=== PATIENT | female | born 1975 | race Caucasian/White ===

== ENCOUNTER 2018-12-05 21:36 | Emergency (ER) | payer SELFPAY ==
[2018-12-05] MEDS ORDERED: levETIRAcetam 500 MG/5 ML INJECTION VIAL IVPB ONE ×3 (21:53→23:57)
--- NOTE | 2018-12-05 21:55 | PDOC ---
Attending Attestation - Resident Resident Name: Abdiel Houston - ED Attending Attestation I have performed the following: I have examined & evaluated the patient, The case was reviewed & discussed with the resident, I agree w/resident's findings & plan - HPI HPI: 12/06/18 00:39 see resident hpi - Physicial Exam PE: 12/06/18 00:39 agree with resident exam additional Neuro: active seizure like activity, [place] with grunting moving all extremities, MS 5/5 12/06/18 00:40 - Critical Care Time Total Critical Care Time: 120 Critical Care Statement: The care of this patient involved high complexity decision making to prevent further life threatening deterioration of the patient 's condition and/or to evaluate & treat vital organ system(s) failure or risk of failure. - Medical Decision Making 12/06/18 00:41 43 yo female with multiple seizures CT brain c/w IPH with SAH, possible deep sinus venous thrombosis pt intubated due to multiple seizures and inability to protect airway using RSI IVF BP control with labetolol and nifedipine sedation with versed, propofol pt accepted by neurosurgery at [facility] after discussion with Dr Calvin who recommended transfer code red called,pt transported via ground
[2018-12-05 21:59] VITALS: BMI 23.0
[2018-12-05] MEDS ORDERED: MIDAZOLAM HCL 2 MG/2 ML SINGLE DOSE VIAL ONE ×4 (22:06→23:43)
[2018-12-05] MEDS ORDERED: RAPID SEQUENCE INTUBATION KIT NR ONE (22:07)
[2018-12-05] MEDS ORDERED: PROPOFOL 200 MG/20 ML VIAL IVPUSH ONE ×2 (22:30→23:19)
[2018-12-05] MEDS ORDERED: MIDAZOLAM 100 MG in SODIUM CHLORIDE 100 ML IVPB SCH ×2 (22:30→23:45)
[2018-12-05] MEDS ORDERED: MIDAZOLAM HCL 2 MG/2 ML SINGLE DOSE VIAL IVPUSH ONE ×4 (22:30→23:47)
[2018-12-05] MEDS ORDERED: ROCURONIUM BROMIDE 50 MG/5 ML VIAL IV ONE (22:30)
[2018-12-05 22:54] VITALS: TEMP 97.9
[2018-12-05] MEDS ORDERED: PROPOFOL 1,000,000 MCG/100 ML VIAL ONE (22:56)
[2018-12-05] MEDS ORDERED: PROPOFOL 1,000,000 MCG/100 ML VIAL IVPB SCH (23:00)
[2018-12-05] MEDS ORDERED: LABETALOL HCL 5 MG/1 ML (200MG/40ML VIAL) IVPB ONE (23:11)
[2018-12-05] MEDS ORDERED: NICARDIPINE 25 MG in DEXTROSE 5%-WATER - 240 ML IVPB SCH (23:15)
[2018-12-05] MEDS ORDERED: LABETALOL HCL 5 MG/1 ML (100MG/20 ML VIAL) IVPUSH ONE (23:17)
[2018-12-05 23:27] LABS: BASO % 0.4 % (0-2.0); HEMOGLOBIN 12.9 GM/dL (10.7-15.3); LYMPH % 10.3 % (8-40); MCH 26.2 pg (25.7-33.7); MCHC 30.7 g/dl (32.0-36.0); MEAN CELL VOLUME 85.4 fl (80-96); MEAN PLT VOLUME 8.7 fl (7.5-11.1); MONO % 5.9 % (3.8-10.2); NEUT % 83.4 % (42.8-82.8); PLATELET COUNT 331 K/MM3 (134-434); RBC 4.92 M/mm3 (3.60-5.2); RDW 19.2 % (11.6-15.6); WHITE BLOOD COUNT 20.4 K/mm3 (4.0-10.0)
[2018-12-05 23:47] LABS: INR 0.98 (0.83-1.09); PROTHROMBIN TIME (PATIENT) 11.6 SEC (9.7-13.0)
[2018-12-05 23:50] LABS: ACTIVATED PTT 21.3 SECONDS (25.2-36.5)
[2018-12-05 23:51] LABS: MAGNESIUM 2.6 mg/dL (1.8-2.4); PHOSPHOROUS 2.7 mg/dL (2.5-4.9)
--- NOTE | 2018-12-05 23:51 | PDOC ---
History of Present Illness <Gabriel Hernandez - Last Filed: 12/06/18 00:44> - General History Source: EMS Exam Limitations: No Limitations - History of Present Illness Initial Comments: 12/05/18 23:44 43F w/ pmh of HTN, alcohol abuse, seizure disorder BIBA after experiencing seizures x1 w/ urinary incontinence. Was found to be post-ictal by EMS. Formerly , sober but began drinking again. Unknown if taking seizure medications. Pt's boyfriend said that the patient was recently complaining of HORNER. In the J-ED, patient had myotonic seizures x2. Initial GCS ~7(E1, V2, M4) but improved to GCS ~9(E3, V2, M4). After the 2nd seizure, decision to intubate to protect the airway. <Abdiel Houston - Last Filed: 12/06/18 19:14> - General Chief Complaint: Seizure Stated Complaint: SEIZURE Time Seen by Provider: 12/05/18 21:54 Past History <Gabriel Hernandez - Last Filed: 12/06/18 00:44> - Travel Traveled outside of the country in the last 30 days: No Close contact w/someone who was outside of country & ill: No - Past Medical History Seizures: Yes - Suicide/Smoking/Psychosocial Hx Smoking History: Unknown if ever smoked Hx Alcohol Use: Yes <Abdiel Houston - Last Filed: 12/06/18 19:14> - Past Medical History Allergies/Adverse Reactions: Allergies Allergy/AdvReac Type Severity Reaction Status Date / Time No Known Allergies Allergy Verified 12/05/18 22:04 Review of Systems - Review of Systems Able to Perform ROS?: No (patient is post-ictal) <Abdiel Houston - Last Filed: 12/06/18 19:14> *Physical Exam - Vital Signs Last Vital Signs Temp Pulse Resp BP Pulse Ox 97.9 F 114 H 30 H 150/104 H 96 12/05/18 21:57 12/06/18 00:13 12/06/18 00:13 12/06/18 00:13 12/06/18 00:13 <Gabriel Hernandez - Last Filed: 12/06/18 00:44> - Vital Signs Last Vital Signs Temp Pulse Resp BP Pulse Ox 97.9 F 150 H 20 158/91 100 12/05/18 21:57 12/05/18 22:15 12/05/18 22:15 12/05/18 21:57 12/05/18 22:15 - Physical Exam HEENT: positive: COLE (pupils 4mm - 3mm), Other (NC, AT. Multiple tongue bites) . negative: Pale Conjunctivae, Scleral Icterus (R), Scleral Icterus (L) Neck: positive: Trachea midline. negative: Lymphadenopathy (R), Lymphadenopathy (L) Respiratory/Chest: negative: Chest Tender, Labored Respiration, Decreased Breath Sounds, Crackles, Stridor, Wheezing Cardiovascular: positive: S1, S2, Tachycardia Vascular Pulses: Carotid (R): 2+, Carotid (L): 2+, Dorsalis-Pedis (R): 2+, Doralis-Pedis (L): 2+ Comments:: 12/05/18 23:53 radials 2+ pulses Female Pelvic Exam: positive: normal external exam Gastrointestinal/Abdominal: positive: Soft, Distended, Guarding, Rebound, Tenderness Extremity: positive: Normal Inspection, Normal Range of Motion, Other (no abrasions to elbows, knees) Integumentary: positive: Dry, Warm Neurologic: positive: Respond to painful stimul, Other (max GCS ~9) <Abdiel Houston - Last Filed: 12/06/18 19:14> Procedures - Intubation Time of Intubation: 09:30 Intubation Method: orotracheal Blade used: Mac Tube Size (Fr): 7.0 Medications: Rocuronium, Versed Tube position @ lip (cm): 20 Tube position confirmed by: Direct visualization, CO2 detector, Chest x-ray, Breath sounds Breath Sounds after Intubation: equal Intubation Complications: no complications Post Intubation Xray: Yes <Gabriel Hernandez - Last Filed: 12/06/18 00:44> ED Treatment Course - LABORATORY CBC & Chemistry Diagram: 12/05/18 23:15 - ADDITIONAL ORDERS Additional order review: Laboratory Results 12/05/18 12/05/18 12/05/18 23:15 23:15 23:15 PT with INR 11.60 INR 0.98 PTT (Actin FS) 21.3 L POC Glucometer Phosphorus 2.7 Magnesium Cancelled 2.6 H Troponin I < 0.02 Alcohol, Quantitative < 3.0 12/05/18 22:49 PT with INR INR PTT (Actin FS) POC Glucometer 126 Phosphorus Magnesium Troponin I Alcohol, Quantitative 12/05/18 12/05/18 23:15 22:49 RBC 4.92 MCV 85.4 MCHC 30.7 L RDW 19.2 H MPV 8.7 Neutrophils % 83.4 H Lymphocytes % 10.3 Monocytes % 5.9 Eosinophils % 0.0 Basophils % 0.4 POC Glucometer 126 - Medications Given in the ED: ED Medications Discontinued Medications Generic Name Dose Route Start Last Admin Trade Name Mireille PRN Reason Stop Dose Admin Midazolam HCl 100 mg/ Sodium 100 mls @ 1 mls/hr 12/05/18 22:30 12/05/18 23:08 Chloride IVPB Not Given TITR WADE Protocol 1 MG/HR Labetalol HCl 20 mg 12/05/18 23:17 12/05/18 23:30 Normodyne Injection - IVPUSH 12/05/18 23:18 20 mg ONCE ONE Administration Levetiracetam 1,000 mg 12/05/18 21:56 12/05/18 22:04 Keppra Injection - IVPB 12/05/18 21:57 1,000 mg ONCE ONE Administration Midazolam HCl 4 mg 12/05/18 22:30 12/05/18 22:55 Versed - IVPUSH 12/05/18 22:31 4 mg ONCE ONE Administration Midazolam HCl 4 mg 12/05/18 22:31 12/05/18 22:55 Versed - IVPUSH 12/05/18 22:32 4 mg ONCE ONE Administration Midazolam HCl 4 mg 12/05/18 23:47 12/05/18 23:49 Versed - IVPUSH 12/05/18 23:48 4 mg ONCE ONE Administration Propofol 40,000 mcg 12/05/18 22:30 12/05/18 22:54 Diprivan - IVPUSH 12/05/18 22:31 40,000 mcg ONCE ONE Administration Propofol 40,000 mcg 12/05/18 23:19 12/05/18 23:30 Diprivan - IVPUSH 12/05/18 23:20 40,000 mcg ONCE ONE Administration Rocuronium [place] 60 mg 12/05/18 22:30 12/05/18 22:55 Zemuron - IV 12/05/18 22:31 60 mg ONCE ONE Administration Gabriel Rodriguez - Last Filed: 12/06/18 00:44> - LABORATORY CBC & Chemistry Diagram: 12/05/18 23:15 - ADDITIONAL ORDERS Additional order review: Laboratory Results 12/05/18 12/05/18 23:15 22:49 POC Glucometer 126 Magnesium Cancelled 12/05/18 12/05/18 23:15 22:49 RBC 4.92 MCV 85.4 MCHC 30.7 L RDW 19.2 H MPV 8.7 Neutrophils % 83.4 H Lymphocytes % 10.3 Monocytes % 5.9 Eosinophils % 0.0 Basophils % 0.4 POC Glucometer 126 - Medications Given in the ED: ED Medications Discontinued Medications Generic Name Dose Route Start Last Admin Trade Name Freq PRN Reason Stop Dose Admin Midazolam HCl 100 mg/ Sodium 100 mls @ 1 mls/hr 12/05/18 22:30 12/05/18 23:08 Chloride IVPB Not Given TITR WADE Protocol 1 MG/HR Labetalol HCl 20 mg 12/05/18 23:17 12/05/18 23:30 Normodyne Injection - IVPUSH 12/05/18 23:18 20 mg ONCE ONE Administration Levetiracetam 1,000 mg 12/05/18 21:56 12/05/18 22:04 Keppra Injection - IVPB 12/05/18 21:57 1,000 mg ONCE ONE Administration Midazolam HCl 4 mg 12/05/18 22:30 12/05/18 22:55 Versed - IVPUSH 12/05/18 22:31 4 mg ONCE ONE Administration Midazolam HCl 4 mg 12/05/18 22:31 12/05/18 22:55 Versed - IVPUSH 12/05/18 22:32 4 mg ONCE ONE Administration Propofol 40,000 mcg 12/05/18 22:30 12/05/18 22:54 Diprivan - IVPUSH 12/05/18 22:31 40,000 mcg ONCE ONE Administration Propofol 40,000 mcg 12/05/18 23:19 12/05/18 23:30 Diprivan - IVPUSH 12/05/18 23:20 40,000 mcg ONCE ONE Administration Rocuronium [place] 60 mg 12/05/18 22:30 12/05/18 22:55 Zemuron - IV 12/05/18 22:31 60 mg ONCE ONE Administration <Abdiel Houston - Last Filed: 12/06/18 19:14> Medical Decision Making - Medical Decision Making 12/05/18 23:54 - initial vitals HR 89, BP 158/91, RR 23 - patient became tachycardic to 120-150s, hypertensive to SBP >200s after second seizures - intubation w/ 7Fr ET, 20cm at lips - sedation w/ propofol and precedex - keprra 1g - CT head showing intracranial bleed(left posterior) - On-call Nsx(Dr Calvin) consulted and recommended transfer to [facility] - decision to transfer to [facility](Dr Powers accepted) with recommendation of SBP 120-140s, elevate HOB, another keppra 1g - Patient's brother Steve Esparza([phone]) was contacted and made aware of the ED course and decision to transfer <Abdiel Houston - Last Filed: 12/06/18 19:14> *DC/Admit/Observation/Transfer <Gabriel Hernandez - Last Filed: 12/06/18 00:44> - Discharge Dispostion Decision to Admit order: No - Transfer to Acute Care Facility Receiving Facility: [facility]. <Abdiel Houston - Last Filed: 12/06/18 19:14> Diagnosis at time of Disposition: Seizure - Discharge Dispostion Disposition: TRANSFER ACUTE CARE/OTHER HOSP Condition at time of disposition: Stable
[2018-12-06] MEDS ORDERED: levETIRAcetam 500 MG/5 ML INJECTION VIAL IVPB ONE (00:26)
[2018-12-06] MEDS ORDERED: RAPID SEQUENCE INTUBATION KIT NR ONE (00:27)
[2018-12-06] MEDS ORDERED: ROCURONIUM BROMIDE 50 MG/5 ML VIAL IV ONE (00:27)
[2018-12-06] MEDS ORDERED: PROPOFOL 1,000,000 MCG/100 ML VIAL ONE (00:34)
[2018-12-06 00:47] LABS: ANISOCYTOSIS 1+; MACROCYTOSIS 0; OVALOCYTE 1+; PLATELET ESTIMATE NORMAL
[2018-12-06] MEDS ORDERED: PROPOFOL 200 MG/20 ML VIAL IVPUSH ONE (00:53)
[2018-12-06 02:34] VITALS: BP 158/91
[2018-12-06 02:48] VITALS: PULSE 101
== END 2018-12-06 00:45 | disposition short-term general hospital (02) ==
LOC: JER 21:36
PROC: 0BH17EZ Insertion of Endotracheal Airway into Trachea, Via Natural or Artificial Opening (ICD-10-PCS; principal; 2018-12-05)
PROC: 3E033GC Introduction of Other Therapeutic Substance into Peripheral Vein, Percutaneous Approach (ICD-10-PCS; 2018-12-05)
DX: G40.89 Other seizures (principal); I10 Essential (primary) hypertension; F10.10 Alcohol abuse, uncomplicated; R00.0 Tachycardia, unspecified; I61.8 Other nontraumatic intracerebral hemorrhage
CPT/HCPCS: 36415; 70450-TC; 71045-TC-FY; 72125-TC; 80177; 80307; 82962; 83605; 83735; 84100; 84484; 85025; 85610; 85730; 87086; 99285-25

== ENCOUNTER 2019-02-07 14:20 | Emergency (ER) | payer OTHER ==
--- NOTE | 2019-02-07 14:27 | PDOC ---
Rapid Medical Evaluation Chief Complaint: Lightheaded Time Seen by Provider: 02/07/19 14:24 Medical Evaluation: Allergies Allergy/AdvReac Type Severity Reaction Status Date / Time No Known Allergies Allergy Verified 02/07/19 14:25 02/07/19 14:25 CC: CP, SOB dizziness PE: lateral nystagmus present Orders: cardiac w/u Patient will proceed to ED for further evaluation. Discharge Disposition - Diagnosis Chest pain - Referrals - Patient Instructions - Post Discharge Activity
[2019-02-07 14:29] VITALS: BMI 21.2
[2019-02-07 15:02] LABS: URINE APPEARANCE CLEAR; URINE BILIRUBIN NEGATIVE (NEGATIVE); URINE COLOR YELLOW; URINE GLUCOSE (UA) NEGATIVE (NEGATIVE); URINE KETONE NEGATIVE (NEGATIVE); URINE LEUK ESTERASE NEGATIVE (NEGATIVE); URINE NITRITE NEGATIVE (NEGATIVE); URINE PROTEIN NEGATIVE (NEGATIVE); URINE UROBILINOGEN 0.2 mg/dL (0.2-1.0)
[2019-02-07 15:05] LABS: BASO % 0.8 % (0-2.0); EOS % 12.9 % (0-4.5); HEMATOCRIT 36.4 % (32.4-45.2); HEMOGLOBIN 11.5 GM/dL (10.7-15.3); LYMPH % 36.1 % (8-40); MCH 24.8 pg (25.7-33.7); MCHC 31.5 g/dl (32.0-36.0); MEAN CELL VOLUME 78.8 fl (80-96); MEAN PLT VOLUME 8.5 fl (7.5-11.1); MONO % 7.7 % (3.8-10.2); NEUT % 42.5 % (42.8-82.8); PLATELET COUNT 303 K/MM3 (134-434); RBC 4.62 M/mm3 (3.60-5.2); RDW 18.1 % (11.6-15.6); WHITE BLOOD COUNT 6.8 K/mm3 (4.0-10.0)
[2019-02-07 15:21] LABS: INR 2.8 (0.83-1.09); PROTHROMBIN TIME (PATIENT) 33.4 SEC (9.7-13.0)
[2019-02-07 15:36] LABS: ALBUMIN 3.8 g/dl (3.4-5.0); ALK PHOS 98 U/L (45-117); ANION GAP 6 MMOL/L (8-16); BILIRUBIN,TOTAL 0.2 mg/dL (0.2-1); CALCIUM 9.1 mg/dL (8.5-10.1); CHLORIDE 108 mmol/L (98-107); CO2 26 mmol/L (21-32); CREATININE 0.7 mg/dL (0.55-1.3); GLUCOSE,RANDOM 108 mg/dL (74-106); POTASSIUM 3.9 mmol/L (3.5-5.1); SGOT/AST 25 U/L (15-37); SGPT/ALT 14 U/L (13-61); SODIUM 140 mmol/L (136-145); TOT PROT 7.8 g/dl (6.4-8.2)
--- NOTE | 2019-02-07 15:54 | PDOC ---
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 She also admits to have not taken any of her medication this morning. Also admits to have drunk one beer this morning. Never head neurology follow up as her insurance didn't cover the neurologist given to her at discharge. Past History - Past Medical History Allergies/Adverse Reactions: Allergies Allergy/AdvReac Type Severity Reaction Status Date / Time No Known Allergies Allergy Verified 02/07/19 14:25 Home Medications: Ambulatory Orders Aspirin [ASA -] 325 mg PO DAILY 02/07/19 Atorvastatin Ca [Lipitor] 40 mg PO HS 02/07/19 Metoprolol Succinate 25 mg PO DAILY 02/07/19 COPD: No HTN: Yes Seizures: Yes - Immunization History Immunization Up to Date: Yes - Psycho Social/Smoking Cessation Hx Smoking History: Never smoked Hx Alcohol Use: No Drug/Substance Use Hx: No Review of Systems - Review of Systems Able to Perform ROS?: Yes Is the patient limited Wolof proficient: No Constitutional: No: Symptoms Reported HEENTM: No: Symptoms Reported Respiratory: No: Symptoms reported Cardiac (ROS): Yes: See HPI ABD/GI: No: Symptoms Reported : No: Symptoms Reported Musculoskeletal: No: Symptoms Reported Integumentary: No: Symptoms Reported Neurological: Yes: See HPI All Other Systems: Reviewed and Negative *Physical Exam - Vital Signs Last Vital Signs Temp Pulse Resp BP Pulse Ox 98.2 F 85 17 176/101 H 100 02/07/19 14:26 02/07/19 14:26 02/07/19 14:26 02/07/19 14:26 02/07/19 14:26 - Physical Exam General Appearance: Yes: Nourished, Appropriately Dressed. No: Apparent Distress HEENT: positive: EOMI, COLE, Normal ENT Inspection Respiratory/Chest: positive: Lungs Clear, Normal Breath Sounds. negative: Chest Tender, Respiratory Distress Cardiovascular: positive: Regular Rhythm, Regular Rate, S1, S2 Gastrointestinal/Abdominal: positive: Normal Bowel Sounds, Flat, Soft. negative : Tender Musculoskeletal: positive: Normal Inspection. negative: CVA Tenderness Extremity: positive: Normal Capillary Refill, Normal Inspection, Normal Range of Motion Integumentary: positive: Normal Color, Dry, Warm Neurologic: positive: Fully Oriented, Alert, Normal Mood/Affect, Normal Response ED Treatment Course - LABORATORY CBC & Chemistry Diagram: 02/07/19 14:44 02/07/19 14:44 - ADDITIONAL ORDERS Additional order review: Laboratory Results 02/07/19 02/07/19 02/07/19 14:44 14:44 14:44 PT with INR 33.40 H INR 2.80 H Sodium Potassium Chloride Carbon Dioxide Anion Gap BUN Creatinine Est GFR (CKD-EPI)AfAm Est GFR (CKD-EPI)NonAf Random Glucose Calcium Total Bilirubin AST ALT Alkaline Phosphatase Creatine Kinase Troponin I Total Protein Albumin Urine Color Yellow Urine Appearance Clear Urine pH 7.0 Ur Specific [place] 1.003 L Urine Protein Negative Urine Glucose (UA) Negative Urine Ketones Negative Urine Blood Negative Urine Nitrite Negative Urine Bilirubin Negative Urine Urobilinogen 0.2 Ur Leukocyte Esterase Negative Urine HCG, Qual Negative 02/07/19 02/07/19 14:44 14:44 PT with INR INR Sodium 140 Potassium 3.9 Chloride 108 H Carbon Dioxide 26 Anion Gap 6 L BUN 5.0 L Creatinine 0.7 Est GFR (CKD-EPI)AfAm 123.86 Est GFR (CKD-EPI)NonAf 106.87 Random Glucose 108 H Calcium 9.1 Total Bilirubin 0.2 AST 25 ALT 14 Alkaline Phosphatase 98 Creatine Kinase 52 Cancelled Troponin I < 0.02 Cancelled Total Protein 7.8 Albumin 3.8 Urine Color Urine Appearance Urine pH Ur Specific [place] Urine Protein Urine Glucose (UA) Urine Ketones Urine Blood Urine Nitrite Urine Bilirubin Urine Urobilinogen Ur Leukocyte Esterase Urine HCG, Qual 02/07/19 14:44 RBC 4.62 MCV 78.8 L MCHC 31.5 L RDW 18.1 H MPV 8.5 Neutrophils % 42.5 L D Lymphocytes % 36.1 D Monocytes % 7.7 Eosinophils % 12.9 H D Basophils % 0.8 - RADIOLOGY Radiology Studies Ordered: Category Date Time Status HEAD CT WITHOUT CONTRAST [CT] Stat CT Scan 02/07/19 15:43 Ordered Medical Decision Making - Medical Decision Making 02/07/19 16:28 44F w/ pmh of HTN, alcohol abuse, seizure disorder 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 Will check ct head to make sure shes not bleeding again as the ource of her headache. Will check troponins as we has a known clotting disorder. CT head: There is no evidence of acute intracranial hemorrhage, mass lesions or infarctions. There is an area of hypodensity within the left posterior temporal lobe consistent with an old hemorrhagic infarct. The visualized paranasal sinuses and mastoid air cells are clear. 02/07/19 17:59 Patient feels much better after administration of saline, tylenol and reglan. Ok to dc with neurological follow up. Discharge - Discharge Information Problems reviewed: Yes Clinical Impression/Diagnosis: Dizziness, Headache Condition: Improved Disposition: HOME - Admission No - Follow up/Referral Referrals: ON STAFF,NOT [Primary Care Provider] - Ashu Motley MD [Staff Physician] - Pavel Betts MD [Staff Physician] - Claus Bradshaw MD [Staff Physician] - Perry Rubio MD [Staff Physician] - Yung Echevarria MD [Staff Physician] - Camille Munroe MD [Staff Physician] - - Patient Discharge Instructions Patient Printed Discharge Instructions: DI for Migraine Additional Instructions: Follow up with any of the neurologists provided here. Come back to the emergency department immediately for any new, worsening or concerning symptoms. - Post Discharge Activity
[2019-02-07] MEDS ORDERED: ACETAMINOPHEN 1000 MG/100 ML VIAL (NON FORMULARY) IVPB ONE (15:56)
[2019-02-07] MEDS ORDERED: SODIUM CHLORIDE 1,000 ML IV STA (15:57)
[2019-02-07] MEDS ORDERED: METOCLOPRAMIDE HCL INJECTION 10 MG/2 ML VIAL IVPUSH ONE (15:57)
--- NOTE | 2019-02-07 16:00 | PDOC ---
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 dizziness started last night. she admits to drinking 1 bottle of beer last night. she also did not sleep last night, has been "running around all day" going to see her mother. compliant with her medications: metoprolol, atorvastatin, ASA and warfarin. no fevers, no seizure, confusion/AMS, no cough or congestion, weakness, paresthesias, n/v, urinary sx. no difficulty walking. no meds taken for headache. - Physicial Exam PE: 02/07/19 16:00 Agree with the resident's HPI and PE as documented in the electronic medical record. NAD, well appearing, EOMI, PERRL, nl conjunctiva, anicteric; neck supple. lungs clear, RRR, abdomen soft nontender. no rebound, guarding. Back nontender. HUA x4, no focal neuro deficits. No peripheral edema. normal color for ethnicity , WWP. Alert, oriented to person time and place. CN II-XII grossly intact. Strength prox and distally 5/5 throughout. Sensation grossly intact to light touch. HUA x4. No cerebellar signs, no dysmetria, bilateral finger to nose and heel to cisneros equal and symmetric. Speech clear. 02/07/19 16:00 - Medical Decision Making 02/07/19 16:00 Vital Signs Temp Pulse Resp BP Pulse Ox 98.2 F 85 17 176/101 H 100 02/07/19 14:26 02/07/19 14:26 02/07/19 14:26 02/07/19 14:26 02/07/19 14:26 Laboratory results are normal, INR is therapeutic 2.8, electrolytes normal troponin is negative, UA is also unremarkable. neg preg test. CT head with left posterior old hemorrhagic infarct, no new bleed or mass interventions: IVF reglan and tylenol, reassess neuro intact. repeat BP improved feels much better after regimen on reeval, down to 09/24 neuro referrals given avoid triggers for headache, enough sleep, avoid alcohol and precipitants. Pt to be discharged in stable condition. Patient and family made aware of clinical impression, treatment recommendations and disposition plan, return precautions discussed (including but not limited to new or persistent/worsening symptoms, pain, fevers, or signs of infection, chest pain, respiratory distress , inability to tolerate oral intake, dehydration, syncope, or neurologic changes ). Follow up with PMD and/or neuro specialists as recommended, follow up information provided, take medications as instructed for duration of time. continue with supportive care, avoid triggers and precipitants. All questions answered to patient's satisfaction and expressed understanding and comfort with this. At the time of discharge, the patient is alert, clinically improved, tolerating po and verbalizes understanding of instructions, satisfied with the care received and felt comfortable with the plan. Patient does not suffer from an acute life-threatening medical condition at this time and is safe for outpatient follow-up. 02/07/19 17:09 02/07/19 17:10 02/07/19 18:01 Heart Score/ECG Review #1 ECG reviewed & interpreted by me at: 14:20 General ECG Interpretation: Sinus Rhythm, Normal Rate, Normal Intervals Compared to previous ECG there are: Previous ECG unavail 02/07/19 16:27 rate 66 bpm, nonspecific T wave abnormalities AVL only
[2019-02-07] MEDS ORDERED: ACETAMINOPHEN INJECTION 100 ML IVPB ONE (16:28)
[2019-02-07] MEDS ORDERED: METOCLOPRAMIDE HCL INJECTION 10 MG/2 ML VIAL ONE (16:28)
[2019-02-07 18:18] VITALS: BP 130/78; PULSE 88; TEMP 97.9
--- NOTE | 2019-02-08 13:34 | EKG ---
Test Reason : Blood Pressure : / mmHG Vent. Rate : 066 BPM Atrial Rate : 066 BPM P-R Int : 136 ms QRS Dur : 070 ms QT Int : 388 ms P-R-T Axes : 058 050 068 degrees QTc Int : 406 ms NORMAL SINUS RHYTHM POSSIBLE LEFT ATRIAL ENLARGEMENT SEPTAL INFARCT , AGE UNDETERMINED ABNORMAL ECG NO PREVIOUS ECGS AVAILABLE Confirmed by EMILEE WHITE MD ([id number]) on 02/08/2019 1:33:54 PM Referred By: Confirmed By:EMILEE WHITE MD
== END 2019-02-07 18:18 | disposition home or self-care (01) ==
LOC: JER 14:20
DX: R42 Dizziness and giddiness (principal); R51 Headache; I10 Essential (primary) hypertension; G40.909 Epilepsy, unspecified, not intractable, without status epilepticus; F10.10 Alcohol abuse, uncomplicated; Z86.73 Personal history of transient ischemic attack (TIA), and cerebral infarction without residual deficits
CPT/HCPCS: 36415; 70450-TC; 71046-TC-FY; 80053; 80307; 81003; 82550; 84484; 84703; 85025; 85610; 86850; 86900; 86901; 93005; 93010; 99284-25; J0131; J7030

== ENCOUNTER 2019-02-24 15:18 | Inpatient (IN) | payer OTHER ==
[2019-02-24] MEDS ORDERED: PROPOFOL 0 ML ONE (15:22)
[2019-02-24] MEDS ORDERED: PROPOFOL 2,000,000 MCG/200 ML VIAL ONE (15:22)
[2019-02-24] MEDS ORDERED: PROPOFOL 20 ML ONE (15:43)
[2019-02-24] MEDS ORDERED: fentaNYL CITRATE 250 MCG/5 ML VIAL ONE (16:08)
[2019-02-24] MEDS ORDERED: levETIRAcetam 500 MG/5 ML INJECTION VIAL IVPB ONE (16:09)
[2019-02-24] MEDS ORDERED: ETOMIDATE 40 MG/20 ML VIAL IVPUSH ONE (16:10)
[2019-02-24] MEDS ORDERED: SUCCINYLCHOLINE CHLORIDE 200 MG/10 ML VIAL IVPUSH ONE (16:11)
--- NOTE | 2019-02-24 16:21 | PDOC ---
Documentation entered by Ivet Britt SCRIBE, acting as scribe for Kanwal Ramírez MD. Kanwal Ramírez MD: This documentation has been prepared by the Lorenza lloyd Nirvannie, SCRIBE, under my direction and personally reviewed by me in its entirety. I confirm that the documentation accurately reflects all work, treatment, procedures, and medical decision making performed by me. Attending Attestation - Resident Resident Name: HallSkylar aguilar - HPI HPI: 02/24/19 16:11 Pt presents to the ED after brought in by her for rigid posturing and altered mental status. Patient apparently complained of severe headache and then was found by her awake but unable to speak with a rigid R arm and awake but unable to speak. Extremely hypertensive on arrival to the ED. On arrival to the ED, found to have tonic clonic movements, hypoxic, with clenched jaw and bleeding from the mouth. Patient continued to seize despite keppra 1 g and ativan 4 mg IV. Intubated for status epilepticus. - Physicial Exam PE: 02/24/19 16:15 Agree with resident exam. Gen: + tonic clonic movements on arrival to the ED, clenched jaw, and hypoxia. HEENT: normocephalic, atraumatic. CV: rrr no m/r/g Pulm: + rhonchi b/l. Abdomen: soft, non tender, non distended. Ext: atraumatic , no edema. - Critical Care Time Total Critical Care Time: 45 Critical Care Statement: The care of this patient involved high complexity decision making to prevent further life threatening deterioration of the patient 's condition and/or to evaluate & treat vital organ system(s) failure or risk of failure. - Medical Decision Making 02/24/19 16:18 Pt presents to the ED in status epilepticus. No response to keppra and ativan. Intubated in the ED. Case discussed with Dr. Munroe who recommends that the paitent remain intubated in the ICU. Dr. Munroe asks to be called for recurrent seizures. Will continue sedation with propofol and fentanyl and admit to ICU.
[2019-02-24] MEDS ORDERED: MIDAZOLAM IN 0.9 % SOD.CHLORID 1 MG/1 ML PLAST..BAG ONE (16:23)
[2019-02-24 16:34] LABS: BASO % 0.9 % (0-2.0); EOS % 11.3 % (0-4.5); HEMATOCRIT 36.6 % (32.4-45.2); HEMOGLOBIN 11.2 GM/dL (10.7-15.3); LYMPH % 25.2 % (8-40); MCH 24.4 pg (25.7-33.7); MCHC 30.7 g/dl (32.0-36.0); MEAN CELL VOLUME 79.4 fl (80-96); MEAN PLT VOLUME 8.5 fl (7.5-11.1); MONO % 6.1 % (3.8-10.2); NEUT % 56.5 % (42.8-82.8); PLATELET COUNT 273 K/MM3 (134-434); RBC 4.61 M/mm3 (3.60-5.2); RDW 17.6 % (11.6-15.6); WHITE BLOOD COUNT 10.4 K/mm3 (4.0-10.0)
[2019-02-24 16:38] LABS: EPI CELLS 1.4 /HPF (0-5/HPF); HYALINE CASTS 4 /lpf (0-8); PH,URINE 5.5 (5.0-8.0); URINE APPEARANCE CLEAR; URINE BACTERIA 15.8 /hpf (NEGATIVE); URINE BILIRUBIN NEGATIVE (NEGATIVE); URINE COLOR YELLOW; URINE GLUCOSE (UA) NEGATIVE (NEGATIVE); URINE KETONE NEGATIVE (NEGATIVE); URINE LEUK ESTERASE NEGATIVE (NEGATIVE); URINE NITRITE NEGATIVE (NEGATIVE); URINE PROTEIN 2+ (NEGATIVE); URINE RBC 8 /hpf (0-4); URINE UROBILINOGEN 0.2 mg/dL (0.2-1.0); URINE WBC 1 /hpf (0-5)
[2019-02-24 16:47] LABS: INR 3.33 (0.83-1.09); PROTHROMBIN TIME (PATIENT) 39.8 SEC (9.7-13.0)
[2019-02-24 16:49] LABS: ACTIVATED PTT 40.8 SECONDS (25.2-36.5)
--- NOTE | 2019-02-24 16:53 | PDOC ---
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 reports that patient had been complaining of headaches for the past day which had been worsening, they had just agreed to come into the ER. The patient reportedly confirmed that she wanted an ambulance called, then became unresponsive and began having seizure like activity. Patient BIBEMS into ER and shortly thereafter begins having generalized tonic clonic seizures. Unable to gather any history from patient. reports that patient has beers hidden through the house and does not know how much she drinks or when she last drank. Past History - Past Medical History Allergies/Adverse Reactions: Allergies Allergy/AdvReac Type Severity Reaction Status Date / Time No Known Allergies Allergy Verified 02/07/19 14:25 Home Medications: Ambulatory Orders Aspirin [ASA -] 325 mg PO DAILY 02/07/19 Atorvastatin Ca [Lipitor] 40 mg PO HS 02/07/19 Metoprolol Succinate 25 mg PO DAILY 02/07/19 Coumadin 3 mg PO DAILY 02/26/19 CVA: Yes (CVA) COPD: No HTN: Yes Seizures: Yes - Immunization History Immunization Up to Date: Yes - Psycho Social/Smoking Cessation Hx Smoking History: Unknown if ever smoked Have you smoked in the past 12 months: No Information on smoking cessation initiated: No Hx Alcohol Use: No Drug/Substance Use Hx: No Review of Systems - Review of Systems Able to Perform ROS?: No (clinical condition) *Physical Exam - Vital Signs Last Vital Signs Temp Pulse Resp BP Pulse Ox 98.2 F 121 H 12 220/112 H 100 02/24/19 15:18 02/24/19 15:18 02/24/19 15:20 02/24/19 15:18 02/24/19 16:18 - Physical Exam Comments: 02/24/19 19:08 Gen: patient unresponsive, not alert Neuro: unable to assess cranial nerves, patient unresponsive to orientation questions, patient moving limbs spontaneously, pupils about 1mm and minimally reactive to light without skew HEENT: atraumatic, normocephalic, dry mucous membranes Neck: trachea midline, supple CV: tachycardic, regular rhythm, no murmurs, rubs, or gallops Pulm: CTA b/l, no wheezing Abd: soft, non-distended, non-tender MSK: rigid extremities, intact pulses Extr: no edema, no deformities Skin: warm, dry ED Treatment Course - LABORATORY CBC & Chemistry Diagram: 02/28/19 06:40 02/28/19 06:40 - ADDITIONAL ORDERS Additional order review: Laboratory Results 02/24/19 02/24/19 16:00 16:00 PT with INR 39.80 H INR 3.33 H PTT (Actin FS) 40.8 H Urine Color Yellow Urine Appearance Clear Urine pH 5.5 D Ur Specific [place] 1.014 Urine Protein 2+ H Urine Glucose (UA) Negative Urine Ketones Negative Urine Blood 1+ H Urine Nitrite Negative Urine Bilirubin Negative Urine Urobilinogen 0.2 Ur Leukocyte Esterase Negative Urine WBC (Auto) 1 Urine RBC (Auto) 8 Urine Casts (Auto) 4 U Epithel Cells (Auto) 1.4 Urine Bacteria (Auto) 15.8 02/24/19 16:00 RBC 4.61 MCV 79.4 L MCHC 30.7 L RDW 17.6 H MPV 8.5 Neutrophils % 56.5 D Lymphocytes % 25.2 D Monocytes % 6.1 Eosinophils % 11.3 H Basophils % 0.9 - Medications Given in the ED: ED Medications Discontinued Medications Generic Name Dose Route Start Last Admin Trade Name Freq PRN Reason Stop Dose Admin Etomidate 20 mg 02/24/19 16:10 02/24/19 16:17 Amidate - IVPUSH 02/24/19 16:11 20 mg NOW ONE Administration Levetiracetam 1,000 mg 02/24/19 16:09 02/24/19 16:17 Keppra Injection - IVPB 02/24/19 16:10 1,000 mg ONCE ONE Administration Lorazepam 4 mg 02/24/19 16:09 02/24/19 16:17 Ativan Injection - IVPUSH 02/24/19 16:10 4 mg ONCE ONE Administration Succinylcholine Chloride 200 mg 02/24/19 16:11 02/24/19 16:17 Quelicin - IVPUSH 02/24/19 16:12 200 mg ONCE ONE Administration Medical Decision Making - Critical Care Time Total Critical Care Time (minutes): 120 Critical Care Statement: The care of this patient involved high complexity decision making to prevent further life threatening deterioration of the patient 's condition and/or to evaluate & treat vital organ system(s) failure or risk of failure. - Medical Decision Making 02/24/19 18:30 Patient with history of seizure 2/2 stroke, hypercoagulable on coumadin. - CT head without acute bleed or mass - INR 3.33 - CBC, CMP - Lactate 9.3. - UTox positive for cocaine. 02/24/19 18:45 Course: Patient frankly seizing upon arrival to the ED. Did not respond to 4mg of Ativan and 1000mg of Keppra. Patient intubated using 20 of etomidate and 100mg X2 of succinylcholine, tube 22 at the lip. Patient with vomitus, suspicious for possible aspiration. Started propofol drip at 5, started on ventilator, then transported to CT head. While on table, patient with more seizure like activity and propofol drip increased to 10. Patient back into ER bed 10, begin fentanyl in addition to propofol. Patient then became hypotensive, all drips stopped and fluids started. Patient began to wake up and pulled out her NG tube, pressures holding, so she was started back on midazolam. ICU was consulted and patient was admitted to ICU. Discharge - Discharge Information Problems reviewed: Yes Clinical Impression/Diagnosis: Seizure - Follow up/Referral - Patient Discharge Instructions - Post Discharge Activity
[2019-02-24 17:01] LABS: ALBUMIN 3.6 g/dl (3.4-5.0); BILIRUBIN,TOTAL 0.2 mg/dL (0.2-1); BLOOD UREA NITROGEN 13.2 mg/dL (7-18); CALCIUM 8.6 mg/dL (8.5-10.1); CREATININE 1.3 mg/dL (0.55-1.3); MAGNESIUM 2.5 mg/dL (1.8-2.4); POTASSIUM 4.4 mmol/L (3.5-5.1); TOT PROT 7.6 g/dl (6.4-8.2)
[2019-02-24 17:13] LABS: ARTERIAL BLD GAS O2 SATURATION 99.7 % (95-98); ARTERIAL BLOOD GAS BASE EXCESS -2.8 meq/l (-2-2); ARTERIAL BLOOD GAS PCO2 48.5 mmHg (35-45); ARTERIAL BLOOD GAS PO2 325 mmHg (80-100); CARBOXYHEMOGLOBIN 0.5 % (0-2)
[2019-02-24 17:15] LABS: ALLENS TEST POSITIVE
[2019-02-24] MEDS ORDERED: MIDAZOLAM HCL 2 MG/2 ML SINGLE DOSE VIAL ONE ×3 (17:15→18:32)
[2019-02-24 17:16] LABS: METHADONE, UR NEGATIVE ng/ml (CUTOFF=300); OPIATES, URI NEGATIVE ng/ml (CUTOFF=300); PHENCYCLIDINE,URINE NEGATIVE ng/ml (CUTOFF=25); URINE AMPHETAMINES NEGATIVE ng/ml (CUTOFF=500); URINE BARBITURATES NEGATIVE ng/ml (CUTOFF=200); URINE BENZODIAZEPINES NEGATIVE ng/ml (CUTOFF=200)
[2019-02-24 17:18] LABS: COCAINE, UR POSITIVE ng/ml (CUTOFF=300)
--- NOTE | 2019-02-24 17:22 | CONSULT ---
Consultation: REQUESTING PROVIDER: CONSULT REQUEST: ICU HISTORY OF PRESENT ILLNESS: Ashley Sanchez is a 44yF w PMHx HTN, alcohol abuse, hypercoagulable, recent dural venous sinus thrombosis, hemorrhagic stroke 3mo ago, seizure, presenting with seizure. Pt was sedated on examination and unable to provide hx. Per boyfriend, pt complained of severe headache, found by boyfriend unable to speak or move R arm. On arrival at ED, pt was hypertensive, had tonic clonic mvmnt, hypoxic, clenched jaw, bleeding from mouth. Continued to seize after keppra, etomidate, and ativan, subsequently sedated w propofol, intubated for status epilepticus. Also given versed and fentanyl after intubation. Utox positive for cocaine. Was transferred from [facility] to [facility] on 12/26/18 for GTC seizure. CTH showed L sided ICH/SAH, CT venogram showed L transverse and sigmoid sinus dural venous sinus thrombosis extending into L IJV, workup showed hypercoagulable state + for beta-2 glycoprotein. D/c on coumadin for AC, metoprolol and prinivil for HTN, albuterol for SOB. REVIEW OF SYSTEMS: Pt sedated, unable to obtain PHYSICAL EXAMINATION Vital Signs - 24 hr 02/24/19 02/24/19 02/24/19 15:18 15:20 15:30 Temperature 98.2 F 36.8 F L Pulse Rate 121 H Pulse Rate [ 89 Left Radial] Respiratory 16 12 20 Rate Blood Pressure 220/112 H Blood Pressure 154/123 H [Left Arm] O2 Sat by Pulse 98 100 Oximetry (%) 02/24/19 02/24/19 02/24/19 16:00 16:15 16:18 Temperature 36.8 F L 36.8 F L Pulse Rate Pulse Rate [ 88 89 Left Radial] Respiratory 20 20 Rate Blood Pressure Blood Pressure 117/81 126/100 [Left Arm] O2 Sat by Pulse 100 100 100 Oximetry (%) 02/24/19 02/24/19 02/24/19 16:35 16:52 16:57 Temperature 36.8 F L 36.8 F L 36.8 F L Pulse Rate Pulse Rate [ 82 71 72 Left Radial] Respiratory 20 20 20 Rate Blood Pressure Blood Pressure 60/45 L 87/53 L 96/63 [Left Arm] O2 Sat by Pulse 100 100 100 Oximetry (%) 02/24/19 17:06 Temperature 36.8 F L Pulse Rate Pulse Rate [ 73 Left Radial] Respiratory 20 Rate Blood Pressure Blood Pressure 101/71 [Left Arm] O2 Sat by Pulse 100 Oximetry (%) GENERAL: Sedated, in no acute distress. HEAD: Normal with no signs of trauma. EYES: Pupils equal, pinpoint, conjunctiva clear. LUNGS: Coarse breath sounds kulwinder. No wheezes, and no crackles. No accessory muscle use HEART: Regular rate and rhythm, normal S1 and S2 without murmur, rub or gallop. ABDOMEN: Soft, nontender, not distended, normoactive bowel sounds, no guarding, no rebound, no masses. No hepatomegaly or splenomegaly. EXTREMITIES: warm, well-perfused. No cyanosis. Cap refill <2 seconds. No peripheral edema. NEUROLOGICAL: Sedated. Laboratory Results - last 24 hr 02/24/19 02/24/19 02/24/19 16:00 16:00 16:00 WBC 10.4 H RBC 4.61 Hgb 11.2 Hct 36.6 MCV 79.4 L MCH 24.4 L MCHC 30.7 L RDW 17.6 H Plt Count 273 MPV 8.5 Absolute Neuts (auto) 5.9 Neutrophils % 56.5 D Lymphocytes % 25.2 D Monocytes % 6.1 Eosinophils % 11.3 H Basophils % 0.9 Nucleated RBC % 0 PT with INR 39.80 H INR 3.33 H PTT (Actin FS) 40.8 H Anticoagulation Therapy O2 Delivery Device Oxygen Flow Rate Vent Mode Vent Rate Mechanical Rate Pressure Support Vent Sodium Potassium Chloride Carbon Dioxide Anion Gap BUN Creatinine Est GFR (CKD-EPI)AfAm Est GFR (CKD-EPI)NonAf Random Glucose Calcium Magnesium Total Bilirubin AST ALT Alkaline Phosphatase Total Protein Albumin Serum , Qual Urine Color Urine Appearance Urine pH Ur Specific [place] Urine Protein Urine Glucose (UA) Urine Ketones Urine Blood Urine Nitrite Urine Bilirubin Urine Urobilinogen Ur Leukocyte Esterase Urine WBC (Auto) Urine RBC (Auto) Urine Casts (Auto) U Epithel Cells (Auto) Urine Bacteria (Auto) Urine HCG, Qual Alcohol, Quantitative < 3.0 02/24/19 02/24/19 02/24/19 16:00 16:00 16:00 WBC RBC Hgb Hct MCV MCH MCHC RDW Plt Count MPV Absolute Neuts (auto) Neutrophils % Lymphocytes % Monocytes % Eosinophils % Basophils % Nucleated RBC % PT with INR INR PTT (Actin FS) Anticoagulation Therapy O2 Delivery Device Oxygen Flow Rate Vent Mode Vent Rate Mechanical Rate Pressure Support Vent Sodium 138 Potassium 4.4 Chloride 106 Carbon Dioxide 19 L Anion Gap 12 BUN 13.2 Creatinine 1.3 Est GFR (CKD-EPI)AfAm 58.60 Est GFR (CKD-EPI)NonAf 50.56 Random Glucose 120 H Calcium 8.6 Magnesium 2.5 H Total Bilirubin 0.2 AST 30 ALT 24 Alkaline Phosphatase 123 H Total Protein 7.6 Albumin 3.6 Serum , Qual Negative Urine Color Yellow Urine Appearance Clear Urine pH 5.5 D Ur Specific [place] 1.014 Urine Protein 2+ H Urine Glucose (UA) Negative Urine Ketones Negative Urine Blood 1+ H Urine Nitrite Negative Urine Bilirubin Negative Urine Urobilinogen 0.2 Ur Leukocyte Esterase Negative Urine WBC (Auto) 1 Urine RBC (Auto) 8 Urine Casts (Auto) 4 U Epithel Cells (Auto) 1.4 Urine Bacteria (Auto) 15.8 Urine HCG, Qual Alcohol, Quantitative 02/24/19 02/24/19 16:29 16:54 WBC RBC Hgb Hct MCV MCH MCHC RDW Plt Count MPV Absolute Neuts (auto) Neutrophils % Lymphocytes % Monocytes % Eosinophils % Basophils % Nucleated RBC % PT with INR INR PTT (Actin FS) Anticoagulation Therapy No Result Required. O2 Delivery Device No Result Required. Oxygen Flow Rate No Result Required. Vent Mode No Result Required. Vent Rate No Result Required. Mechanical Rate No Result Required. Pressure Support Vent No Result Required. Sodium Potassium Chloride Carbon Dioxide Anion Gap BUN Creatinine Est GFR (CKD-EPI)AfAm Est GFR (CKD-EPI)NonAf Random Glucose Calcium Magnesium Total Bilirubin AST ALT Alkaline Phosphatase Total Protein Albumin Serum , Qual Urine Color Urine Appearance Urine pH Ur Specific [place] Urine Protein Urine Glucose (UA) Urine Ketones Urine Blood Urine Nitrite Urine Bilirubin Urine Urobilinogen Ur Leukocyte Esterase Urine WBC (Auto) Urine RBC (Auto) Urine Casts (Auto) U Epithel Cells (Auto) Urine Bacteria (Auto) Urine HCG, Qual Negative Alcohol, Quantitative ASSESSMENT/PLAN: Ashley Sanchez is a 44yF w PMHx HTN, alcohol abuse, hypercoagulable state, dural venous sinus thrombosis, hemorrhagic stroke 3mo ago, seizure, presenting with seizure likely 2/2 alcohol/cocaine vs medication noncompliance. Neuro - status epilepticus 2/2 alcohol/cocaine vs med non-compliance - UTox showed +cocaine - sedated w propofol, versed, fentanyl - loaded w keppra, continue 500 keppra BID - CTH 02/24 showed no acute bleed/infarct/mass/fx - neuro checks q1h, seizure precautions - MRV of the head to r/o sinus thrombosis when extubated - appreciate neuro consults Cards - hx HTN, currently hypotensive - elevated lactate 9.3 likely d/t demand, trend - holding metoprolol 2/2 hypotension - maintain MAP >65, responded to 1L NS - DVT ppx Pulm - intubated - CXR 02/24 showed cardiomegaly, clear lung corea - serial ABGs GI - elevated ALP 123 - NPO - IV fluids - I/O Heme - hx hypercoagulable state + for beta-2 glycoprotein - holding coumadin/heparin drip until tmrw 2/2 supratherapeutic INR 3.33 - serial CBC Endo - no active issues ID - leukocytosis WBC 10.4 likely reactive to seizure, trend - no evidence of UTI - pending blood/urine cx PPX - SCDs - no GI ppx FEN - NS @100mL/hr - hyperMg - NPO Dispo: ICU Visit type - Emergency Visit Emergency Visit: Yes ED Registration Date: 02/24/19 Care time: The patient presented to the Emergency Department on the above date and was hospitalized for further evaluation of their emergent condition. - New Patient This patient is new to me today: Yes Date on this admission: 02/24/19 - Critical Care Critical Care patient: Yes Total Critical Care Time (in minutes): 37 Critical Care Statement: The care of this patient involved high complexity decision making to prevent further life threatening deterioration of the patient 's condition and/or to evaluate & treat vital organ system(s) failure or risk of failure. ATTENDING PHYSICIAN STATEMENT I saw and evaluated the patient. I reviewed the resident's note and discussed the case with the resident. I agree with the resident's findings and plan as documented. SUBJECTIVE: OBJECTIVE: ASSESSMENT AND PLAN:
[2019-02-24] MEDS ORDERED: SODIUM CHLORIDE 1,000 ML IV SCH (18:00)
--- NOTE | 2019-02-24 18:24 | HP ---
CHIEF COMPLAINT: Seizures PCP: HISTORY OF PRESENT ILLNESS: 44 y/o F, pmh of HTN, alcohol abuse, hx of dural venous thrombosis, and hemorrhagic stroke 3 months ago requiring hospitalization at [facility] ([facility] placed pt on coumadin?), presents today s/p seizures. Pt was brought in by EMS for uncontrollable seizures that was not responsive to ativan and keppra. Pt's boyfriend reports that she was admitted at [facility] for an hemorrhagic stroke 3 months ago that required intervention and intermediate therapy on coumadin. However , boyfriend is unable to verify pt's medical hx and was on his way to obtain medical records from [facility]. In the ED, pt's seizures were unresponsive to medical therapy, so she was intubated and given propofol and fentanyl. Pt was taken to CAT scan for imaging, where she seized again and was given an increased dose of propofol. Then she returned to the ED and became hypotensive, during which they had to stop propofol and start pt on Versed. Dr. Munroe was consulted and he advised to admit pt on ICU and monitor. ER course was notable for: (1) Keppra 1 g and Ativan 4mg (2) Pt intubated (3) Urine tox- Positive for cocaine Recent Travel: Unable to obtain PAST MEDICAL HISTORY: HTN, alcohol abuse, hx of DVT, and hemorrhagic stroke 3 months ago requiring hospitalization at [facility] PAST SURGICAL HISTORY: Unable to obtain Social History: Smoking: Unable to obtain Alcohol: hx of alcohol abuse Drugs: Utox positive for Cocaine Allergies No Known Allergies Allergy (Verified 02/07/19 14:25) REVIEW OF SYSTEMS Unable to obtain PHYSICAL EXAMINATION Vital Signs - 24 hr Last Vital Signs Temp Pulse Resp BP Pulse Ox 36.8 F L 93 H 17 102/68 99 02/24/19 17:36 02/24/19 18:03 02/24/19 17:48 02/24/19 18:03 02/24/19 17:48 GENERAL: minimally responsive, responds to pain stimuli. Intubated. EYES: Pupils reactive but mildly constricted LUNGS: PT intubated- difficult to check breath sounds. However, pts breath sounds were appreciated HEART: Regular rate, normal S1 and S2 without murmur, rub or gallop. ABDOMEN: Soft, nontender, not distended, normoactive bowel sounds, no guarding, no rebound, no masses. UPPER EXTREMITIES: 2+ pulses, warm, no edema LOWER EXTREMITIES: 2+ pulses, warm, no edema SKIN: Warm, dry Laboratory Results - last 24 hr WBC 10.4 K/mm3 (4.0-10.0) H 02/24/19 16:00 RBC 4.61 M/mm3 (3.60-5.2) 02/24/19 16:00 Hgb 11.2 GM/dL (10.7-15.3) 02/24/19 16:00 Hct 36.6 % (32.4-45.2) 02/24/19 16:00 MCV 79.4 fl (80-96) L 02/24/19 16:00 MCH 24.4 pg (25.7-33.7) L 02/24/19 16:00 MCHC 30.7 g/dl (32.0-36.0) L 02/24/19 16:00 RDW 17.6 % (11.6-15.6) H 02/24/19 16:00 Plt Count 273 K/MM3 (134-434) 02/24/19 16:00 MPV 8.5 fl (7.5-11.1) 02/24/19 16:00 Absolute Neuts (auto) 5.9 K/mm3 (1.5-8.0) 02/24/19 16:00 Neutrophils % 56.5 % (42.8-82.8) D 02/24/19 16:00 Lymphocytes % 25.2 % (8-40) D 02/24/19 16:00 Monocytes % 6.1 % (3.8-10.2) 02/24/19 16:00 Eosinophils % 11.3 % (0-4.5) H 02/24/19 16:00 Basophils % 0.9 % (0-2.0) 02/24/19 16:00 Nucleated RBC % 0 % (0-0) 02/24/19 16:00 Sodium 138 mmol/L (136-145) 02/24/19 16:00 Potassium 4.4 mmol/L (3.5-5.1) 02/24/19 16:00 Chloride 106 mmol/L (98-107) 02/24/19 16:00 Carbon Dioxide 19 mmol/L (21-32) L 02/24/19 16:00 Anion Gap 12 MMOL/L (8-16) 02/24/19 16:00 BUN 13.2 mg/dL (7-18) 02/24/19 16:00 Creatinine 1.3 mg/dL (0.55-1.3) 02/24/19 16:00 Est GFR (CKD-EPI)AfAm 58.60 02/24/19 16:00 Est GFR (CKD-EPI)NonAf 50.56 02/24/19 16:00 Random Glucose 120 mg/dL (74-106) H 02/24/19 16:00 Lactic Acid 9.3 mmol/L (0.4-2.0) H* 02/24/19 16:22 Calcium 8.6 mg/dL (8.5-10.1) 02/24/19 16:00 Magnesium 2.5 mg/dL (1.8-2.4) H 02/24/19 16:00 Total Bilirubin 0.2 mg/dL (0.2-1) 02/24/19 16:00 AST 30 U/L (15-37) 02/24/19 16:00 ALT 24 U/L (13-61) 02/24/19 16:00 Alkaline Phosphatase 123 U/L (45-117) H 02/24/19 16:00 Total Protein 7.6 g/dl (6.4-8.2) 02/24/19 16:00 Albumin 3.6 g/dl (3.4-5.0) 02/24/19 16:00 Serum , Qual Negative 02/24/19 16:00 Current Medications Chlorhexidine Gluconate (Hibiclens For Decolonization -) 1 applic TP HS WADE Sodium Chloride (Normal Saline -) 1,000 mls @ 75 mls/hr IV ASDIR WADE Levetiracetam (Keppra Injection -) 500 mg IVPB BID WADE Mupirocin (Bactroban Ointment (For Decolonization) -) 1 applic NS BID WADE Stop: 03/01/19 21:59 Home Medications Medication Instructions Recorded Aspirin [ASA -] 325 mg PO DAILY 02/07/19 Atorvastatin Ca [Lipitor] 40 mg PO HS 02/07/19 Metoprolol Succinate 25 mg PO DAILY 02/07/19 ASSESSMENT/PLAN: 44 y/o F, pmh of HTN, alcohol abuse, hx of dural venous thrombosis, and hemorrhagic stroke 3 months ago requiring hospitalization at [facility] ([facility] placed pt on coumadin?), presents today s/p seizures likely 2/2 to seizure medication noncompliance vs withdrawal vs overdose #S/p Seizures Status epilepticus likely 2/2 to seizure medication noncompliance vs withdrawal vs overdose Seizures under control for now Cont Keppra 500 BID r/p Lactic acid at 7 30 pm today- f/u Pt intubated- consider weaning off vent tomorrow Pulmonary consulted- f/u in the am Pt transferred to ICU Hold coumadin for now Obtain Pt medical records from [facility]- f/u with family/boyfriend Consider heme/ consult in the am #Hx of hemorrhagic stroke CT head negative BP well controlled #Hx of Dural venous thrombosis Hold Coumadin- till medical records can be verified Due to increased risk of bleed INR 3.33- elevated, will monitor off coumadin #Hypotension BP 103/67 now Hold home BP meds- metoprolol, lisinopril #Alcohol abuse monitor for withdrawals verify medical records Pt is on Versed (Midazolam) #Substance abuse Cocaine Positive on UTox Will monitor for now F: NS at 100 E: monitor lytes N: NPO for now Dispo: monitor in ICU, hold coumadin, f/u on PT/INR, f/u mag and phos, f/u neuro , consider heme/onc consult Visit type - Emergency Visit Emergency Visit: Yes ED Registration Date: 02/24/19 Care time: The patient presented to the Emergency Department on the above date and was hospitalized for further evaluation of their emergent condition. - New Patient This patient is new to me today: Yes Date on this admission: 02/24/19 - Critical Care Critical Care patient: No ATTENDING PHYSICIAN STATEMENT I saw and evaluated the patient. I reviewed the resident's note and discussed the case with the resident. I agree with the resident's findings and plan as documented. SUBJECTIVE: OBJECTIVE: ASSESSMENT AND PLAN:
[2019-02-24] MEDS ORDERED: MIDAZOLAM HCL 5 MG/1 ML Single Dose Vial IVPUSH ONE (18:32)
--- NOTE | 2019-02-24 18:34 | PN ---
Teaching Attending Note Name of Resident: Allan Velazquez ATTENDING PHYSICIAN STATEMENT I saw and evaluated the patient. I reviewed the resident's note and discussed the case with the resident. I agree with the resident's findings and plan as documented. SUBJECTIVE: This is a 44 year old woman with a history of HTN, seizure disorder , alcohol abuse, hemorrhagic CVA, dural venous sinus thrombosis who was brought in to the ED because she was complaining of severe headache with difficulty speaking and moving her right arm. On arrival to ED, she was noted to be having tonic-clonic activity and was treated with Keppra and Ativan with no improvement. She was then given Propofol and Fentanyl and intubated. OBJECTIVE: Vital Signs Period Temp Pulse Resp BP Sys/Ruano Pulse Ox Last 24 Hr 36.8 F-98.2 F 71-121 12-20 60-220/45-123 98-100 GENERAL: Sedated, intubated HEART: S1S2, RRR LUNGS: Ventilated BS ABDOMEN: Soft, non-distended, normal BS EXTREMITIES: No edema NEUROLOGICAL: Unable to assess Laboratory Tests 02/24/19 02/24/19 02/24/19 16:00 16:00 16:00 WBC RBC Hgb Hct MCV MCH MCHC RDW Plt Count MPV Absolute Neuts (auto) Neutrophils % Lymphocytes % Monocytes % Eosinophils % Basophils % Nucleated RBC % PT with INR 39.80 H INR 3.33 H PTT (Actin FS) 40.8 H Anticoagulation Therapy Puncture Site ABG pH ABG pCO2 at Pt Temp ABG pO2 at Pt Temp ABG HCO3 ABG O2 Sat (Measured) ABG O2 Content ABG Base Excess Radu Test Carboxyhemoglobin Methemoglobin O2 Delivery Device Oxygen Flow Rate Vent Mode Vent Rate Mechanical Rate PEEP Pressure Support Vent Sodium Potassium Chloride Carbon Dioxide Anion Gap BUN Creatinine Est GFR (CKD-EPI)AfAm Est GFR (CKD-EPI)NonAf Random Glucose Lactic Acid Calcium Magnesium Total Bilirubin AST ALT Alkaline Phosphatase Total Protein Albumin Serum , Qual Urine Color Urine Appearance Urine pH Ur Specific Robeline Urine Protein Urine Glucose (UA) Urine Ketones Urine Blood Urine Nitrite Urine Bilirubin Urine Urobilinogen Ur Leukocyte Esterase Urine WBC (Auto) Urine RBC (Auto) Urine Casts (Auto) U Epithel Cells (Auto) Urine Bacteria (Auto) Urine HCG, Qual Opiates Screen Methadone Screen Acetaminophen --noresult-- Barbiturate Screen Phencyclidine Screen Ur Amphetamines Screen MDMA (Ecstasy) Screen Benzodiazepines Screen Cocaine Screen U Marijuana (THC) Screen Alcohol, Quantitative < 3.0 02/24/19 02/24/19 02/24/19 16:00 16:00 16:00 WBC 10.4 H RBC 4.61 Hgb 11.2 Hct 36.6 MCV 79.4 L MCH 24.4 L MCHC 30.7 L RDW 17.6 H Plt Count 273 MPV 8.5 Absolute Neuts (auto) 5.9 Neutrophils % 56.5 D Lymphocytes % 25.2 D Monocytes % 6.1 Eosinophils % 11.3 H Basophils % 0.9 Nucleated RBC % 0 PT with INR INR PTT (Actin FS) Anticoagulation Therapy Puncture Site ABG pH ABG pCO2 at Pt Temp ABG pO2 at Pt Temp ABG HCO3 ABG O2 Sat (Measured) ABG O2 Content ABG Base Excess Radu Test Carboxyhemoglobin Methemoglobin O2 Delivery Device Oxygen Flow Rate Vent Mode Vent Rate Mechanical Rate PEEP Pressure Support Vent Sodium 138 Potassium 4.4 Chloride 106 Carbon Dioxide 19 L Anion Gap 12 BUN 13.2 Creatinine 1.3 Est GFR (CKD-EPI)AfAm 58.60 Est GFR (CKD-EPI)NonAf 50.56 Random Glucose 120 H Lactic Acid Calcium 8.6 Magnesium 2.5 H Total Bilirubin 0.2 AST 30 ALT 24 Alkaline Phosphatase 123 H Total Protein 7.6 Albumin 3.6 Serum , Qual Negative Urine Color Urine Appearance Urine pH Ur Specific [place] Urine Protein Urine Glucose (UA) Urine Ketones Urine Blood Urine Nitrite Urine Bilirubin Urine Urobilinogen Ur Leukocyte Esterase Urine WBC (Auto) Urine RBC (Auto) Urine Casts (Auto) U Epithel Cells (Auto) Urine Bacteria (Auto) Urine HCG, Qual Opiates Screen Methadone Screen Acetaminophen Barbiturate Screen Phencyclidine Screen Ur Amphetamines Screen MDMA (Ecstasy) Screen Benzodiazepines Screen Cocaine Screen U Marijuana (THC) Screen Alcohol, Quantitative 02/24/19 02/24/19 02/24/19 16:00 16:22 16:29 WBC RBC Hgb Hct MCV MCH MCHC RDW Plt Count MPV Absolute Neuts (auto) Neutrophils % Lymphocytes % Monocytes % Eosinophils % Basophils % Nucleated RBC % PT with INR INR PTT (Actin FS) Anticoagulation Therapy Puncture Site ABG pH ABG pCO2 at Pt Temp ABG pO2 at Pt Temp ABG HCO3 ABG O2 Sat (Measured) ABG O2 Content ABG Base Excess Radu Test Carboxyhemoglobin Methemoglobin O2 Delivery Device Oxygen Flow Rate Vent Mode Vent Rate Mechanical Rate PEEP Pressure Support Vent Sodium Potassium Chloride Carbon Dioxide Anion Gap BUN Creatinine Est GFR (CKD-EPI)AfAm Est GFR (CKD-EPI)NonAf Random Glucose Lactic Acid 9.3 H* Calcium Magnesium Total Bilirubin AST ALT Alkaline Phosphatase Total Protein Albumin Serum , Qual Urine Color Yellow Urine Appearance Clear Urine pH 5.5 D Ur Specific Robeline 1.014 Urine Protein 2+ H Urine Glucose (UA) Negative Urine Ketones Negative Urine Blood 1+ H Urine Nitrite Negative Urine Bilirubin Negative Urine Urobilinogen 0.2 Ur Leukocyte Esterase Negative Urine WBC (Auto) 1 Urine RBC (Auto) 8 Urine Casts (Auto) 4 U Epithel Cells (Auto) 1.4 Urine Bacteria (Auto) 15.8 Urine HCG, Qual Negative Opiates Screen Methadone Screen Acetaminophen Barbiturate Screen Phencyclidine Screen Ur Amphetamines Screen MDMA (Ecstasy) Screen Benzodiazepines Screen Cocaine Screen U Marijuana (THC) Screen Alcohol, Quantitative 02/24/19 02/24/19 16:29 16:54 WBC RBC Hgb Hct MCV MCH MCHC RDW Plt Count MPV Absolute Neuts (auto) Neutrophils % Lymphocytes % Monocytes % Eosinophils % Basophils % Nucleated RBC % PT with INR INR PTT (Actin FS) Anticoagulation Therapy No Result Required. Puncture Site Right radial ABG pH 7.30 L ABG pCO2 at Pt Temp 48.5 H ABG pO2 at Pt Temp 325 H ABG HCO3 23.0 ABG O2 Sat (Measured) 99.7 H ABG O2 Content 13.1 ABG Base Excess -2.8 L Radu Test Positive Carboxyhemoglobin 0.5 Methemoglobin < 1.0 O2 Delivery Device No Result Required. Oxygen Flow Rate Yes Vent Mode No Result Required. Vent Rate 12 Mechanical Rate No Result Required. PEEP 5.0 Pressure Support Vent No Result Required. Sodium Potassium Chloride Carbon Dioxide Anion Gap BUN Creatinine Est GFR (CKD-EPI)AfAm Est GFR (CKD-EPI)NonAf Random Glucose Lactic Acid Calcium Magnesium Total Bilirubin AST ALT Alkaline Phosphatase Total Protein Albumin Serum , Qual Urine Color Urine Appearance Urine pH Ur Specific Robeline Urine Protein Urine Glucose (UA) Urine Ketones Urine Blood Urine Nitrite Urine Bilirubin Urine Urobilinogen Ur Leukocyte Esterase Urine WBC (Auto) Urine RBC (Auto) Urine Casts (Auto) U Epithel Cells (Auto) Urine Bacteria (Auto) Urine HCG, Qual Opiates Screen Negative Methadone Screen Negative Acetaminophen Barbiturate Screen Negative Phencyclidine Screen Negative Ur Amphetamines Screen Negative MDMA (Ecstasy) Screen Negative Benzodiazepines Screen Negative Cocaine Screen Positive A* U Marijuana (THC) Screen Negative Alcohol, Quantitative Home Medications Medication Instructions Recorded Aspirin [ASA -] 325 mg PO DAILY 02/07/19 Atorvastatin Ca [Lipitor] 40 mg PO HS 02/07/19 Metoprolol Succinate 25 mg PO DAILY 02/07/19 ASSESSMENT AND PLAN: This is a 44 year old woman with a history of HTN, seizure disorder, alcohol abuse, hemorrhagic CVA, dural venous sinus thrombosis who presented to the ED with tonic-clonic seizure activity after complaining of a severe headache. 1. Status epilepticus - Possibly secondary to non-compliance with seizure meds, alcohol induced, cocaine induced - Intubated in ED - Admit to ICU - Maintain vent - Keppra 1000 mg IV given in ED - Continue Keppra IV - Critical care, neurology consults 2. Lactic acidosis - Likely secondary to seizure 3. Leukocytosis - Likely secondary to seizure 4. HTN - Hold metoprolol secondary to low BP 5. Alcohol abuse 6. History of hemorrhagic CVA secondary to dural venous sinus thrombosis - Will obtain records from [facility] to confirm diagnosis - Hold Coumadin secondary to supratherapeutic INR
[2019-02-24] MEDS: SODIUM CHLORIDE 1,000 ML IV SCH (18:48)
[2019-02-24] MEDS: PROPOFOL 1,000,000 MCG/100 ML VIAL IVPB SCH (19:20)
--- NOTE | 2019-02-24 20:16 | CON.NEURO ---
Consult Consult Specialty:: Ludwig Referred by:: ER Reason for Consultation:: Sz - History of Present Illness History of Present Illness: 44 year sold woman with PMH ETOH abuse Illicit drug usage Venous thrombosis On AC Migraine headache Came in with seizure in [facility] ER GTC had 4m Ativan Intubated and on Propafol Seen in MICU with boyfriend He claims not aware of cocaine usage No history was obtained from [facility] patient Patient was admitted with Sz in 12/2018 was found with Venous thrombosis and was started on Ac Patient is also on ASA In [facility] ICU no clinical seizure - History Source History Provided By: Significant Other, Medical Record Limitations to Obtaining History: Clinical Condition - Alcohol/Substance Use Hx Alcohol Use: No - Smoking History Smoking history: Unknown if ever smoked Have you smoked in the past 12 months: No Home Medications - Allergies Allergies/Adverse Reactions: Allergies Allergy/AdvReac Type Severity Reaction Status Date / Time No Known Allergies Allergy Verified 02/07/19 14:25 - Home Medications Home Medications: Ambulatory Orders Aspirin [ASA -] 325 mg PO DAILY 02/07/19 Atorvastatin Ca [Lipitor] 40 mg PO HS 02/07/19 Metoprolol Succinate 25 mg PO DAILY 02/07/19 Family Medical History Family History: Unable to Obtain Review of Systems Unable to obtain ROS, reason: ? Physical Exam-Neuro Vital Signs: Vital Signs Temperature 36.8 F L 02/24/19 17:36 Pulse Rate 89 02/24/19 18:18 Respiratory Rate 21 H 02/24/19 18:50 Blood Pressure 114/76 02/24/19 18:18 O2 Sat by Pulse Oximetry (%) 100 02/24/19 18:18 Constitutional: Yes: Well Nourished Neck: Yes: WNL Cardiovascular: Yes: WNL Labs: CBC, BMP 02/24/19 16:00 02/24/19 16:00 INR, PTT INR 3.33 (0.83-1.09) H 02/24/19 16:00 - Neuro Exam Level Of Consciousness: Yes: Comatose Eyes: Yes: PERRLA Speech: Other Dominant Hand: Right Gag: Present DTR's: 1+ Left Bicep, 1+ Right Bicep, 1+ Left Brachioradialis, 1+ Right Brachioradialis Motor Strength: 0/5: Right Leg (does not pull to pain down planters ) Imaging - Results Cat Scan: Image Reviewed Assessment/Plan History of Venous Thrombosis Seziure Cocaine Usage 1. Neuro check every 1 hours 2. Sz precautions 3. Ativan prn seizure 4. Keppra 500 mg IV q12 5. EEG portable 6. IV heparin no bolus 7. MRV of neto head to rule out sinus th when extubated 8. Hypercoag disorder Thank you Camille Munroe I spent 55 on this critical case with clinical and radiology assessment and spoke to family
[2019-02-24] MEDS ORDERED: NALOXONE HCL 0.4 MG/ML VIAL IVPUSH ONE (20:18)
[2019-02-24] MEDS ORDERED: HEPARIN NA (PORCINE) 5,000 UNITS/ML 1ML VIAL IVPUSH PRN ×2 (20:18)
[2019-02-24] MEDS ORDERED: FLU VACCINE QUAD 60 MCG/0.5 ML (MDV 19-20) IM ONE (20:22)
[2019-02-24] MEDS ORDERED: PNEUMOC 13-VAL CONJ-DIP CRM/PF 0.5 ML DISP.SYRIN IM ONE (20:27)
[2019-02-24] MEDS ORDERED: HEPARIN SOD,PORK IN 0.45% NACL 25,000 UNIT/500 ML INFUS.BAG IVPB SCH (20:30)
[2019-02-24] MEDS: levETIRAcetam 500 MG/5 ML INJECTION VIAL IVPB SCH (21:30)
[2019-02-24] MEDS: CHLORHEXIDINE GLUCONATE 4% CLEANSER FOR DECOLONIZATION TP SCH (21:33)
[2019-02-24 21:54] LABS: ARTERIAL BLD GAS O2 SATURATION 99.6 % (95-98); ARTERIAL BLOOD GAS BASE EXCESS -2.9 meq/l (-2-2); ARTERIAL BLOOD GAS PCO2 41.6 mmHg (35-45); ARTERIAL BLOOD GAS pH 7.34 (7.35-7.45)
[2019-02-24 21:55] LABS: ARTERIAL BLOOD GAS PO2 396 mmHg (80-100)
[2019-02-24 21:57] LABS: ALLENS TEST POSITIVE
[2019-02-24] MEDS ORDERED: PNEUMOCOCCAL 23 VACCINE 0.5 ML VIAL IM ONE (22:45)
[2019-02-25] MEDS: MUPIROCIN 2% TOPICAL OINTMENT FOR DECOLONIZATION NS SCH ×3 (02:37→21:36)
[2019-02-25] MEDS ORDERED: fentaNYL CITRATE 250 MCG/5 ML VIAL ONE (02:40)
[2019-02-25] MEDS ORDERED: MIDAZOLAM IN 0.9 % SOD.CHLORID 1 MG/1 ML PLAST..BAG ONE ×2 (03:45→19:22)
[2019-02-25 06:58] LABS: ARTERIAL BLD GAS O2 SATURATION 93.7 % (95-98); ARTERIAL BLOOD GAS BASE EXCESS -4.1 meq/l (-2-2); ARTERIAL BLOOD GAS PCO2 39.6 mmHg (35-45); ARTERIAL BLOOD GAS PO2 70.1 mmHg (80-100); ARTERIAL BLOOD GAS pH 7.34 (7.35-7.45)
[2019-02-25] MEDS: ACETAMINOPHEN 1000 MG/100 ML VIAL (NON FORMULARY) IVPB PRN (06:59)
[2019-02-25] MEDS: FENTANYL INJECTION 500 MCG in DEXTROSE 5%-WATER - 90 ML IVPB SCH (06:59)
[2019-02-25] MEDS: MIDAZOLAM 100 MG in SODIUM CHLORIDE 100 ML IVPB SCH ×2 (07:00→20:00)
[2019-02-25 07:14] LABS: ALLENS TEST POSITIVE
[2019-02-25 08:03] LABS: ALBUMIN 2.7 g/dl (3.4-5.0); BILIRUBIN,TOTAL 0.3 mg/dL (0.2-1); BLOOD UREA NITROGEN 7.4 mg/dL (7-18); CALCIUM 7.2 mg/dL (8.5-10.1); CREATININE 0.9 mg/dL (0.55-1.3); PHOSPHOROUS 2.5 mg/dL (2.5-4.9); POTASSIUM 4.3 mmol/L (3.5-5.1); TOT PROT 5.8 g/dl (6.4-8.2)
--- NOTE | 2019-02-25 08:15 | PN ---
Teaching Attending Note Name of Resident: Allan Velazquez ATTENDING PHYSICIAN STATEMENT I saw and evaluated the patient. I reviewed the resident's note and discussed the case with the resident. I agree with the resident's findings and plan as documented. SUBJECTIVE: Patient in ICU , still intubated. fever of 102.3 overnight. Vital Signs Temperature 102.3 F H 02/25/19 06:00 Pulse Rate 100 H 02/25/19 08:00 Respiratory Rate 18 02/25/19 08:00 Blood Pressure 89/46 L 02/25/19 08:00 O2 Sat by Pulse Oximetry (%) 96 02/25/19 08:00 GENERAL: The patient is intubated ,sedated . HEAD: Normal with no signs of trauma. EYES: PERRL, sclera anicteric, conjunctiva clear. ENT: Ears normal, positive fot Etube, NECK: Trachea midline, LUNGS: intubated, sedated , GAE Bl, HEART: Regular rate and rhythm, S1, S2 without murmur, rub or gallop. ABDOMEN: Soft, nontender, nondistended, normoactive bowel sounds, no guarding, no rebound, no hepatosplenomegaly, no masses. EXTREMITIES: 2+ pulses, warm, well-perfused, no edema. NEUROLOGICAL: Cranial nerves grossly intact. intubated SKIN: Warm, dry, normal turgor, no rashes or lesions noted CBCD WBC 10.4 K/mm3 (4.0-10.0) H 02/24/19 16:00 RBC 4.61 M/mm3 (3.60-5.2) 02/24/19 16:00 Hgb 11.2 GM/dL (10.7-15.3) 02/24/19 16:00 Hct 36.6 % (32.4-45.2) 02/24/19 16:00 MCV 79.4 fl (80-96) L 02/24/19 16:00 MCHC 30.7 g/dl (32.0-36.0) L 02/24/19 16:00 RDW 17.6 % (11.6-15.6) H 02/24/19 16:00 Plt Count 273 K/MM3 (134-434) 02/24/19 16:00 MPV 8.5 fl (7.5-11.1) 02/24/19 16:00 CMP Sodium 143 mmol/L (136-145) 02/25/19 06:30 Potassium 4.3 mmol/L (3.5-5.1) 02/25/19 06:30 Chloride 114 mmol/L (98-107) H 02/25/19 06:30 Carbon Dioxide 21 mmol/L (21-32) 02/25/19 06:30 Anion Gap 7 MMOL/L (8-16) L 02/25/19 06:30 BUN 7.4 mg/dL (7-18) 02/25/19 06:30 Creatinine 0.9 mg/dL (0.55-1.3) 02/25/19 06:30 Random Glucose 60 mg/dL (74-106) L 02/25/19 06:30 Calcium 7.2 mg/dL (8.5-10.1) L 02/25/19 06:30 Total Bilirubin 0.3 mg/dL (0.2-1) 02/25/19 06:30 AST 25 U/L (15-37) 02/25/19 06:30 ALT 18 U/L (13-61) 02/25/19 06:30 Alkaline Phosphatase 94 U/L (45-117) 02/25/19 06:30 Total Protein 5.8 g/dl (6.4-8.2) L 02/25/19 06:30 Albumin 2.7 g/dl (3.4-5.0) L 02/25/19 06:30 Current Medications Generic Name Dose Route Start Last Admin Trade Name Freq PRN Reason Stop Dose Admin Acetaminophen 1,000 mg 02/25/19 06:45 02/25/19 06:59 Ofirmev Injection - IVPB 1,000 mg Q6H PRN Administration FEVER Chlorhexidine Gluconate 1 applic 02/24/19 22:00 02/24/19 21:33 Hibiclens For Decolonization - TP 1 applic HS WADE Administration Sodium Chloride 1,000 mls @ 100 mls/hr 02/24/19 18:35 02/24/19 18:48 Normal Saline - IV 100 mls/hr ASDIR WADE Administration Propofol 1,000,000 mcg in 100 mls @ 1.755 mls/hr 02/24/19 19:15 02/25/19 07: 02 Diprivan - IVPB 50 mcg/kg/min TITR WADE 17.554 mls/hr Titration Protocol 5 MCG/KG/MIN Midazolam HCl 100 mg/ Sodium 100 mls @ 1 mls/hr 02/25/19 06:30 02/25/19 08:00 Chloride IVPB 5 mg/hr TITR WADE 5 mls/hr Titration Protocol 1 MG/HR Fentanyl 500 mcg/ Dextrose 100 mls @ 10 mls/hr 02/25/19 06:45 02/25/19 06:59 IVPB 50 mcg/hr TITR WADE 10 mls/hr Administration Protocol 50 MCG/HR Levetiracetam 500 mg 02/24/19 22:00 02/24/19 21:30 Keppra Injection - IVPB 500 mg BID WADE Administration Mupirocin 1 applic 02/24/19 22:00 02/25/19 02:37 Bactroban Ointment (For Decolonization) - NS 03/01/19 21:59 1 applic BID WADE Administration Home Medications Medication Instructions Recorded Aspirin [ASA -] 325 mg PO DAILY 02/07/19 Atorvastatin Ca [Lipitor] 40 mg PO HS 02/07/19 Metoprolol Succinate 25 mg PO DAILY 02/07/19 Laboratory Tests 02/24/19 16:29 Cocaine Screen Positive A* Head CT: no acute pathology Assessment and plan: This is a 44 year old woman with a history of HTN, seizure disorder, alcohol abuse, hemorrhagic CVA, dural venous sinus thrombosis who presented to the ED with tonic-clonic seizure activity after complaining of having a severe headache. # Acute respiratory failure s/p intubation to protect the airway # Status epilepticus on Keppra Iv Bid , neuro consulted # Lactic acidosis/leukocytosis Likely due to seizure will monitor and cannot r/ o sepsis on VAnco as per ID # HTN: Hold metoprolol secondary to low BP and rebound HTN, is cocaine positive # Alcohol abuse and cocaine on IV lorazepam # History of hemorrhagic CVA secondary to dural venous sinus thrombosis - Will obtain records from [facility] to confirm diagnosis - Hold Coumadin secondary to supratherapeutic INR DVT Px: Supratherapeutic INR due to coumadin
[2019-02-25 09:17] LABS: BASO % 0.4 % (0-2.0); HEMATOCRIT 27.4 % (32.4-45.2); HEMOGLOBIN 8.7 GM/dL (10.7-15.3); LYMPH % 14.7 % (8-40); MCH 24.7 pg (25.7-33.7); MCHC 31.6 g/dl (32.0-36.0); MEAN CELL VOLUME 78.3 fl (80-96); MEAN PLT VOLUME 8.7 fl (7.5-11.1); MONO % 5.4 % (3.8-10.2); NEUT % 74.5 % (42.8-82.8); PLATELET COUNT 192 K/MM3 (134-434); RDW 17.2 % (11.6-15.6)
--- NOTE | 2019-02-25 09:28 | PN ---
Progress Note, Physician History of Present Illness: events noted chart reviewed Still very critical No family at the bedside continues movement seizure-like activity overnight Still on propofol EEG pending - Current Medication List Current Medications: Active Medications Acetaminophen (Ofirmev Injection -) 1,000 mg IVPB Q6H PRN PRN Reason: FEVER Last Admin: 02/25/19 06:59 Dose: 1,000 mg Chlorhexidine Gluconate (Hibiclens For Decolonization -) 1 applic TP HS WADE Last Admin: 02/24/19 21:33 Dose: 1 applic Chlorhexidine Gluconate (Peridex -) 15 ml MM BID WADE Sodium Chloride (Normal Saline -) 1,000 mls @ 100 mls/hr IV ASDIR WADE Last Admin: 02/24/19 18:48 Dose: 100 mls/hr Propofol (Diprivan -) 1,000,000 mcg in 100 mls @ 1.755 mls/hr IVPB TITR WADE; Protocol Last Titration: 02/25/19 09:22 Dose: 40 mcg/kg/min, 14.043 mls/hr Midazolam HCl 100 mg/ Sodium (Chloride) 100 mls @ 1 mls/hr IVPB TITR WADE; Protocol Last Titration: 02/25/19 09:22 Dose: 2 mg/hr, 2 mls/hr Fentanyl 500 mcg/ Dextrose 100 mls @ 10 mls/hr IVPB TITR WADE; Protocol Last Admin: 02/25/19 06:59 Dose: 50 mcg/hr, 10 mls/hr Levetiracetam (Keppra Injection -) 500 mg IVPB BID WADE Last Admin: 02/24/19 21:30 Dose: 500 mg Mupirocin (Bactroban Ointment (For Decolonization) -) 1 applic NS BID WADE Stop: 03/01/19 21:59 Last Admin: 02/25/19 02:37 Dose: 1 applic - Objective Vital Signs: Vital Signs Temperature 102.1 F H 02/25/19 08:25 Pulse Rate 89 02/25/19 09:23 Respiratory Rate 17 02/25/19 09:23 Blood Pressure 84/56 L 02/25/19 09:23 O2 Sat by Pulse Oximetry (%) 96 02/25/19 08:00 Constitutional: Yes: Well Nourished Eyes: Yes: WNL Neurological: Yes: Other (intubated no spontaneous movement doesn't follow command his response spontaneous movement or noxious stimuli no gaze deviation. Pupils sluggishly reactive to light no corneal reflexes no gag reflex decreased tone all over) Labs: CBC, BMP 02/25/19 06:30 INR, PTT INR 3.33 (0.83-1.09) H 02/24/19 16:00 Problem List - Problems (1) Seizure Assessment/Plan: questionable degree anoxic brain damage difficult to assess on the propafol seizure precautions EEG portable Repeat CAT scan of the head with no contrast Continue Keppra Another dose of Narcan Code(s): R56.9 - UNSPECIFIED CONVULSIONS
[2019-02-25] MEDS ORDERED: PT OWN MED DRAWER 7, Y5N ONE ×2 (09:39→15:41)
[2019-02-25] MEDS: CHLORHEXIDINE GLUCONATE 0.12% 15ML CUP MM SCH ×2 (09:43→21:38)
[2019-02-25] MEDS: levETIRAcetam 500 MG/5 ML INJECTION VIAL IVPB SCH ×2 (09:43→21:38)
--- NOTE | 2019-02-25 10:06 | EKG ---
Test Reason : Blood Pressure : / mmHG Vent. Rate : 116 BPM Atrial Rate : 116 BPM P-R Int : 128 ms QRS Dur : 072 ms QT Int : 324 ms P-R-T Axes : 051 046 060 degrees QTc Int : 450 ms SINUS TACHYCARDIA OTHERWISE NORMAL ECG WHEN COMPARED WITH ECG OF 07-FEB-2019 14:21, VENT. RATE HAS INCREASED BY 50 BPM Confirmed by ASUNCION BEAN MD ([id number]) on 02/25/2019 10:06:28 AM Referred By: Confirmed By:ASUNCION BEAN MD
[2019-02-25 10:07] LABS: INR 3.69 (0.83-1.09); PROTHROMBIN TIME (PATIENT) 44.1 SEC (9.7-13.0)
--- NOTE | 2019-02-25 11:05 | PN ---
Teaching Attending Note Name of Resident: Eddie Roth ATTENDING PHYSICIAN STATEMENT I saw and evaluated the patient. I reviewed the resident's note and discussed the case with the resident. I agree with the resident's findings and plan as documented. SUBJECTIVE: Pt seen and examined in the ICU. Intubated, sedated. No further seizure activity noted. Vented on volume assist control with 40% FiO2. Febrile overnight. CXR this AM with new left sided infiltrate. OBJECTIVE: Vital Signs Period Temp Pulse Resp BP Sys/Ruano Pulse Ox Last 24 Hr 36.8 F-102.3 F 65-121 12-21 60-220/45-123 95-100 Intake & Output 02/22/19 02/23/19 02/24/19 02/25/19 23:59 23:59 23:59 23:59 Intake Total 1000 4300 Output Total 2000 Balance 1000 2300 Weight 58.5 kg Gen: intubated, sedated Heart: RRR Lung: decreased breath sounds at the bases Abd: soft, nontender Ext: no edema CBC, BMP 02/25/19 09:00 02/25/19 06:30 Active Medications Acetaminophen (Ofirmev Injection -) 1,000 mg IVPB Q6H PRN PRN Reason: FEVER Last Admin: 02/25/19 06:59 Dose: 1,000 mg Chlorhexidine Gluconate (Hibiclens For Decolonization -) 1 applic TP HS WADE Last Admin: 02/24/19 21:33 Dose: 1 applic Chlorhexidine Gluconate (Peridex -) 15 ml MM BID WADE Last Admin: 02/25/19 09:43 Dose: 15 ml Sodium Chloride (Normal Saline -) 1,000 mls @ 100 mls/hr IV ASDIR WADE Last Admin: 02/24/19 18:48 Dose: 100 mls/hr Propofol (Diprivan -) 1,000,000 mcg in 100 mls @ 1.755 mls/hr IVPB TITR WADE; Protocol Last Titration: 02/25/19 09:52 Dose: 0 mcg/kg/min, 0 mls/hr Midazolam HCl 100 mg/ Sodium (Chloride) 100 mls @ 1 mls/hr IVPB TITR WADE; Protocol Last Titration: 02/25/19 09:52 Dose: 0 mg/hr, 0 mls/hr Fentanyl 500 mcg/ Dextrose 100 mls @ 10 mls/hr IVPB TITR WADE; Protocol Last Titration: 02/25/19 09:53 Dose: 0 mcg/hr, 0 mls/hr Levetiracetam (Keppra Injection -) 500 mg IVPB BID WADE Last Admin: 02/25/19 09:43 Dose: 500 mg Mupirocin (Bactroban Ointment (For Decolonization) -) 1 applic NS BID WADE Stop: 03/01/19 21:59 Last Admin: 02/25/19 09:43 Dose: 1 applic ASSESSMENT AND PLAN: Status Epilepticus Acute Respiratory Failure Pneumonia likely Aspiration Sepsis Lactic Acidosis Alcohol Abuse Cocaine Use h/o Dural [place] Sinus Thrombosis HTN Anemia - continue antiepileptics - EEG - hold sedation to assess mental status - spontaneous breathing trials as tolerated when mental status improved - start antibiotics - f/u cultures, send sputum - IVF boluses - monitor urine output, creatinine - continue anticoagulation - continue ICU monitoring critical care time spent in reviewing chart, evaluating patient and formulating plan 35 min
[2019-02-25] MEDS ORDERED: SODIUM CHLORIDE 0.9% 1000 ML INFUS.BAG IV ONE (11:13)
[2019-02-25] MEDS ORDERED: PIPERACILLIN/TAZOB 4.5 GM 4.5 GM in DEXTROSE 5%-WATER 100 ML IVPB SCH ×2 (11:15→11:30)
[2019-02-25] MEDS ORDERED: DEXTROSE 5%-WATER 100 ML IVPB ONE (11:30)
[2019-02-25] MEDS ORDERED: PIPERACILLIN/TAZOBACTAM 4.5 GM VIAL IVPB ONE (11:30)
[2019-02-25 11:51] LABS: ANISOCYTOSIS 1+; OVALOCYTE 1+; PLATELET ESTIMATE NORMAL
[2019-02-25] MEDS ORDERED: CALCIUM GLUCONATE 10% - 1,000 MG/10 ML VIAL IVPUSH ONE (12:00)
--- NOTE | 2019-02-25 12:18 | CONSULT ---
Consultation: REQUESTING PROVIDER: Heme/Onc Service CONSULT REQUEST: We have been asked to medically evaluate this patient for anemia. HISTORY OF PRESENT ILLNESS: 44 y/o F, pmh of HTN, alcohol abuse, hx of dural venous thrombosis, and hemorrhagic stroke 3 months ago requiring hospitalization at [facility] ([facility] placed pt on coumadin?), presents today s/p seizures. Pt intubated and sedated. History from records ([facility] records pending). REVIEW OF SYSTEMS: Unable to obtaine PHYSICAL EXAMINATION Vital Signs - 24 hr 02/24/19 02/24/19 02/24/19 15:18 15:20 15:30 Temperature 98.2 F 36.8 F L Pulse Rate 121 H Pulse Rate [ 89 Left Radial] Respiratory 16 12 20 Rate Blood Pressure 220/112 H Blood Pressure 154/123 H [Left Arm] O2 Sat by Pulse 98 100 Oximetry (%) 02/24/19 02/24/19 02/24/19 16:00 16:15 16:18 Temperature 36.8 F L 36.8 F L Pulse Rate Pulse Rate [ 88 89 Left Radial] Respiratory 20 20 Rate Blood Pressure Blood Pressure 117/81 126/100 [Left Arm] O2 Sat by Pulse 100 100 100 Oximetry (%) 02/24/19 02/24/19 02/24/19 16:35 16:52 16:57 Temperature 36.8 F L 36.8 F L 36.8 F L Pulse Rate Pulse Rate [ 82 71 72 Left Radial] Respiratory 20 20 20 Rate Blood Pressure Blood Pressure 60/45 L 87/53 L 96/63 [Left Arm] O2 Sat by Pulse 100 100 100 Oximetry (%) 02/24/19 02/24/19 02/24/19 17:06 17:21 17:35 Temperature 36.8 F L 36.8 F L 36.8 F L Pulse Rate Pulse Rate [ 73 80 95 H Left Radial] Respiratory 20 20 20 Rate Blood Pressure Blood Pressure 101/71 103/67 114/97 [Left Arm] O2 Sat by Pulse 100 100 100 Oximetry (%) 02/24/19 02/24/19 02/24/19 17:36 17:48 17:55 Temperature 36.8 F L Pulse Rate Pulse Rate [ 94 H 89 87 Left Radial] Respiratory 20 17 Rate Blood Pressure Blood Pressure 103/69 101/71 105/75 [Left Arm] O2 Sat by Pulse 100 99 Oximetry (%) 02/24/19 02/24/19 02/24/19 18:03 18:11 18:18 Temperature Pulse Rate Pulse Rate [ 93 H 90 89 Left Radial] Respiratory Rate Blood Pressure Blood Pressure 102/68 108/74 114/76 [Left Arm] O2 Sat by Pulse 100 100 Oximetry (%) 02/24/19 02/24/19 02/24/19 18:50 19:45 20:00 Temperature 98.6 F Pulse Rate 74 65 Pulse Rate [ Left Radial] Respiratory 21 H 15 12 Rate Blood Pressure 129/88 85/56 L Blood Pressure [Left Arm] O2 Sat by Pulse 100 Oximetry (%) 02/24/19 02/24/19 02/24/19 20:52 21:16 22:00 Temperature Pulse Rate 69 Pulse Rate [ Left Radial] Respiratory 16 15 Rate Blood Pressure 90/61 Blood Pressure [Left Arm] O2 Sat by Pulse 100 Oximetry (%) 02/25/19 02/25/19 02/25/19 00:00 01:14 02:00 Temperature 98.9 F Pulse Rate 66 65 Pulse Rate [ Left Radial] Respiratory 12 12 12 Rate Blood Pressure 87/56 L 85/56 L Blood Pressure [Left Arm] O2 Sat by Pulse Oximetry (%) 02/25/19 02/25/19 02/25/19 04:00 05:00 06:00 Temperature 102.3 F H Pulse Rate 76 107 H Pulse Rate [ Left Radial] Respiratory 12 20 20 Rate Blood Pressure 90/56 L 105/60 Blood Pressure [Left Arm] O2 Sat by Pulse Oximetry (%) 02/25/19 02/25/19 02/25/19 07:00 08:00 08:24 Temperature Pulse Rate 106 H 100 H Pulse Rate [ Left Radial] Respiratory 18 18 19 Rate Blood Pressure 90/60 89/46 L Blood Pressure [Left Arm] O2 Sat by Pulse 96 Oximetry (%) 02/25/19 02/25/19 02/25/19 08:25 08:30 09:23 Temperature 102.1 F H Pulse Rate 92 H 89 Pulse Rate [ Left Radial] Respiratory 19 17 Rate Blood Pressure 83/53 L 84/56 L Blood Pressure [Left Arm] O2 Sat by Pulse Oximetry (%) 02/25/19 02/25/19 02/25/19 09:45 10:05 10:06 Temperature 101.7 F H Pulse Rate 91 H 98 H Pulse Rate [ Left Radial] Respiratory 17 16 18 Rate Blood Pressure 83/58 L 102/73 Blood Pressure [Left Arm] O2 Sat by Pulse 95 Oximetry (%) 02/25/19 11:00 Temperature 102.9 F H Pulse Rate 110 H Pulse Rate [ Left Radial] Respiratory 22 H Rate Blood Pressure 99/66 Blood Pressure [Left Arm] O2 Sat by Pulse Oximetry (%) Limited exam Gen: Intubated, sedated, unresponsive HEENT: NCAT, moist membranes Cardio: rrr, normal s1s2, no mrg noted. Loud Vent sounds present Pulm: ? R rales. ventilated Abd: +ve BS, soft, nontender, nondistended, no organomegally noted on exam Laboratory Results - last 24 hr 02/24/19 02/24/19 02/24/19 16:00 16:00 16:00 WBC RBC Hgb Hct MCV MCH MCHC RDW Plt Count MPV Absolute Neuts (auto) Neutrophils % Lymphocytes % Monocytes % Eosinophils % Basophils % Nucleated RBC % ESR PT with INR 39.80 H INR 3.33 H PTT (Actin FS) 40.8 H Anticoagulation Therapy Puncture Site ABG pH ABG pCO2 at Pt Temp ABG pO2 at Pt Temp ABG HCO3 ABG O2 Sat (Measured) ABG O2 Content ABG Base Excess Radu Test Carboxyhemoglobin Methemoglobin O2 Delivery Device Oxygen Flow Rate Vent Mode Vent Rate Mechanical Rate PEEP Pressure Support Vent Sodium Potassium Chloride Carbon Dioxide Anion Gap BUN Creatinine Est GFR (CKD-EPI)AfAm Est GFR (CKD-EPI)NonAf Random Glucose Lactic Acid Calcium Phosphorus Magnesium Total Bilirubin AST ALT Alkaline Phosphatase C-Reactive Protein Total Protein Albumin Serum , Qual Urine Color Urine Appearance Urine pH Ur Specific [place] Urine Protein Urine Glucose (UA) Urine Ketones Urine Blood Urine Nitrite Urine Bilirubin Urine Urobilinogen Ur Leukocyte Esterase Urine WBC (Auto) Urine RBC (Auto) Urine Casts (Auto) U Epithel Cells (Auto) Urine Bacteria (Auto) Urine HCG, Qual Salicylates Opiates Screen Methadone Screen Acetaminophen --noresult-- Barbiturate Screen Phencyclidine Screen Ur Amphetamines Screen MDMA (Ecstasy) Screen Benzodiazepines Screen Cocaine Screen U Marijuana (THC) Screen Alcohol, Quantitative < 3.0 Blood Type Antibody Screen 02/24/19 02/24/19 02/24/19 16:00 16:00 16:00 WBC 10.4 H RBC 4.61 Hgb 11.2 Hct 36.6 MCV 79.4 L MCH 24.4 L MCHC 30.7 L RDW 17.6 H Plt Count 273 MPV 8.5 Absolute Neuts (auto) 5.9 Neutrophils % 56.5 D Lymphocytes % 25.2 D Monocytes % 6.1 Eosinophils % 11.3 H Basophils % 0.9 Nucleated RBC % 0 ESR PT with INR INR PTT (Actin FS) Anticoagulation Therapy Puncture Site ABG pH ABG pCO2 at Pt Temp ABG pO2 at Pt Temp ABG HCO3 ABG O2 Sat (Measured) ABG O2 Content ABG Base Excess Radu Test Carboxyhemoglobin Methemoglobin O2 Delivery Device Oxygen Flow Rate Vent Mode Vent Rate Mechanical Rate PEEP Pressure Support Vent Sodium 138 Potassium 4.4 Chloride 106 Carbon Dioxide 19 L Anion Gap 12 BUN 13.2 Creatinine 1.3 Est GFR (CKD-EPI)AfAm 58.60 Est GFR (CKD-EPI)NonAf 50.56 Random Glucose 120 H Lactic Acid Calcium 8.6 Phosphorus Magnesium 2.5 H Total Bilirubin 0.2 AST 30 ALT 24 Alkaline Phosphatase 123 H C-Reactive Protein Total Protein 7.6 Albumin 3.6 Serum , Qual Negative Urine Color Urine Appearance Urine pH Ur Specific [place] Urine Protein Urine Glucose (UA) Urine Ketones Urine Blood Urine Nitrite Urine Bilirubin Urine Urobilinogen Ur Leukocyte Esterase Urine WBC (Auto) Urine RBC (Auto) Urine Casts (Auto) U Epithel Cells (Auto) Urine Bacteria (Auto) Urine HCG, Qual Salicylates Opiates Screen Methadone Screen Acetaminophen Barbiturate Screen Phencyclidine Screen Ur Amphetamines Screen MDMA (Ecstasy) Screen Benzodiazepines Screen Cocaine Screen U Marijuana (THC) Screen Alcohol, Quantitative Blood Type Antibody Screen 02/24/19 02/24/19 02/24/19 16:00 16:00 16:22 WBC RBC Hgb Hct MCV MCH MCHC RDW Plt Count MPV Absolute Neuts (auto) Neutrophils % Lymphocytes % Monocytes % Eosinophils % Basophils % Nucleated RBC % ESR PT with INR INR PTT (Actin FS) Anticoagulation Therapy Puncture Site ABG pH ABG pCO2 at Pt Temp ABG pO2 at Pt Temp ABG HCO3 ABG O2 Sat (Measured) ABG O2 Content ABG Base Excess Radu Test Carboxyhemoglobin Methemoglobin O2 Delivery Device Oxygen Flow Rate Vent Mode Vent Rate Mechanical Rate PEEP Pressure Support Vent Sodium Potassium Chloride Carbon Dioxide Anion Gap BUN Creatinine Est GFR (CKD-EPI)AfAm Est GFR (CKD-EPI)NonAf Random Glucose Lactic Acid 9.3 H* Calcium Phosphorus Magnesium Total Bilirubin AST ALT Alkaline Phosphatase C-Reactive Protein Total Protein Albumin Serum , Qual Urine Color Yellow Urine Appearance Clear Urine pH 5.5 D Ur Specific [place] 1.014 Urine Protein 2+ H Urine Glucose (UA) Negative Urine Ketones Negative Urine Blood 1+ H Urine Nitrite Negative Urine Bilirubin Negative Urine Urobilinogen 0.2 Ur Leukocyte Esterase Negative Urine WBC (Auto) 1 Urine RBC (Auto) 8 Urine Casts (Auto) 4 U Epithel Cells (Auto) 1.4 Urine Bacteria (Auto) 15.8 Urine HCG, Qual Salicylates Opiates Screen Methadone Screen Acetaminophen Barbiturate Screen Phencyclidine Screen Ur Amphetamines Screen MDMA (Ecstasy) Screen Benzodiazepines Screen Cocaine Screen U Marijuana (THC) Screen Alcohol, Quantitative Blood Type O POSITIVE Antibody Screen Positive 02/24/19 02/24/19 02/24/19 16:29 16:29 16:54 WBC RBC Hgb Hct MCV MCH MCHC RDW Plt Count MPV Absolute Neuts (auto) Neutrophils % Lymphocytes % Monocytes % Eosinophils % Basophils % Nucleated RBC % ESR PT with INR INR PTT (Actin FS) Anticoagulation Therapy No Result Required. Puncture Site Right radial ABG pH 7.30 L ABG pCO2 at Pt Temp 48.5 H ABG pO2 at Pt Temp 325 H ABG HCO3 23.0 ABG O2 Sat (Measured) 99.7 H ABG O2 Content 13.1 ABG Base Excess -2.8 L Radu Test Positive Carboxyhemoglobin 0.5 Methemoglobin < 1.0 O2 Delivery Device No Result Required. Oxygen Flow Rate Yes Vent Mode No Result Required. Vent Rate 12 Mechanical Rate No Result Required. PEEP 5.0 Pressure Support Vent No Result Required. Sodium Potassium Chloride Carbon Dioxide Anion Gap BUN Creatinine Est GFR (CKD-EPI)AfAm Est GFR (CKD-EPI)NonAf Random Glucose Lactic Acid Calcium Phosphorus Magnesium Total Bilirubin AST ALT Alkaline Phosphatase C-Reactive Protein Total Protein Albumin Serum , Qual Urine Color Urine Appearance Urine pH Ur Specific [place] Urine Protein Urine Glucose (UA) Urine Ketones Urine Blood Urine Nitrite Urine Bilirubin Urine Urobilinogen Ur Leukocyte Esterase Urine WBC (Auto) Urine RBC (Auto) Urine Casts (Auto) U Epithel Cells (Auto) Urine Bacteria (Auto) Urine HCG, Qual Negative Salicylates Opiates Screen Negative Methadone Screen Negative Acetaminophen Barbiturate Screen Negative Phencyclidine Screen Negative Ur Amphetamines Screen Negative MDMA (Ecstasy) Screen Negative Benzodiazepines Screen Negative Cocaine Screen Positive A* U Marijuana (THC) Screen Negative Alcohol, Quantitative Blood Type Antibody Screen 02/24/19 02/24/19 02/24/19 19:16 19:16 20:44 WBC RBC Hgb Hct MCV MCH MCHC RDW Plt Count MPV Absolute Neuts (auto) Neutrophils % Lymphocytes % Monocytes % Eosinophils % Basophils % Nucleated RBC % ESR PT with INR INR PTT (Actin FS) Anticoagulation Therapy Puncture Site ABG pH ABG pCO2 at Pt Temp ABG pO2 at Pt Temp ABG HCO3 ABG O2 Sat (Measured) ABG O2 Content ABG Base Excess Radu Test Carboxyhemoglobin Methemoglobin O2 Delivery Device Oxygen Flow Rate Vent Mode Vent Rate Mechanical Rate PEEP Pressure Support Vent Sodium Potassium Chloride Carbon Dioxide Anion Gap BUN Creatinine Est GFR (CKD-EPI)AfAm Est GFR (CKD-EPI)NonAf Random Glucose Lactic Acid 2.7 H* Calcium Phosphorus Magnesium Total Bilirubin AST ALT Alkaline Phosphatase C-Reactive Protein < 0.3 Total Protein Albumin Serum , Qual Urine Color Urine Appearance Urine pH Ur Specific [place] Urine Protein Urine Glucose (UA) Urine Ketones Urine Blood Urine Nitrite Urine Bilirubin Urine Urobilinogen Ur Leukocyte Esterase Urine WBC (Auto) Urine RBC (Auto) Urine Casts (Auto) U Epithel Cells (Auto) Urine Bacteria (Auto) Urine HCG, Qual Salicylates < 1.7 L Opiates Screen Methadone Screen Acetaminophen Barbiturate Screen Phencyclidine Screen Ur Amphetamines Screen MDMA (Ecstasy) Screen Benzodiazepines Screen Cocaine Screen U Marijuana (THC) Screen Alcohol, Quantitative Blood Type Antibody Screen 02/24/19 02/25/19 02/25/19 21:40 06:30 06:30 WBC RBC Hgb Hct MCV MCH MCHC RDW Plt Count MPV Absolute Neuts (auto) Neutrophils % Lymphocytes % Monocytes % Eosinophils % Basophils % Nucleated RBC % ESR PT with INR 44.10 H INR 3.69 H PTT (Actin FS) Anticoagulation Therapy No Result Required. Puncture Site Right radial ABG pH 7.34 L ABG pCO2 at Pt Temp 41.6 ABG pO2 at Pt Temp 396 H ABG HCO3 22.0 ABG O2 Sat (Measured) 99.6 H ABG O2 Content No Result Required. ABG Base Excess -2.9 L Radu Test Positive Carboxyhemoglobin Methemoglobin O2 Delivery Device Vent Oxygen Flow Rate 100% Vent Mode No Result Required. Vent Rate 12 Mechanical Rate No Result Required. PEEP 5.0 Pressure Support Vent 400 Sodium 143 Potassium 4.3 Chloride 114 H Carbon Dioxide 21 Anion Gap 7 L BUN 7.4 Creatinine 0.9 Est GFR (CKD-EPI)AfAm 91.40 Est GFR (CKD-EPI)NonAf 78.86 Random Glucose 60 L Lactic Acid Calcium 7.2 L Phosphorus 2.5 Magnesium 2.0 Total Bilirubin 0.3 AST 25 ALT 18 Alkaline Phosphatase 94 C-Reactive Protein Total Protein 5.8 L Albumin 2.7 L Serum , Qual Urine Color Urine Appearance Urine pH Ur Specific [place] Urine Protein Urine Glucose (UA) Urine Ketones Urine Blood Urine Nitrite Urine Bilirubin Urine Urobilinogen Ur Leukocyte Esterase Urine WBC (Auto) Urine RBC (Auto) Urine Casts (Auto) U Epithel Cells (Auto) Urine Bacteria (Auto) Urine HCG, Qual Salicylates Opiates Screen Methadone Screen Acetaminophen Barbiturate Screen Phencyclidine Screen Ur Amphetamines Screen MDMA (Ecstasy) Screen Benzodiazepines Screen Cocaine Screen U Marijuana (THC) Screen Alcohol, Quantitative Blood Type Antibody Screen 02/25/19 02/25/19 02/25/19 06:30 09:00 09:00 WBC 8.0 RBC 3.50 L Hgb 8.7 L Hct 27.4 L D MCV 78.3 L MCH 24.7 L MCHC 31.6 L RDW 17.2 H Plt Count 192 D MPV 8.7 Absolute Neuts (auto) 6.0 Neutrophils % 74.5 D Lymphocytes % 14.7 D Monocytes % 5.4 Eosinophils % 5.0 H Basophils % 0.4 Nucleated RBC % 0 ESR 8 PT with INR INR PTT (Actin FS) Anticoagulation Therapy No Result Required. Puncture Site Left radial ABG pH 7.34 L ABG pCO2 at Pt Temp 39.6 ABG pO2 at Pt Temp 70.1 L ABG HCO3 20.7 L ABG O2 Sat (Measured) 93.7 L ABG O2 Content 12.7 ABG Base Excess -4.1 L Radu Test Positive Carboxyhemoglobin Methemoglobin O2 Delivery Device Vent Oxygen Flow Rate Yes Vent Mode A/c Vent Rate 12 Mechanical Rate No Result Required. PEEP 5.0 Pressure Support Vent 400 Sodium Potassium Chloride Carbon Dioxide Anion Gap BUN Creatinine Est GFR (CKD-EPI)AfAm Est GFR (CKD-EPI)NonAf Random Glucose Lactic Acid Calcium Phosphorus Magnesium Total Bilirubin AST ALT Alkaline Phosphatase C-Reactive Protein Total Protein Albumin Serum , Qual Urine Color Urine Appearance Urine pH Ur Specific [place] Urine Protein Urine Glucose (UA) Urine Ketones Urine Blood Urine Nitrite Urine Bilirubin Urine Urobilinogen Ur Leukocyte Esterase Urine WBC (Auto) Urine RBC (Auto) Urine Casts (Auto) U Epithel Cells (Auto) Urine Bacteria (Auto) Urine HCG, Qual Salicylates Opiates Screen Methadone Screen Acetaminophen Barbiturate Screen Phencyclidine Screen Ur Amphetamines Screen MDMA (Ecstasy) Screen Benzodiazepines Screen Cocaine Screen U Marijuana (THC) Screen Alcohol, Quantitative Blood Type Antibody Screen 02/25/19 09:00 WBC RBC Hgb Hct MCV MCH MCHC RDW Plt Count MPV Absolute Neuts (auto) Neutrophils % Lymphocytes % Monocytes % Eosinophils % Basophils % Nucleated RBC % ESR PT with INR INR PTT (Actin FS) Anticoagulation Therapy Puncture Site ABG pH ABG pCO2 at Pt Temp ABG pO2 at Pt Temp ABG HCO3 ABG O2 Sat (Measured) ABG O2 Content ABG Base Excess Radu Test Carboxyhemoglobin Methemoglobin O2 Delivery Device Oxygen Flow Rate Vent Mode Vent Rate Mechanical Rate PEEP Pressure Support Vent Sodium Potassium Chloride Carbon Dioxide Anion Gap BUN Creatinine Est GFR (CKD-EPI)AfAm Est GFR (CKD-EPI)NonAf Random Glucose Lactic Acid 1.8 Calcium Phosphorus Magnesium Total Bilirubin AST ALT Alkaline Phosphatase C-Reactive Protein Total Protein Albumin Serum , Qual Urine Color Urine Appearance Urine pH Ur Specific [place] Urine Protein Urine Glucose (UA) Urine Ketones Urine Blood Urine Nitrite Urine Bilirubin Urine Urobilinogen Ur Leukocyte Esterase Urine WBC (Auto) Urine RBC (Auto) Urine Casts (Auto) U Epithel Cells (Auto) Urine Bacteria (Auto) Urine HCG, Qual Salicylates Opiates Screen Methadone Screen Acetaminophen Barbiturate Screen Phencyclidine Screen Ur Amphetamines Screen MDMA (Ecstasy) Screen Benzodiazepines Screen Cocaine Screen U Marijuana (THC) Screen Alcohol, Quantitative Blood Type Antibody Screen Active Medications Generic Name Dose Route Start Last Admin Trade Name Freq PRN Reason Stop Dose Admin Acetaminophen 1,000 mg 02/25/19 06:45 02/25/19 06:59 Ofirmev Injection - IVPB 1,000 mg Q6H PRN Administration FEVER Calcium Gluconate 1,000 mg 02/25/19 12:00 Calcium Gluconate 10% - IVPUSH 02/25/19 12:01 ONCE ONE Chlorhexidine Gluconate 1 applic 02/24/19 22:00 02/24/19 21:33 Hibiclens For Decolonization - TP 1 applic HS WADE Administration Chlorhexidine Gluconate 15 ml 02/25/19 10:00 02/25/19 09:43 Peridex - MM 15 ml BID WADE Administration Sodium Chloride 1,000 mls @ 100 mls/hr 02/24/19 18:35 02/24/19 18:48 Normal Saline - IV 100 mls/hr ASDIR WADE Administration Propofol 1,000,000 mcg in 100 mls @ 1.755 mls/hr 02/24/19 19:15 02/25/19 09: 52 Diprivan - IVPB 0 mcg/kg/min TITR WADE 0 mls/hr Titration Protocol 5 MCG/KG/MIN Midazolam HCl 100 mg/ Sodium 100 mls @ 1 mls/hr 02/25/19 06:30 02/25/19 09:52 Chloride IVPB 0 mg/hr TITR WADE 0 mls/hr Titration Protocol 1 MG/HR Fentanyl 500 mcg/ Dextrose 100 mls @ 10 mls/hr 02/25/19 06:45 02/25/19 09:53 IVPB 0 mcg/hr TITR WADE 0 mls/hr Titration Protocol 50 MCG/HR Piperacillin Sod/Tazobactam 100 mls @ 200 mls/hr 02/25/19 11:15 Sod 4.5 gm/ Dextrose IVPB Q8H WADE Protocol Piperacillin Sod/Tazobactam 100 mls @ 200 mls/hr 02/25/19 11:30 02/25/19 11: 31 Sod 4.5 gm/ Dextrose IVPB 02/26/19 11:29 200 mls/hr Q8H WADE Administration Protocol Levetiracetam 500 mg 02/24/19 22:00 02/25/19 09:43 Keppra Injection - IVPB 500 mg BID WADE Administration Mupirocin 1 applic 02/24/19 22:00 02/25/19 09:43 Bactroban Ointment (For Decolonization) - NS 03/01/19 21:59 1 applic BID WADE Administration ASSESSMENT/PLAN: 44 y/o F, pmh of HTN, alcohol abuse, hx of dural venous thrombosis, and hemorrhagic stroke 3 months ago requiring hospitalization at [facility] ([facility] placed pt on coumadin?), presents today s/p seizures. Microcytic Hypochromic Anemia -unclear if there is a history of bleeding -pt was possibly recently started on AC -Fe studies, TSH, folate, b12 -note that INR worsened today despite pt being on heparin drip not Coumadin. ? liver function though no transaminitis h/o Dural [place] Sinus Thrombosis -unclear why pt had thrombosis -will start hypercoag workup here -Prot C,S, AT3, F5L, prothrombin, APLA Status Epilepticus -intubated, sedated -not currently seizing -on AEDs Sepsis 2/2 likely aspiration pneumonia -Lactic Acidosis resolved -on Abx, fluids Alcohol Abuse -intubated sedated -monitor for withdrawal if extubated soon HTN -Bp controlled Dispo: We will continue to follow the patient. Thank you for this consultative opportunity. Visit type - Emergency Visit Emergency Visit: No - New Patient This patient is new to me today: Yes Date on this admission: 02/25/19 - Critical Care Critical Care patient: No ATTENDING PHYSICIAN STATEMENT I saw and evaluated the patient. I reviewed the resident's note and discussed the case with the resident. I agree with the resident's findings and plan as documented. SUBJECTIVE: OBJECTIVE: ASSESSMENT AND PLAN:
--- NOTE | 2019-02-25 13:18 | CON.ID ---
Consult Consult Specialty:: infectious diseases Referred by:: Reason for Consultation:: sepsis,drug abuse - History of Present Illness Chief Complaint: seizures History of Present Illness: patient intubated,in the icu history obtained from the charts and the nursing staff [id number] w PMHx HTN, alcohol abuse, hypercoagulable, recent dural venous sinus thrombosis, hemorrhagic stroke 3mo ago, seizure, presented with seizure. according to the boyfreind pt complained of severe headache, found by boyfriend unable to speak or move R arm. On arrival at ED, pt was hypertensive, had tonic clonic mvmnt, hypoxic, clenched jaw, bleeding from mouth. Continued to seize after keppra, etomidate, and ativan, subsequently sedated w propofol, intubated for status epilepticus. Also given versed and fentanyl after intubation. Utox positive for cocaine. Was transferred from [facility] to [facility] on 12/26/18 for GTC seizure. CTH showed L sided ICH/SAH, CT venogram showed L transverse and sigmoid sinus dural venous sinus thrombosis extending into L IJV, workup showed hypercoagulable state + for beta-2 glycoprotein. D/c on coumadin for AC, metoprolol and prinivil for HTN, albuterol for SOB. now intubated - History Source History Provided By: Family Member Limitations to Obtaining History: Clinical Condition - Alcohol/Substance Use Hx Alcohol Use: No - Smoking History Smoking history: Unknown if ever smoked Have you smoked in the past 12 months: No Home Medications - Allergies Allergies/Adverse Reactions: Allergies Allergy/AdvReac Type Severity Reaction Status Date / Time No Known Allergies Allergy Verified 02/07/19 14:25 - Home Medications Home Medications: Ambulatory Orders Aspirin [ASA -] 325 mg PO DAILY 02/07/19 Atorvastatin Ca [Lipitor] 40 mg PO HS 02/07/19 RX: Metoprolol Succinate 25 mg PO DAILY 02/07/19 Coumadin 3 mg PO DAILY 02/26/19 Review of Systems Unable to obtain ROS, reason: unable to obtain Physical Exam Vital Signs: Vital Signs Temperature 100.7 F H 02/25/19 13:00 Pulse Rate 94 H 02/25/19 13:00 Respiratory Rate 22 H 02/25/19 13:00 Blood Pressure 89/57 L 02/25/19 13:00 O2 Sat by Pulse Oximetry (%) 95 11/11/19 10:05 Constitutional: Yes: No Distress Cardiovascular: Yes: Tachycardia Respiratory: Yes: Intubated, Mechanically Ventilated Gastrointestinal: Yes: Soft, Hypoactive Bowel Sounds Musculoskeletal: Yes: WNL Extremities: Yes: WNL Neurological: Yes: Other Labs: CBC, BMP 02/25/19 09:00 02/25/19 06:30 Imaging - Results Chest X-ray: Report Reviewed, Image Reviewed Cat Scan: Report Reviewed, Image Reviewed Assessment/Plan Status Epilepticus Acute Respiratory Failure Pneumonia likely Aspiration Sepsis Lactic Acidosis Alcohol Abuse Cocaine Use h/o Dural [place] Sinus Thrombosis HTN Anemia plan will start patient on abx asp precautions resp support monitor for seizures await for all cx results rest as per icu cc 45 min
[2019-02-25] MEDS ORDERED: PIPERACILLIN/TAZOB 3.375 GM 3.375 GM in DEXTROSE 5%-WATER - 50 ML IVPB SCH (13:30)
--- NOTE | 2019-02-25 13:40 | PN ---
Physical Exam: SUBJECTIVE: Patient seen and examined by the bedside. She is sedated and intubated. OBJECTIVE: Vital Signs Period Temp Pulse Resp BP Sys/Ruano Pulse Ox Last 24 Hr 36.8 F-102.9 F 65-121 12-25 60-220/45-123 95-100 GENERAL: Sedated and intubated, unresponsive HEAD: Normal with no signs of trauma. EYES: Pupils equal, pinpoint, conjunctiva clear. LUNGS: Transmitted breath sounds B/L No wheezes, and no crackles. No accessory muscle use HEART: RRR, no murmurs, rub or gallop. ABDOMEN: Soft, nontender, not distended, normoactive bowel sounds, no guarding, no rebound, no masses. No hepatomegaly or splenomegaly. EXTREMITIES: warm, well-perfused. No cyanosis. Cap refill <2 seconds. No peripheral edema. NEUROLOGICAL: Sedated. Laboratory Results - last 24 hr 02/24/19 02/24/19 02/24/19 16:00 16:00 16:00 WBC RBC Hgb Hct MCV MCH MCHC RDW Plt Count MPV Absolute Neuts (auto) Neutrophils % Neutrophils % (Manual) Band Neutrophils % Lymphocytes % Lymphocytes % (Manual) Monocytes % Monocytes % (Manual) Eosinophils % Eosinophils % (Manual) Basophils % Basophils % (Manual) Myelocytes % (Man) Promyelocytes % (Man) Blast Cells % (Manual) Nucleated RBC % Metamyelocytes Hypochromia Platelet Estimate Polychromasia Poikilocytosis Anisocytosis Microcytosis Ovalocytes Schistocytes ESR PT with INR 39.80 H INR 3.33 H PTT (Actin FS) 40.8 H Anticoagulation Therapy Puncture Site ABG pH ABG pCO2 at Pt Temp ABG pO2 at Pt Temp ABG HCO3 ABG O2 Sat (Measured) ABG O2 Content ABG Base Excess Radu Test Carboxyhemoglobin Methemoglobin O2 Delivery Device Oxygen Flow Rate Vent Mode Vent Rate Mechanical Rate PEEP Pressure Support Vent Sodium Potassium Chloride Carbon Dioxide Anion Gap BUN Creatinine Est GFR (CKD-EPI)AfAm Est GFR (CKD-EPI)NonAf Random Glucose Lactic Acid Calcium Phosphorus Magnesium Total Bilirubin AST ALT Alkaline Phosphatase C-Reactive Protein Total Protein Albumin Serum , Qual Urine Color Urine Appearance Urine pH Ur Specific [place] Urine Protein Urine Glucose (UA) Urine Ketones Urine Blood Urine Nitrite Urine Bilirubin Urine Urobilinogen Ur Leukocyte Esterase Urine WBC (Auto) Urine RBC (Auto) Urine Casts (Auto) U Epithel Cells (Auto) Urine Bacteria (Auto) Urine HCG, Qual Salicylates Opiates Screen Methadone Screen Acetaminophen --noresult-- Barbiturate Screen Phencyclidine Screen Ur Amphetamines Screen MDMA (Ecstasy) Screen Benzodiazepines Screen Cocaine Screen U Marijuana (THC) Screen Alcohol, Quantitative < 3.0 Blood Type Antibody Screen 02/24/19 02/24/19 02/24/19 16:00 16:00 16:00 WBC 10.4 H RBC 4.61 Hgb 11.2 Hct 36.6 MCV 79.4 L MCH 24.4 L MCHC 30.7 L RDW 17.6 H Plt Count 273 MPV 8.5 Absolute Neuts (auto) 5.9 Neutrophils % 56.5 D Neutrophils % (Manual) Band Neutrophils % Lymphocytes % 25.2 D Lymphocytes % (Manual) Monocytes % 6.1 Monocytes % (Manual) Eosinophils % 11.3 H Eosinophils % (Manual) Basophils % 0.9 Basophils % (Manual) Myelocytes % (Man) Promyelocytes % (Man) Blast Cells % (Manual) Nucleated RBC % 0 Metamyelocytes Hypochromia Platelet Estimate Polychromasia Poikilocytosis Anisocytosis Microcytosis Ovalocytes Schistocytes ESR PT with INR INR PTT (Actin FS) Anticoagulation Therapy Puncture Site ABG pH ABG pCO2 at Pt Temp ABG pO2 at Pt Temp ABG HCO3 ABG O2 Sat (Measured) ABG O2 Content ABG Base Excess Radu Test Carboxyhemoglobin Methemoglobin O2 Delivery Device Oxygen Flow Rate Vent Mode Vent Rate Mechanical Rate PEEP Pressure Support Vent Sodium 138 Potassium 4.4 Chloride 106 Carbon Dioxide 19 L Anion Gap 12 BUN 13.2 Creatinine 1.3 Est GFR (CKD-EPI)AfAm 58.60 Est GFR (CKD-EPI)NonAf 50.56 Random Glucose 120 H Lactic Acid Calcium 8.6 Phosphorus Magnesium 2.5 H Total Bilirubin 0.2 AST 30 ALT 24 Alkaline Phosphatase 123 H C-Reactive Protein Total Protein 7.6 Albumin 3.6 Serum , Qual Negative Urine Color Urine Appearance Urine pH Ur Specific [place] Urine Protein Urine Glucose (UA) Urine Ketones Urine Blood Urine Nitrite Urine Bilirubin Urine Urobilinogen Ur Leukocyte Esterase Urine WBC (Auto) Urine RBC (Auto) Urine Casts (Auto) U Epithel Cells (Auto) Urine Bacteria (Auto) Urine HCG, Qual Salicylates Opiates Screen Methadone Screen Acetaminophen Barbiturate Screen Phencyclidine Screen Ur Amphetamines Screen MDMA (Ecstasy) Screen Benzodiazepines Screen Cocaine Screen U Marijuana (THC) Screen Alcohol, Quantitative Blood Type Antibody Screen 02/24/19 02/24/19 02/24/19 16:00 16:00 16:22 WBC RBC Hgb Hct MCV MCH MCHC RDW Plt Count MPV Absolute Neuts (auto) Neutrophils % Neutrophils % (Manual) Band Neutrophils % Lymphocytes % Lymphocytes % (Manual) Monocytes % Monocytes % (Manual) Eosinophils % Eosinophils % (Manual) Basophils % Basophils % (Manual) Myelocytes % (Man) Promyelocytes % (Man) Blast Cells % (Manual) Nucleated RBC % Metamyelocytes Hypochromia Platelet Estimate Polychromasia Poikilocytosis Anisocytosis Microcytosis Ovalocytes Schistocytes ESR PT with INR INR PTT (Actin FS) Anticoagulation Therapy Puncture Site ABG pH ABG pCO2 at Pt Temp ABG pO2 at Pt Temp ABG HCO3 ABG O2 Sat (Measured) ABG O2 Content ABG Base Excess Radu Test Carboxyhemoglobin Methemoglobin O2 Delivery Device Oxygen Flow Rate Vent Mode Vent Rate Mechanical Rate PEEP Pressure Support Vent Sodium Potassium Chloride Carbon Dioxide Anion Gap BUN Creatinine Est GFR (CKD-EPI)AfAm Est GFR (CKD-EPI)NonAf Random Glucose Lactic Acid 9.3 H* Calcium Phosphorus Magnesium Total Bilirubin AST ALT Alkaline Phosphatase C-Reactive Protein Total Protein Albumin Serum , Qual Urine Color Yellow Urine Appearance Clear Urine pH 5.5 D Ur Specific [place] 1.014 Urine Protein 2+ H Urine Glucose (UA) Negative Urine Ketones Negative Urine Blood 1+ H Urine Nitrite Negative Urine Bilirubin Negative Urine Urobilinogen 0.2 Ur Leukocyte Esterase Negative Urine WBC (Auto) 1 Urine RBC (Auto) 8 Urine Casts (Auto) 4 U Epithel Cells (Auto) 1.4 Urine Bacteria (Auto) 15.8 Urine HCG, Qual Salicylates Opiates Screen Methadone Screen Acetaminophen Barbiturate Screen Phencyclidine Screen Ur Amphetamines Screen MDMA (Ecstasy) Screen Benzodiazepines Screen Cocaine Screen U Marijuana (THC) Screen Alcohol, Quantitative Blood Type O POSITIVE Antibody Screen Positive 02/24/19 02/24/19 02/24/19 16:29 16:29 16:54 WBC RBC Hgb Hct MCV MCH MCHC RDW Plt Count MPV Absolute Neuts (auto) Neutrophils % Neutrophils % (Manual) Band Neutrophils % Lymphocytes % Lymphocytes % (Manual) Monocytes % Monocytes % (Manual) Eosinophils % Eosinophils % (Manual) Basophils % Basophils % (Manual) Myelocytes % (Man) Promyelocytes % (Man) Blast Cells % (Manual) Nucleated RBC % Metamyelocytes Hypochromia Platelet Estimate Polychromasia Poikilocytosis Anisocytosis Microcytosis Ovalocytes Schistocytes ESR PT with INR INR PTT (Actin FS) Anticoagulation Therapy No Result Required. Puncture Site Right radial ABG pH 7.30 L ABG pCO2 at Pt Temp 48.5 H ABG pO2 at Pt Temp 325 H ABG HCO3 23.0 ABG O2 Sat (Measured) 99.7 H ABG O2 Content 13.1 ABG Base Excess -2.8 L Radu Test Positive Carboxyhemoglobin 0.5 Methemoglobin < 1.0 O2 Delivery Device No Result Required. Oxygen Flow Rate Yes Vent Mode No Result Required. Vent Rate 12 Mechanical Rate No Result Required. PEEP 5.0 Pressure Support Vent No Result Required. Sodium Potassium Chloride Carbon Dioxide Anion Gap BUN Creatinine Est GFR (CKD-EPI)AfAm Est GFR (CKD-EPI)NonAf Random Glucose Lactic Acid Calcium Phosphorus Magnesium Total Bilirubin AST ALT Alkaline Phosphatase C-Reactive Protein Total Protein Albumin Serum , Qual Urine Color Urine Appearance Urine pH Ur Specific [place] Urine Protein Urine Glucose (UA) Urine Ketones Urine Blood Urine Nitrite Urine Bilirubin Urine Urobilinogen Ur Leukocyte Esterase Urine WBC (Auto) Urine RBC (Auto) Urine Casts (Auto) U Epithel Cells (Auto) Urine Bacteria (Auto) Urine HCG, Qual Negative Salicylates Opiates Screen Negative Methadone Screen Negative Acetaminophen Barbiturate Screen Negative Phencyclidine Screen Negative Ur Amphetamines Screen Negative MDMA (Ecstasy) Screen Negative Benzodiazepines Screen Negative Cocaine Screen Positive A* U Marijuana (THC) Screen Negative Alcohol, Quantitative Blood Type Antibody Screen 02/24/19 02/24/19 02/24/19 19:16 19:16 20:44 WBC RBC Hgb Hct MCV MCH MCHC RDW Plt Count MPV Absolute Neuts (auto) Neutrophils % Neutrophils % (Manual) Band Neutrophils % Lymphocytes % Lymphocytes % (Manual) Monocytes % Monocytes % (Manual) Eosinophils % Eosinophils % (Manual) Basophils % Basophils % (Manual) Myelocytes % (Man) Promyelocytes % (Man) Blast Cells % (Manual) Nucleated RBC % Metamyelocytes Hypochromia Platelet Estimate Polychromasia Poikilocytosis Anisocytosis Microcytosis Ovalocytes Schistocytes ESR PT with INR INR PTT (Actin FS) Anticoagulation Therapy Puncture Site ABG pH ABG pCO2 at Pt Temp ABG pO2 at Pt Temp ABG HCO3 ABG O2 Sat (Measured) ABG O2 Content ABG Base Excess Radu Test Carboxyhemoglobin Methemoglobin O2 Delivery Device Oxygen Flow Rate Vent Mode Vent Rate Mechanical Rate PEEP Pressure Support Vent Sodium Potassium Chloride Carbon Dioxide Anion Gap BUN Creatinine Est GFR (CKD-EPI)AfAm Est GFR (CKD-EPI)NonAf Random Glucose Lactic Acid 2.7 H* Calcium Phosphorus Magnesium Total Bilirubin AST ALT Alkaline Phosphatase C-Reactive Protein < 0.3 Total Protein Albumin Serum , Qual Urine Color Urine Appearance Urine pH Ur Specific [place] Urine Protein Urine Glucose (UA) Urine Ketones Urine Blood Urine Nitrite Urine Bilirubin Urine Urobilinogen Ur Leukocyte Esterase Urine WBC (Auto) Urine RBC (Auto) Urine Casts (Auto) U Epithel Cells (Auto) Urine Bacteria (Auto) Urine HCG, Qual Salicylates < 1.7 L Opiates Screen Methadone Screen Acetaminophen Barbiturate Screen Phencyclidine Screen Ur Amphetamines Screen MDMA (Ecstasy) Screen Benzodiazepines Screen Cocaine Screen U Marijuana (THC) Screen Alcohol, Quantitative Blood Type Antibody Screen 02/24/19 02/25/19 02/25/19 21:40 06:30 06:30 WBC RBC Hgb Hct MCV MCH MCHC RDW Plt Count MPV Absolute Neuts (auto) Neutrophils % Neutrophils % (Manual) Band Neutrophils % Lymphocytes % Lymphocytes % (Manual) Monocytes % Monocytes % (Manual) Eosinophils % Eosinophils % (Manual) Basophils % Basophils % (Manual) Myelocytes % (Man) Promyelocytes % (Man) Blast Cells % (Manual) Nucleated RBC % Metamyelocytes Hypochromia Platelet Estimate Polychromasia Poikilocytosis Anisocytosis Microcytosis Ovalocytes Schistocytes ESR PT with INR 44.10 H INR 3.69 H PTT (Actin FS) Anticoagulation Therapy No Result Required. Puncture Site Right radial ABG pH 7.34 L ABG pCO2 at Pt Temp 41.6 ABG pO2 at Pt Temp 396 H ABG HCO3 22.0 ABG O2 Sat (Measured) 99.6 H ABG O2 Content No Result Required. ABG Base Excess -2.9 L Radu Test Positive Carboxyhemoglobin Methemoglobin O2 Delivery Device Vent Oxygen Flow Rate 100% Vent Mode No Result Required. Vent Rate 12 Mechanical Rate No Result Required. PEEP 5.0 Pressure Support Vent 400 Sodium 143 Potassium 4.3 Chloride 114 H Carbon Dioxide 21 Anion Gap 7 L BUN 7.4 Creatinine 0.9 Est GFR (CKD-EPI)AfAm 91.40 Est GFR (CKD-EPI)NonAf 78.86 Random Glucose 60 L Lactic Acid Calcium 7.2 L Phosphorus 2.5 Magnesium 2.0 Total Bilirubin 0.3 AST 25 ALT 18 Alkaline Phosphatase 94 C-Reactive Protein Total Protein 5.8 L Albumin 2.7 L Serum , Qual Urine Color Urine Appearance Urine pH Ur Specific [place] Urine Protein Urine Glucose (UA) Urine Ketones Urine Blood Urine Nitrite Urine Bilirubin Urine Urobilinogen Ur Leukocyte Esterase Urine WBC (Auto) Urine RBC (Auto) Urine Casts (Auto) U Epithel Cells (Auto) Urine Bacteria (Auto) Urine HCG, Qual Salicylates Opiates Screen Methadone Screen Acetaminophen Barbiturate Screen Phencyclidine Screen Ur Amphetamines Screen MDMA (Ecstasy) Screen Benzodiazepines Screen Cocaine Screen U Marijuana (THC) Screen Alcohol, Quantitative Blood Type Antibody Screen 02/25/19 02/25/19 02/25/19 06:30 09:00 09:00 WBC 8.0 RBC 3.50 L Hgb 8.7 L Hct 27.4 L D MCV 78.3 L MCH 24.7 L MCHC 31.6 L RDW 17.2 H Plt Count 192 D MPV 8.7 Absolute Neuts (auto) 6.0 Neutrophils % 74.5 D Neutrophils % (Manual) 55.7 Band Neutrophils % 20.6 Lymphocytes % 14.7 D Lymphocytes % (Manual) 14.4 D Monocytes % 5.4 Monocytes % (Manual) 2 L Eosinophils % 5.0 H Eosinophils % (Manual) 6.2 H D Basophils % 0.4 Basophils % (Manual) 1.0 D Myelocytes % (Man) 0 Promyelocytes % (Man) 0 Blast Cells % (Manual) 0 Nucleated RBC % 0 Metamyelocytes 0 D Hypochromia 1+ Platelet Estimate Normal Polychromasia 0 Poikilocytosis 1+ Anisocytosis 1+ Microcytosis 1+ Ovalocytes 1+ Schistocytes 1+ ESR 8 PT with INR INR PTT (Actin FS) Anticoagulation Therapy No Result Required. Puncture Site Left radial ABG pH 7.34 L ABG pCO2 at Pt Temp 39.6 ABG pO2 at Pt Temp 70.1 L ABG HCO3 20.7 L ABG O2 Sat (Measured) 93.7 L ABG O2 Content 12.7 ABG Base Excess -4.1 L Radu Test Positive Carboxyhemoglobin Methemoglobin O2 Delivery Device Vent Oxygen Flow Rate Yes Vent Mode A/c Vent Rate 12 Mechanical Rate No Result Required. PEEP 5.0 Pressure Support Vent 400 Sodium Potassium Chloride Carbon Dioxide Anion Gap BUN Creatinine Est GFR (CKD-EPI)AfAm Est GFR (CKD-EPI)NonAf Random Glucose Lactic Acid Calcium Phosphorus Magnesium Total Bilirubin AST ALT Alkaline Phosphatase C-Reactive Protein Total Protein Albumin Serum , Qual Urine Color Urine Appearance Urine pH Ur Specific [place] Urine Protein Urine Glucose (UA) Urine Ketones Urine Blood Urine Nitrite Urine Bilirubin Urine Urobilinogen Ur Leukocyte Esterase Urine WBC (Auto) Urine RBC (Auto) Urine Casts (Auto) U Epithel Cells (Auto) Urine Bacteria (Auto) Urine HCG, Qual Salicylates Opiates Screen Methadone Screen Acetaminophen Barbiturate Screen Phencyclidine Screen Ur Amphetamines Screen MDMA (Ecstasy) Screen Benzodiazepines Screen Cocaine Screen U Marijuana (THC) Screen Alcohol, Quantitative Blood Type Antibody Screen 02/25/19 09:00 WBC RBC Hgb Hct MCV MCH MCHC RDW Plt Count MPV Absolute Neuts (auto) Neutrophils % Neutrophils % (Manual) Band Neutrophils % Lymphocytes % Lymphocytes % (Manual) Monocytes % Monocytes % (Manual) Eosinophils % Eosinophils % (Manual) Basophils % Basophils % (Manual) Myelocytes % (Man) Promyelocytes % (Man) Blast Cells % (Manual) Nucleated RBC % Metamyelocytes Hypochromia Platelet Estimate Polychromasia Poikilocytosis Anisocytosis Microcytosis Ovalocytes Schistocytes ESR PT with INR INR PTT (Actin FS) Anticoagulation Therapy Puncture Site ABG pH ABG pCO2 at Pt Temp ABG pO2 at Pt Temp ABG HCO3 ABG O2 Sat (Measured) ABG O2 Content ABG Base Excess Radu Test Carboxyhemoglobin Methemoglobin O2 Delivery Device Oxygen Flow Rate Vent Mode Vent Rate Mechanical Rate PEEP Pressure Support Vent Sodium Potassium Chloride Carbon Dioxide Anion Gap BUN Creatinine Est GFR (CKD-EPI)AfAm Est GFR (CKD-EPI)NonAf Random Glucose Lactic Acid 1.8 Calcium Phosphorus Magnesium Total Bilirubin AST ALT Alkaline Phosphatase C-Reactive Protein Total Protein Albumin Serum , Qual Urine Color Urine Appearance Urine pH Ur Specific [place] Urine Protein Urine Glucose (UA) Urine Ketones Urine Blood Urine Nitrite Urine Bilirubin Urine Urobilinogen Ur Leukocyte Esterase Urine WBC (Auto) Urine RBC (Auto) Urine Casts (Auto) U Epithel Cells (Auto) Urine Bacteria (Auto) Urine HCG, Qual Salicylates Opiates Screen Methadone Screen Acetaminophen Barbiturate Screen Phencyclidine Screen Ur Amphetamines Screen MDMA (Ecstasy) Screen Benzodiazepines Screen Cocaine Screen U Marijuana (THC) Screen Alcohol, Quantitative Blood Type Antibody Screen Active Medications Generic Name Dose Route Start Last Admin Trade Name Freq PRN Reason Stop Dose Admin Acetaminophen 1,000 mg 02/25/19 06:45 02/25/19 06:59 Ofirmev Injection - IVPB 1,000 mg Q6H PRN Administration FEVER Chlorhexidine Gluconate 1 applic 02/24/19 22:00 02/24/19 21:33 Hibiclens For Decolonization - TP 1 applic HS WADE Administration Chlorhexidine Gluconate 15 ml 02/25/19 10:00 02/25/19 09:43 Peridex - MM 15 ml BID AWDE Administration Sodium Chloride 1,000 mls @ 100 mls/hr 02/24/19 18:35 02/24/19 18:48 Normal Saline - IV 100 mls/hr ASDIR WADE Administration Propofol 1,000,000 mcg in 100 mls @ 1.755 mls/hr 02/24/19 19:15 02/25/19 09: 52 Diprivan - IVPB 0 mcg/kg/min TITR WADE 0 mls/hr Titration Protocol 5 MCG/KG/MIN Midazolam HCl 100 mg/ Sodium 100 mls @ 1 mls/hr 02/25/19 06:30 02/25/19 09:52 Chloride IVPB 0 mg/hr TITR WADE 0 mls/hr Titration Protocol 1 MG/HR Fentanyl 500 mcg/ Dextrose 100 mls @ 10 mls/hr 02/25/19 06:45 02/25/19 09:53 IVPB 0 mcg/hr TITR WADE 0 mls/hr Titration Protocol 50 MCG/HR Vancomycin HCl 1,250 mg/ 250 mls @ 250 mls/2 hr 02/25/19 13:30 Dextrose IVPB Q24H WADE Protocol Piperacillin Sod/Tazobactam 50 mls @ 100 mls/hr 02/25/19 18:00 Sod 3.375 gm/ Dextrose IVPB Q8H-IV WADE Protocol Levetiracetam 500 mg 02/24/19 22:00 02/25/19 09:43 Keppra Injection - IVPB 500 mg BID WADE Administration Mupirocin 1 applic 02/24/19 22:00 02/25/19 09:43 Bactroban Ointment (For Decolonization) - NS 03/01/19 21:59 1 applic BID WADE Administration ASSESSMENT/PLAN: 44 YO F with PMH of HTN, alcohol abuse, hypercoagulable state, dural venous sinus thrombosis, Hemorrhagic CVA (3m ago), and seizures. She presented to the ER with seizures likely 2/2 alcohol/cocaine vs medication noncompliance. # Neuro - Status epilepticus (DD:alcohol/cocaine vs med non-compliance) - Intubated and sedated with Propofol, versed, fentanyl - On Keppra 500mg BID - UTox + for cocaine, - CT Head wo contrast (02/24): No acute bleed/infarct/mass/fx - Dr. Victor: EEG, MRV of the head to r/o sinus thrombosis when extubated - Neuro checks q1h, seizure precautions # CVS - Hx of HTN, currently hypotensive, holding home meds metoprolol 25mg PO OD due to hypotension - Lactic Acid 2.7 -> 1.8 - Given N/S bolus due to hypotension, maintain MAP > 65 # Pulm - CXR 02/24 showed cardiomegaly, clear lung corea - serial ABGs # Heme - Hx hypercoagulable state + for beta-2 glycoprotein - INR 3.33 -> 3.69 - Hold Coumadin - Heme/Onc consult: Spoke to Dr. Hilario, ordered anticardiolipin AB, Anti B2 glycoprotein I, Lupus anticoagulant AB # ID - Leukocytosis WBC 10.4 likely reactive to seizure, trend - Bcx, Ucx, Sputum cx pending # DVT PE - SCDs # FEN - N/S @100 - hyperMg - NPO # Dispo - ICU, wean off sedation and extubate Visit type - Emergency Visit Emergency Visit: Yes ED Registration Date: 02/24/19 Care time: The patient presented to the Emergency Department on the above date and was hospitalized for further evaluation of their emergent condition. - New Patient This patient is new to me today: Yes Date on this admission: 02/26/19 - Critical Care Critical Care patient: Yes Total Critical Care Time (in minutes): 37 Critical Care Statement: The care of this patient involved high complexity decision making to prevent further life threatening deterioration of the patient 's condition and/or to evaluate & treat vital organ system(s) failure or risk of failure. ATTENDING PHYSICIAN STATEMENT I saw and evaluated the patient. I reviewed the resident's note and discussed the case with the resident. I agree with the resident's findings and plan as documented. SUBJECTIVE: OBJECTIVE: ASSESSMENT AND PLAN:
--- NOTE | 2019-02-25 14:13 | PN ---
Physical Exam: SUBJECTIVE: Patient seen and examined 44 y/o F, pmh of HTN, alcohol abuse, hx of dural venous thrombosis, and hemorrhagic stroke 3 months ago requiring hospitalization at [facility] ([facility] placed pt on coumadin?), presents today s/p seizures. Pt remains intubated and sedated. Pt is febrile today with a 102.3F. Pt is also mildy hypotension. Denies f/c/n/v/ d/sob/chest pain. OBJECTIVE: Vital Signs Last Vital Signs Temp Pulse Resp BP Pulse Ox 100.7 F H 89 21 H 98/61 95 02/25/19 13:00 02/25/19 14:00 02/25/19 14:00 02/25/19 14:00 02/25/19 14:05 GENERAL: minimally responsive, responds to pain stimuli. Intubated. EYES: Pupils reactive but mildly constricted LUNGS: PT intubated- difficult to check breath sounds. However, pts breath sounds were appreciated HEART: Regular rate, normal S1 and S2 without murmur, rub or gallop. ABDOMEN: Soft, nontender, not distended, normoactive bowel sounds, no guarding, no rebound, no masses. UPPER EXTREMITIES: 2+ pulses, warm, no edema LOWER EXTREMITIES: 2+ pulses, warm, no edema SKIN: Warm, dry Laboratory Results - last 24 hr CBC,CMP WBC 8.0 K/mm3 (4.0-10.0) 02/25/19 09:00 RBC 3.50 M/mm3 (3.60-5.2) L 02/25/19 09:00 Hgb 8.7 GM/dL (10.7-15.3) L 02/25/19 09:00 Hct 27.4 % (32.4-45.2) L D 02/25/19 09:00 MCV 78.3 fl (80-96) L 02/25/19 09:00 MCH 24.7 pg (25.7-33.7) L 02/25/19 09:00 MCHC 31.6 g/dl (32.0-36.0) L 02/25/19 09:00 RDW 17.2 % (11.6-15.6) H 02/25/19 09:00 Plt Count 192 K/MM3 (134-434) D 02/25/19 09:00 MPV 8.7 fl (7.5-11.1) 02/25/19 09:00 Absolute Neuts (auto) 6.0 K/mm3 (1.5-8.0) 02/25/19 09:00 Neutrophils % 74.5 % (42.8-82.8) D 02/25/19 09:00 Neutrophils % (Manual) 55.7 % (42.8-82.8) 02/25/19 09:00 Band Neutrophils % 20.6 % 02/25/19 09:00 Lymphocytes % 14.7 % (8-40) D 02/25/19 09:00 Lymphocytes % (Manual) 14.4 % (8-40) D 02/25/19 09:00 Monocytes % 5.4 % (3.8-10.2) 02/25/19 09:00 Monocytes % (Manual) 2 % (3.8-10.2) L 02/25/19 09:00 Eosinophils % 5.0 % (0-4.5) H 02/25/19 09:00 Eosinophils % (Manual) 6.2 % (0-4.5) H D 02/25/19 09:00 Basophils % 0.4 % (0-2.0) 02/25/19 09:00 Basophils % (Manual) 1.0 % (0-2.0) D 02/25/19 09:00 Myelocytes % (Man) 0 % (0-2) 02/25/19 09:00 Promyelocytes % (Man) 0 % (0-2) 02/25/19 09:00 Blast Cells % (Manual) 0 % (0-0) 02/25/19 09:00 Nucleated RBC % 0 % (0-0) 02/25/19 09:00 Metamyelocytes 0 % (0-2) D 02/25/19 09:00 Hypochromia 1+ 02/25/19 09:00 Platelet Estimate Normal 02/25/19 09:00 Polychromasia 0 02/25/19 09:00 Poikilocytosis 1+ 02/25/19 09:00 Anisocytosis 1+ 02/25/19 09:00 Microcytosis 1+ 02/25/19 09:00 Ovalocytes 1+ 02/25/19 09:00 Schistocytes 1+ 02/25/19 09:00 ESR 8 mm/hr (0-20) 02/25/19 09:00 Sodium 143 mmol/L (136-145) 02/25/19 06:30 Potassium 4.3 mmol/L (3.5-5.1) 02/25/19 06:30 Chloride 114 mmol/L (98-107) H 02/25/19 06:30 Carbon Dioxide 21 mmol/L (21-32) 02/25/19 06:30 Anion Gap 7 MMOL/L (8-16) L 02/25/19 06:30 BUN 7.4 mg/dL (7-18) 02/25/19 06:30 Creatinine 0.9 mg/dL (0.55-1.3) 02/25/19 06:30 Est GFR (CKD-EPI)AfAm 91.40 02/25/19 06:30 Est GFR (CKD-EPI)NonAf 78.86 02/25/19 06:30 Random Glucose 60 mg/dL (74-106) L 02/25/19 06:30 Lactic Acid 1.8 mmol/L (0.4-2.0) 02/25/19 09:00 Calcium 7.2 mg/dL (8.5-10.1) L 02/25/19 06:30 Phosphorus 2.5 mg/dL (2.5-4.9) 02/25/19 06:30 Magnesium 2.0 mg/dL (1.8-2.4) 02/25/19 06:30 Total Bilirubin 0.3 mg/dL (0.2-1) 02/25/19 06:30 AST 25 U/L (15-37) 02/25/19 06:30 ALT 18 U/L (13-61) 02/25/19 06:30 Alkaline Phosphatase 94 U/L (45-117) 02/25/19 06:30 C-Reactive Protein < 0.3 MG/DL (0.00-0.3) 02/24/19 20:44 Total Protein 5.8 g/dl (6.4-8.2) L 02/25/19 06:30 Albumin 2.7 g/dl (3.4-5.0) L 02/25/19 06:30 Serum , Qual Negative 02/24/19 16:00 Active Medications Current Medications Acetaminophen (Ofirmev Injection -) 1,000 mg IVPB Q6H PRN PRN Reason: FEVER Last Admin: 02/25/19 06:59 Dose: 1,000 mg Chlorhexidine Gluconate (Hibiclens For Decolonization -) 1 applic TP HS [facility] Last Admin: 02/24/19 21:33 Dose: 1 applic Chlorhexidine Gluconate (Peridex -) 15 ml MM BID WADE Last Admin: 02/25/19 09:43 Dose: 15 ml Sodium Chloride (Normal Saline -) 1,000 mls @ 100 mls/hr IV ASDIR WADE Last Admin: 02/24/19 18:48 Dose: 100 mls/hr Propofol (Diprivan -) 1,000,000 mcg in 100 mls @ 1.755 mls/hr IVPB TITR WADE; Protocol Last Titration: 02/25/19 09:52 Dose: 0 mcg/kg/min, 0 mls/hr Midazolam HCl 100 mg/ Sodium (Chloride) 100 mls @ 1 mls/hr IVPB TITR WADE; Protocol Last Titration: 02/25/19 09:52 Dose: 0 mg/hr, 0 mls/hr Fentanyl 500 mcg/ Dextrose 100 mls @ 10 mls/hr IVPB TITR WADE; Protocol Last Titration: 02/25/19 09:53 Dose: 0 mcg/hr, 0 mls/hr Vancomycin HCl 1,250 mg/ (Dextrose) 250 mls @ 250 mls/2 hr IVPB Q24H WADE; Protocol Piperacillin Sod/Tazobactam (Sod 3.375 gm/ Dextrose) 50 mls @ 100 mls/hr IVPB Q8H-IV WADE; Protocol Levetiracetam (Keppra Injection -) 500 mg IVPB BID WADE Last Admin: 02/25/19 09:43 Dose: 500 mg Mupirocin (Bactroban Ointment (For Decolonization) -) 1 applic NS BID WADE Stop: 03/01/19 21:59 Last Admin: 02/25/19 09:43 Dose: 1 applic Home Medications Medication Instructions Recorded Aspirin [ASA -] 325 mg PO DAILY 02/07/19 Atorvastatin Ca [Lipitor] 40 mg PO HS 02/07/19 Metoprolol Succinate 25 mg PO DAILY 02/07/19 ASSESSMENT/PLAN: 44 y/o F, pmh of HTN, alcohol abuse, hx of dural venous thrombosis, and hemorrhagic stroke 3 months ago requiring hospitalization at [facility] ([facility] placed pt on coumadin?), presents today s/p seizures likely 2/2 to seizure medication noncompliance vs withdrawal vs overdose #S/p Seizures Status epilepticus likely 2/2 to seizure medication noncompliance vs withdrawal vs overdose Seizures under control for now Cont Keppra 500 BID Lactic acid today is 1.8 Pt intubated- consider weaning off vent tomorrow As per Pulmon: continue antiepileptics EEG hold sedation to assess mental status spontaneous breathing trials as tolerated when mental status improved start antibiotics- Zosyn- tx likely aspiration pneumonitis/pneumonia f/u cultures, send sputum IVF boluses monitor urine output, creatinine continue anticoagulation continue ICU monitoring As per neuro: questionable degree anoxic brain damage difficult to assess on the propafol Repeat CAT scan of the head with no contrast As per Heme/Onc Iron studies-f/u INR worsened today (INR 3.69) despite pt being on heparin drip not Coumadin. F/u INR in the am Coag studies- Prot C,S, AT3, F5L, prothrombin, APLA Hold coumadin for now Obtain Pt medical records from [facility]- f/u with family/boyfriend Consider heme/ consult in the am CXR- left pleural changes, ET tube above kathy but needs to be slightly retracted ECHO ordered- f/u #Hx of hemorrhagic stroke CT head negative BP well controlled #Hx of Dural venous thrombosis Hold Coumadin- till medical records can be verified Due to increased risk of bleed INR 3.33 yesterday, today 3.69- elevated, will monitor off coumadin #Hypotension BP 89/57 now Hold home BP meds- metoprolol, lisinopril #Alcohol abuse monitor for withdrawals verify medical records Pt is on Versed (Midazolam) #Substance abuse Cocaine Positive on UTox Will monitor for now F: NS at 100 E: monitor lytes N: NPO for now Dispo: monitor in ICU, hold coumadin, f/u ECHO, EEG, f/u INR, consider Extubation in the am Visit type - Emergency Visit Emergency Visit: Yes ED Registration Date: 02/24/19 Care time: The patient presented to the Emergency Department on the above date and was hospitalized for further evaluation of their emergent condition. - New Patient This patient is new to me today: Yes Date on this admission: 02/28/19 - Critical Care Critical Care patient: No - Discharge Referral Referred to [facility] No ATTENDING PHYSICIAN STATEMENT I saw and evaluated the patient. I reviewed the resident's note and discussed the case with the resident. I agree with the resident's findings and plan as documented. SUBJECTIVE: OBJECTIVE: ASSESSMENT AND PLAN:
--- NOTE | 2019-02-25 15:35 | ECHO ---
Name: ENRIQUE BRONSON Exam:Adult Echocardiogram Study Date: 02/25/2019 03:00 PM Age: 44 yrs Reason For Study: lv fn hx cerebral venous Height: 64 in Weight: 128 lb BSA: 1.6 m2 MMode/2D Measurements & Calculations IVSd: 0.85 cm Ao root diam: 2.8 cm LVIDd: 4.1 cm LA dimension: 2.4 cm LVIDs: 2.4 cm ACS: 1.8 cm LVPWd: 0.97 cm IVSs: 1.0 cm LVPWs: 1.1 cm EDV(Teich): 73.0 ml ESV(Teich): 19.9 ml Doppler Measurements & Calculations MV E max gutierrez: 87.1 cm/sec Ao V2 max: 156.9 cm/sec MV A max gutierrez: 61.0 cm/sec Ao max P.9 mmHg MV E/A: 1.4 Ao V2 mean: 119.1 cm/sec Ao mean P.4 mmHg Ao V2 VTI: 27.9 cm TR max gutierrez: 227.0 cm/sec Med Peak E' Gutierrez: 10.3 cm/sec TR max P.7 mmHg Med E/e': 8.5 Lat Peak E' Gutierrez: 9.4 cm/sec Lat E/e': 9.2 Procedure A complete two-dimensional transthoracic echocardiogram was performed (2D, M-mode, Doppler and color flow Doppler). Left Ventricle The left ventricle is normal in size. Left ventricular systolic function is normal. Ejection Fraction = 65- 70%. No regional wall motion abnormalities noted. Right Ventricle The right ventricle is normal size. The right ventricular systolic function is normal. Atria The left atrial size is normal. Right atrial size is normal. Mitral Valve The mitral valve is normal in structure and function. There is no mitral regurgitation noted. Tricuspid Valve The tricuspid valve is normal in structure and function. There is moderate tricuspid regurgitation. P ulmonary artery systolic pressure is at least 26 mmHg if RA pressure is assumed 3 mmHg. Aortic Valve The aortic valve is normal in structure and function. No aortic regurgitation is present. Pulmonic Valve The pulmonic valve is not well visualized. Trace to mild pulmonic valvular regurgitation. Great Vessels The aortic root is normal size. Pericardium/Pleura There is no pericardial effusion. Interpretation Summary The left ventricle is normal in size. Left ventricular systolic function is normal. No regional wall motion abnormalities noted. Ejection Fraction = 65-70%. The right ventricular systolic function is normal. The left atrial size is normal. Right atrial size is normal. There is moderate tricuspid regurgitation. Pulmonary artery systolic pressure is at least 26 mmHg if RA pressure is assumed 3 mmHg Trace to mild pulmonic valvular regurgitation. There is no pericardial effusion. Previous study is not available for comparison Jabari Holland MD 02/25/2019 03:35 PM
[2019-02-25] MEDS: VANCOMYCIN HCL 1,250 MG in DEXTROSE 5%-WATER - 250 ML IVPB SCH (15:46)
[2019-02-25] MEDS ORDERED: PIPERACILLIN/TAZOBACTAM 3.375 GM VIAL IVPB ONE (17:21)
[2019-02-25] MEDS ORDERED: DEXTROSE 5%-WATER - 50 ML IVPB ONE (17:22)
[2019-02-25] MEDS: PIPERACILLIN/TAZOB 3.375 GM 3.375 GM in DEXTROSE 5%-WATER - 50 ML IVPB SCH (17:33)
[2019-02-25] MEDS: PROPOFOL 1,000,000 MCG/100 ML VIAL IVPB SCH (18:59)
[2019-02-25] MEDS: SODIUM CHLORIDE 1,000 ML IV SCH (19:06)
[2019-02-25] MEDS: CHLORHEXIDINE GLUCONATE 4% CLEANSER FOR DECOLONIZATION TP SCH (21:37)
[2019-02-26] MEDS: PIPERACILLIN/TAZOB 3.375 GM 3.375 GM in DEXTROSE 5%-WATER - 50 ML IVPB SCH ×3 (02:00→17:48)
[2019-02-26] MEDS ORDERED: PIPERACILLIN/TAZOBACTAM 3.375 GM VIAL IVPB ONE ×3 (04:36→17:46)
[2019-02-26] MEDS ORDERED: DEXTROSE 5%-WATER - 50 ML IVPB ONE ×3 (04:36→17:47)
[2019-02-26] MEDS: FENTANYL INJECTION 500 MCG in DEXTROSE 5%-WATER - 90 ML IVPB SCH (06:46)
[2019-02-26] MEDS: MIDAZOLAM 100 MG in SODIUM CHLORIDE 100 ML IVPB SCH (06:48)
[2019-02-26] MEDS: SODIUM CHLORIDE 1,000 ML IV SCH ×2 (06:49→17:45)
--- NOTE | 2019-02-26 08:33 | PN ---
Progress Note (short form) - Note Progress Note: PAtient seen and examined with resident Mingo Spence Please refer to his notes for details My assessment and plan-- 44 y/o F, pmh of HTN, alcohol abuse, hx of dural venous thrombosis, and hemorrhagic stroke 3 months ago requiring hospitalization at [facility] ([facility] placed pt on coumadin?), presents today s/p seizures. INR in the 3s today h/o dural venous sinus thrombosis -- head CT noncontrast is negative Will need MRV ?On coumadin with INR >3 will need neurology input on dural sinus thrombosis and anticoagulation will check antiphospholipid panel IcU team is planning on extubation later today Discussed with ICU team
[2019-02-26 08:56] LABS: BASO % 0.4 % (0-2.0); EOS % 4.7 % (0-4.5); HEMATOCRIT 24.1 % (32.4-45.2); HEMOGLOBIN 7.5 GM/dL (10.7-15.3); LYMPH % 12.3 % (8-40); MCH 24.2 pg (25.7-33.7); MCHC 31.2 g/dl (32.0-36.0); MEAN CELL VOLUME 77.8 fl (80-96); MEAN PLT VOLUME 8.9 fl (7.5-11.1); MONO % 5.8 % (3.8-10.2); NEUT % 76.8 % (42.8-82.8); PLATELET COUNT 197 K/MM3 (134-434); RDW 17.5 % (11.6-15.6); RETICULOCYTES 1.13 % (0.5-1.5); WHITE BLOOD COUNT 13.8 K/mm3 (4.0-10.0)
[2019-02-26 09:08] LABS: INR 3.83 (0.83-1.09); PROTHROMBIN TIME (PATIENT) 45.8 SEC (9.7-13.0)
[2019-02-26 09:11] LABS: ACTIVATED PTT 46.7 SECONDS (25.2-36.5)
[2019-02-26] MEDS: levETIRAcetam 500 MG/5 ML INJECTION VIAL IVPB SCH ×2 (09:18→21:02)
[2019-02-26] MEDS: CHLORHEXIDINE GLUCONATE 0.12% 15ML CUP MM SCH ×2 (09:18→21:04)
[2019-02-26] MEDS: MUPIROCIN 2% TOPICAL OINTMENT FOR DECOLONIZATION NS SCH ×2 (09:19→21:02)
[2019-02-26 09:52] LABS: ALBUMIN 2.1 g/dl (3.4-5.0); BILIRUBIN,TOTAL 0.5 mg/dL (0.2-1); CALCIUM 7.6 mg/dL (8.5-10.1); CREATININE 0.9 mg/dL (0.55-1.3); TOT PROT 5.1 g/dl (6.4-8.2)
--- NOTE | 2019-02-26 11:33 | PN ---
Teaching Attending Note Name of Resident: Ethan Stanton ATTENDING PHYSICIAN STATEMENT I saw and evaluated the patient. I reviewed the resident's note and discussed the case with the resident. I agree with the resident's findings and plan as documented. SUBJECTIVE: Pt seen and examined in the ICU. Remains intubated, required sedation overnight for agitation. Tolerating CPAP/PS. Febrile and hypotensive overnight, responded to IVF. OBJECTIVE: Vital Signs Period Temp Pulse Resp BP Sys/Ruano Pulse Ox Last 24 Hr 97.7 F-102.4 F 67-107 12 85-133/54-89 95-100 Intake & Output 02/23/19 02/24/19 02/25/19 02/26/19 23:59 23:59 23:59 23:59 Intake Total 1000 6583 1470 Output Total 3200 1000 Balance 1000 3383 470 Weight 58.5 kg 57.209 kg Gen: intubated, sedated Heart: RRR Lung: decreased breath sounds at the bases Abd: soft, nontender Ext: no edema CBC, BMP 02/26/19 08:25 02/26/19 08:25 Active Medications Acetaminophen (Ofirmev Injection -) 1,000 mg IVPB Q6H PRN PRN Reason: FEVER Last Admin: 02/25/19 06:59 Dose: 1,000 mg Chlorhexidine Gluconate (Hibiclens For Decolonization -) 1 applic TP HS [facility]ADE Last Admin: 02/25/19 21:37 Dose: 1 applic Chlorhexidine Gluconate (Peridex -) 15 ml MM BID WADE Last Admin: 02/26/19 09:18 Dose: 15 ml Sodium Chloride (Normal Saline -) 1,000 mls @ 100 mls/hr IV ASDIR WADE Last Admin: 02/26/19 06:49 Dose: 100 mls/hr Propofol (Diprivan -) 1,000,000 mcg in 100 mls @ 1.755 mls/hr IVPB TITR WADE; Protocol Last Titration: 02/26/19 08:30 Dose: 0 mcg/kg/min, 0 mls/hr Midazolam HCl 100 mg/ Sodium (Chloride) 100 mls @ 1 mls/hr IVPB TITR WADE; Protocol Last Titration: 02/26/19 08:30 Dose: 0 mg/hr, 0 mls/hr Fentanyl 500 mcg/ Dextrose 100 mls @ 10 mls/hr IVPB TITR WADE; Protocol Last Admin: 02/26/19 06:46 Dose: Not Given Vancomycin HCl 1,250 mg/ (Dextrose) 250 mls @ 250 mls/2 hr IVPB Q24H WADE; Protocol Last Admin: 02/25/19 15:46 Dose: 250 mls/2 hr Piperacillin Sod/Tazobactam (Sod 3.375 gm/ Dextrose) 50 mls @ 100 mls/hr IVPB Q8H-IV WADE; Protocol Last Admin: 02/26/19 09:18 Dose: 100 mls/hr Levetiracetam (Keppra Injection -) 500 mg IVPB BID WADE Last Admin: 02/26/19 09:18 Dose: 500 mg Mupirocin (Bactroban Ointment (For Decolonization) -) 1 applic NS BID WADE Stop: 03/01/19 21:59 Last Admin: 02/26/19 09:19 Dose: 1 applic Pantoprazole Sodium (Protonix Iv) 40 mg IVPUSH DAILY [facility] ASSESSMENT AND PLAN: Status Epilepticus Acute Respiratory Failure Pneumonia likely Aspiration Sepsis Lactic Acidosis Alcohol Abuse Cocaine Use h/o Dural [place] Sinus Thrombosis HTN Anemia - continue antiepileptics - f/u EEG - hold sedation to assess mental status - spontaneous breathing trials as tolerated when mental status improved - continue antibiotics - f/u cultures - IVF boluses as needed - monitor urine output, creatinine - continue anticoagulation to target INR 2-3 - enteral feeds if unable to extubate - DVT/GI prophylaxis - continue ICU monitoring critical care time spent in reviewing chart, evaluating patient and formulating plan 35 min
[2019-02-26] MEDS: PANTOPRAZOLE SODIUM 40 MG VIAL IVPUSH SCH (11:50)
--- NOTE | 2019-02-26 12:00 | PN ---
Physical Exam: SUBJECTIVE: Patient seen and examined. Mild fevers to 100.9 yesterday from 17: 00 to 20:00. Pt still sedated. No seizures noted. OBJECTIVE: Vital Signs Period Temp Pulse Resp BP Sys/Ruano Pulse Ox Last 24 Hr 97.7 F-101.2 F 67-103 12-25 85-133/54-89 95-100 GENERAL: The patient is sedated, in no acute distress. LUNGS: Coarse breath sounds kulwinder, no wheezes, no crackles, no accessory muscle use. HEART: Regular rate and rhythm, S1, S2 without murmur, rub or gallop. ABDOMEN: Soft, nontender, nondistended, normoactive bowel sounds, no guarding, no rebound, no hepatosplenomegaly, no masses. EXTREMITIES: warm, no edema. NEUROLOGICAL: Sedated. Laboratory Results - last 24 hr 02/24/19 02/25/19 02/25/19 16:00 09:00 22:45 WBC RBC Hgb Hct MCV MCH MCHC RDW Plt Count MPV Absolute Neuts (auto) Neutrophils % Neutrophils % (Manual) 55.7 Band Neutrophils % 20.6 Lymphocytes % Lymphocytes % (Manual) 14.4 D Monocytes % Monocytes % (Manual) 2 L Eosinophils % Eosinophils % (Manual) 6.2 H D Basophils % Basophils % (Manual) 1.0 D Myelocytes % (Man) 0 Promyelocytes % (Man) 0 Blast Cells % (Manual) 0 Nucleated RBC % Metamyelocytes 0 D Hypochromia 1+ Platelet Estimate Normal Polychromasia 0 Poikilocytosis 1+ Anisocytosis 1+ Microcytosis 1+ Ovalocytes 1+ Schistocytes 1+ Retic Count PT with INR INR PTT (Actin FS) Fibrinogen 340.0 Sodium Potassium Chloride Carbon Dioxide Anion Gap BUN Creatinine Est GFR (CKD-EPI)AfAm Est GFR (CKD-EPI)NonAf Random Glucose Calcium Iron TIBC Iron Saturation Unsaturated IBC Ferritin Total Bilirubin AST ALT Alkaline Phosphatase Total Protein Albumin Vitamin B12 Serum Folate TSH Antibody Identification P1 Antigen Identification No Result Required. 02/26/19 02/26/19 02/26/19 08:25 08:25 08:25 WBC 13.8 H RBC 3.10 L Hgb 7.5 L Hct 24.1 L MCV 77.8 L MCH 24.2 L MCHC 31.2 L RDW 17.5 H Plt Count 197 MPV 8.9 Absolute Neuts (auto) 10.6 H Neutrophils % 76.8 Neutrophils % (Manual) Band Neutrophils % Lymphocytes % 12.3 Lymphocytes % (Manual) Monocytes % 5.8 Monocytes % (Manual) Eosinophils % 4.7 H Eosinophils % (Manual) Basophils % 0.4 Basophils % (Manual) Myelocytes % (Man) Promyelocytes % (Man) Blast Cells % (Manual) Nucleated RBC % 0 Metamyelocytes Hypochromia Platelet Estimate Polychromasia Poikilocytosis Anisocytosis Microcytosis Ovalocytes Schistocytes Retic Count 1.13 PT with INR 45.80 H INR 3.83 H PTT (Actin FS) 46.7 H Fibrinogen Sodium 140 Potassium 4.0 Chloride 113 H Carbon Dioxide 21 Anion Gap 5 L BUN 8.0 Creatinine 0.9 Est GFR (CKD-EPI)AfAm 91.40 Est GFR (CKD-EPI)NonAf 78.86 Random Glucose 80 Calcium 7.6 L Iron 8 L TIBC 250 Iron Saturation 3 L Unsaturated IBC 242 Ferritin 44.3 Total Bilirubin 0.5 AST 29 ALT 15 Alkaline Phosphatase 73 Total Protein 5.1 L Albumin 2.1 L Vitamin B12 297 Serum Folate 6 TSH 0.97 Antibody Identification Antigen Identification 02/26/19 08:25 WBC RBC Hgb Hct MCV MCH MCHC RDW Plt Count MPV Absolute Neuts (auto) Neutrophils % Neutrophils % (Manual) Band Neutrophils % Lymphocytes % Lymphocytes % (Manual) Monocytes % Monocytes % (Manual) Eosinophils % Eosinophils % (Manual) Basophils % Basophils % (Manual) Myelocytes % (Man) Promyelocytes % (Man) Blast Cells % (Manual) Nucleated RBC % Metamyelocytes Hypochromia Platelet Estimate Polychromasia Poikilocytosis Anisocytosis Microcytosis Ovalocytes Schistocytes Retic Count PT with INR INR PTT (Actin FS) Fibrinogen 397.0 Sodium Potassium Chloride Carbon Dioxide Anion Gap BUN Creatinine Est GFR (CKD-EPI)AfAm Est GFR (CKD-EPI)NonAf Random Glucose Calcium Iron TIBC Iron Saturation Unsaturated IBC Ferritin Total Bilirubin AST ALT Alkaline Phosphatase Total Protein Albumin Vitamin B12 Serum Folate TSH Antibody Identification Antigen Identification Active Medications Generic Name Dose Route Start Last Admin Trade Name Freq PRN Reason Stop Dose Admin Acetaminophen 1,000 mg 02/25/19 06:45 02/25/19 06:59 Ofirmev Injection - IVPB 1,000 mg Q6H PRN Administration FEVER Chlorhexidine Gluconate 1 applic 02/24/19 22:00 02/25/19 21:37 Hibiclens For Decolonization - TP 1 applic HS WADE Administration Chlorhexidine Gluconate 15 ml 02/25/19 10:00 02/26/19 09:18 Peridex - MM 15 ml BID WADE Administration Sodium Chloride 1,000 mls @ 100 mls/hr 02/24/19 18:35 02/26/19 06:49 Normal Saline - IV 100 mls/hr ASDIR WADE Administration Propofol 1,000,000 mcg in 100 mls @ 1.755 mls/hr 02/24/19 19:15 02/26/19 08: 30 Diprivan - IVPB 0 mcg/kg/min TITR WADE 0 mls/hr Titration Protocol 5 MCG/KG/MIN Midazolam HCl 100 mg/ Sodium 100 mls @ 1 mls/hr 02/25/19 06:30 02/26/19 08:30 Chloride IVPB 0 mg/hr TITR WADE 0 mls/hr Titration Protocol 1 MG/HR Fentanyl 500 mcg/ Dextrose 100 mls @ 10 mls/hr 02/25/19 06:45 02/26/19 06:46 IVPB Not Given TITR WADE Protocol 50 MCG/HR Vancomycin HCl 1,250 mg/ 250 mls @ 250 mls/2 hr 02/25/19 13:30 02/25/19 15:46 Dextrose IVPB 250 mls/2 hr Q24H WADE Administration Protocol Piperacillin Sod/Tazobactam 50 mls @ 100 mls/hr 02/25/19 18:00 02/26/19 09:18 Sod 3.375 gm/ Dextrose IVPB 100 mls/hr Q8H-IV WADE Administration Protocol Levetiracetam 500 mg 02/24/19 22:00 02/26/19 09:18 Keppra Injection - IVPB 500 mg BID WADE Administration Mupirocin 1 applic 02/24/19 22:00 02/26/19 09:19 Bactroban Ointment (For Decolonization) - NS 03/01/19 21:59 1 applic BID WADE Administration Pantoprazole Sodium 40 mg 02/26/19 11:30 02/26/19 11:50 Protonix Iv IVPUSH 40 mg DAILY WADE Administration ASSESSMENT/PLAN: Ashley Sanchez is a 44yF with PMHx of HTN, alcohol abuse, hypercoagulable state, dural venous sinus thrombosis, Hemorrhagic CVA (12/2018), and seizures. She presented to the ER with seizures likely 2/2 alcohol/cocaine vs medication noncompliance. # Neuro - Status epilepticus (DD:alcohol/cocaine vs med non-compliance) - weaned off sedation (Propofol, versed, fentanyl) for extubation - continue Keppra 500mg BID - UTox + for cocaine - CT Head (02/24): No acute bleed/infarct/mass/fx - pending CTH - Dr. Victor: EEG, MRV of the head to r/o sinus thrombosis when extubated - Neuro checks q1h, seizure precautions - appreciate neuro recs # CVS - Hx of HTN - currently hypotensive, holding home metoprolol d/t hypotension - maintain MAP > 65 with NS boluses - echo 02/25 showed normal EF 65-70%, elevated pulmonary arterial systolic pressure >26 - DVT ppx # Pulm - currently intubated, plan to extubate after CPAP trial - CXR 02/26 showed reduced L lung diffuse infiltrates - serial ABGs # Heme - hx hypercoagulable state + for beta-2 glycoprotein - Hgb 8.7 to 7.5 likely dilutional, repeat H&H 1600 - give 1 FFP for elevated INR 3.36 to 3.8 - pending coagulation studies - Holding Coumadin d/t supertherapeutic INR - appreciate Heme/Onc (Dr Hilario) recs #GI - NPO - start NG feeds if not extubated today - GI ppx # - stewart in place - IV fluids - d/c if extubated and eating - I/O # ID - Leukocytosis WBC 8 to 13.8 likely reactive to seizure, trend - continue vancomycin, zosyn for aspiration PNA concern - Bcx, Ucx, Sputum cx pending - appreciate ID recs # PPX - SCDs - protonix # FEN - N/S @100mL/hr - hyperCl - NPO # Dispo - ICU Visit type - Emergency Visit Emergency Visit: Yes ED Registration Date: 02/24/19 Care time: The patient presented to the Emergency Department on the above date and was hospitalized for further evaluation of their emergent condition. - New Patient This patient is new to me today: No - Critical Care Critical Care patient: Yes Total Critical Care Time (in minutes): 38 Critical Care Statement: The care of this patient involved high complexity decision making to prevent further life threatening deterioration of the patient 's condition and/or to evaluate & treat vital organ system(s) failure or risk of failure. ATTENDING PHYSICIAN STATEMENT I saw and evaluated the patient. I reviewed the resident's note and discussed the case with the resident. I agree with the resident's findings and plan as documented. SUBJECTIVE: OBJECTIVE: ASSESSMENT AND PLAN:
[2019-02-26] MEDS: ACETAMINOPHEN 1000 MG/100 ML VIAL (NON FORMULARY) IVPB PRN (12:12)
[2019-02-26 13:13] LABS: BASO % 0.4 % (0-2.0); EOS % 3.3 % (0-4.5); HEMATOCRIT 24.7 % (32.4-45.2); HEMOGLOBIN 7.9 GM/dL (10.7-15.3); LYMPH % 11.5 % (8-40); MCH 24.6 pg (25.7-33.7); MCHC 31.8 g/dl (32.0-36.0); MEAN CELL VOLUME 77.4 fl (80-96); MEAN PLT VOLUME 8.7 fl (7.5-11.1); MONO % 5.7 % (3.8-10.2); NEUT % 79.1 % (42.8-82.8); PLATELET COUNT 199 K/MM3 (134-434); RBC 3.19 M/mm3 (3.60-5.2); RDW 17.5 % (11.6-15.6); WHITE BLOOD COUNT 15.4 K/mm3 (4.0-10.0)
--- NOTE | 2019-02-26 13:14 | PN ---
Progress Note, Physician History of Present Illness: continues to be intubated bleeding from sites being transfused ffp fevers - Current Medication List Current Medications: Active Medications Acetaminophen (Ofirmev Injection -) 1,000 mg IVPB Q6H PRN PRN Reason: FEVER Last Admin: 02/26/19 12:12 Dose: 1,000 mg Chlorhexidine Gluconate (Hibiclens For Decolonization -) 1 applic TP HS WADE Last Admin: 02/25/19 21:37 Dose: 1 applic Chlorhexidine Gluconate (Peridex -) 15 ml MM BID WADE Last Admin: 02/26/19 09:18 Dose: 15 ml Sodium Chloride (Normal Saline -) 1,000 mls @ 100 mls/hr IV ASDIR WADE Last Admin: 02/26/19 06:49 Dose: 100 mls/hr Propofol (Diprivan -) 1,000,000 mcg in 100 mls @ 1.755 mls/hr IVPB TITR WADE; Protocol Last Titration: 02/26/19 08:30 Dose: 0 mcg/kg/min, 0 mls/hr Midazolam HCl 100 mg/ Sodium (Chloride) 100 mls @ 1 mls/hr IVPB TITR WADE; Protocol Last Titration: 02/26/19 08:30 Dose: 0 mg/hr, 0 mls/hr Fentanyl 500 mcg/ Dextrose 100 mls @ 10 mls/hr IVPB TITR WADE; Protocol Last Admin: 02/26/19 06:46 Dose: Not Given Vancomycin HCl 1,250 mg/ (Dextrose) 250 mls @ 250 mls/2 hr IVPB Q24H WADE; Protocol Last Admin: 02/25/19 15:46 Dose: 250 mls/2 hr Piperacillin Sod/Tazobactam (Sod 3.375 gm/ Dextrose) 50 mls @ 100 mls/hr IVPB Q8H-IV WADE; Protocol Last Admin: 02/26/19 09:18 Dose: 100 mls/hr Levetiracetam (Keppra Injection -) 500 mg IVPB BID WADE Last Admin: 02/26/19 09:18 Dose: 500 mg Mupirocin (Bactroban Ointment (For Decolonization) -) 1 applic NS BID WADE Stop: 03/01/19 21:59 Last Admin: 02/26/19 09:19 Dose: 1 applic Pantoprazole Sodium (Protonix Iv) 40 mg IVPUSH DAILY [facility] Last Admin: 02/26/19 11:50 Dose: 40 mg - Objective Vital Signs: Vital Signs Temperature 102 F H 02/26/19 12:51 Pulse Rate 96 H 02/26/19 12:17 Respiratory Rate 24 H 02/26/19 12:17 Blood Pressure 126/83 02/26/19 12:17 O2 Sat by Pulse Oximetry (%) 100 02/26/19 09:00 Constitutional: Yes: No Distress Cardiovascular: Yes: Regular Rate and Rhythm, Tachycardia Respiratory: Yes: Intubated, Mechanically Ventilated Gastrointestinal: Yes: Normal Bowel Sounds, Soft Musculoskeletal: Yes: WNL Extremities: Yes: WNL Neurological: Yes: Other Labs: CBC, BMP 02/26/19 08:25 INR, PTT INR 3.83 (0.83-1.09) H 02/26/19 08:25 Fibrinogen 397.0 mg/dL (238-498) 02/26/19 08:25 Assessment/Plan Status Epilepticus Acute Respiratory Failure Pneumonia likely Aspiration Sepsis Lactic Acidosis Alcohol Abuse Cocaine Use h/o Dural Celeste Sinus Thrombosis HTN Anemia plan continue abx antiepileptics ffp monitor for bleeding resp support rest as per icu eeg report cc 40 min echo result noted follow vanco levels await for sensitivities once we have that will decide on final abx
[2019-02-26] MEDS ORDERED: DEXMEDETOMIDINE HCL 200 MCG in SODIUM CHLORIDE 48 ML IVPB SCH (13:30)
[2019-02-26] MEDS ORDERED: PT OWN MED DRAWER 7, Y5N ONE ×3 (13:37→15:15)
[2019-02-26] MEDS: VANCOMYCIN HCL 1,250 MG in DEXTROSE 5%-WATER - 250 ML IVPB SCH (13:44)
[2019-02-26] MEDS ORDERED: MIDAZOLAM HCL 2 MG/2 ML SINGLE DOSE VIAL IVPUSH PRN (14:00)
--- NOTE | 2019-02-26 14:48 | PN ---
Physical Exam: SUBJECTIVE: Patient seen and examined 44 y/o F, pmh of HTN, alcohol abuse, hx of dural venous thrombosis, and hemorrhagic stroke 3 months ago requiring hospitalization at [facility] ([facility] placed pt on coumadin?), presents today s/p seizures. Pt remains intubated and sedated. Pt is febrile 100.8 today. As per nursing, no v/sob, or other symptoms. OBJECTIVE: Vital Signs Last Vital Signs Temp Pulse Resp BP Pulse Ox 100.8 F H 92 H 22 H 127/82 100 02/26/19 14:00 02/26/19 14:00 02/26/19 14:00 02/26/19 14:00 02/26/19 09:00 GENERAL: minimally responsive, responds to pain stimuli. Intubated. EYES: Pupils reactive but mildly constricted LUNGS: PT intubated- difficult to check breath sounds. However, pts breath sounds were appreciated HEART: Regular rate, normal S1 and S2 without murmur, rub or gallop. ABDOMEN: Soft, nontender, not distended, normoactive bowel sounds, no guarding, no rebound, no masses. UPPER EXTREMITIES: 2+ pulses, warm, no edema LOWER EXTREMITIES: 2+ pulses, warm, no edema SKIN: Warm, dry Laboratory Results - last 24 hr WBC 15.4 K/mm3 (4.0-10.0) H 02/26/19 13:08 RBC 3.19 M/mm3 (3.60-5.2) L 02/26/19 13:08 Hgb 7.9 GM/dL (10.7-15.3) L 02/26/19 13:08 Hct 24.7 % (32.4-45.2) L 02/26/19 13:08 MCV 77.4 fl (80-96) L 02/26/19 13:08 MCH 24.6 pg (25.7-33.7) L 02/26/19 13:08 MCHC 31.8 g/dl (32.0-36.0) L 02/26/19 13:08 RDW 17.5 % (11.6-15.6) H 02/26/19 13:08 Plt Count 199 K/MM3 (134-434) 02/26/19 13:08 MPV 8.7 fl (7.5-11.1) 02/26/19 13:08 Absolute Neuts (auto) 12.2 K/mm3 (1.5-8.0) H 02/26/19 13:08 Neutrophils % 79.1 % (42.8-82.8) 02/26/19 13:08 Neutrophils % (Manual) 55.7 % (42.8-82.8) 02/25/19 09:00 Band Neutrophils % 20.6 % 02/25/19 09:00 Lymphocytes % 11.5 % (8-40) 02/26/19 13:08 Lymphocytes % (Manual) 14.4 % (8-40) D 02/25/19 09:00 Monocytes % 5.7 % (3.8-10.2) 02/26/19 13:08 Monocytes % (Manual) 2 % (3.8-10.2) L 02/25/19 09:00 Eosinophils % 3.3 % (0-4.5) 02/26/19 13:08 Eosinophils % (Manual) 6.2 % (0-4.5) H D 02/25/19 09:00 Basophils % 0.4 % (0-2.0) 02/26/19 13:08 Basophils % (Manual) 1.0 % (0-2.0) D 02/25/19 09:00 Myelocytes % (Man) 0 % (0-2) 02/25/19 09:00 Promyelocytes % (Man) 0 % (0-2) 02/25/19 09:00 Blast Cells % (Manual) 0 % (0-0) 02/25/19 09:00 Nucleated RBC % 0 % (0-0) 02/26/19 13:08 Metamyelocytes 0 % (0-2) D 02/25/19 09:00 Hypochromia 1+ 02/25/19 09:00 Platelet Estimate Normal 02/25/19 09:00 Polychromasia 0 02/25/19 09:00 Poikilocytosis 1+ 02/25/19 09:00 Anisocytosis 1+ 02/25/19 09:00 Microcytosis 1+ 02/25/19 09:00 Ovalocytes 1+ 02/25/19 09:00 Schistocytes 1+ 02/25/19 09:00 ESR 8 mm/hr (0-20) 02/25/19 09:00 Retic Count 1.13 % (0.5-1.5) 02/26/19 08:25 Sodium 140 mmol/L (136-145) 02/26/19 08:25 Potassium 4.0 mmol/L (3.5-5.1) 02/26/19 08:25 Chloride 113 mmol/L (98-107) H 02/26/19 08:25 Carbon Dioxide 21 mmol/L (21-32) 02/26/19 08:25 Anion Gap 5 MMOL/L (8-16) L 02/26/19 08:25 BUN 8.0 mg/dL (7-18) 02/26/19 08:25 Creatinine 0.9 mg/dL (0.55-1.3) 02/26/19 08:25 Est GFR (CKD-EPI)AfAm 91.40 02/26/19 08:25 Est GFR (CKD-EPI)NonAf 78.86 02/26/19 08:25 Random Glucose 80 mg/dL (74-106) 02/26/19 08:25 Lactic Acid 1.8 mmol/L (0.4-2.0) 02/25/19 09:00 Calcium 7.6 mg/dL (8.5-10.1) L 02/26/19 08:25 Phosphorus 2.5 mg/dL (2.5-4.9) 02/25/19 06:30 Magnesium 2.0 mg/dL (1.8-2.4) 02/25/19 06:30 Iron 8 ug/dL (50-175) L 02/26/19 08:25 TIBC 250 ug/dL (250-450) 02/26/19 08:25 Iron Saturation 3 % (17.5-39) L 02/26/19 08:25 Unsaturated IBC 242 ug/dL (200-275) 02/26/19 08:25 Ferritin 44.3 ng/ml (8-388) 02/26/19 08:25 Total Bilirubin 0.5 mg/dL (0.2-1) 02/26/19 08:25 AST 29 U/L (15-37) 02/26/19 08:25 ALT 15 U/L (13-61) 02/26/19 08:25 Alkaline Phosphatase 73 U/L (45-117) 02/26/19 08:25 C-Reactive Protein < 0.3 MG/DL (0.00-0.3) 02/24/19 20:44 Total Protein 5.1 g/dl (6.4-8.2) L 02/26/19 08:25 Albumin 2.1 g/dl (3.4-5.0) L 02/26/19 08:25 Vitamin B12 297 pg/ml (193-986) 02/26/19 08:25 Serum Folate 6 ng/mL (3.1-17.5) 02/26/19 08:25 TSH 0.97 uIU/ml (0.358-3.74) 02/26/19 08:25 Serum , Qual Negative 02/24/19 16:00 Active Medications Current Medications Acetaminophen (Ofirmev Injection -) 1,000 mg IVPB Q6H PRN PRN Reason: FEVER Last Admin: 02/26/19 12:12 Dose: 1,000 mg Chlorhexidine Gluconate (Hibiclens For Decolonization -) 1 applic TP HS WADE Last Admin: 02/25/19 21:37 Dose: 1 applic Chlorhexidine Gluconate (Peridex -) 15 ml MM BID WADE Last Admin: 02/26/19 09:18 Dose: 15 ml Sodium Chloride (Normal Saline -) 1,000 mls @ 100 mls/hr IV ASDIR WADE Last Admin: 02/26/19 06:49 Dose: 100 mls/hr Vancomycin HCl 1,250 mg/ (Dextrose) 250 mls @ 250 mls/2 hr IVPB Q24H WADE; Protocol Last Admin: 02/26/19 13:44 Dose: 250 mls/2 hr Piperacillin Sod/Tazobactam (Sod 3.375 gm/ Dextrose) 50 mls @ 100 mls/hr IVPB Q8H-IV WADE; Protocol Last Admin: 02/26/19 09:18 Dose: 100 mls/hr Dexmedetomidine HCl 200 mcg/ (Sodium Chloride) 50 mls @ 2.85 mls/hr IVPB TITR WADE Levetiracetam (Keppra Injection -) 500 mg IVPB BID WADE Last Admin: 02/26/19 09:18 Dose: 500 mg Midazolam HCl (Versed -) 2 mg IVPUSH ONCE PRN PRN Reason: AGITIATION Stop: 02/27/19 13:59 Last Admin: 02/26/19 13:51 Dose: 2 mg Mupirocin (Bactroban Ointment (For Decolonization) -) 1 applic NS BID [facility] Stop: 03/01/19 21:59 Last Admin: 02/26/19 09:19 Dose: 1 applic Pantoprazole Sodium (Protonix Iv) 40 mg IVPUSH DAILY [facility] Last Admin: 02/26/19 11:50 Dose: 40 mg Home Medications Medication Instructions Recorded Aspirin [ASA -] 325 mg PO DAILY 02/07/19 Atorvastatin Ca [Lipitor] 40 mg PO HS 02/07/19 Metoprolol Succinate 25 mg PO DAILY 02/07/19 Coumadin 02/26/19 Microbiology 02/25/19 11:00 Sputum - Endotrachea Suction/Ventilator Gram Stain - Final 02/25/19 11:00 Sputum - Endotrachea Suction/Ventilator Sputum Culture - Preliminary Presumptive Mssa (Pbp2a Neg) 02/24/19 16:00 Urine - Urine Perales Urine Culture - Final NO GROWTH OBTAINED 02/24/19 19:00 Blood - Peripheral Venous Blood Culture - Preliminary NO GROWTH OBTAINED AFTER 24 HOURS, INCUBATION TO CONTINUE FOR 4 DAYS. 02/24/19 19:00 Blood - Peripheral Venous Blood Culture - Preliminary NO GROWTH OBTAINED AFTER 24 HOURS, INCUBATION TO CONTINUE FOR 4 DAYS. ASSESSMENT/PLAN: 44 y/o F, pmh of HTN, alcohol abuse, hx of dural venous thrombosis, and hemorrhagic stroke 3 months ago requiring hospitalization at [facility] ([facility] placed pt on coumadin?), presents today s/p seizures likely 2/2 to seizure medication noncompliance vs withdrawal vs overdose #S/p Seizures Status epilepticus likely 2/2 to seizure medication noncompliance vs withdrawal vs overdose Cont Keppra 500 BID Lactic acid normal Pt intubated- Pt is being weaned off vent today (Propofol, versed, fentanyl) for extubation As per Pulmon: spontaneous breathing trials as tolerated when mental status improved cont antibiotics- Vanc and Zosyn- tx likely aspiration pneumonitis/pneumonia Sputum Cx- MSSA IVF boluses monitor urine output, creatinine continue anticoagulation spontaneous breathing trials as tolerated when mental status improved enteral feeds if unable to extubate As per neuro: questionable degree anoxic brain damage difficult to assess on the propafol Repeat CAT scan of the head with no contrast- f/u EEG hold sedation to assess mental status continue antiepileptics MRV needed As per Heme/Onc Iron studies-f/u INR worsened today (INR 3.83) despite pt being on heparin drip not Coumadin. F/u INR in the am Coag studies- Fibrinogen 397, rest pending Antiphospholipid panel pending- f/u Hold coumadin for now Obtain Pt medical records from [facility]- f/u with family/boyfriend CXR- left pleural changes, ET tube above kathy but needs to be slightly retracted ECHO ordered- EF 65%, Moderate TR, mild RI #Febrile today Temp 100.8 BCx and UCx #Hx of hemorrhagic stroke CT head negative BP well controlled #Hx of Dural venous thrombosis Hold Coumadin- till medical records can be verified Due to increased risk of bleed #Hypotension BP 127/82 now Hold home BP meds- metoprolol, lisinopril #Alcohol abuse monitor for withdrawals verify medical records Pt is on Versed (Midazolam) #Substance abuse Cocaine Positive on UTox Will monitor for now F: NS at 125 E: monitor lytes N: NPO-intubated Dispo: monitor in ICU, hold coumadin, EEG, f/u INR in am, Extubation today Visit type - Emergency Visit Emergency Visit: Yes ED Registration Date: 02/24/19 Care time: The patient presented to the Emergency Department on the above date and was hospitalized for further evaluation of their emergent condition. - New Patient This patient is new to me today: Yes Date on this admission: 02/28/19 - Critical Care Critical Care patient: No - Discharge Referral Referred to [facility] Med P.C.: No ATTENDING PHYSICIAN STATEMENT I saw and evaluated the patient. I reviewed the resident's note and discussed the case with the resident. I agree with the resident's findings and plan as documented. SUBJECTIVE: OBJECTIVE: ASSESSMENT AND PLAN:
[2019-02-26] MEDS: DEXMEDETOMIDINE HCL 200 MCG in SODIUM CHLORIDE 48 ML IVPB SCH ×2 (15:39→21:01)
--- NOTE | 2019-02-26 16:58 | PN ---
Teaching Attending Note Name of Resident: Allan Velazquez ATTENDING PHYSICIAN STATEMENT I saw and evaluated the patient. I reviewed the resident's note and discussed the case with the resident. I agree with the resident's findings and plan as documented. SUBJECTIVE: Patient in ICU, weaning trila, off sedation now. Vital Signs Temperature 100.8 F H 02/26/19 14:00 Pulse Rate 65 02/26/19 16:00 Respiratory Rate 17 02/26/19 16:08 Blood Pressure 117/85 02/26/19 16:00 O2 Sat by Pulse Oximetry (%) 97 02/26/19 12:15 GENERAL: The patient is intubated ,sedated . HEAD: Normal with no signs of trauma. EYES: PERRL, sclera anicteric, conjunctiva clear. ENT: Ears normal, positive fot Etube, NECK: Trachea midline, LUNGS: intubated, sedated , GAE Bl, HEART: Regular rate and rhythm, S1, S2 without murmur, rub or gallop. ABDOMEN: Soft, nontender, nondistended, normoactive bowel sounds, no guarding, no rebound, no hepatosplenomegaly, no masses. EXTREMITIES: 2+ pulses, warm, well-perfused, no edema. NEUROLOGICAL: Cranial nerves grossly intact. intubated SKIN: Warm, dry, normal turgor, no rashes or lesions noted CBCD WBC 15.4 K/mm3 (4.0-10.0) H 02/26/19 13:08 RBC 3.19 M/mm3 (3.60-5.2) L 02/26/19 13:08 Hgb 7.9 GM/dL (10.7-15.3) L 02/26/19 13:08 Hct 24.7 % (32.4-45.2) L 02/26/19 13:08 MCV 77.4 fl (80-96) L 02/26/19 13:08 MCHC 31.8 g/dl (32.0-36.0) L 02/26/19 13:08 RDW 17.5 % (11.6-15.6) H 02/26/19 13:08 Plt Count 199 K/MM3 (134-434) 02/26/19 13:08 MPV 8.7 fl (7.5-11.1) 02/26/19 13:08 CMP Sodium 140 mmol/L (136-145) 02/26/19 08:25 Potassium 4.0 mmol/L (3.5-5.1) 02/26/19 08:25 Chloride 113 mmol/L (98-107) H 02/26/19 08:25 Carbon Dioxide 21 mmol/L (21-32) 02/26/19 08:25 Anion Gap 5 MMOL/L (8-16) L 02/26/19 08:25 BUN 8.0 mg/dL (7-18) 02/26/19 08:25 Creatinine 0.9 mg/dL (0.55-1.3) 02/26/19 08:25 Random Glucose 80 mg/dL (74-106) 02/26/19 08:25 Calcium 7.6 mg/dL (8.5-10.1) L 02/26/19 08:25 Total Bilirubin 0.5 mg/dL (0.2-1) 02/26/19 08:25 AST 29 U/L (15-37) 02/26/19 08:25 ALT 15 U/L (13-61) 02/26/19 08:25 Alkaline Phosphatase 73 U/L (45-117) 02/26/19 08:25 Total Protein 5.1 g/dl (6.4-8.2) L 02/26/19 08:25 Albumin 2.1 g/dl (3.4-5.0) L 02/26/19 08:25 Current Medications Generic Name Dose Route Start Last Admin Trade Name Freq PRN Reason Stop Dose Admin Acetaminophen 1,000 mg 02/25/19 06:45 02/26/19 12:12 Ofirmev Injection - IVPB 1,000 mg Q6H PRN Administration FEVER Chlorhexidine Gluconate 1 applic 02/24/19 22:00 02/25/19 21:37 Hibiclens For Decolonization - TP 1 applic HS WADE Administration Chlorhexidine Gluconate 15 ml 02/25/19 10:00 02/26/19 09:18 Peridex - MM 15 ml BID WADE Administration Sodium Chloride 1,000 mls @ 100 mls/hr 02/24/19 18:35 02/26/19 06:49 Normal Saline - IV 100 mls/hr ASDIR WADE Administration Vancomycin HCl 1,250 mg/ 250 mls @ 250 mls/2 hr 02/25/19 13:30 02/26/19 13:44 Dextrose IVPB 250 mls/2 hr Q24H WADE Administration Protocol Piperacillin Sod/Tazobactam 50 mls @ 100 mls/hr 02/25/19 18:00 02/26/19 09:18 Sod 3.375 gm/ Dextrose IVPB 100 mls/hr Q8H-IV WADE Administration Protocol Dexmedetomidine HCl 200 mcg/ 50 mls @ 2.85 mls/hr 02/26/19 15:36 02/26/19 15: 40 Sodium Chloride IVPB 0.3 mcg/kg/hr TITR WADE 4.28 mls/hr Titration Protocol 0.2 MCG/KG/HR Levetiracetam 500 mg 02/24/19 22:00 02/26/19 09:18 Keppra Injection - IVPB 500 mg BID WADE Administration Midazolam HCl 2 mg 02/26/19 14:00 02/26/19 13:51 Versed - IVPUSH 02/27/19 13:59 2 mg ONCE PRN Administration AGITIATION Mupirocin 1 applic 02/24/19 22:00 02/26/19 09:19 Bactroban Ointment (For Decolonization) - NS 03/01/19 21:59 1 applic BID WADE Administration Pantoprazole Sodium 40 mg 02/26/19 11:30 02/26/19 11:50 Protonix Iv IVPUSH 40 mg DAILY WADE Administration Home Medications Medication Instructions Recorded Aspirin [ASA -] 325 mg PO DAILY 02/07/19 Atorvastatin Ca [Lipitor] 40 mg PO HS 02/07/19 Metoprolol Succinate 25 mg PO DAILY 02/07/19 Laboratory Tests 02/24/19 16:29 Cocaine Screen Positive A* Head CT: no acute pathology Microbiology 02/25/19 11:00 Sputum - Endotrachea Suction/Ventilator Gram Stain - Final 02/25/19 11:00 Sputum - Endotrachea Suction/Ventilator Sputum Culture - Preliminary Presumptive Mssa (Pbp2a Neg) 02/24/19 16:00 Urine - Urine Perales Urine Culture - Final NO GROWTH OBTAINED 02/24/19 19:00 Blood - Peripheral Venous Blood Culture - Preliminary NO GROWTH OBTAINED AFTER 24 HOURS, INCUBATION TO CONTINUE FOR 4 DAYS. 02/24/19 19:00 Blood - Peripheral Venous Blood Culture - Preliminary NO GROWTH OBTAINED AFTER 24 HOURS, INCUBATION TO CONTINUE FOR 4 DAYS. Assessment and plan: This is a 44 year old woman with a history of HTN, seizure disorder, alcohol abuse, hemorrhagic CVA, dural venous sinus thrombosis who presented to the ED with tonic-clonic seizure activity after complaining of a severe headache. # Acute respiratory failure s/p intubation to protect the airway, weaning trial as per ICU # Status epilepticus on Keppra Iv Bid , neuro on the case # Lactic acidosis/leukocytosis r/o sepsis ID on the case niesha peterson/ricardo # HTN: Hold metoprolol secondary to low BP and rebound HTN, is cocaine positive # Alcohol abuse and cocaine on IV lorazepam # History of hemorrhagic CVA secondary to dural venous sinus thrombosis - Will obtain records from [facility] to confirm diagnosis - Hold Coumadin secondary to supratherapeutic INR DVT Px: hold coumadin for now, since supra INR
[2019-02-26] MEDS ORDERED: MIDAZOLAM HCL 2 MG/2 ML SINGLE DOSE VIAL IVPUSH ONE (18:14)
[2019-02-26 19:42] LABS: INR 2.43 (0.83-1.09); PROTHROMBIN TIME (PATIENT) 28.9 SEC (9.7-13.0)
--- NOTE | 2019-02-26 20:45 | PN ---
Physical Exam: HEME/ONC Service SUBJECTIVE: Patient seen and examined at bedside. Intubated, sedated, unresponsive OBJECTIVE: Vital Signs Period Temp Pulse Resp BP Sys/Ruano Pulse Ox Last 24 Hr 97.7 F-102 F 60-103 12-24 85-133/54-85 97-100 Limited exam Gen: Intubated, sedated, unresponsive HEENT: NCAT, moist membranes, PERRL, neg doll's eye Cardio: rrr, normal s1s2, no mrg noted. Loud Vent sounds present Pulm: ? R rales. ventilated Abd: +ve BS, soft, nontender, nondistended, no organomegally noted on exam Laboratory Results - last 24 hr 02/25/19 02/26/19 02/26/19 22:45 08:25 08:25 WBC RBC Hgb Hct MCV MCH MCHC RDW Plt Count MPV Absolute Neuts (auto) Neutrophils % Lymphocytes % Monocytes % Eosinophils % Basophils % Nucleated RBC % Retic Count PT with INR 45.80 H INR 3.83 H PTT (Actin FS) 46.7 H Fibrinogen 340.0 Sodium 140 Potassium 4.0 Chloride 113 H Carbon Dioxide 21 Anion Gap 5 L BUN 8.0 Creatinine 0.9 Est GFR (CKD-EPI)AfAm 91.40 Est GFR (CKD-EPI)NonAf 78.86 Random Glucose 80 Calcium 7.6 L Iron 8 L TIBC 250 Iron Saturation 3 L Unsaturated IBC 242 Ferritin 44.3 Total Bilirubin 0.5 AST 29 ALT 15 Alkaline Phosphatase 73 Total Protein 5.1 L Albumin 2.1 L Vitamin B12 297 Serum Folate 6 TSH 0.97 02/26/19 02/26/19 02/26/19 08:25 08:25 13:08 WBC 13.8 H 15.4 H RBC 3.10 L 3.19 L Hgb 7.5 L 7.9 L Hct 24.1 L 24.7 L MCV 77.8 L 77.4 L MCH 24.2 L 24.6 L MCHC 31.2 L 31.8 L RDW 17.5 H 17.5 H Plt Count 197 199 MPV 8.9 8.7 Absolute Neuts (auto) 10.6 H 12.2 H Neutrophils % 76.8 79.1 Lymphocytes % 12.3 11.5 Monocytes % 5.8 5.7 Eosinophils % 4.7 H 3.3 Basophils % 0.4 0.4 Nucleated RBC % 0 0 Retic Count 1.13 PT with INR INR PTT (Actin FS) Fibrinogen 397.0 Sodium Potassium Chloride Carbon Dioxide Anion Gap BUN Creatinine Est GFR (CKD-EPI)AfAm Est GFR (CKD-EPI)NonAf Random Glucose Calcium Iron TIBC Iron Saturation Unsaturated IBC Ferritin Total Bilirubin AST ALT Alkaline Phosphatase Total Protein Albumin Vitamin B12 Serum Folate TSH 02/26/19 19:10 WBC RBC Hgb Hct MCV MCH MCHC RDW Plt Count MPV Absolute Neuts (auto) Neutrophils % Lymphocytes % Monocytes % Eosinophils % Basophils % Nucleated RBC % Retic Count PT with INR 28.90 H INR 2.43 H PTT (Actin FS) Fibrinogen Sodium Potassium Chloride Carbon Dioxide Anion Gap BUN Creatinine Est GFR (CKD-EPI)AfAm Est GFR (CKD-EPI)NonAf Random Glucose Calcium Iron TIBC Iron Saturation Unsaturated IBC Ferritin Total Bilirubin AST ALT Alkaline Phosphatase Total Protein Albumin Vitamin B12 Serum Folate TSH Active Medications Generic Name Dose Route Start Last Admin Trade Name Freq PRN Reason Stop Dose Admin Acetaminophen 1,000 mg 02/25/19 06:45 02/26/19 12:12 Ofirmev Injection - IVPB 1,000 mg Q6H PRN Administration FEVER Chlorhexidine Gluconate 1 applic 02/24/19 22:00 02/25/19 21:37 Hibiclens For Decolonization - TP 1 applic HS WADE Administration Chlorhexidine Gluconate 15 ml 02/25/19 10:00 02/26/19 09:18 Peridex - MM 15 ml BID WADE Administration Sodium Chloride 1,000 mls @ 100 mls/hr 02/24/19 18:35 02/26/19 17:45 Normal Saline - IV 100 mls/hr ASDIR WADE Administration Vancomycin HCl 1,250 mg/ 250 mls @ 250 mls/2 hr 02/25/19 13:30 02/26/19 13:44 Dextrose IVPB 250 mls/2 hr Q24H WADE Administration Protocol Piperacillin Sod/Tazobactam 50 mls @ 100 mls/hr 02/25/19 18:00 02/26/19 17:48 Sod 3.375 gm/ Dextrose IVPB 100 mls/hr Q8H-IV WADE Administration Protocol Dexmedetomidine HCl 200 mcg/ 50 mls @ 2.85 mls/hr 02/26/19 15:36 02/26/19 18: 11 Sodium Chloride IVPB 0.4 mcg/kg/hr TITR WADE 5.71 mls/hr Titration Protocol 0.2 MCG/KG/HR Levetiracetam 500 mg 02/24/19 22:00 02/26/19 09:18 Keppra Injection - IVPB 500 mg BID WADE Administration Midazolam HCl 2 mg 02/26/19 14:00 02/26/19 13:51 Versed - IVPUSH 02/27/19 13:59 2 mg ONCE PRN Administration AGITIATION Mupirocin 1 applic 02/24/19 22:00 02/26/19 09:19 Bactroban Ointment (For Decolonization) - NS 03/01/19 21:59 1 applic BID WADE Administration Pantoprazole Sodium 40 mg 02/26/19 11:30 02/26/19 11:50 Protonix Iv IVPUSH 40 mg DAILY WADE Administration ASSESSMENT/PLAN: 44 y/o F, pmh of HTN, alcohol abuse, hx of dural venous thrombosis, and hemorrhagic stroke 3 months ago requiring hospitalization at [facility] ([facility] placed pt on coumadin?), presents today s/p seizures. Microcytic Hypochromic Anemia -unclear if there is a history of bleeding -pt was possibly recently started on AC -Fe deficiency -Recommend Fe repletion Bleeding -note that INR worsened despite pt being on heparin drip not Coumadin. ? liver function though no transaminitis -Pt had bleeding from ET tube today. Given FFP. Hb stable -Would seek neuro input on pro/con of AC given dural venous sinus thrombus h/o Dural [place] Sinus Thrombosis -unclear why pt had thrombosis -will start hypercoag workup here -Prot C,S, AT3, F5L, prothrombin, APLA -May benefit from MRV Status Epilepticus -intubated, sedated -on AEDs Sepsis 2/2 likely aspiration pneumonia -Lactic Acidosis resolved -on Abx, fluids Alcohol Abuse -intubated sedated -monitor for withdrawal once extubated HTN -Bp controlled Visit type - Emergency Visit Emergency Visit: No - New Patient This patient is new to me today: No - Critical Care Critical Care patient: No ATTENDING PHYSICIAN STATEMENT I saw and evaluated the patient. I reviewed the resident's note and discussed the case with the resident. I agree with the resident's findings and plan as documented. SUBJECTIVE: OBJECTIVE: ASSESSMENT AND PLAN:
[2019-02-26] MEDS: CHLORHEXIDINE GLUCONATE 4% CLEANSER FOR DECOLONIZATION TP SCH (21:03)
[2019-02-27] MEDS: ACETAMINOPHEN 1000 MG/100 ML VIAL (NON FORMULARY) IVPB PRN ×3 (00:44→20:38)
[2019-02-27] MEDS ORDERED: DEXTROSE 5%-WATER - 50 ML IVPB ONE ×2 (01:25→09:06)
[2019-02-27] MEDS ORDERED: PIPERACILLIN/TAZOBACTAM 3.375 GM VIAL IVPB ONE ×2 (01:25→09:05)
[2019-02-27] MEDS: PIPERACILLIN/TAZOB 3.375 GM 3.375 GM in DEXTROSE 5%-WATER - 50 ML IVPB SCH ×2 (01:34→09:18)
[2019-02-27] MEDS: SODIUM CHLORIDE 1,000 ML IV SCH (01:34)
[2019-02-27] MEDS ORDERED: METOPROLOL TARTRATE 5 MG/5 ML VIAL IVPUSH ONE ×3 (02:16→08:22)
[2019-02-27] MEDS ORDERED: METOPROLOL TARTRATE 5 MG/5 ML VIAL ONE (02:25)
[2019-02-27] MEDS ORDERED: dilTIAZem HCL 50 MG/10 ML - 10 ML VIAL IVPUSH ONE (05:19)
[2019-02-27] MEDS ORDERED: amLODIPine BESYLATE 5 MG TABLET (FP) PO ONE ×2 (05:42→09:03)
--- NOTE | 2019-02-27 07:19 | PN ---
Physical Exam: SUBJECTIVE: Patient seen and examined by the bedside, intubated and unresponsive OBJECTIVE: Vital Signs Period Temp Pulse Resp BP Sys/Ruano Pulse Ox Last 24 Hr 98.4 F-102 F 59-103 13-24 94-167/59-95 97-100 GENERAL: Sedated and intubated, unresponsive HEAD: Normal with no signs of trauma. EYES: TEMI LUNGS: Clear breath sounds B/L no wheezes, and no crackles. No accessory muscle use HEART: RRR, no murmurs, rub or gallop. ABDOMEN: Soft, nontender, not distended, normoactive bowel sounds, no guarding, no rebound, no masses. No hepatomegaly or splenomegaly. EXTREMITIES: warm, well-perfused. No cyanosis. Cap refill <2 seconds. No peripheral edema. NEUROLOGICAL: Sedated. Laboratory Results - last 24 hr 02/26/19 02/26/19 02/26/19 08:25 08:25 08:25 WBC RBC Hgb Hct MCV MCH MCHC RDW Plt Count MPV Absolute Neuts (auto) Neutrophils % Lymphocytes % Monocytes % Eosinophils % Basophils % Nucleated RBC % Retic Count PT with INR 45.80 H INR 3.83 H PTT (Actin FS) 46.7 H Fibrinogen Sodium 140 Potassium 4.0 Chloride 113 H Carbon Dioxide 21 Anion Gap 5 L BUN 8.0 Creatinine 0.9 Est GFR (CKD-EPI)AfAm 91.40 Est GFR (CKD-EPI)NonAf 78.86 Random Glucose 80 Calcium 7.6 L Iron 8 L TIBC 250 Iron Saturation 3 L Unsaturated IBC 242 Transferrin 195 L Ferritin 44.3 Total Bilirubin 0.5 AST 29 ALT 15 Alkaline Phosphatase 73 Total Protein 5.1 L Albumin 2.1 L Vitamin B12 297 Serum Folate 6 TSH 0.97 Rheumatoid Arth Biomark 02/26/19 02/26/19 02/26/19 08:25 08:25 08:25 WBC 13.8 H RBC 3.10 L Hgb 7.5 L Hct 24.1 L MCV 77.8 L MCH 24.2 L MCHC 31.2 L RDW 17.5 H Plt Count 197 MPV 8.9 Absolute Neuts (auto) 10.6 H Neutrophils % 76.8 Lymphocytes % 12.3 Monocytes % 5.8 Eosinophils % 4.7 H Basophils % 0.4 Nucleated RBC % 0 Retic Count 1.13 PT with INR INR PTT (Actin FS) Fibrinogen 397.0 Sodium Potassium Chloride Carbon Dioxide Anion Gap BUN Creatinine Est GFR (CKD-EPI)AfAm Est GFR (CKD-EPI)NonAf Random Glucose Calcium Iron TIBC Iron Saturation Unsaturated IBC Transferrin Ferritin Total Bilirubin AST ALT Alkaline Phosphatase Total Protein Albumin Vitamin B12 Serum Folate TSH Rheumatoid Arth Biomark 17.8 H 02/26/19 02/26/19 13:08 19:10 WBC 15.4 H RBC 3.19 L Hgb 7.9 L Hct 24.7 L MCV 77.4 L MCH 24.6 L MCHC 31.8 L RDW 17.5 H Plt Count 199 MPV 8.7 Absolute Neuts (auto) 12.2 H Neutrophils % 79.1 Lymphocytes % 11.5 Monocytes % 5.7 Eosinophils % 3.3 Basophils % 0.4 Nucleated RBC % 0 Retic Count PT with INR 28.90 H INR 2.43 H PTT (Actin FS) Fibrinogen Sodium Potassium Chloride Carbon Dioxide Anion Gap BUN Creatinine Est GFR (CKD-EPI)AfAm Est GFR (CKD-EPI)NonAf Random Glucose Calcium Iron TIBC Iron Saturation Unsaturated IBC Transferrin Ferritin Total Bilirubin AST ALT Alkaline Phosphatase Total Protein Albumin Vitamin B12 Serum Folate TSH Rheumatoid Arth Biomark Active Medications Generic Name Dose Route Start Last Admin Trade Name Freq PRN Reason Stop Dose Admin Acetaminophen 1,000 mg 02/25/19 06:45 02/27/19 00:44 Ofirmev Injection - IVPB 1,000 mg Q6H PRN Administration FEVER Chlorhexidine Gluconate 1 applic 02/24/19 22:00 02/26/19 21:03 Hibiclens For Decolonization - TP 1 applic HS WADE Administration Chlorhexidine Gluconate 15 ml 02/25/19 10:00 02/26/19 21:04 Peridex - MM 15 ml BID WADE Administration Vancomycin HCl 1,250 mg/ 250 mls @ 250 mls/2 hr 02/25/19 13:30 02/26/19 13:44 Dextrose IVPB 250 mls/2 hr Q24H WADE Administration Protocol Piperacillin Sod/Tazobactam 50 mls @ 100 mls/hr 02/25/19 18:00 02/27/19 01:34 Sod 3.375 gm/ Dextrose IVPB 100 mls/hr Q8H-IV WADE Administration Protocol Dexmedetomidine HCl 200 mcg/ 50 mls @ 2.85 mls/hr 02/26/19 15:36 02/26/19 21: 01 Sodium Chloride IVPB 0.4 mcg/kg/hr TITR WADE 5.71 mls/hr Administration Protocol 0.2 MCG/KG/HR Sodium Chloride 1,000 mls @ 42 mls/hr 02/27/19 00:13 02/27/19 01:34 Normal Saline - IV 42 mls/hr ASDIR WADE Administration Levetiracetam 500 mg 02/24/19 22:00 02/26/19 21:02 Keppra Injection - IVPB 500 mg BID WADE Administration Mupirocin 1 applic 02/24/19 22:00 02/26/19 21:02 Bactroban Ointment (For Decolonization) - NS 03/01/19 21:59 1 applic BID WADE Administration Pantoprazole Sodium 40 mg 02/26/19 11:30 02/26/19 11:50 Protonix Iv IVPUSH 40 mg DAILY WADE Administration ASSESSMENT/PLAN: 44 YO F with PMH of HTN, alcohol abuse, hypercoagulable state, dural venous sinus thrombosis, Hemorrhagic CVA (3m ago), and seizures. She presented to the ER with seizures likely 2/2 alcohol/cocaine vs medication noncompliance. # Neuro - Status epilepticus (DD:alcohol/cocaine vs med non-compliance) - Dexmetedomidine D/C, will exubate today - Continue Keppra 500mg BID - UTox + for cocaine - CT Head ordered, previous (02/24): No acute bleed/infarct/mass/fx - Dr. Victor: EEG, MRV of the head to r/o sinus thrombosis when extubated - Neuro checks q1h, seizure precautions # CVS - Hx of HTN, currently hypotensive, holding home meds metoprolol 25mg PO OD due to hypotension - Echo (02/25): showed normal EF 65-70%, elevated pulmonary arterial systolic pressure >26 # Pulm - CXR (02/26): Dense left base compatible with a diffuse infiltrate/fluid, no significant changes since prior exam # Heme - Hx hypercoagulable state + for beta-2 glycoprotein - INR 2.43 -> 2.23, will resume coumadin pending GI recommendation, anemia is concerning - H&H: 7.8/24.7 -> 7.5/22.6 - Heme/Onc consult: Spoke to Dr. Hilario, ordered anticardiolipin AB, Anti B2 glycoprotein I, Lupus anticoagulant AB #Renal - Perales in place # ID - WBC 15.4 -> 10.6 - Sputum cx: Staph Aureus, switch to Naficillin as per ID - Nafcillin 2g Q6H, D/Kp Zosyn 3.377mg, Vanco 1.25mg after 3 days - Bcx, Ucx, pending # DVT PE - SCDs # FEN - N/S @ 42 - Tube feed # Dispo - ICU, wean off sedation and extubate Visit type - Emergency Visit Emergency Visit: Yes ED Registration Date: 02/24/19 Care time: The patient presented to the Emergency Department on the above date and was hospitalized for further evaluation of their emergent condition. - New Patient This patient is new to me today: No - Critical Care Critical Care patient: Yes Total Critical Care Time (in minutes): 38 Critical Care Statement: The care of this patient involved high complexity decision making to prevent further life threatening deterioration of the patient 's condition and/or to evaluate & treat vital organ system(s) failure or risk of failure. ATTENDING PHYSICIAN STATEMENT I saw and evaluated the patient. I reviewed the resident's note and discussed the case with the resident. I agree with the resident's findings and plan as documented. SUBJECTIVE: OBJECTIVE: ASSESSMENT AND PLAN:
[2019-02-27 07:52] LABS: BASO % 0.4 % (0-2.0); EOS % 5.8 % (0-4.5); HEMATOCRIT 22.6 % (32.4-45.2); HEMOGLOBIN 7.5 GM/dL (10.7-15.3); LYMPH % 16.6 % (8-40); MCH 25.2 pg (25.7-33.7); MCHC 33.2 g/dl (32.0-36.0); MEAN CELL VOLUME 75.8 fl (80-96); MEAN PLT VOLUME 8.9 fl (7.5-11.1); MONO % 7.1 % (3.8-10.2); NEUT % 70.1 % (42.8-82.8); PLATELET COUNT 163 K/MM3 (134-434); RBC 2.99 M/mm3 (3.60-5.2); RDW 17.6 % (11.6-15.6); WHITE BLOOD COUNT 10.6 K/mm3 (4.0-10.0)
[2019-02-27 08:16] LABS: ALBUMIN 2.1 g/dl (3.4-5.0); BLOOD UREA NITROGEN 6.4 mg/dL (7-18); CREATININE 0.7 mg/dL (0.55-1.3); MAGNESIUM 1.7 mg/dL (1.8-2.4); PHOSPHOROUS 2.3 mg/dL (2.5-4.9); POTASSIUM 3.7 mmol/L (3.5-5.1); TOT PROT 5.4 g/dl (6.4-8.2)
[2019-02-27 08:33] LABS: INR 2.23 (0.83-1.09); PROTHROMBIN TIME (PATIENT) 26.5 SEC (9.7-13.0)
[2019-02-27] MEDS ORDERED: POTASSIUM PHOSPHATE 15 MM in SODIUM CHLORIDE 250 ML IVPB ONE (08:53)
[2019-02-27] MEDS ORDERED: MAGNESIUM SULF 50% (8.12 MEQ/2 ML-1 GM VIAL) IVPB ONE (08:57)
[2019-02-27] MEDS: CHLORHEXIDINE GLUCONATE 0.12% 15ML CUP MM SCH ×2 (09:18→20:59)
[2019-02-27] MEDS: levETIRAcetam 500 MG/5 ML INJECTION VIAL IVPB SCH ×2 (09:18→22:31)
[2019-02-27] MEDS: PANTOPRAZOLE SODIUM 40 MG VIAL IVPUSH SCH (09:18)
[2019-02-27] MEDS: MUPIROCIN 2% TOPICAL OINTMENT FOR DECOLONIZATION NS SCH ×2 (10:00→20:59)
--- NOTE | 2019-02-27 11:54 | PN ---
Teaching Attending Note Name of Resident: Eddie Roth ATTENDING PHYSICIAN STATEMENT I saw and evaluated the patient. I reviewed the resident's note and discussed the case with the resident. I agree with the resident's findings and plan as documented. SUBJECTIVE: Pt seen and examined in the ICU. Remains intubated, opens eyes to commands, moves extremities but weakly. OBJECTIVE: Vital Signs Period Temp Pulse Resp BP Sys/Ruano Pulse Ox Last 24 Hr 98.7 F-102 F 59-96 13-24 94-169/59-98 97 Intake & Output 02/24/19 02/25/19 02/26/19 02/27/19 23:59 23:59 23:59 23:59 Intake Total 1000 6583 1486.2 964.8 Output Total 3200 2750 750 Balance 1000 3383 -1263.8 214.8 Weight 58.5 kg 57.153 kg 56.926 kg Gen: intubated, poorly responsive Heart: RRR Lung: scattered rhonchi Abd: soft, nontender Ext: no edema CBC, BMP 02/27/19 06:55 02/27/19 06:55 Active Medications Acetaminophen (Ofirmev Injection -) 1,000 mg IVPB Q6H PRN PRN Reason: FEVER Last Admin: 02/27/19 00:44 Dose: 1,000 mg Chlorhexidine Gluconate (Hibiclens For Decolonization -) 1 applic TP HS WADE Last Admin: 02/26/19 21:03 Dose: 1 applic Chlorhexidine Gluconate (Peridex -) 15 ml MM BID WADE Last Admin: 02/27/19 09:18 Dose: 15 ml Vancomycin HCl 1,250 mg/ (Dextrose) 250 mls @ 250 mls/2 hr IVPB Q24H WADE; Protocol Last Admin: 02/26/19 13:44 Dose: 250 mls/2 hr Piperacillin Sod/Tazobactam (Sod 3.375 gm/ Dextrose) 50 mls @ 100 mls/hr IVPB Q8H-IV WADE; Protocol Last Admin: 02/27/19 09:18 Dose: 100 mls/hr Dexmedetomidine HCl 200 mcg/ (Sodium Chloride) 50 mls @ 2.85 mls/hr IVPB TITR WADE; Protocol Last Admin: 02/26/19 21:01 Dose: 0.4 mcg/kg/hr, 5.71 mls/hr Sodium Chloride (Normal Saline -) 1,000 mls @ 42 mls/hr IV ASDIR [facility] Last Admin: 02/27/19 01:34 Dose: 42 mls/hr Potassium Phosphate 15 mm/ (Sodium Chloride) 255 mls @ 62.5 mls/hr IVPB ONCE ONE Stop: 02/27/19 12:57 Last Admin: 02/27/19 10:31 Dose: 62.5 mls/hr Levetiracetam (Keppra Injection -) 500 mg IVPB BID [facility] Last Admin: 02/27/19 09:18 Dose: 500 mg Mupirocin (Bactroban Ointment (For Decolonization) -) 1 applic NS BID [facility] Stop: 03/01/19 21:59 Last Admin: 02/26/19 21:02 Dose: 1 applic Pantoprazole Sodium (Protonix Iv) 40 mg IVPUSH DAILY [facility] Last Admin: 02/27/19 09:18 Dose: 40 mg ASSESSMENT AND PLAN: Status Epilepticus Acute Respiratory Failure Pneumonia likely Aspiration Sepsis Lactic Acidosis Alcohol Abuse Cocaine Use h/o Dural [place] Sinus Thrombosis HTN Anemia - continue antiepileptics - hold sedation to assess mental status - extubate when mental status improved - continue antibiotics - IVF boluses as needed - monitor urine output, creatinine - continue anticoagulation to target INR 2-3 - enteral feeds if unable to extubate - DVT/GI prophylaxis - continue ICU monitoring critical care time spent in reviewing chart, evaluating patient and formulating plan 35 min
--- NOTE | 2019-02-27 12:29 | PN ---
Progress Note, Physician History of Present Illness: continues to be intubated h and h low - Current Medication List Current Medications: Active Medications Acetaminophen (Ofirmev Injection -) 1,000 mg IVPB Q6H PRN PRN Reason: FEVER Last Admin: 02/27/19 00:44 Dose: 1,000 mg Chlorhexidine Gluconate (Hibiclens For Decolonization -) 1 applic TP HS WADE Last Admin: 02/26/19 21:03 Dose: 1 applic Chlorhexidine Gluconate (Peridex -) 15 ml MM BID WADE Last Admin: 02/27/19 09:18 Dose: 15 ml Vancomycin HCl 1,250 mg/ (Dextrose) 250 mls @ 250 mls/2 hr IVPB Q24H WADE; Protocol Last Admin: 02/26/19 13:44 Dose: 250 mls/2 hr Piperacillin Sod/Tazobactam (Sod 3.375 gm/ Dextrose) 50 mls @ 100 mls/hr IVPB Q8H-IV WADE; Protocol Last Admin: 02/27/19 09:18 Dose: 100 mls/hr Dexmedetomidine HCl 200 mcg/ (Sodium Chloride) 50 mls @ 2.85 mls/hr IVPB TITR WADE; Protocol Last Admin: 02/26/19 21:01 Dose: 0.4 mcg/kg/hr, 5.71 mls/hr Sodium Chloride (Normal Saline -) 1,000 mls @ 42 mls/hr IV ASDIR WADE Last Admin: 02/27/19 01:34 Dose: 42 mls/hr Potassium Phosphate 15 mm/ (Sodium Chloride) 255 mls @ 62.5 mls/hr IVPB ONCE ONE Stop: 02/27/19 12:57 Last Admin: 02/27/19 10:31 Dose: 62.5 mls/hr Levetiracetam (Keppra Injection -) 500 mg IVPB BID WADE Last Admin: 02/27/19 09:18 Dose: 500 mg Mupirocin (Bactroban Ointment (For Decolonization) -) 1 applic NS BID [facility] Stop: 03/01/19 21:59 Last Admin: 02/26/19 21:02 Dose: 1 applic Pantoprazole Sodium (Protonix Iv) 40 mg IVPUSH DAILY [facility] Last Admin: 02/27/19 09:18 Dose: 40 mg - Objective Vital Signs: Vital Signs Temperature 99.8 F H 02/27/19 10:00 Pulse Rate 64 02/27/19 10:00 Respiratory Rate 32 H 02/27/19 11:10 Blood Pressure 167/94 02/27/19 10:00 O2 Sat by Pulse Oximetry (%) 97 02/26/19 12:15 Constitutional: Yes: No Distress Cardiovascular: Yes: S1, S2 Respiratory: Yes: Intubated, Mechanically Ventilated Gastrointestinal: Yes: Normal Bowel Sounds, Soft, Other (ng) Musculoskeletal: Yes: WNL Extremities: Yes: Other Neurological: Yes: Other Psychiatric: Yes: Other Labs: CBC, BMP 02/27/19 06:55 02/27/19 06:55 INR, PTT INR 2.23 (0.83-1.09) H 02/27/19 06:55 Fibrinogen 397.0 mg/dL (238-498) 02/26/19 08:25 Assessment/Plan Status Epilepticus Acute Respiratory Failure Pneumonia likely Aspiration Sepsis Lactic Acidosis Alcohol Abuse Cocaine Use h/o Dural [place] Sinus Thrombosis HTN Anemia plan continue abx will change to nafclillin transfusions antiepileptics ffp monitor for bleeding resp support rest as per icu eeg report cc 40 min
[2019-02-27] MEDS ORDERED: NAFCILLIN - 2 GM in DEXTROSE 5%-WATER - 100 ML IVPB SCH (15:00)
[2019-02-27] MEDS: DEXMEDETOMIDINE HCL 200 MCG in SODIUM CHLORIDE 48 ML IVPB SCH ×2 (15:40→19:35)
[2019-02-27] MEDS: NAFCILLIN - 2 GM in DEXTROSE 5%-WATER - 100 ML IVPB SCH ×2 (16:00→20:59)
[2019-02-27] MEDS ORDERED: MAGNESIUM SULF 50% (8.12 MEQ/2 ML-1 GM VIAL) ONE (16:12)
--- NOTE | 2019-02-27 17:25 | PN ---
Teaching Attending Note Name of Resident: Maritza Mcmanus ATTENDING PHYSICIAN STATEMENT I saw and evaluated the patient. I reviewed the resident's note and discussed the case with the resident. I agree with the resident's findings and plan as documented. SUBJECTIVE: seen at 9:30 am unable to obtain hx as intubated and sedated OBJECTIVE: NAD, sedated , intubatred , round equal pupils, reactive to light. no facial droop. CV: RRR Lungs: ACTB anteriorly Abd: no BS, soft. Ext: trace edema on LE b/l Rectal by resident, with no masses, and Neg OB ASSESSMENT AND PLAN: 44 y/o lady with h/o HTN, dural vein thrombosis , and hemorrhagic stroke, a previous seizure, and ETOH abuse who presented with seizures.She was intubated and admitted to ICU 1- Acute hypoxic resp failure . -cont vent management . weaning trial today. - treat PNA 2- Seizures /status epilepticus : due to ? ETOH withdrawal VS brain injury from previous hemorrhagic stroke, VS response to infection . Do not suspect meningitis or MANAGER [employer] infection as a cause of the seizure as fever started after intubation in hospital . - EEG pending . r/o non convulsive status if unable to extubate - cont Keppra BID - will get brain MRI after extubation 3- Sepsis, likely due to PNA: - sputum cx with MSSA. - cont naficillin - follow blood cx 4- Microcytic anemia : has h/o alcohol abuse, and still uses per . Hb dropped since admission likely due to dilution . doubt active acute bleed. iron studies noted. can't rule out iron def from GI bleed completely especially with her alcohol hx - OB neg on rectal exam. - send OB when she stools - cont PPI - GI eval - B12 on lower side , will replete when extubated with po b12 5- HTN urgency: received iv lopressor. - will resume her metoprolol through NGT in am 6- H/o dural vein thrombosis: - coumadin on hold pending GI eval - anticardiolipin, Lupus Anticoagulants and anti B2 glycoprotein Abs pending - Records were requested from [facility] 7- hypomagnesemia DVT PX: INR is therapeutic now SCds
--- NOTE | 2019-02-27 17:33 | CON.GI ---
Consult Consult Specialty:: Gastroenterology Referred by:: Dr. Caruso Reason for Consultation:: Anemia - History of Present Illness History of Present Illness: 44yo female h/o HTN, ETOH/cocaine use, dural venous thrombosis, hemorrhagic stroke, seizure disorder presenting with headaches and seizures requiring intubation asked to evaluate for anemia. Pt intubated and unresponsive, unable to obtain history, chart reviewed. Pt noted to have acute drop in Hb, previously Hb 11-12, now 7-8 with evidence of iron deficiency. No overt bleeding reported. Greenish secretions noted via NG tube. No melena or hematochezia. No bms yet today per nursing staff. Unclear if pt has had prior endoscopy. - History Source History Provided By: Medical Record Limitations to Obtaining History: Intubated - Alcohol/Substance Use Hx Alcohol Use: No - Smoking History Smoking history: Unknown if ever smoked Have you smoked in the past 12 months: No Home Medications - Allergies Allergies/Adverse Reactions: Allergies Allergy/AdvReac Type Severity Reaction Status Date / Time No Known Allergies Allergy Verified 02/07/19 14:25 - Home Medications Home Medications: Ambulatory Orders Aspirin [ASA -] 325 mg PO DAILY 02/07/19 Atorvastatin Ca [Lipitor] 40 mg PO HS 02/07/19 Metoprolol Succinate 25 mg PO DAILY 02/07/19 Coumadin 3 mg PO DAILY 02/26/19 Review of Systems Unable to obtain ROS, reason: Pt intubated Physical Exam-GI Vital Signs: Vital Signs Temperature 99.8 F H 02/27/19 14:00 Pulse Rate 70 02/27/19 16:00 Respiratory Rate 26 H 02/27/19 16:00 Blood Pressure 106/73 02/27/19 16:00 O2 Sat by Pulse Oximetry (%) 100 02/27/19 10:00 Constitutional: Yes: Calm, Other (intubated, unresponsive) Cardiovascular: Yes: WNL, Regular Rate and Rhythm Respiratory: Yes: WNL, Regular, CTA Bilaterally ...Palpate: Yes: Other (Abd soft, no tenderness elicited, nondistended Rectal exam: scant light brown stool) Labs: CBC, BMP 02/27/19 06:55 02/27/19 06:55 INR, PTT INR 2.23 (0.83-1.09) H 02/27/19 06:55 Fibrinogen 397.0 mg/dL (238-498) 02/26/19 08:25 Problem List - Problems (1) Microcytic anemia Assessment/Plan: 44yo female h/o HTN, ETOH/cocaine use, dural venous thrombosis on coumadin, hemorrhagic stroke, seizure disorder presenting with headaches and seizures requiring intubation asked to evaluate for anemia with evidence of iron deficiency in setting of elevated INR. Fobt positive, no overt bleeding. While anemia may be multifactorial cannot exclude underlying GI source including erosions, ulcer, AVMs, less likely malignancy. -No urgency for endoscopy in absence of overt bleeding and risks/benefits need to be carefully weighed considering pts underlying neurological co-morbidities. -Monitor Hb and for evidence of bleeding -PPI daily -Pending clinical course and once further optimized would consider endoscopic evaluation at that time. Would request neurology input regarding safety of holding a/c if endoscopy is pursued. -If overt bleeding with drop in Hb or hemodynamic instability please notify GI for possible more urgent intervention -Further recommendations per hematology Discussed with MICU team Code(s): D50.9 - IRON DEFICIENCY ANEMIA, UNSPECIFIED
--- NOTE | 2019-02-27 17:43 | PN ---
Teaching Attending Note Name of Resident: Mingo Spence ATTENDING PHYSICIAN STATEMENT I saw and evaluated the patient. I reviewed the resident's note and discussed the case with the resident. I agree with the resident's findings and plan as documented. SUBJECTIVE: Patient sen and examined Intubated Non responsive Last Vital Signs Temp Pulse Resp BP Pulse Ox 99.8 F H 70 26 H 106/73 100 02/27/19 14:00 02/27/19 16:00 02/27/19 16:00 02/27/19 16:00 02/27/19 10:00 HEENT: TEMI, EOM Intact Cor: RSR, No murmurs, No gallops Lungs: Clear to P&A Abd: Soft, Normal bowel sounds, No organomegaly Ext:No significant edema Skin: No rashes, Integument intact CBC, BMP 02/27/19 06:55 02/27/19 06:55 Current Medications Generic Name Dose Route Start Last Admin Trade Name Freq PRN Reason Stop Dose Admin Acetaminophen 1,000 mg 02/27/19 14:56 Ofirmev Injection - IVPB Q6H PRN FEVER Chlorhexidine Gluconate 1 applic 02/24/19 22:00 02/26/19 21:03 Hibiclens For Decolonization - TP 1 applic HS WADE Administration Chlorhexidine Gluconate 15 ml 02/25/19 10:00 02/27/19 09:18 Peridex - MM 15 ml BID WADE Administration Dexmedetomidine HCl 200 mcg/ 50 mls @ 2.85 mls/hr 02/26/19 15:36 02/27/19 15: 40 Sodium Chloride IVPB Not Given TITR WADE Protocol 0.2 MCG/KG/HR Sodium Chloride 1,000 mls @ 42 mls/hr 02/27/19 00:13 02/27/19 01:34 Normal Saline - IV 42 mls/hr ASDIR WADE Administration Nafcillin Sodium 2 gm/ 100 mls @ 100 mls/hr 02/27/19 15:00 02/27/19 16:00 Dextrose IVPB 100 mls/hr Q6H-IV WADE Administration Protocol Levetiracetam 500 mg 02/24/19 22:00 02/27/19 09:18 Keppra Injection - IVPB 500 mg BID WADE Administration Mupirocin 1 applic 02/24/19 22:00 02/27/19 10:00 Bactroban Ointment (For Decolonization) - NS 03/01/19 21:59 1 applic BID WADE Administration Pantoprazole Sodium 40 mg 02/26/19 11:30 02/27/19 09:18 Protonix Iv IVPUSH 40 mg DAILY WADE Administration Impression: s/p epilepticus Acute hypoxic respiratory failure Pneumonia Fe++ deficiency Dural sinus thrombosis Hematest positive stool Low normal B-12 Suggest ATIII, Protein S levels will be falsely lowered on a/c Can add FVLeyden and Prothrombin [id number] to antiphospholipid work up If indeed beta-2 glycoprotein I has been previously elevated, repeat at 4 months needs to be positive to demonstrate reproducibility Fe++ deficient - can give IV venofer Can give B-12 = check antiparietal and anti-intrinsic factor antibodies.. Maintain therapeutic INR OBJECTIVE: ASSESSMENT AND PLAN:
--- NOTE | 2019-02-27 18:50 | PN ---
Physical Exam: SUBJECTIVE: Patient seen and examined 44 y/o F, pmh of HTN, alcohol abuse, hx of dural venous thrombosis, and hemorrhagic stroke 3 months ago requiring hospitalization at [facility] ([facility] placed pt on coumadin?), presents today s/p seizures. Pt remains intubated and sedated. Pt is afebrile. As per nursing, no v/sob, or other symptoms. OBJECTIVE: Vital Signs Period Temp Pulse Resp BP Sys/Ruano Pulse Ox Last 24 Hr 98.9 F-100.4 F 59-84 13-32 104-171/68-104 100-100 GENERAL: minimally responsive, responds to pain stimuli. Intubated. EYES: Pupils reactive to light Mouth- gag reflexes intact- suctioned blood tinged fluid. LUNGS: Pt intubated- difficult to check breath sounds. However, pts breath sounds were appreciated HEART: Regular rate, normal S1 and S2 without murmur, rub or gallop. ABDOMEN: Soft, nontender, not distended, normoactive bowel sounds, no guarding, no rebound, no masses. UPPER EXTREMITIES: 2+ pulses, warm, no edema LOWER EXTREMITIES: 2+ pulses, warm, no edema SKIN: Warm, dry Laboratory Results - last 24 hr CBC,CMP WBC 10.6 K/mm3 (4.0-10.0) H 02/27/19 06:55 RBC 2.99 M/mm3 (3.60-5.2) L 02/27/19 06:55 Hgb 7.5 GM/dL (10.7-15.3) L 02/27/19 06:55 Hct 22.6 % (32.4-45.2) L 02/27/19 06:55 MCV 75.8 fl (80-96) L 02/27/19 06:55 MCH 25.2 pg (25.7-33.7) L 02/27/19 06:55 MCHC 33.2 g/dl (32.0-36.0) 02/27/19 06:55 RDW 17.6 % (11.6-15.6) H 02/27/19 06:55 Plt Count 163 K/MM3 (134-434) 02/27/19 06:55 MPV 8.9 fl (7.5-11.1) 02/27/19 06:55 Absolute Neuts (auto) 7.4 K/mm3 (1.5-8.0) 02/27/19 06:55 Neutrophils % 70.1 % (42.8-82.8) 02/27/19 06:55 Neutrophils % (Manual) 55.7 % (42.8-82.8) 02/25/19 09:00 Band Neutrophils % 20.6 % 02/25/19 09:00 Lymphocytes % 16.6 % (8-40) D 02/27/19 06:55 Lymphocytes % (Manual) 14.4 % (8-40) D 02/25/19 09:00 Monocytes % 7.1 % (3.8-10.2) 02/27/19 06:55 Monocytes % (Manual) 2 % (3.8-10.2) L 02/25/19 09:00 Eosinophils % 5.8 % (0-4.5) H 02/27/19 06:55 Eosinophils % (Manual) 6.2 % (0-4.5) H D 02/25/19 09:00 Basophils % 0.4 % (0-2.0) 02/27/19 06:55 Basophils % (Manual) 1.0 % (0-2.0) D 02/25/19 09:00 Myelocytes % (Man) 0 % (0-2) 02/25/19 09:00 Promyelocytes % (Man) 0 % (0-2) 02/25/19 09:00 Blast Cells % (Manual) 0 % (0-0) 02/25/19 09:00 Nucleated RBC % 0 % (0-0) 02/27/19 06:55 Metamyelocytes 0 % (0-2) D 02/25/19 09:00 Hypochromia 1+ 02/25/19 09:00 Platelet Estimate Normal 02/25/19 09:00 Polychromasia 0 02/25/19 09:00 Poikilocytosis 1+ 02/25/19 09:00 Anisocytosis 1+ 02/25/19 09:00 Microcytosis 1+ 02/25/19 09:00 Ovalocytes 1+ 02/25/19 09:00 Schistocytes 1+ 02/25/19 09:00 ESR 8 mm/hr (0-20) 02/25/19 09:00 Retic Count 1.13 % (0.5-1.5) 02/26/19 08:25 Sodium 141 mmol/L (136-145) 02/27/19 06:55 Potassium 3.7 mmol/L (3.5-5.1) 02/27/19 06:55 Chloride 114 mmol/L (98-107) H 02/27/19 06:55 Carbon Dioxide 22 mmol/L (21-32) 02/27/19 06:55 Anion Gap 5 MMOL/L (8-16) L 02/27/19 06:55 BUN 6.4 mg/dL (7-18) L 02/27/19 06:55 Creatinine 0.7 mg/dL (0.55-1.3) 02/27/19 06:55 Est GFR (CKD-EPI)AfAm 123.86 02/27/19 06:55 Est GFR (CKD-EPI)NonAf 106.87 02/27/19 06:55 Random Glucose 88 mg/dL (74-106) 02/27/19 06:55 Lactic Acid 1.8 mmol/L (0.4-2.0) 02/25/19 09:00 Calcium 8.0 mg/dL (8.5-10.1) L 02/27/19 06:55 Phosphorus 2.3 mg/dL (2.5-4.9) L 02/27/19 06:55 Magnesium 1.7 mg/dL (1.8-2.4) L 02/27/19 06:55 Iron 8 ug/dL (50-175) L 02/26/19 08:25 TIBC 250 ug/dL (250-450) 02/26/19 08:25 Iron Saturation 3 % (17.5-39) L 02/26/19 08:25 Unsaturated IBC 242 ug/dL (200-275) 02/26/19 08:25 Transferrin 195 mg/dL (200-370) L 02/26/19 08:25 Ferritin 44.3 ng/ml (8-388) 02/26/19 08:25 Total Bilirubin 1.0 mg/dL (0.2-1) 02/27/19 06:55 AST 23 U/L (15-37) 02/27/19 06:55 ALT 16 U/L (13-61) 02/27/19 06:55 Alkaline Phosphatase 86 U/L (45-117) 02/27/19 06:55 C-Reactive Protein < 0.3 MG/DL (0.00-0.3) 02/24/19 20:44 Total Protein 5.4 g/dl (6.4-8.2) L 02/27/19 06:55 Albumin 2.1 g/dl (3.4-5.0) L 02/27/19 06:55 Vitamin B12 297 pg/ml (193-986) 02/26/19 08:25 Serum Folate 6 ng/mL (3.1-17.5) 02/26/19 08:25 TSH 0.97 uIU/ml (0.358-3.74) 02/26/19 08:25 Serum , Qual Negative 02/24/19 16:00 Active Medications Current Medications Acetaminophen (Ofirmev Injection -) 1,000 mg IVPB Q6H PRN PRN Reason: FEVER Chlorhexidine Gluconate (Hibiclens For Decolonization -) 1 applic TP HS WADE Last Admin: 02/26/19 21:03 Dose: 1 applic Chlorhexidine Gluconate (Peridex -) 15 ml MM BID WADE Last Admin: 02/27/19 09:18 Dose: 15 ml Dexmedetomidine HCl 200 mcg/ (Sodium Chloride) 50 mls @ 2.85 mls/hr IVPB TITR WADE; Protocol Last Admin: 02/27/19 15:40 Dose: Not Given Sodium Chloride (Normal Saline -) 1,000 mls @ 42 mls/hr IV ASDIR WADE Last Admin: 02/27/19 01:34 Dose: 42 mls/hr Nafcillin Sodium 2 gm/ (Dextrose) 100 mls @ 100 mls/hr IVPB Q6H-IV WADE; Protocol Last Admin: 02/27/19 16:00 Dose: 100 mls/hr Levetiracetam (Keppra Injection -) 500 mg IVPB BID WADE Last Admin: 02/27/19 09:18 Dose: 500 mg Metoprolol Succinate (Toprol Xl -) 25 mg PO DAILY WADE Mupirocin (Bactroban Ointment (For Decolonization) -) 1 applic NS BID WADE Stop: 03/01/19 21:59 Last Admin: 02/27/19 10:00 Dose: 1 applic Pantoprazole Sodium (Protonix Iv) 40 mg IVPUSH DAILY WADE Last Admin: 02/27/19 09:18 Dose: 40 mg Home Medications Medication Instructions Recorded Aspirin [ASA -] 325 mg PO DAILY 02/07/19 Atorvastatin Ca [Lipitor] 40 mg PO HS 02/07/19 Metoprolol Succinate 25 mg PO DAILY 02/07/19 Coumadin 3 mg PO DAILY 02/26/19 Microbiology 02/26/19 16:30 Blood - Arterial Blood Culture - Preliminary NO GROWTH OBTAINED AFTER 24 HOURS, INCUBATION TO CONTINUE FOR 4 DAYS. 02/26/19 16:30 Blood - Arterial Blood Culture - Preliminary NO GROWTH OBTAINED AFTER 24 HOURS, INCUBATION TO CONTINUE FOR 4 DAYS. 02/25/19 11:00 Sputum - Endotrachea Suction/Ventilator Gram Stain - Final 02/25/19 11:00 Sputum - Endotrachea Suction/Ventilator Sputum Culture - Final Staphylococcus Aureus 02/24/19 19:00 Blood - Peripheral Venous Blood Culture - Preliminary NO GROWTH OBTAINED AFTER 48 HOURS, INCUBATION TO CONTINUE FOR 3 DAYS. 02/24/19 19:00 Blood - Peripheral Venous Blood Culture - Preliminary NO GROWTH OBTAINED AFTER 48 HOURS, INCUBATION TO CONTINUE FOR 3 DAYS. 02/24/19 16:00 Urine - Urine Perales Urine Culture - Final NO GROWTH OBTAINED ASSESSMENT/PLAN: 44 y/o F, pmh of HTN, alcohol abuse, hx of dural venous thrombosis, and hemorrhagic stroke 3 months ago requiring hospitalization at [facility] ([facility] placed pt on coumadin?), presents today s/p seizures likely 2/2 to seizure medication noncompliance vs withdrawal vs overdose #S/p Seizures Status epilepticus likely 2/2 to seizure medication noncompliance vs withdrawal vs overdose Cont Keppra 500 BID Pt intubated- Pt is being weaned off vent today (Propofol, versed, fentanyl) for extubation As per Pulmon: spontaneous breathing trials as tolerated when mental status improved As per ID- Naficillin started Sputum Cx- MSSA- resistant to clinda and erythro As per neuro: questionable degree anoxic brain damage difficult to assess on the propafol Repeat CAT scan of the head with no contrast- no acute changes EEG-f/u hold sedation to assess mental status continue antiepileptics MRV needed As per Heme/Onc ATIII, Protein S levels will be falsely lowered on a/c Can add FVLeyden and Prothrombin [id number] to antiphospholipid work up If beta-2 glycoprotein I elevated, repeat at 4 months needs to be positive to demonstrate reproducibility Iron deficient - can give IV venofer Can give Vit B12- check antiparietal and anti-intrinsic factor antibodies. #Anemia Likely 2/2 to GI bleed As per GI No urgency for endoscopy Monitor Hb and for evidence of bleeding PPI daily Pending clinical course and once further optimized would consider endoscopic evaluation at that time. Would request neurology input regarding safety of holding a/c if endoscopy is pursued. If overt bleeding with drop in Hb or hemodynamic instability please notify GI for possible more urgent intervention #Hx of hemorrhagic stroke CT head negative BP well controlled #Hx of Dural venous thrombosis Hold Coumadin- till medical records can be verified #Hypotension Hold home BP meds- metoprolol, lisinopril #Alcohol abuse monitor for withdrawals verify medical records Pt is on Versed (Midazolam) F: NS at 44 E: monitor lytes N: NPO-intubated Dispo: monitor in ICU, hold coumadin, EEG, f/u INR in am, Extubation tomorrow Visit type - Emergency Visit Emergency Visit: Yes ED Registration Date: 02/24/19 Care time: The patient presented to the Emergency Department on the above date and was hospitalized for further evaluation of their emergent condition. - New Patient This patient is new to me today: Yes Date on this admission: 02/28/19 - Critical Care Critical Care patient: No - Discharge Referral Referred to [facility] Med P.C.: No ATTENDING PHYSICIAN STATEMENT I saw and evaluated the patient. I reviewed the resident's note and discussed the case with the resident. I agree with the resident's findings and plan as documented. SUBJECTIVE: OBJECTIVE: ASSESSMENT AND PLAN:
[2019-02-27] MEDS ORDERED: PT OWN MED DRAWER 7, Y5N ONE (20:57)
[2019-02-27] MEDS: CHLORHEXIDINE GLUCONATE 4% CLEANSER FOR DECOLONIZATION TP SCH (20:59)
[2019-02-28] MEDS: NAFCILLIN - 2 GM in DEXTROSE 5%-WATER - 100 ML IVPB SCH ×4 (03:20→23:09)
[2019-02-28] MEDS: SODIUM CHLORIDE 1,000 ML IV SCH (03:23)
[2019-02-28 06:53] LABS: ARTERIAL BLD GAS O2 SATURATION 95.3 % (95-98); ARTERIAL BLOOD GAS BASE EXCESS -1.5 meq/l (-2-2); ARTERIAL BLOOD GAS PCO2 40.7 mmHg (35-45); ARTERIAL BLOOD GAS PO2 83.4 mmHg (80-100); ARTERIAL BLOOD GAS pH 7.37 (7.35-7.45)
[2019-02-28 06:57] LABS: ALLENS TEST POSITIVE
[2019-02-28 07:21] LABS: HEMATOCRIT 28.1 % (32.4-45.2); MCH 24.6 pg (25.7-33.7); MCHC 31.9 g/dl (32.0-36.0); MEAN PLT VOLUME 9.1 fl (7.5-11.1); PLATELET COUNT 219 K/MM3 (134-434); RBC 3.65 M/mm3 (3.60-5.2); RDW 17.3 % (11.6-15.6); WHITE BLOOD COUNT 10.1 K/mm3 (4.0-10.0)
[2019-02-28 07:26] LABS: INR 2.75 (0.83-1.09); PROTHROMBIN TIME (PATIENT) 32.8 SEC (9.7-13.0)
[2019-02-28 07:28] LABS: ACTIVATED PTT 44.1 SECONDS (25.2-36.5)
[2019-02-28 07:41] LABS: ALBUMIN 2.4 g/dl (3.4-5.0); BILIRUBIN,TOTAL 0.8 mg/dL (0.2-1); CALCIUM 8.3 mg/dL (8.5-10.1); CREATININE 0.7 mg/dL (0.55-1.3); MAGNESIUM 2.3 mg/dL (1.8-2.4); PHOSPHOROUS 2.7 mg/dL (2.5-4.9); POTASSIUM 3.7 mmol/L (3.5-5.1); TOT PROT 6.1 g/dl (6.4-8.2)
--- NOTE | 2019-02-28 07:57 | PN ---
Physical Exam: SUBJECTIVE: Patient seen and examined by the bedside. She is intubated and responsive, follows commands. OBJECTIVE: Vital Signs Period Temp Pulse Resp BP Sys/Ruano Pulse Ox Last 24 Hr 98.4 F-101.4 F 59-121 17-33 99-171/68-104 100-100 GENERAL: Sedated and intubated, responsive and follows commands HEAD: Normal with no signs of trauma. EYES: TEMI, EOMI LUNGS: Clear breath sounds B/L no wheezes, and no crackles. No accessory muscle use HEART: RRR, no murmurs, rub or gallop. ABDOMEN: Soft, nontender, not distended, normoactive bowel sounds, no guarding, no rebound, no masses. No hepatomegaly or splenomegaly. EXTREMITIES: warm, well-perfused. No cyanosis. Cap refill <2 seconds. No peripheral edema. NEUROLOGICAL: Sedated. Laboratory Results - last 24 hr 02/24/19 02/26/19 02/26/19 20:44 08:25 08:25 WBC RBC Hgb Hct MCV MCH MCHC RDW Plt Count MPV Absolute Neuts (auto) Neutrophils % Lymphocytes % Monocytes % Eosinophils % Basophils % Nucleated RBC % PT with INR INR PTT (Actin FS) Func Antithrombin III 86 Anticoagulation Therapy Puncture Site ABG pH ABG pCO2 at Pt Temp ABG pO2 at Pt Temp ABG HCO3 ABG O2 Sat (Measured) ABG O2 Content ABG Base Excess Radu Test O2 Delivery Device Oxygen Flow Rate Vent Mode Vent Rate Mechanical Rate PEEP Pressure Support Vent Sodium Potassium Chloride Carbon Dioxide Anion Gap BUN Creatinine Est GFR (CKD-EPI)AfAm Est GFR (CKD-EPI)NonAf Random Glucose Calcium Phosphorus Magnesium Total Bilirubin AST ALT Alkaline Phosphatase Total Protein Albumin Stool Occult Blood MYNOR Screen Negative Anti-Cardiolipin IgG Ab <9 Anti-Cardiolipin IgA Ab <9 Anti-Cardiolipin IgM Ab <9 02/26/19 02/27/19 02/27/19 19:10 06:55 06:55 WBC 10.6 H RBC 2.99 L Hgb 7.5 L Hct 22.6 L MCV 75.8 L MCH 25.2 L MCHC 33.2 RDW 17.6 H Plt Count 163 MPV 8.9 Absolute Neuts (auto) 7.4 Neutrophils % 70.1 Lymphocytes % 16.6 D Monocytes % 7.1 Eosinophils % 5.8 H Basophils % 0.4 Nucleated RBC % 0 PT with INR 28.90 H 26.50 H INR 2.43 H 2.23 H PTT (Actin FS) Cancelled Func Antithrombin III Anticoagulation Therapy Puncture Site ABG pH ABG pCO2 at Pt Temp ABG pO2 at Pt Temp ABG HCO3 ABG O2 Sat (Measured) ABG O2 Content ABG Base Excess Radu Test O2 Delivery Device Oxygen Flow Rate Vent Mode Vent Rate Mechanical Rate PEEP Pressure Support Vent Sodium Potassium Chloride Carbon Dioxide Anion Gap BUN Creatinine Est GFR (CKD-EPI)AfAm Est GFR (CKD-EPI)NonAf Random Glucose Calcium Phosphorus Magnesium Total Bilirubin AST ALT Alkaline Phosphatase Total Protein Albumin Stool Occult Blood MYNOR Screen Anti-Cardiolipin IgG Ab Anti-Cardiolipin IgA Ab Anti-Cardiolipin IgM Ab 02/27/19 02/27/19 02/28/19 06:55 15:55 06:30 WBC RBC Hgb Hct MCV MCH MCHC RDW Plt Count MPV Absolute Neuts (auto) Neutrophils % Lymphocytes % Monocytes % Eosinophils % Basophils % Nucleated RBC % PT with INR INR PTT (Actin FS) Func Antithrombin III Anticoagulation Therapy No Result Required. Puncture Site Right radial ABG pH 7.37 ABG pCO2 at Pt Temp 40.7 ABG pO2 at Pt Temp 83.4 ABG HCO3 23.1 ABG O2 Sat (Measured) 95.3 ABG O2 Content 11.5 ABG Base Excess -1.5 Radu Test Positive O2 Delivery Device Vent Oxygen Flow Rate 40% Vent Mode Cpap Vent Rate No Result Required. Mechanical Rate No Result Required. PEEP 5.0 Pressure Support Vent No Result Required. Sodium 141 Potassium 3.7 Chloride 114 H Carbon Dioxide 22 Anion Gap 5 L BUN 6.4 L Creatinine 0.7 Est GFR (CKD-EPI)AfAm 123.86 Est GFR (CKD-EPI)NonAf 106.87 Random Glucose 88 Calcium 8.0 L Phosphorus 2.3 L Magnesium 1.7 L Total Bilirubin 1.0 AST 23 ALT 16 Alkaline Phosphatase 86 Total Protein 5.4 L Albumin 2.1 L Stool Occult Blood Positive MYNOR Screen Anti-Cardiolipin IgG Ab Anti-Cardiolipin IgA Ab Anti-Cardiolipin IgM Ab 02/28/19 02/28/19 06:40 06:40 WBC 10.1 H RBC 3.65 Hgb 9.0 L Hct 28.1 L D MCV 77.0 L MCH 24.6 L MCHC 31.9 L RDW 17.3 H Plt Count 219 D MPV 9.1 Absolute Neuts (auto) Neutrophils % Lymphocytes % Monocytes % Eosinophils % Basophils % Nucleated RBC % PT with INR 32.80 H INR 2.75 H PTT (Actin FS) 44.1 H Func Antithrombin III Anticoagulation Therapy Puncture Site ABG pH ABG pCO2 at Pt Temp ABG pO2 at Pt Temp ABG HCO3 ABG O2 Sat (Measured) ABG O2 Content ABG Base Excess Radu Test O2 Delivery Device Oxygen Flow Rate Vent Mode Vent Rate Mechanical Rate PEEP Pressure Support Vent Sodium Potassium Chloride Carbon Dioxide Anion Gap BUN Creatinine Est GFR (CKD-EPI)AfAm Est GFR (CKD-EPI)NonAf Random Glucose Calcium Phosphorus Magnesium Total Bilirubin AST ALT Alkaline Phosphatase Total Protein Albumin Stool Occult Blood MYNOR Screen Anti-Cardiolipin IgG Ab Anti-Cardiolipin IgA Ab Anti-Cardiolipin IgM Ab Active Medications Generic Name Dose Route Start Last Admin Trade Name Freq PRN Reason Stop Dose Admin Acetaminophen 1,000 mg 02/27/19 14:56 02/27/19 20:38 Ofirmev Injection - IVPB 1,000 mg Q6H PRN Administration FEVER Chlorhexidine Gluconate 1 applic 02/24/19 22:00 02/27/19 20:59 Hibiclens For Decolonization - TP 1 applic HS WADE Administration Chlorhexidine Gluconate 15 ml 02/25/19 10:00 02/27/19 20:59 Peridex - MM 15 ml BID WADE Administration Dexmedetomidine HCl 200 mcg/ 50 mls @ 2.85 mls/hr 02/26/19 15:36 02/28/19 05: 05 Sodium Chloride IVPB 0 mcg/kg/hr TITR WADE 0 mls/hr Titration Protocol 0.2 MCG/KG/HR Sodium Chloride 1,000 mls @ 42 mls/hr 02/27/19 00:13 02/28/19 03:23 Normal Saline - IV 42 mls/hr ASDIR WADE Administration Nafcillin Sodium 2 gm/ 100 mls @ 100 mls/hr 02/27/19 15:00 02/28/19 03:20 Dextrose IVPB 100 mls/hr Q6H-IV WADE Administration Protocol Levetiracetam 500 mg 02/24/19 22:00 02/27/19 22:31 Keppra Injection - IVPB 500 mg BID WADE Administration Metoprolol Succinate 25 mg 02/28/19 10:00 Toprol Xl - PO DAILY WADE Mupirocin 1 applic 02/24/19 22:00 02/27/19 20:59 Bactroban Ointment (For Decolonization) - NS 03/01/19 21:59 1 applic BID WADE Administration Pantoprazole Sodium 40 mg 02/26/19 11:30 02/27/19 09:18 Protonix Iv IVPUSH 40 mg DAILY WADE Administration ASSESSMENT/PLAN: 44 YO F with PMH of HTN, alcohol abuse, hypercoagulable state, dural venous sinus thrombosis, Hemorrhagic CVA (3m ago), and seizures. She presented to the ER with seizures likely 2/2 alcohol/cocaine vs medication noncompliance. # Neuro - Status epilepticus (DD:alcohol/cocaine vs med non-compliance) - Extubated this AM - Continue Keppra 500mg BID - UTox + for cocaine - Dr. Victor: EEG, MRV of the head to r/o sinus thrombosis when extubated - Neuro checks q1h, seizure precautions #GI - FOBT + - GI Recs: Endoscopy once stable # CVS - Hx of HTN, continue home meds metoprolol 25mg PO - Echo (02/25): showed normal EF 65-70%, elevated pulmonary arterial systolic pressure >26 # Pulm - CXR (02/28): Rt lung clear, dense left base compatible with a diffuse infiltrate/fluid, no significant changes since 02/26 # Heme - Hx hypercoagulable state + for beta-2 glycoprotein, will attempt to confirm from [facility] records - INR 2.43 -> 2.23 -> 2.75, PT 26.5 -> 32.8, INR - H&H: 7.5/22.6 -> 9.0/28.1 - Heme/Onc consult: RA biomarker 17.8 (normal 0-13.9), MYNOR neg, Anti Cardiolipin neg, B2 Glycoprotein Ab, B2 GPI IgM Ab pending #Renal - Perales in place, will monitor urine output # ID - Temp 100-102 today, WBC 10.6 -> 10.1 - Sputum cx: Staph Aureus, switched to Nafcillin 2g Q6H as per ID, D/Kp Zosyn/ Vanco after 3 days - Bcx, Ucx, pending # DVT PE - SCDs # FEN - N/S @ 42 - Tube feed # Dispo - 2 attempts made to procure records from [facility] today, medical records department at [facility] was not satisfied with [place]'s Release of Information Request Forms, will attempt to obtain different forms. - Extubated, will monitor, possibly transfer tomorrow Visit type - Emergency Visit Emergency Visit: Yes ED Registration Date: 02/24/19 Care time: The patient presented to the Emergency Department on the above date and was hospitalized for further evaluation of their emergent condition. - New Patient This patient is new to me today: No - Critical Care Critical Care patient: Yes Total Critical Care Time (in minutes): 37 Critical Care Statement: The care of this patient involved high complexity decision making to prevent further life threatening deterioration of the patient 's condition and/or to evaluate & treat vital organ system(s) failure or risk of failure. ATTENDING PHYSICIAN STATEMENT I saw and evaluated the patient. I reviewed the resident's note and discussed the case with the resident. I agree with the resident's findings and plan as documented. SUBJECTIVE: OBJECTIVE: ASSESSMENT AND PLAN:
[2019-02-28] MEDS ORDERED: PT OWN MED DRAWER 7, Y5N ONE ×3 (09:30→21:42)
[2019-02-28] MEDS: levETIRAcetam 500 MG/5 ML INJECTION VIAL IVPB SCH ×2 (09:45→22:54)
[2019-02-28] MEDS: CHLORHEXIDINE GLUCONATE 0.12% 15ML CUP MM SCH ×2 (09:46→23:09)
[2019-02-28] MEDS: metoPROLOL SUCCINATE 25 MG TAB.SR.24H (FP) PO SCH (09:47)
[2019-02-28] MEDS: PANTOPRAZOLE SODIUM 40 MG VIAL IVPUSH SCH (09:47)
--- NOTE | 2019-02-28 11:38 | PN ---
Teaching Attending Note Name of Resident: Eddie Roth ATTENDING PHYSICIAN STATEMENT I saw and evaluated the patient. I reviewed the resident's note and discussed the case with the resident. I agree with the resident's findings and plan as documented. SUBJECTIVE: Pt seen and examined in the ICU. Intubated, more awake this AM. Tolerated CPAP/ PS trials and subsequently extubated during rounds. OBJECTIVE: Vital Signs Period Temp Pulse Resp BP Sys/Ruano Pulse Ox Last 24 Hr 98.4 F-101.4 F 59-121 17-33 99-171/68-104 100-100 Intake & Output 02/25/19 02/26/19 02/27/19 02/28/19 23:59 23:59 23:59 23:59 Intake Total 6583 1486.2 2319.3 679 Output Total 3200 2750 4450 450 Balance 3383 -1263.8 -2130.7 229 Weight 57.153 kg 56.926 kg 54.613 kg Gen: extubated Heart: RRR Lung: decreased breath sounds at the bases Abd: soft, nontender Ext: no edema CBC, BMP 02/28/19 06:40 02/28/19 06:40 Active Medications Acetaminophen (Ofirmev Injection -) 1,000 mg IVPB Q6H PRN PRN Reason: FEVER Last Admin: 02/27/19 20:38 Dose: 1,000 mg Chlorhexidine Gluconate (Hibiclens For Decolonization -) 1 applic TP HS WADE Last Admin: 02/27/19 20:59 Dose: 1 applic Chlorhexidine Gluconate (Peridex -) 15 ml MM BID WADE Last Admin: 02/28/19 09:46 Dose: 15 ml Dexmedetomidine HCl 200 mcg/ (Sodium Chloride) 50 mls @ 2.85 mls/hr IVPB TITR WADE; Protocol Last Titration: 02/28/19 05:05 Dose: 0 mcg/kg/hr, 0 mls/hr Sodium Chloride (Normal Saline -) 1,000 mls @ 42 mls/hr IV ASDIR WADE Last Admin: 02/28/19 03:23 Dose: 42 mls/hr Nafcillin Sodium 2 gm/ (Dextrose) 100 mls @ 100 mls/hr IVPB Q6H-IV WADE; Protocol Last Admin: 02/28/19 09:45 Dose: 100 mls/hr Levetiracetam (Keppra Injection -) 500 mg IVPB BID [facility] Last Admin: 02/28/19 09:45 Dose: 500 mg Metoprolol Succinate (Toprol Xl -) 25 mg PO DAILY [facility] Last Admin: 02/28/19 09:47 Dose: 25 mg Mupirocin (Bactroban Ointment (For Decolonization) -) 1 applic NS BID [facility] Stop: 03/01/19 21:59 Last Admin: 02/27/19 20:59 Dose: 1 applic Pantoprazole Sodium (Protonix Iv) 40 mg IVPUSH DAILY [facility] Last Admin: 02/28/19 09:47 Dose: 40 mg ASSESSMENT AND PLAN: s/p Status Epilepticus s/p Acute Respiratory Failure Pneumonia likely Aspiration Sepsis Lactic Acidosis Alcohol Abuse Cocaine Use h/o Dural Normal Sinus Thrombosis HTN Anemia - pt extubated - continue antiepileptics - continue antibiotics - IVF boluses as needed - monitor urine output, creatinine - continue anticoagulation to target INR 2-3 - PO as tolerated - aspiration precautions - DVT/GI prophylaxis - continue ICU monitoring critical care time spent in reviewing chart, evaluating patient and formulating plan 35 min
--- NOTE | 2019-02-28 12:08 | PN ---
Progress Note, Physician History of Present Illness: extubated still with fevers - Current Medication List Current Medications: Active Medications Acetaminophen (Ofirmev Injection -) 1,000 mg IVPB Q6H PRN PRN Reason: FEVER Last Admin: 02/27/19 20:38 Dose: 1,000 mg Chlorhexidine Gluconate (Hibiclens For Decolonization -) 1 applic TP HS WADE Last Admin: 02/27/19 20:59 Dose: 1 applic Chlorhexidine Gluconate (Peridex -) 15 ml MM BID WADE Last Admin: 02/28/19 09:46 Dose: 15 ml Dexmedetomidine HCl 200 mcg/ (Sodium Chloride) 50 mls @ 2.85 mls/hr IVPB TITR WADE; Protocol Last Titration: 02/28/19 05:05 Dose: 0 mcg/kg/hr, 0 mls/hr Sodium Chloride (Normal Saline -) 1,000 mls @ 42 mls/hr IV ASDIR WADE Last Admin: 02/28/19 03:23 Dose: 42 mls/hr Nafcillin Sodium 2 gm/ (Dextrose) 100 mls @ 100 mls/hr IVPB Q6H-IV WADE; Protocol Last Admin: 02/28/19 09:45 Dose: 100 mls/hr Levetiracetam (Keppra Injection -) 500 mg IVPB BID [facility] Last Admin: 02/28/19 09:45 Dose: 500 mg Metoprolol Succinate (Toprol Xl -) 25 mg PO DAILY [facility] Last Admin: 02/28/19 09:47 Dose: 25 mg Midazolam HCl (Versed -) 2 mg IVPUSH ONCE ONE Stop: 02/28/19 12:16 Mupirocin (Bactroban Ointment (For Decolonization) -) 1 applic NS BID [facility] Stop: 03/01/19 21:59 Last Admin: 02/27/19 20:59 Dose: 1 applic Pantoprazole Sodium (Protonix Iv) 40 mg IVPUSH DAILY [facility] Last Admin: 02/28/19 09:47 Dose: 40 mg - Objective Vital Signs: Vital Signs Temperature 101 F H 02/28/19 10:00 Pulse Rate 106 H 02/28/19 10:00 Respiratory Rate 22 H 02/28/19 10:00 Blood Pressure 129/81 02/28/19 10:00 O2 Sat by Pulse Oximetry (%) 100 02/28/19 08:00 Constitutional: Yes: No Distress, Calm Cardiovascular: Yes: S1, S2 Respiratory: Yes: Poor Air Entry, Other (on face mask) Gastrointestinal: Yes: Normal Bowel Sounds, Soft Musculoskeletal: Yes: WNL Extremities: Yes: WNL Neurological: Yes: Alert, Other Psychiatric: Yes: Other Labs: CBC, BMP 02/28/19 06:40 02/28/19 06:40 INR, PTT INR 2.75 (0.83-1.09) H 02/28/19 06:40 Fibrinogen 397.0 mg/dL (238-498) 02/26/19 08:25 Assessment/Plan Status Epilepticus Acute Respiratory Failure Pneumonia likely Aspiration Sepsis Lactic Acidosis Alcohol Abuse Cocaine Use h/o Dural [place] Sinus Thrombosis HTN Anemia plan continue abx will change to nafclillin transfusions antiepileptics ffp monitor for bleeding resp support rest as per icu eeg report cc 40 min
[2019-02-28] MEDS ORDERED: MIDAZOLAM HCL 2 MG/2 ML SINGLE DOSE VIAL IVPUSH ONE (12:15)
--- NOTE | 2019-02-28 13:04 | PN ---
Teaching Attending Note Name of Resident: Allan Velazquez ATTENDING PHYSICIAN STATEMENT I saw and evaluated the patient. I reviewed the resident's note and discussed the case with the resident. I agree with the resident's findings and plan as documented. SUBJECTIVE:seen at 9 am no events over night. awake now, off sedation ,shakes head 'no " for pain. nods for discomfort with ET tube OBJECTIVE: NAD, awake, intubated , round equal pupils, reactive to light. no facial droop. CV: RRR Lungs: ACTB anteriorly Abd: no BS, soft.NT. ND Ext: trace edema on LE b/l Neuro: limited. EOMI, round equal pupils, reactive to light, strength in Lower extremities 5/5/ in hip felxion, knee felxion and extension,ankle dorsiflexion and extension. slightly week hand admissions evaluator b/l . restrained at level of the wrist A/P : 44 y/o lady with h/o HTN, dural vein thrombosis , and hemorrhagic stroke, a previous seizure, and ETOH abuse who presented with seizures.She was intubated and admitted to ICU 1- Acute hypoxic resp failure . -extubation today 2- Seizures /status epilepticus : resolved. no recurrence . due to ? ETOH withdrawal VS brain injury from previous hemorrhagic stroke, VS response to infection - EEG pending . - cont Keppra BID - will get brain MRI and MRV after extubation 3- Sepsis, likely due to PNA: - d/w ID . cont Naficillin - follow blood cx ( neg to date ) 4- Iron def anemia: need to r/o chronic GI bleed especially she is on AC - OB + - cont PPI - GI note noted. will discuss timing of EGD as she is extubated. cont to hold coumadin - start b12 supp. check intrinsic factor abx. antiparietal Abs, need auth 5- HTN cont her BB 6- H/o dural vein thrombosis: - coumadin on hold pending timing of EGD. - will probably start heparin gtt when INR < 2, before EGD can happen - anticardiolipin, Lupus Anticoagulants and anti B2 glycoprotein Abs pending - Records were requested from [facility] .request was faxed again DVT PX: INR is therapeutic now SCds
[2019-02-28] MEDS: ACETAMINOPHEN 1000 MG/100 ML VIAL (NON FORMULARY) IVPB PRN (13:52)
[2019-02-28] MEDS: MUPIROCIN 2% TOPICAL OINTMENT FOR DECOLONIZATION NS SCH ×2 (13:59→22:53)
[2019-02-28] MEDS ORDERED: IRON SUCROSE INJECTION 200 MG in SODIUM CHLORIDE 90 ML IVPB ONE (15:30)
--- NOTE | 2019-02-28 18:11 | PN.GI ---
GI Progress Note Subjective: Extubated today Denies abdominal pain Fevers per nurse - Objective Vital Signs: Vital Signs Temperature 102.9 F H 02/28/19 14:00 Pulse Rate 121 H 02/28/19 14:00 Respiratory Rate 19 02/28/19 14:00 Blood Pressure 147/87 02/28/19 14:00 O2 Sat by Pulse Oximetry (%) 100 02/28/19 10:15 Constitutional: Calm Eyes: No: Sclera Icterus Cardiovascular: Yes: Tachycardia Respiratory: Yes: Diminished (at bases bilaterally) Gastrointestinal Inspection: No: Distention ...Auscultate: Yes: Normoactive Bowel Sounds ...Palpate: No: Tenderness ...Percussion: No: Tympanitic Edema: No (No LE edema) Neurological: Yes: Alert Labs: CBC, BMP 02/28/19 06:40 02/28/19 06:40 INR, PTT INR 2.75 (0.83-1.09) H 02/28/19 06:40 Fibrinogen 397.0 mg/dL (238-498) 02/26/19 08:25 Problem List - Problems (1) Anemia Assessment/Plan: No overt bleeding. GI evaluation when clinical picture permits. Currently patient experiencing fever of unclear etiology and needs further optimization per critical care / primary team On PPI daily Monitor for overt bleeding Code(s): D64.9 - ANEMIA, UNSPECIFIED
--- NOTE | 2019-02-28 19:52 | PN ---
Physical Exam: SUBJECTIVE: Patient seen and examined 44 y/o F, pmh of HTN, alcohol abuse, hx of dural venous thrombosis, and hemorrhagic stroke 3 months ago requiring hospitalization at [facility] ([facility] placed pt on coumadin?), presents today s/p seizures. Pt is extubated and doing much better. Pt reports improvement and no c/o. Pt is febrile and sweating profusely. Denies c/n/v/d/sob/chest pain. OBJECTIVE: Vital Signs Period Temp Pulse Resp BP Sys/Ruano Pulse Ox Last 24 Hr 98.4 F-102.9 F 59-121 18-33 99-154/65-98 100-100 GENERAL: Awake, Alert, oriented, Extubated. Neuro: CN2-12 intact, senstation 5/5, strenght 5/5 EYES: Pupils reactive to light . LUNGS: CTAB HEART: Regular rate, normal S1 and S2 without murmur, rub or gallop. ABDOMEN: Soft, nontender, not distended, normoactive bowel sounds, no guarding, no rebound, no masses. UPPER EXTREMITIES: 2+ pulses, warm, no edema LOWER EXTREMITIES: 2+ pulses, warm, no edema SKIN: Warm, dry Laboratory Results - last 24 hr CBC,CMP WBC 10.1 K/mm3 (4.0-10.0) H 02/28/19 06:40 RBC 3.65 M/mm3 (3.60-5.2) 02/28/19 06:40 Hgb 9.0 GM/dL (10.7-15.3) L 02/28/19 06:40 Hct 28.1 % (32.4-45.2) L D 02/28/19 06:40 MCV 77.0 fl (80-96) L 02/28/19 06:40 MCH 24.6 pg (25.7-33.7) L 02/28/19 06:40 MCHC 31.9 g/dl (32.0-36.0) L 02/28/19 06:40 RDW 17.3 % (11.6-15.6) H 02/28/19 06:40 Plt Count 219 K/MM3 (134-434) D 02/28/19 06:40 MPV 9.1 fl (7.5-11.1) 02/28/19 06:40 Absolute Neuts (auto) 7.4 K/mm3 (1.5-8.0) 02/27/19 06:55 Neutrophils % 70.1 % (42.8-82.8) 02/27/19 06:55 Neutrophils % (Manual) 55.7 % (42.8-82.8) 02/25/19 09:00 Band Neutrophils % 20.6 % 02/25/19 09:00 Lymphocytes % 16.6 % (8-40) D 02/27/19 06:55 Lymphocytes % (Manual) 14.4 % (8-40) D 02/25/19 09:00 Monocytes % 7.1 % (3.8-10.2) 02/27/19 06:55 Monocytes % (Manual) 2 % (3.8-10.2) L 02/25/19 09:00 Eosinophils % 5.8 % (0-4.5) H 02/27/19 06:55 Eosinophils % (Manual) 6.2 % (0-4.5) H D 02/25/19 09:00 Basophils % 0.4 % (0-2.0) 02/27/19 06:55 Basophils % (Manual) 1.0 % (0-2.0) D 02/25/19 09:00 Myelocytes % (Man) 0 % (0-2) 02/25/19 09:00 Promyelocytes % (Man) 0 % (0-2) 02/25/19 09:00 Blast Cells % (Manual) 0 % (0-0) 02/25/19 09:00 Nucleated RBC % 0 % (0-0) 02/27/19 06:55 Metamyelocytes 0 % (0-2) D 02/25/19 09:00 Hypochromia 1+ 02/25/19 09:00 Platelet Estimate Normal 02/25/19 09:00 Polychromasia 0 02/25/19 09:00 Poikilocytosis 1+ 02/25/19 09:00 Anisocytosis 1+ 02/25/19 09:00 Microcytosis 1+ 02/25/19 09:00 Ovalocytes 1+ 02/25/19 09:00 Schistocytes 1+ 02/25/19 09:00 ESR 8 mm/hr (0-20) 02/25/19 09:00 Retic Count 1.13 % (0.5-1.5) 02/26/19 08:25 Sodium 138 mmol/L (136-145) 02/28/19 06:40 Potassium 3.7 mmol/L (3.5-5.1) 02/28/19 06:40 Chloride 108 mmol/L (98-107) H 02/28/19 06:40 Carbon Dioxide 25 mmol/L (21-32) 02/28/19 06:40 Anion Gap 6 MMOL/L (8-16) L 02/28/19 06:40 BUN 8.0 mg/dL (7-18) 02/28/19 06:40 Creatinine 0.7 mg/dL (0.55-1.3) 02/28/19 06:40 Est GFR (CKD-EPI)AfAm 123.86 02/28/19 06:40 Est GFR (CKD-EPI)NonAf 106.87 02/28/19 06:40 Random Glucose 94 mg/dL (74-106) 02/28/19 06:40 Lactic Acid 1.8 mmol/L (0.4-2.0) 02/25/19 09:00 Calcium 8.3 mg/dL (8.5-10.1) L 02/28/19 06:40 Phosphorus 2.7 mg/dL (2.5-4.9) 02/28/19 06:40 Magnesium 2.3 mg/dL (1.8-2.4) 02/28/19 06:40 Iron 8 ug/dL (50-175) L 02/26/19 08:25 TIBC 250 ug/dL (250-450) 02/26/19 08:25 Iron Saturation 3 % (17.5-39) L 02/26/19 08:25 Unsaturated IBC 242 ug/dL (200-275) 02/26/19 08:25 Transferrin 195 mg/dL (200-370) L 02/26/19 08:25 Ferritin 44.3 ng/ml (8-388) 02/26/19 08:25 Total Bilirubin 0.8 mg/dL (0.2-1) 02/28/19 06:40 AST 20 U/L (15-37) 02/28/19 06:40 ALT 14 U/L (13-61) 02/28/19 06:40 Alkaline Phosphatase 101 U/L (45-117) 02/28/19 06:40 C-Reactive Protein < 0.3 MG/DL (0.00-0.3) 02/24/19 20:44 Total Protein 6.1 g/dl (6.4-8.2) L 02/28/19 06:40 Albumin 2.4 g/dl (3.4-5.0) L 02/28/19 06:40 Cmfr-4-Euipxrpkwasb 17 (0-20) 02/26/19 08:25 Vitamin B12 297 pg/ml (193-986) 02/26/19 08:25 Serum Folate 6 ng/mL (3.1-17.5) 02/26/19 08:25 TSH 0.97 uIU/ml (0.358-3.74) 02/26/19 08:25 Serum , Qual Negative 02/24/19 16:00 Active Medications Current Medications Acetaminophen (Ofirmev Injection -) 1,000 mg IVPB Q6H PRN PRN Reason: FEVER Last Admin: 02/28/19 13:52 Dose: 1,000 mg Chlorhexidine Gluconate (Hibiclens For Decolonization -) 1 applic TP HS WADE Last Admin: 02/27/19 20:59 Dose: 1 applic Chlorhexidine Gluconate (Peridex -) 15 ml MM BID WADE Last Admin: 02/28/19 09:46 Dose: 15 ml Cyanocobalamin (Vitamin B12 -) 1,000 mcg PO DAILY WADE Sodium Chloride (Normal Saline -) 1,000 mls @ 42 mls/hr IV ASDIR WADE Last Admin: 02/28/19 03:23 Dose: 42 mls/hr Nafcillin Sodium 2 gm/ (Dextrose) 100 mls @ 100 mls/hr IVPB Q6H-IV WADE; Protocol Last Admin: 02/28/19 14:00 Dose: 100 mls/hr Levetiracetam (Keppra Injection -) 500 mg IVPB BID WADE Last Admin: 02/28/19 09:45 Dose: 500 mg Metoprolol Succinate (Toprol Xl -) 25 mg PO DAILY WADE Last Admin: 02/28/19 09:47 Dose: 25 mg Mupirocin (Bactroban Ointment (For Decolonization) -) 1 applic NS BID WADE Stop: 03/01/19 21:59 Last Admin: 02/28/19 13:59 Dose: 1 applic Pantoprazole Sodium (Protonix Iv) 40 mg IVPUSH DAILY [facility] Last Admin: 02/28/19 09:47 Dose: 40 mg Home Medications Medication Instructions Recorded Aspirin [ASA -] 325 mg PO DAILY 02/07/19 Atorvastatin Ca [Lipitor] 40 mg PO HS 02/07/19 Metoprolol Succinate 25 mg PO DAILY 02/07/19 Coumadin 3 mg PO DAILY 02/26/19 Microbiology 02/26/19 16:30 Blood - Arterial Blood Culture - Preliminary NO GROWTH OBTAINED AFTER 48 HOURS, INCUBATION TO CONTINUE FOR 3 DAYS. 02/26/19 16:30 Blood - Arterial Blood Culture - Preliminary NO GROWTH OBTAINED AFTER 48 HOURS, INCUBATION TO CONTINUE FOR 3 DAYS. 02/26/19 17:00 Urine - Urine Perales Urine Culture - Final NO GROWTH OBTAINED 02/24/19 19:00 Blood - Peripheral Venous Blood Culture - Preliminary NO GROWTH OBTAINED AFTER 72 HOURS, INCUBATION TO CONTINUE FOR 2 DAYS. 02/24/19 19:00 Blood - Peripheral Venous Blood Culture - Preliminary NO GROWTH OBTAINED AFTER 72 HOURS, INCUBATION TO CONTINUE FOR 2 DAYS. 02/25/19 11:00 Sputum - Endotrachea Suction/Ventilator Gram Stain - Final 02/25/19 11:00 Sputum - Endotrachea Suction/Ventilator Sputum Culture - Final Staphylococcus Aureus 02/24/19 16:00 Urine - Urine Perales Urine Culture - Final NO GROWTH OBTAINED ASSESSMENT/PLAN: 44 y/o F, pmh of HTN, alcohol abuse, hx of dural venous thrombosis, and hemorrhagic stroke 3 months ago requiring hospitalization at [facility] ([facility] placed pt on coumadin?), presents today s/p seizures likely 2/2 to seizure medication noncompliance vs withdrawal vs overdose #S/p Seizures Status epilepticus likely 2/2 to seizure medication noncompliance vs withdrawal vs neural injury s/ p hemorrhagic stroke Cont Keppra 500 BID EEG-we will f/u Brain MRI- pending results Brain MRV- pending results #Fever likely 2/2 to pneumonia Naficillin started Sputum Cx- MSSA #Anemia Likely 2/2 to GI bleed GI recommended EGD re-evaluation after pt is stabilized medically Will f/u with GI Vit B12 1000mg daily PO #Hx of Dural venous thrombosis Hold Coumadin- till medical records can be verified #HTN Hold home BP meds- (metoprolol, lisinopril) for now- BP controlled F: NS at 44 E: monitor lytes N: Dispo: monitor in ICU, hold coumadin, EEG-f/u, f/u INR in am Visit type - Emergency Visit Emergency Visit: Yes ED Registration Date: 02/24/19 Care time: The patient presented to the Emergency Department on the above date and was hospitalized for further evaluation of their emergent condition. - New Patient This patient is new to me today: Yes Date on this admission: 02/28/19 - Critical Care Critical Care patient: No - Discharge Referral Referred to [facility] Med P.C.: No ATTENDING PHYSICIAN STATEMENT I saw and evaluated the patient. I reviewed the resident's note and discussed the case with the resident. I agree with the resident's findings and plan as documented. SUBJECTIVE: OBJECTIVE: ASSESSMENT AND PLAN:
[2019-02-28] MEDS: CHLORHEXIDINE GLUCONATE 4% CLEANSER FOR DECOLONIZATION TP SCH (23:09)
[2019-03-01] MEDS ORDERED: PT OWN MED DRAWER 7, Y5N ONE ×5 (01:47→20:10)
[2019-03-01] MEDS: SODIUM CHLORIDE 1,000 ML IV SCH ×2 (01:58→17:51)
[2019-03-01] MEDS: NAFCILLIN - 2 GM in DEXTROSE 5%-WATER - 100 ML IVPB SCH ×4 (02:00→21:45)
[2019-03-01 06:32] LABS: BASO % 0.4 % (0-2.0); EOS % 0.4 % (0-4.5); HEMATOCRIT 26.6 % (32.4-45.2); HEMOGLOBIN 8.6 GM/dL (10.7-15.3); LYMPH % 21.9 % (8-40); MCH 24.5 pg (25.7-33.7); MCHC 32.4 g/dl (32.0-36.0); MEAN CELL VOLUME 75.5 fl (80-96); MEAN PLT VOLUME 8.2 fl (7.5-11.1); MONO % 14.2 % (3.8-10.2); NEUT % 63.1 % (42.8-82.8); PLATELET COUNT 236 K/MM3 (134-434); RBC 3.52 M/mm3 (3.60-5.2); RDW 17.2 % (11.6-15.6); WHITE BLOOD COUNT 8.7 K/mm3 (4.0-10.0)
[2019-03-01 06:50] LABS: ALBUMIN 2.4 g/dl (3.4-5.0); BILIRUBIN,TOTAL 1.1 mg/dL (0.2-1); BLOOD UREA NITROGEN 7.7 mg/dL (7-18); CALCIUM 7.8 mg/dL (8.5-10.1); CREATININE 0.7 mg/dL (0.55-1.3); POTASSIUM 3.3 mmol/L (3.5-5.1); TOT PROT 6.1 g/dl (6.4-8.2)
[2019-03-01 06:52] LABS: INR 3.32 (0.83-1.09); PROTHROMBIN TIME (PATIENT) 39.6 SEC (9.7-13.0)
[2019-03-01 06:55] LABS: ACTIVATED PTT 49.4 SECONDS (25.2-36.5)
[2019-03-01] MEDS ORDERED: POTASSIUM CHLORIDE ORAL LIQUID 20 MEQ/15 ML PO ONE (07:23)
[2019-03-01] MEDS: ACETAMINOPHEN 1000 MG/100 ML VIAL (NON FORMULARY) IVPB PRN ×2 (08:56→15:21)
[2019-03-01] MEDS: MUPIROCIN 2% TOPICAL OINTMENT FOR DECOLONIZATION NS SCH (09:38)
[2019-03-01] MEDS: CHLORHEXIDINE GLUCONATE 0.12% 15ML CUP MM SCH (09:38)
[2019-03-01] MEDS: levETIRAcetam 500 MG/5 ML INJECTION VIAL IVPB SCH ×2 (09:38→21:06)
[2019-03-01] MEDS: PANTOPRAZOLE SODIUM 40 MG VIAL IVPUSH SCH (09:38)
[2019-03-01] MEDS: metoPROLOL SUCCINATE 25 MG TAB.SR.24H (FP) PO SCH (09:39)
[2019-03-01] MEDS ORDERED: CYANOCOBALAMIN 1,000 MCG TABLET (FP) PO SCH (10:00)
[2019-03-01 10:06] LABS: DRVVT - 50.8 sec (0.0-47.0); HEXAGONAL PHASE PHOSPHOLIPID 4 sec (0-11); dRVVT MIX 41.3 sec (0.0-47.0)
--- NOTE | 2019-03-01 10:45 | PN ---
Teaching Attending Note Name of Resident: Ethan Stanton ATTENDING PHYSICIAN STATEMENT I saw and evaluated the patient. I reviewed the resident's note and discussed the case with the resident. I agree with the resident's findings and plan as documented. SUBJECTIVE: Patient seen and examined in the ICU. Extubated. Reports cough and RUQ discomfort. No CP. No seizure activity. Intake & Output 02/26/19 02/27/19 02/28/19 03/01/19 23:59 23:59 23:59 23:59 Intake Total 1486.2 2319.3 1579 737 Output Total 2750 4450 1350 1200 Balance -1263.8 -2130.7 229 -463 Weight 126 lb 125 lb 8 oz 120 lb 6.4 oz 110 lb 14.28 oz Last Vital Signs Temp Pulse Resp BP Pulse Ox 101.2 F H 93 H 24 H 116/95 100 03/01/19 08:30 03/01/19 10:00 03/01/19 10:00 03/01/19 10:00 02/28/19 20:48 Active Medications Acetaminophen (Ofirmev Injection -) 1,000 mg IVPB Q6H PRN PRN Reason: FEVER Last Admin: 03/01/19 08:56 Dose: 1,000 mg Chlorhexidine Gluconate (Hibiclens For Decolonization -) 1 applic TP HS WADE Last Admin: 02/28/19 23:09 Dose: 1 applic Chlorhexidine Gluconate (Peridex -) 15 ml MM BID WADE Last Admin: 03/01/19 09:38 Dose: Not Given Cyanocobalamin (Vitamin B12 -) 1,000 mcg PO DAILY WADE Last Admin: 03/01/19 09:39 Dose: 1,000 mcg Sodium Chloride (Normal Saline -) 1,000 mls @ 42 mls/hr IV ASDIR WADE Last Admin: 03/01/19 01:58 Dose: 42 mls/hr Nafcillin Sodium 2 gm/ (Dextrose) 100 mls @ 100 mls/hr IVPB Q6H-IV WADE; Protocol Last Admin: 03/01/19 09:00 Dose: 100 mls/hr Levetiracetam (Keppra Injection -) 500 mg IVPB BID WADE Last Admin: 03/01/19 09:38 Dose: 500 mg Metoprolol Succinate (Toprol Xl -) 25 mg PO DAILY WADE Last Admin: 03/01/19 09:39 Dose: 25 mg Mupirocin (Bactroban Ointment (For Decolonization) -) 1 applic NS BID [facility] Stop: 03/01/19 21:59 Last Admin: 03/01/19 09:38 Dose: 1 applic Pantoprazole Sodium (Protonix Iv) 40 mg IVPUSH DAILY [facility] Last Admin: 03/01/19 09:38 Dose: 40 mg Gen: extubated, awake and alert Heart: RRR Lung: (+) crackles at the left base Abd: soft, nontender Ext: no edema Laboratory Results - last 24 hr 02/24/19 02/25/19 02/26/19 20:44 09:00 08:25 WBC RBC Hgb Hct MCV MCH MCHC RDW Plt Count MPV Absolute Neuts (auto) Neutrophils % Lymphocytes % Monocytes % Eosinophils % Basophils % Nucleated RBC % PT with INR INR PTT (Actin FS) Lupus Anticoag PTT Mix 67.6 H LA PTT Baseline 96.4 H dRVVT Confirm Interp 50.8 H dRVVT Mixing Study 41.3 Hexagonal Phospholipid 4 Lupus Anticoag Comment Comment: Protein S Activity < 8 L Functional Protein S <8 L Sodium Potassium Chloride Carbon Dioxide Anion Gap BUN Creatinine Est GFR (CKD-EPI)AfAm Est GFR (CKD-EPI)NonAf Random Glucose Calcium Total Bilirubin AST ALT Alkaline Phosphatase Total Protein Albumin Msvm-5-Bmduyqepfnmy 17 Hlfq-1-Riomjoeoeeoj Ab <9 Beta-2-GPI IgM Ab <9 03/01/19 03/01/19 03/01/19 06:00 06:00 06:00 WBC 8.7 RBC 3.52 L Hgb 8.6 L Hct 26.6 L MCV 75.5 L MCH 24.5 L MCHC 32.4 RDW 17.2 H Plt Count 236 MPV 8.2 Absolute Neuts (auto) 5.5 Neutrophils % 63.1 Lymphocytes % 21.9 D Monocytes % 14.2 H D Eosinophils % 0.4 D Basophils % 0.4 Nucleated RBC % 0 PT with INR 39.60 H INR 3.32 H PTT (Actin FS) 49.4 H Lupus Anticoag PTT Mix LA PTT Baseline dRVVT Confirm Interp dRVVT Mixing Study Hexagonal Phospholipid Lupus Anticoag Comment Protein S Activity Functional Protein S Sodium 140 Potassium 3.3 L Chloride 108 H Carbon Dioxide 25 Anion Gap 7 L BUN 7.7 Creatinine 0.7 Est GFR (CKD-EPI)AfAm 123.86 Est GFR (CKD-EPI)NonAf 106.87 Random Glucose 117 H Calcium 7.8 L Total Bilirubin 1.1 H AST 21 ALT 12 L Alkaline Phosphatase 88 Total Protein 6.1 L Albumin 2.4 L Izch-0-Rvzfpplfhisd Eqkx-7-Mavfuabpbgcp Ab Beta-2-GPI IgM Ab ASSESSMENT AND PLAN: Probable LLL PNA R/O GB pathology s/p Status Epilepticus s/p Acute Respiratory Failure Pneumonia likely Aspiration Sepsis Lactic Acidosis Alcohol Abuse Cocaine Use h/o Dural [place] Sinus Thrombosis HTN Anemia - To discuss with ID broaden ABX coverage to cover LLL PNA - Ab US - continue antiepileptics - IVF - continue anticoagulation to target INR 2-3 - PO as tolerated - aspiration precautions - DVT/GI prophylaxis - Floor Dr Hicks
--- NOTE | 2019-03-01 11:47 | PN ---
Physical Exam: SUBJECTIVE: Patient seen and examined at bedside. No acute events. Recently extubated. Feels generally well. R abdominal discomfort. OBJECTIVE: Vital Signs Period Temp Pulse Resp BP Sys/Ruano Pulse Ox Last 24 Hr 99.1 F-102.9 F 91-135 12-33 103-147/19-95 100 Gen: AAOx3, NAD HEENT: EOMI, PERRL Neck: no jvd, supple Cardio: rrr, normal s1s2, no mrg Pulm: L basilar rales Abd: soft, nondistended, RUQ, RLQ tenderness to palpation Ext: no edema, 2 + pulses Laboratory Results - last 24 hr 02/24/19 02/25/19 02/26/19 20:44 09:00 08:25 WBC RBC Hgb Hct MCV MCH MCHC RDW Plt Count MPV Absolute Neuts (auto) Neutrophils % Lymphocytes % Monocytes % Eosinophils % Basophils % Nucleated RBC % PT with INR INR PTT (Actin FS) Lupus Anticoag PTT Mix 67.6 H LA PTT Baseline 96.4 H dRVVT Confirm Interp 50.8 H dRVVT Mixing Study 41.3 Hexagonal Phospholipid 4 Lupus Anticoag Comment Comment: Protein S Activity < 8 L Functional Protein S <8 L Sodium Potassium Chloride Carbon Dioxide Anion Gap BUN Creatinine Est GFR (CKD-EPI)AfAm Est GFR (CKD-EPI)NonAf Random Glucose Calcium Total Bilirubin AST ALT Alkaline Phosphatase Total Protein Albumin Xrbe-5-Oelanbfpslqw 17 Mktb-7-Iznubkrncegj Ab <9 Beta-2-GPI IgM Ab <9 03/01/19 03/01/19 03/01/19 06:00 06:00 06:00 WBC 8.7 RBC 3.52 L Hgb 8.6 L Hct 26.6 L MCV 75.5 L MCH 24.5 L MCHC 32.4 RDW 17.2 H Plt Count 236 MPV 8.2 Absolute Neuts (auto) 5.5 Neutrophils % 63.1 Lymphocytes % 21.9 D Monocytes % 14.2 H D Eosinophils % 0.4 D Basophils % 0.4 Nucleated RBC % 0 PT with INR 39.60 H INR 3.32 H PTT (Actin FS) 49.4 H Lupus Anticoag PTT Mix LA PTT Baseline dRVVT Confirm Interp dRVVT Mixing Study Hexagonal Phospholipid Lupus Anticoag Comment Protein S Activity Functional Protein S Sodium 140 Potassium 3.3 L Chloride 108 H Carbon Dioxide 25 Anion Gap 7 L BUN 7.7 Creatinine 0.7 Est GFR (CKD-EPI)AfAm 123.86 Est GFR (CKD-EPI)NonAf 106.87 Random Glucose 117 H Calcium 7.8 L Total Bilirubin 1.1 H AST 21 ALT 12 L Alkaline Phosphatase 88 Total Protein 6.1 L Albumin 2.4 L Fpoz-3-Rsubmeuwsiiz Jyfv-3-Zzujxkprdveo Ab Beta-2-GPI IgM Ab Active Medications Generic Name Dose Route Start Last Admin Trade Name Freq PRN Reason Stop Dose Admin Acetaminophen 1,000 mg 02/27/19 14:56 03/01/19 08:56 Ofirmev Injection - IVPB 1,000 mg Q6H PRN Administration FEVER Chlorhexidine Gluconate 1 applic 02/24/19 22:00 02/28/19 23:09 Hibiclens For Decolonization - TP 1 applic HS WADE Administration Chlorhexidine Gluconate 15 ml 02/25/19 10:00 03/01/19 09:38 Peridex - MM Not Given BID WAED Cyanocobalamin 1,000 mcg 03/01/19 10:00 03/01/19 09:39 Vitamin B12 - PO 1,000 mcg DAILY WADE Administration Sodium Chloride 1,000 mls @ 42 mls/hr 02/27/19 00:13 03/01/19 01:58 Normal Saline - IV 42 mls/hr ASDIR WADE Administration Nafcillin Sodium 2 gm/ 100 mls @ 100 mls/hr 02/27/19 15:00 03/01/19 09:00 Dextrose IVPB 100 mls/hr Q6H-IV WADE Administration Protocol Levetiracetam 500 mg 02/24/19 22:00 03/01/19 09:38 Keppra Injection - IVPB 500 mg BID WADE Administration Metoprolol Succinate 25 mg 02/28/19 10:00 03/01/19 09:39 Toprol Xl - PO 25 mg DAILY WADE Administration Mupirocin 1 applic 02/24/19 22:00 03/01/19 09:38 Bactroban Ointment (For Decolonization) - NS 03/01/19 21:59 1 applic BID WADE Administration Pantoprazole Sodium 40 mg 02/26/19 11:30 03/01/19 09:38 Protonix Iv IVPUSH 40 mg DAILY WADE Administration ASSESSMENT/PLAN: 44 y/o F, pmh of HTN, alcohol abuse, hx of dural venous thrombosis, and hemorrhagic stroke 3 months ago requiring hospitalization at [facility] ([facility]?), presents today s/p seizures. Microcytic Hypochromic Anemia -unclear if there is a history of bleeding -pt was possibly recently started on AC -Fe deficiency -Recommend Fe repletion Bleeding -note that INR worsened despite pt being on heparin drip not Coumadin. ? liver function though no transaminitis -Pt had bleeding from ET tube today. Given FFP. Hb stable -Would seek neuro input on pro/con of AC given dural venous sinus thrombus h/o Dural [place] Sinus Thrombosis -unclear why pt had thrombosis -will start hypercoag workup here -Prot C,S, AT3, F5L, prothrombin, APLA -May benefit from MRV Visit type - Emergency Visit Emergency Visit: No - New Patient This patient is new to me today: No - Critical Care Critical Care patient: No ATTENDING PHYSICIAN STATEMENT I saw and evaluated the patient. I reviewed the resident's note and discussed the case with the resident. I agree with the resident's findings and plan as documented. SUBJECTIVE: OBJECTIVE: ASSESSMENT AND PLAN:
--- NOTE | 2019-03-01 13:27 | PN ---
Teaching Attending Note Name of Resident: Maritza Mcmanus ATTENDING PHYSICIAN STATEMENT I saw and evaluated the patient. I reviewed the resident's note and discussed the case with the resident. I agree with the resident's findings and plan as documented. SUBJECTIVE: cont to have fever, denies any pain or SOB. has no HORNER . has no weakness or numbness. OBJECTIVE: NAD, awake , round equal pupils, reactive to light. no facial droop. MMM CV: RRR Lungs: ACTB Abd: no BS, soft.TTP in RUQ. Ext: No edema or erythema A/P : 44 y/o lady with h/o HTN, dural vein thrombosis , and hemorrhagic stroke, a previous seizure, and ETOH abuse who presented with seizures.She was intubated and admitted to ICU 1- Acute hypoxic resp failure. resolved 2- Seizures /status epilepticus: resolved. no recurrence . - EEG pending . - cont Keppra BID - she refused MRI and MRV yesterday, will try again today 3- Sepsis, likely due to PNA: noted to aspirate in ICU previously - will d/w ID zosyn instead of naficillin to cover aspiration and vent associated organisms - follow blood cx - MRV to assess if venous thrombossi is responsible for her fevers as patient reports subtherapeutic INR some time before admission 4- Iron def anemia: - cont PPI - received IV iron - cont B12 . Intrinsic factor pending - EGD when stable 5- HTN: cont her BB 6- H/o dural vein thrombosis: - INR is supratherapeutic, likely due to Abx - Avoid reversal due to recent dural thrombosis - no signs of active bleed. - will probably start heparin gtt when INR < 2, before EGD can happen - Records were requested from [facility] again yesterday. DVT PX: INr elevated SCds
--- NOTE | 2019-03-01 14:25 | PN ---
Progress Note, Physician History of Present Illness: still continues to spike fever clinically awake and alert now more better - Current Medication List Current Medications: Active Medications Acetaminophen (Ofirmev Injection -) 1,000 mg IVPB Q6H PRN PRN Reason: FEVER Last Admin: 03/01/19 08:56 Dose: 1,000 mg Chlorhexidine Gluconate (Hibiclens For Decolonization -) 1 applic TP HS [facility] Last Admin: 02/28/19 23:09 Dose: 1 applic Chlorhexidine Gluconate (Peridex -) 15 ml MM BID WADE Last Admin: 03/01/19 09:38 Dose: Not Given Cyanocobalamin (Vitamin B12 -) 1,000 mcg PO DAILY WADE Last Admin: 03/01/19 09:39 Dose: 1,000 mcg Sodium Chloride (Normal Saline -) 1,000 mls @ 42 mls/hr IV ASDIR WADE Last Admin: 03/01/19 01:58 Dose: 42 mls/hr Nafcillin Sodium 2 gm/ (Dextrose) 100 mls @ 100 mls/hr IVPB Q6H-IV WADE; Protocol Last Admin: 03/01/19 09:00 Dose: 100 mls/hr Levetiracetam (Keppra Injection -) 500 mg IVPB BID [facility] Last Admin: 03/01/19 09:38 Dose: 500 mg Metoprolol Succinate (Toprol Xl -) 25 mg PO DAILY [facility] Last Admin: 03/01/19 09:39 Dose: 25 mg Mupirocin (Bactroban Ointment (For Decolonization) -) 1 applic NS BID [facility] Stop: 03/01/19 21:59 Last Admin: 03/01/19 09:38 Dose: 1 applic Pantoprazole Sodium (Protonix Iv) 40 mg IVPUSH DAILY [facility] Last Admin: 03/01/19 09:38 Dose: 40 mg - Objective Vital Signs: Vital Signs Temperature 99.8 F H 03/01/19 10:00 Pulse Rate 80 03/01/19 12:00 Respiratory Rate 24 H 03/01/19 12:00 Blood Pressure 102/63 03/01/19 12:00 O2 Sat by Pulse Oximetry (%) 100 02/28/19 20:48 Constitutional: Yes: No Distress, Calm Cardiovascular: Yes: S1, S2 Respiratory: Yes: Regular, Poor Air Entry (bases) Gastrointestinal: Yes: Normal Bowel Sounds, Soft Musculoskeletal: Yes: WNL Extremities: Yes: WNL Neurological: Yes: Alert, Oriented Psychiatric: Yes: Alert, Oriented Labs: CBC, BMP 03/01/19 06:00 03/01/19 06:00 INR, PTT INR 3.32 (0.83-1.09) H 03/01/19 06:00 Fibrinogen 397.0 mg/dL (238-498) 02/26/19 08:25 Assessment/Plan Status Epilepticus Acute Respiratory Failure Pneumonia likely Aspiration Sepsis Lactic Acidosis Alcohol Abuse Cocaine Use h/o Dural Celeste Sinus Thrombosis HTN Anemia plan continue abx if spikes again gonsalves cx antiepileptics resp support rest as per icu improving cc 40 min
--- NOTE | 2019-03-01 15:28 | PN ---
Physical Exam: SUBJECTIVE: Patient seen and examined. Fevers 100-102 overnight. Complains of new nonproductive cough and mild RUQ discomfort OBJECTIVE: Vital Signs Period Temp Pulse Resp BP Sys/Ruano Pulse Ox Last 24 Hr 99.1 F-102.8 F 69-135 12-33 103-143/19-95 100 GENERAL: Awake, alert, fully oriented, lying in bed HEAD: Normal with no signs of trauma. Poor dentition LUNGS: Coarse breath sounds + crackles L lung. no wheezes. No accessory muscle use HEART: RRR, no murmurs, rub or gallop. ABDOMEN: Mild RUQ discomfort. Soft, not distended, normoactive bowel sounds, no guarding, no rebound, no masses. No hepatomegaly or splenomegaly. EXTREMITIES: warm, well-perfused. No cyanosis. Cap refill <2 seconds. No peripheral edema. NEUROLOGICAL: AOx3. Flat affect. AOx3. Normal speech Laboratory Results - last 24 hr 02/24/19 02/25/19 02/26/19 20:44 09:00 08:25 WBC RBC Hgb Hct MCV MCH MCHC RDW Plt Count MPV Absolute Neuts (auto) Neutrophils % Lymphocytes % Monocytes % Eosinophils % Basophils % Nucleated RBC % PT with INR INR PTT (Actin FS) Lupus Anticoag PTT Mix 67.6 H LA PTT Baseline 96.4 H dRVVT Confirm Interp 50.8 H dRVVT Mixing Study 41.3 Hexagonal Phospholipid 4 Lupus Anticoag Comment Comment: Protein S Activity < 8 L Functional Protein S <8 L Sodium Potassium Chloride Carbon Dioxide Anion Gap BUN Creatinine Est GFR (CKD-EPI)AfAm Est GFR (CKD-EPI)NonAf Random Glucose Calcium Total Bilirubin AST ALT Alkaline Phosphatase Total Protein Albumin 03/01/19 03/01/19 03/01/19 06:00 06:00 06:00 WBC 8.7 RBC 3.52 L Hgb 8.6 L Hct 26.6 L MCV 75.5 L MCH 24.5 L MCHC 32.4 RDW 17.2 H Plt Count 236 MPV 8.2 Absolute Neuts (auto) 5.5 Neutrophils % 63.1 Lymphocytes % 21.9 D Monocytes % 14.2 H D Eosinophils % 0.4 D Basophils % 0.4 Nucleated RBC % 0 PT with INR 39.60 H INR 3.32 H PTT (Actin FS) 49.4 H Lupus Anticoag PTT Mix LA PTT Baseline dRVVT Confirm Interp dRVVT Mixing Study Hexagonal Phospholipid Lupus Anticoag Comment Protein S Activity Functional Protein S Sodium 140 Potassium 3.3 L Chloride 108 H Carbon Dioxide 25 Anion Gap 7 L BUN 7.7 Creatinine 0.7 Est GFR (CKD-EPI)AfAm 123.86 Est GFR (CKD-EPI)NonAf 106.87 Random Glucose 117 H Calcium 7.8 L Total Bilirubin 1.1 H AST 21 ALT 12 L Alkaline Phosphatase 88 Total Protein 6.1 L Albumin 2.4 L Active Medications Generic Name Dose Route Start Last Admin Trade Name Freq PRN Reason Stop Dose Admin Chlorhexidine Gluconate 1 applic 02/24/19 22:00 02/28/19 23:09 Hibiclens For Decolonization - TP 1 applic HS WADE Administration Chlorhexidine Gluconate 15 ml 02/25/19 10:00 03/01/19 09:38 Peridex - MM Not Given BID WADE Cyanocobalamin 1,000 mcg 03/01/19 10:00 03/01/19 09:39 Vitamin B12 - PO 1,000 mcg DAILY WADE Administration Sodium Chloride 1,000 mls @ 42 mls/hr 02/27/19 00:13 03/01/19 01:58 Normal Saline - IV 42 mls/hr ASDIR WADE Administration Nafcillin Sodium 2 gm/ 100 mls @ 100 mls/hr 02/27/19 15:00 03/01/19 15:21 Dextrose IVPB 100 mls/hr Q6H-IV WADE Administration Protocol Levetiracetam 500 mg 02/24/19 22:00 03/01/19 09:38 Keppra Injection - IVPB 500 mg BID WADE Administration Metoprolol Succinate 25 mg 02/28/19 10:00 03/01/19 09:39 Toprol Xl - PO 25 mg DAILY WADE Administration Mupirocin 1 applic 02/24/19 22:00 03/01/19 09:38 Bactroban Ointment (For Decolonization) - NS 03/01/19 21:59 1 applic BID WADE Administration Pantoprazole Sodium 40 mg 02/26/19 11:30 03/01/19 09:38 Protonix Iv IVPUSH 40 mg DAILY WADE Administration ASSESSMENT/PLAN: 44 YO F with PMH of HTN, alcohol abuse, hypercoagulable state, dural venous sinus thrombosis, Hemorrhagic CVA (3m ago), and seizures. She presented to the ER with seizures likely 2/2 alcohol/cocaine vs medication noncompliance. # Neuro - Status epilepticus d/t alcohol/cocaine vs med non-compliance - Continue Keppra - UTox + for cocaine - pending MRI, MRV r/o sinus thrombosis - Neuro checks, seizure precautions - appreciate neuro recs #GI - RUQ US 03/01 showed distended gallbladder 8cm w sludge, no evidence of cholecystitis, trace R pleural effusion - FOBT + - started regular diet - Endoscopy once stable/normalized INR - PPI ppx - appreciate GI recs # CVS - Hx of HTN - continue home metoprolol - Echo (02/25): showed normal EF 65-70%, elevated pulmonary arterial systolic pressure >26 # Pulm - on 3L NC - CXR (03/01): diffuse L lung infiltrates - incentive spirometry # Heme - Hx hypercoagulable state + for beta-2 glycoprotein - elevated INR 3.32 - Hgb 9 to 8.6 - holding coumadin d/t supratherapeutic INR - pending hypercoagulable workup - appreciate Heme/Onc recs #Renal - removed stewart - I/O # ID - fevers resolved w tylenol, WBC 10 to 8 - continue nafcillin - gonsalves culture when febrile - sputum cx grew staph aureus - Bcx, Ucx no growth - appreciate ID recs # PPX - SCDs - protonix # FEN - N/S @ 44 - hypoK - repleted - regular diet # Dispo - transfer to m/s Visit type - Emergency Visit Emergency Visit: Yes ED Registration Date: 02/24/19 Care time: The patient presented to the Emergency Department on the above date and was hospitalized for further evaluation of their emergent condition. - New Patient This patient is new to me today: No - Critical Care Critical Care patient: Yes Total Critical Care Time (in minutes): 40 Critical Care Statement: The care of this patient involved high complexity decision making to prevent further life threatening deterioration of the patient 's condition and/or to evaluate & treat vital organ system(s) failure or risk of failure. ATTENDING PHYSICIAN STATEMENT I saw and evaluated the patient. I reviewed the resident's note and discussed the case with the resident. I agree with the resident's findings and plan as documented. SUBJECTIVE: OBJECTIVE: ASSESSMENT AND PLAN:
--- NOTE | 2019-03-01 17:33 | PN ---
Physical Exam: SUBJECTIVE: Patient seen and examined 44 y/o F, pmh of HTN, alcohol abuse, hx of dural venous thrombosis, and hemorrhagic stroke 3 months ago requiring hospitalization at [facility] ([facility] placed pt on coumadin?), presents today s/p seizures. Pt has significantly improved. Pt is communicating and states she has no overnight issues or further symtpoms. She is however spinking fevers intermittently. Denies c/n/v/d/sob/chest pain. OBJECTIVE: Vital Signs Period Temp Pulse Resp BP Sys/Ruano Pulse Ox Last 24 Hr 99.1 F-102.8 F 78-135 12-33 103-143/19-95 100 GENERAL: Awake, Alert, oriented, Extubated. Neuro: CN2-12 intact, senstation 5/5, strenght 5/5 EYES: Pupils reactive to light . LUNGS: CTAB HEART: Regular rate, normal S1 and S2 without murmur, rub or gallop. ABDOMEN: Soft, nontender, not distended, normoactive bowel sounds, no guarding, no rebound, no masses. UPPER EXTREMITIES: 2+ pulses, warm, no edema LOWER EXTREMITIES: 2+ pulses, warm, no edema SKIN: Warm, dry Laboratory Results - last 24 hr CBC,CMP WBC 8.7 K/mm3 (4.0-10.0) 03/01/19 06:00 RBC 3.52 M/mm3 (3.60-5.2) L 03/01/19 06:00 Hgb 8.6 GM/dL (10.7-15.3) L 03/01/19 06:00 Hct 26.6 % (32.4-45.2) L 03/01/19 06:00 MCV 75.5 fl (80-96) L 03/01/19 06:00 MCH 24.5 pg (25.7-33.7) L 03/01/19 06:00 MCHC 32.4 g/dl (32.0-36.0) 03/01/19 06:00 RDW 17.2 % (11.6-15.6) H 03/01/19 06:00 Plt Count 236 K/MM3 (134-434) 03/01/19 06:00 MPV 8.2 fl (7.5-11.1) 03/01/19 06:00 Absolute Neuts (auto) 5.5 K/mm3 (1.5-8.0) 03/01/19 06:00 Neutrophils % 63.1 % (42.8-82.8) 03/01/19 06:00 Neutrophils % (Manual) 55.7 % (42.8-82.8) 02/25/19 09:00 Band Neutrophils % 20.6 % 02/25/19 09:00 Lymphocytes % 21.9 % (8-40) D 03/01/19 06:00 Lymphocytes % (Manual) 14.4 % (8-40) D 02/25/19 09:00 Monocytes % 14.2 % (3.8-10.2) H D 03/01/19 06:00 Monocytes % (Manual) 2 % (3.8-10.2) L 02/25/19 09:00 Eosinophils % 0.4 % (0-4.5) D 03/01/19 06:00 Eosinophils % (Manual) 6.2 % (0-4.5) H D 02/25/19 09:00 Basophils % 0.4 % (0-2.0) 03/01/19 06:00 Basophils % (Manual) 1.0 % (0-2.0) D 02/25/19 09:00 Myelocytes % (Man) 0 % (0-2) 02/25/19 09:00 Promyelocytes % (Man) 0 % (0-2) 02/25/19 09:00 Blast Cells % (Manual) 0 % (0-0) 02/25/19 09:00 Nucleated RBC % 0 % (0-0) 03/01/19 06:00 Metamyelocytes 0 % (0-2) D 02/25/19 09:00 Hypochromia 1+ 02/25/19 09:00 Platelet Estimate Normal 02/25/19 09:00 Polychromasia 0 02/25/19 09:00 Poikilocytosis 1+ 02/25/19 09:00 Anisocytosis 1+ 02/25/19 09:00 Microcytosis 1+ 02/25/19 09:00 Ovalocytes 1+ 02/25/19 09:00 Schistocytes 1+ 02/25/19 09:00 ESR 8 mm/hr (0-20) 02/25/19 09:00 Retic Count 1.13 % (0.5-1.5) 02/26/19 08:25 Sodium 140 mmol/L (136-145) 03/01/19 06:00 Potassium 3.3 mmol/L (3.5-5.1) L 03/01/19 06:00 Chloride 108 mmol/L (98-107) H 03/01/19 06:00 Carbon Dioxide 25 mmol/L (21-32) 03/01/19 06:00 Anion Gap 7 MMOL/L (8-16) L 03/01/19 06:00 BUN 7.7 mg/dL (7-18) 03/01/19 06:00 Creatinine 0.7 mg/dL (0.55-1.3) 03/01/19 06:00 Est GFR (CKD-EPI)AfAm 123.86 03/01/19 06:00 Est GFR (CKD-EPI)NonAf 106.87 03/01/19 06:00 Random Glucose 117 mg/dL (74-106) H 03/01/19 06:00 Lactic Acid 1.8 mmol/L (0.4-2.0) 02/25/19 09:00 Calcium 7.8 mg/dL (8.5-10.1) L 03/01/19 06:00 Phosphorus 2.7 mg/dL (2.5-4.9) 02/28/19 06:40 Magnesium 2.3 mg/dL (1.8-2.4) 02/28/19 06:40 Iron 8 ug/dL (50-175) L 02/26/19 08:25 TIBC 250 ug/dL (250-450) 02/26/19 08:25 Iron Saturation 3 % (17.5-39) L 02/26/19 08:25 Unsaturated IBC 242 ug/dL (200-275) 02/26/19 08:25 Transferrin 195 mg/dL (200-370) L 02/26/19 08:25 Ferritin 44.3 ng/ml (8-388) 02/26/19 08:25 Total Bilirubin 1.1 mg/dL (0.2-1) H 03/01/19 06:00 AST 21 U/L (15-37) 03/01/19 06:00 ALT 12 U/L (13-61) L 03/01/19 06:00 Alkaline Phosphatase 88 U/L (45-117) 03/01/19 06:00 C-Reactive Protein < 0.3 MG/DL (0.00-0.3) 02/24/19 20:44 Total Protein 6.1 g/dl (6.4-8.2) L 03/01/19 06:00 Albumin 2.4 g/dl (3.4-5.0) L 03/01/19 06:00 [id number] 17 (0-20) 02/26/19 08:25 Vitamin B12 297 pg/ml (193-986) 02/26/19 08:25 Serum Folate 6 ng/mL (3.1-17.5) 02/26/19 08:25 TSH 0.97 uIU/ml (0.358-3.74) 02/26/19 08:25 Serum , Qual Negative 02/24/19 16:00 Active Medications Current Medications Chlorhexidine Gluconate (Hibiclens For Decolonization -) 1 applic TP HS WADE Last Admin: 02/28/19 23:09 Dose: 1 applic Chlorhexidine Gluconate (Peridex -) 15 ml MM BID WADE Last Admin: 03/01/19 09:38 Dose: Not Given Cyanocobalamin (Vitamin B12 -) 1,000 mcg PO DAILY WADE Last Admin: 03/01/19 09:39 Dose: 1,000 mcg Sodium Chloride (Normal Saline -) 1,000 mls @ 42 mls/hr IV ASDIR WADE Last Admin: 03/01/19 01:58 Dose: 42 mls/hr Nafcillin Sodium 2 gm/ (Dextrose) 100 mls @ 100 mls/hr IVPB Q6H-IV WADE; Protocol Last Admin: 03/01/19 15:21 Dose: 100 mls/hr Levetiracetam (Keppra Injection -) 500 mg IVPB BID WADE Last Admin: 03/01/19 09:38 Dose: 500 mg Metoprolol Succinate (Toprol Xl -) 25 mg PO DAILY WADE Last Admin: 03/01/19 09:39 Dose: 25 mg Mupirocin (Bactroban Ointment (For Decolonization) -) 1 applic NS BID AWDE Stop: 03/01/19 21:59 Last Admin: 03/01/19 09:38 Dose: 1 applic Pantoprazole Sodium (Protonix Iv) 40 mg IVPUSH DAILY WADE Last Admin: 03/01/19 09:38 Dose: 40 mg Home Medications Medication Instructions Recorded Aspirin [ASA -] 325 mg PO DAILY 02/07/19 Atorvastatin Ca [Lipitor] 40 mg PO HS 02/07/19 Metoprolol Succinate 25 mg PO DAILY 02/07/19 Coumadin 3 mg PO DAILY 02/26/19 Microbiology 02/26/19 16:30 Blood - Arterial Blood Culture - Preliminary NO GROWTH OBTAINED AFTER 72 HOURS, INCUBATION TO CONTINUE FOR 2 DAYS. 02/26/19 16:30 Blood - Arterial Blood Culture - Preliminary NO GROWTH OBTAINED AFTER 72 HOURS, INCUBATION TO CONTINUE FOR 2 DAYS. 02/24/19 19:00 Blood - Peripheral Venous Blood Culture - Preliminary NO GROWTH OBTAINED AFTER 96 HOURS, INCUBATION TO CONTINUE FOR 1 DAYS. 02/24/19 19:00 Blood - Peripheral Venous Blood Culture - Preliminary NO GROWTH OBTAINED AFTER 96 HOURS, INCUBATION TO CONTINUE FOR 1 DAYS. 02/26/19 17:00 Urine - Urine Perales Urine Culture - Final NO GROWTH OBTAINED 02/25/19 11:00 Sputum - Endotrachea Suction/Ventilator Gram Stain - Final 02/25/19 11:00 Sputum - Endotrachea Suction/Ventilator Sputum Culture - Final Staphylococcus Aureus 02/24/19 16:00 Urine - Urine Perales Urine Culture - Final NO GROWTH OBTAINED ASSESSMENT/PLAN: 44 y/o F, pmh of HTN, alcohol abuse, hx of dural venous thrombosis, and hemorrhagic stroke 3 months ago requiring hospitalization at [facility] ([facility] placed pt on coumadin?), presents today s/p seizures likely 2/2 to seizure medication noncompliance vs withdrawal vs overdose #S/p Seizures Status epilepticus likely 2/2 to withdrawal vs neural injury s/p hemorrhagic stroke Cont Keppra 500 BID EEG-we will f/u Brain MRI w/ MRV- sinuses patent, normal flow, hypoplastic left transverse/ sigmoind sinus #Fever likely 2/2 to pneumonia Naficillin cont ID agrees F/u Bcx US RUQ- biliary sludge no sings of inflammation or infection #Anemia Likely 2/2 to GI bleed GI recommended EGD re-evaluation after pt is stabilized medically #Hx of Dural venous thrombosis Hold Coumadin- records received- will review #HTN cont metoprolol F: NS at 44 E: monitor lytes N: Dispo: monitor in ICU, hold coumadin, EEG-f/u, f/u INR in am Visit type - Emergency Visit Emergency Visit: Yes ED Registration Date: 02/24/19 Care time: The patient presented to the Emergency Department on the above date and was hospitalized for further evaluation of their emergent condition. - New Patient This patient is new to me today: Yes Date on this admission: 03/01/19 - Critical Care Critical Care patient: No - Discharge Referral Referred to [facility] Med P.C.: No ATTENDING PHYSICIAN STATEMENT I saw and evaluated the patient. I reviewed the resident's note and discussed the case with the resident. I agree with the resident's findings and plan as documented. SUBJECTIVE: OBJECTIVE: ASSESSMENT AND PLAN:
--- NOTE | 2019-03-01 19:21 | PN ---
Progress Note (short form) - Note Progress Note: Patient seen and examined Denies any complaints Febrile VSS Oropharynx: No thrush, No mucositis Neck: Supple Nodes: Without adenopathy Cor: RSR, No murmurs, No gallops Lungs: Clear to P&A Abd: Soft, Normal bowel sounds, No organomegaly Ext:No significant edema Skin: No rashes, Integument intact Labs/Meds reviewed A/P 44 y/o F, pmh of HTN, alcohol abuse, hx of dural venous thrombosis/? hemorrhage -- per chart,patient unaware of this diagnosis, reports 3 episodes of DVT, most recent being 3 months ago --placed on coumadin after this. Denies any family h/o thrombosis Denies any hematologic diagnosis/ bleeding diathesis/autoimmune disease MRV --negative at this time Monitor INR On antibiotics for presumed aspirationpneumonia
[2019-03-01] MEDS ORDERED: ACETAMINOPHEN 1000 MG/100 ML VIAL (NON FORMULARY) IVPB ONE ×2 (19:46→19:49)
[2019-03-02] MEDS: NAFCILLIN - 2 GM in DEXTROSE 5%-WATER - 100 ML IVPB SCH ×2 (02:12→08:40)
[2019-03-02 09:18] LABS: ALBUMIN 2.4 g/dl (3.4-5.0); BILIRUBIN,TOTAL 0.6 mg/dL (0.2-1); BLOOD UREA NITROGEN 10.3 mg/dL (7-18); CALCIUM 8.5 mg/dL (8.5-10.1); CREATININE 0.6 mg/dL (0.55-1.3); MAGNESIUM 2.1 mg/dL (1.8-2.4); PHOSPHOROUS 2.3 mg/dL (2.5-4.9); POTASSIUM 3.8 mmol/L (3.5-5.1); TOT PROT 6.4 g/dl (6.4-8.2)
[2019-03-02 09:21] LABS: HEMATOCRIT 25.4 % (32.4-45.2); HEMOGLOBIN 8.2 GM/dL (10.7-15.3); MCH 24.2 pg (25.7-33.7); MCHC 32.3 g/dl (32.0-36.0); MEAN PLT VOLUME 8.4 fl (7.5-11.1); PLATELET COUNT 279 K/MM3 (134-434); RBC 3.39 M/mm3 (3.60-5.2); RDW 17.6 % (11.6-15.6); WHITE BLOOD COUNT 8.6 K/mm3 (4.0-10.0)
[2019-03-02 09:32] LABS: ACTIVATED PTT 42.7 SECONDS (25.2-36.5)
[2019-03-02] MEDS: PANTOPRAZOLE SODIUM 40 MG VIAL IVPUSH SCH (09:42)
[2019-03-02] MEDS: metoPROLOL SUCCINATE 25 MG TAB.SR.24H (FP) PO SCH (09:42)
[2019-03-02] MEDS: levETIRAcetam 500 MG/5 ML INJECTION VIAL IVPB SCH ×2 (09:42→22:01)
[2019-03-02] MEDS: CYANOCOBALAMIN 1,000 MCG TABLET (FP) PO SCH (09:42)
--- NOTE | 2019-03-02 11:54 | PN ---
Teaching Attending Note Name of Resident: Tu Musa ATTENDING PHYSICIAN STATEMENT I saw and evaluated the patient. I reviewed the resident's note and discussed the case with the resident. I agree with the resident's findings and plan as documented. SUBJECTIVE: contto have fever , feels tired. No HORNRE. no weakness. no numbness. no diarrhea . No abd pain OBJECTIVE: NAD, awake , round equal pupils, reactive to light. no facial droop. MMM CV: RRR, no mRG Lungs: CTAB Abd: no BS, soft. minimal TTP in RUQ. Ext: No edema or erythema Neuro : EOMI, round equal pupils, no facial droop. tongue at mid line . strength 5/5 in upper and lower extremities proximally and distally A/P: 44 y/o lady with h/o HTN, dural vein thrombosis , and hemorrhagic stroke, a previous seizure, and ETOH abuse who presented with seizures.She was intubated and admitted to ICU 1- Acute hypoxic resp failure. resolved 2- Seizures /status epilepticus: resolved. No recurrence. 3- Fever. sepsis 4- HTN 5- HTN 6- iron def anemia 7- H/o transverse and sigmoid sinus thrombosis Plan: - EEG pending. - cont Keppra BID - Abx per ID, possibel upgrade to zosyn today - follow blood cx - monitor INR. order for today - Records form [facility] obtained. no dx summary or dc meds included, but some imaging and notes. In Nov 2018, she was diagnosed with superficial fem vein thrombosis and popliteal vein thrombosis as well as thrombosis in L transverse and sigmoid sinuses. she also had L temporal lobe hemorrhage. she was placed on Keppra there. per her not dc on any. CTA of neck and head shoed no aneurysms. Factor 5, II, prothrombin gene mutation were normal. - MRI and MRV here reviewed: encephalomalacia at site of previous bleed. hypoplastic L sigmoid and transverse sinuses. maxillary, ethimoid, and sphenoid sinus abnormalities. evidence of ischemia at periphery of encephalomalacia. - Need to r/o infectious sinusitis - Need to r/o vasculitis as a cause of the continued fever, given sinus and lung findings. VAsculitis could be responsible for her bleed and thrombosis. - Order ANCA p, c . - consult Rheum - GI w/u when stable - cont B 12
--- NOTE | 2019-03-02 12:08 | PN ---
Progress Note, Physician History of Present Illness: still continues to spike fever comfortable - Current Medication List Current Medications: Active Medications Cyanocobalamin (Vitamin B12 -) 1,000 mcg PO DAILY [facility] Last Admin: 03/02/19 09:42 Dose: 1,000 mcg Nafcillin Sodium 2 gm/ (Dextrose) 100 mls @ 100 mls/hr IVPB Q6H-IV WADE; Protocol Last Admin: 03/02/19 08:40 Dose: 100 mls/hr Sodium Chloride (Normal Saline -) 1,000 mls @ 42 mls/hr IV ASDIR WADE Last Admin: 03/01/19 17:51 Dose: 42 mls/hr Levetiracetam (Keppra Injection -) 500 mg IVPB BID [facility] Last Admin: 03/02/19 09:42 Dose: 500 mg Metoprolol Succinate (Toprol Xl -) 25 mg PO DAILY [facility] Last Admin: 03/02/19 09:42 Dose: 25 mg Pantoprazole Sodium (Protonix Iv) 40 mg IVPUSH DAILY [facility] Last Admin: 03/02/19 09:42 Dose: 40 mg - Objective Vital Signs: Vital Signs Temperature 100.4 F H 03/02/19 06:00 Pulse Rate 105 H 03/02/19 10:00 Respiratory Rate 20 03/02/19 10:00 Blood Pressure 132/80 03/02/19 10:00 O2 Sat by Pulse Oximetry (%) 100 02/28/19 20:48 Constitutional: Yes: No Distress, Calm Cardiovascular: Yes: Regular Rate and Rhythm Respiratory: Yes: Regular, Poor Air Entry Gastrointestinal: Yes: Normal Bowel Sounds, Soft Musculoskeletal: Yes: WNL Extremities: Yes: WNL Neurological: Yes: Alert, Oriented Psychiatric: Yes: Alert, Oriented Labs: CBC, BMP 03/02/19 08:30 03/02/19 06:00 INR, PTT INR 3.32 (0.83-1.09) H 03/01/19 06:00 Fibrinogen 397.0 mg/dL (238-498) 02/26/19 08:25 Assessment/Plan Status Epilepticus Acute Respiratory Failure Pneumonia likely Aspiration Sepsis Lactic Acidosis Alcohol Abuse Cocaine Use h/o Dural Celeste Sinus Thrombosis HTN Anemia plan will change abx to unasyn incentive marky rest as per the team
[2019-03-02] MEDS ORDERED: AMPICILLIN NA/SULBACTAM NA 3 GM in SODIUM CHLORIDE 100 ML IVPB SCH ×2 (12:15→18:00)
[2019-03-02 12:28] LABS: INR 2.13 (0.83-1.09); PROTHROMBIN TIME (PATIENT) 25.3 SEC (9.7-13.0)
--- NOTE | 2019-03-02 12:57 | PN ---
Progress Note, Physician History of Present Illness: pulmonary alert,comfortable,-sob at rest. o2 sat 86% on ra,+ cough. temp 100.4 - Current Medication List Current Medications: Active Medications Cyanocobalamin (Vitamin B12 -) 1,000 mcg PO DAILY [facility] Last Admin: 03/02/19 09:42 Dose: 1,000 mcg Sodium Chloride (Normal Saline -) 1,000 mls @ 42 mls/hr IV ASDIR [facility] Last Admin: 03/01/19 17:51 Dose: 42 mls/hr Ampicillin Sodium/Sulbactam (Sodium 3 gm/ Sodium Chloride) 100 mls @ 200 mls/ hr IVPB Q8H-IV WADE Levetiracetam (Keppra Injection -) 500 mg IVPB BID [facility] Last Admin: 03/02/19 09:42 Dose: 500 mg Metoprolol Succinate (Toprol Xl -) 25 mg PO DAILY [facility] Last Admin: 03/02/19 09:42 Dose: 25 mg Pantoprazole Sodium (Protonix Iv) 40 mg IVPUSH DAILY [facility] Last Admin: 03/02/19 09:42 Dose: 40 mg - Objective Vital Signs: Vital Signs Temperature 100.4 F H 03/02/19 06:00 Pulse Rate 105 H 03/02/19 10:00 Respiratory Rate 20 03/02/19 10:00 Blood Pressure 132/80 03/02/19 10:00 O2 Sat by Pulse Oximetry (%) 100 02/28/19 20:48 Constitutional: Yes: Calm, Thin Eyes: Yes: WNL HENT: Yes: WNL Neck: Yes: WNL Cardiovascular: Yes: Regular Rate and Rhythm, S1, S2 Respiratory: Yes: Rhonchi (scattered rhonchi) Gastrointestinal: Yes: Normal Bowel Sounds, Soft Extremities: Yes: WNL Edema: No Labs: CBC, BMP 03/02/19 08:30 03/02/19 06:00 INR, PTT INR 2.13 (0.83-1.09) H 03/02/19 08:30 Fibrinogen 397.0 mg/dL (238-498) 02/26/19 08:25 Problem List - Problems (1) Pneumonia Code(s): J18.9 - PNEUMONIA, UNSPECIFIED ORGANISM (2) Seizure Code(s): R56.9 - UNSPECIFIED CONVULSIONS (3) HTN (hypertension) Code(s): I10 - ESSENTIAL (PRIMARY) HYPERTENSION (4) Anemia Code(s): D64.9 - ANEMIA, UNSPECIFIED (5) Hypoxemia Code(s): R09.02 - HYPOXEMIA Assessment/Plan ASSESSMENT AND PLAN: s/p Status Epilepticus s/p Acute Respiratory Failure Pneumonia likely Aspiration Sepsis Lactic Acidosis Alcohol Abuse Cocaine Use h/o Dural Rule Sinus Thrombosis HTN Anemia - continue antiepileptics - continue antibiotics as per ID - IVF boluses as needed - monitor urine output, creatinine - continue anticoagulation to target INR 2-3 - PO as tolerated - aspiration precautions - DVT/GI prophylaxis - supplemental o2 - inhaled bronchodilators - f/u chest x-rays DR AZEVEDO
[2019-03-02] MEDS ORDERED: ALBUTEROL SO4 2.5/IPRATROPIUM 0.5 INH SOL 3 ML VIAL.NEB. NEB PRN (13:01)
[2019-03-02 13:20] LABS: ERYTHROCYTE SEDIMENTATION RATE 107 mm/hr (0-20)
[2019-03-02] MEDS ORDERED: DEXTROSE 5%-WATER - 50 ML IVPB ONE ×2 (14:08→16:50)
[2019-03-02] MEDS ORDERED: PIPERACILLIN/TAZOBACTAM 3.375 GM VIAL IVPB ONE ×2 (14:08→16:50)
[2019-03-02] MEDS: PIPERACILLIN/TAZOB 3.375 GM 3.375 GM in DEXTROSE 5%-WATER - 50 ML IVPB SCH ×2 (14:14→17:13)
--- NOTE | 2019-03-02 14:20 | PN ---
Physical Exam: SUBJECTIVE: Patient seen and examined at bedside. no new complaints, no events overnight. OBJECTIVE: Vital Signs Period Temp Pulse Resp BP Sys/Ruano Pulse Ox Last 24 Hr 99.4 F-101.6 F 96-105 20-29 127-153/80-93 GENERAL: The patient is awake, alert, and fully oriented, in no acute distress. LUNGS: Breath sounds equal, clear to auscultation bilaterally, no wheezes, no crackles, no accessory muscle use. HEART: Regular rate and rhythm, S1, S2 without murmur, rub or gallop. ABDOMEN: Soft, nontender, nondistended, normoactive bowel sounds, no guarding, no rebound, no hepatosplenomegaly, no masses. EXTREMITIES: 2+ pulses, warm, well-perfused, no edema. NEUROLOGICAL: Cranial nerves II through X grossly intact. Normal speech, gait not observed. Laboratory Results - last 24 hr 03/02/19 03/02/19 03/02/19 06:00 08:30 08:30 WBC 8.6 RBC 3.39 L Hgb 8.2 L Hct 25.4 L MCV 75.0 L MCH 24.2 L MCHC 32.3 RDW 17.6 H Plt Count 279 MPV 8.4 ESR 107 H PT with INR 25.30 H INR 2.13 H PTT (Actin FS) 42.7 H Sodium 140 Potassium 3.8 Chloride 109 H Carbon Dioxide 24 Anion Gap 8 BUN 10.3 Creatinine 0.6 Est GFR (CKD-EPI)AfAm 130.30 Est GFR (CKD-EPI)NonAf 112.42 Random Glucose 105 Calcium 8.5 Phosphorus 2.3 L Magnesium 2.1 Total Bilirubin 0.6 AST 20 ALT 13 Alkaline Phosphatase 87 C-Reactive Protein Cancelled Total Protein 6.4 Albumin 2.4 L 03/02/19 12:20 WBC RBC Hgb Hct MCV MCH MCHC RDW Plt Count MPV ESR PT with INR INR PTT (Actin FS) Sodium Potassium Chloride Carbon Dioxide Anion Gap BUN Creatinine Est GFR (CKD-EPI)AfAm Est GFR (CKD-EPI)NonAf Random Glucose Calcium Phosphorus Magnesium Total Bilirubin AST ALT Alkaline Phosphatase C-Reactive Protein 18.3 H Total Protein Albumin Active Medications Generic Name Dose Route Start Last Admin Trade Name Freq PRN Reason Stop Dose Admin Albuterol/Ipratropium 1 amp 03/02/19 13:01 Duoneb - NEB Q6H PRN SHORTNESS OF BREATH Cyanocobalamin 1,000 mcg 03/02/19 10:00 03/02/19 09:42 Vitamin B12 - PO 1,000 mcg DAILY WADE Administration Sodium Chloride 1,000 mls @ 42 mls/hr 03/01/19 17:44 03/01/19 17:51 Normal Saline - IV 42 mls/hr ASDIR WADE Administration Piperacillin Sod/Tazobactam 50 mls @ 100 mls/hr 03/02/19 13:15 Sod 3.375 gm/ Dextrose IVPB Q8H-IV WADE Levetiracetam 500 mg 03/01/19 22:00 03/02/19 09:42 Keppra Injection - IVPB 500 mg BID WADE Administration Metoprolol Succinate 25 mg 03/02/19 10:00 03/02/19 09:42 Toprol Xl - PO 25 mg DAILY WADE Administration Pantoprazole Sodium 40 mg 03/02/19 10:00 03/02/19 09:42 Protonix Iv IVPUSH 40 mg DAILY WADE Administration ASSESSMENT/PLAN: 44 y/o F, pmh of HTN, alcohol abuse, hx of dural venous thrombosis, and hemorrhagic stroke 3 months ago requiring hospitalization at [facility] (C placed pt on coumadin?), presents today s/p seizures likely 2/2 to seizure medication noncompliance vs withdrawal vs overdose h/o seizures, admitted in status 2/2 ETOH withdrawal vs neural injury in setting of recent hemorrhagic stroke -intubated in ED, extubated 02/28 and transferred to floor -Cont Keppra 500 BID -f/u EEG results -Brain MRI w/ MRV- encephalomalacia at previous hemorrhage site, ischemia ( new and old) around hemorrhage site, thickening of the maxillary sinuses\ -given history of fever despite abx and evidence of ischemia on MRI, must rule out vasculitis in this patient. -c-anca, P-anca sent -ESR and CRP elevated -rheumatology consult placed. #Fever possibly 2/2 to pneumonia r/o vasculitis/sinusitis -currently on Naficillin -> ID to switch to zosyn today -ID onboard -BCX 02/28 NGTD -BCX 03/01 pending -Will not culture if the patient spikes again -US RUQ- biliary sludge no sings of inflammation or infection -rheum to r/o vasculitis Anemia Likely 2/2 to GI bleed -GI recommended EGD re-evaluation after pt is stabilized medically Hx of Dural venous thrombosis -Holding Coumadin while bleed suspected HTN -cont home metoprolol FEN -NS @ 42 -monitor lytes, replete PRN -regular diet Dispo: -admit med surg Visit type - Emergency Visit Emergency Visit: Yes ED Registration Date: 02/24/19 Care time: The patient presented to the Emergency Department on the above date and was hospitalized for further evaluation of their emergent condition. - New Patient This patient is new to me today: Yes Date on this admission: 03/02/19 - Critical Care Critical Care patient: No - Discharge Referral Referred to [facility] No ATTENDING PHYSICIAN STATEMENT I saw and evaluated the patient. I reviewed the resident's note and discussed the case with the resident. I agree with the resident's findings and plan as documented. SUBJECTIVE: OBJECTIVE: ASSESSMENT AND PLAN:
[2019-03-02] MEDS: ACETAMINOPHEN 325 MG TABLET (FP) PO PRN ×2 (15:29→22:43)
[2019-03-02] MEDS: SODIUM CHLORIDE 1,000 ML IV SCH (17:14)
--- NOTE | 2019-03-02 21:02 | CONSULT ---
Consult Consult Specialty:: Rheumatology - History of Present Illness History of Present Illness: 44 y/o female with history of migraine headaches, hypertension, alcohol abuse and transverse venous thrombosis on 12/06/18, admitted with uncontrolled seizures. Since admission the patient has had fever, rule out vasculitis. PMH. The patient was admitted to [facility] on 12/06/18 with severe headaches and seizures. Report from [facility]: Work-up: CT: slight increased acute intraparenchymal and subarachnoid hemorrage in the left temporal lobe, likely hemorrhagic venous infarction. CT venogram: transverse venous sinus thrombosis. CT angiogram of neck and head - no abnormalities reported. Hypercoagulation work-up: positive ldnu-[id number]-I antibody. In the hospital she had blood cultures positive for MSSA. JIA was normal. No mutations of Factor V Leiden or Factor II. There is no report if she had testing for lupus anticoagulant or other serology for lupus or CTD. The patient denies history of skin rash, oral ulcers, joint gonsalves, photosensitivity, hair loss, Sicca syndrome, Raynaud's phenomenon, shortness of breath or chest pain. She was admitted with uncontrolled seizures. Since admission she has had daily fever, up to 102.9. Work-up in the hospital:CBC with WBC of 8.6, Hgb 8.2, HCT 25.4 and platelets 279. Creatinine 0.6, liver function tests were normal and urinalysis (02/24/19 ) protein 2+ and blood 1+. MYNOR, beta 2 glycoprotein I and anti-cardiolipin IgG , IgM and IgA were all negative. Rheumatoid factor 17.8 and CRP 18.3. COCAINE SCREEN WAS POSITIVE. MRI brain: chronic encephalomalacia with gliosis in the left inferior temporal girus with chronic hemosiderin deposits. Bilateral maxillary sinus disease. Anterior nasal perforation. MRA (venous): normal. Echocardiogram: normal. - History Source History Provided By: Patient, Medical Record - Past Medical History [employer] ADMINISTRATOR: Yes: Other (See HPI) Cardio/Vascular: Yes: HTN - Alcohol/Substance Use Hx Alcohol Use: No - Smoking History Smoking history: Unknown if ever smoked Have you smoked in the past 12 months: No Home Medications - Allergies Allergies/Adverse Reactions: Allergies Allergy/AdvReac Type Severity Reaction Status Date / Time No Known Allergies Allergy Verified 02/07/19 14:25 - Home Medications Home Medications: Ambulatory Orders Aspirin [ASA -] 325 mg PO DAILY 02/07/19 Atorvastatin Ca [Lipitor] 40 mg PO HS 02/07/19 Metoprolol Succinate 25 mg PO DAILY 02/07/19 Coumadin 3 mg PO DAILY 02/26/19 Review of Systems - Review of Systems Constitutional: reports: Malaise Eyes: reports: No Symptoms HENT: reports: No Symptoms Neck: reports: No Symptoms Cardiovascular: reports: No Symptoms Respiratory: reports: No Symptoms Gastrointestinal: reports: No Symptoms Musculoskeletal: reports: No Symptoms Neurological: reports: Other (See HPI) Physical Exam Vital Signs: Vital Signs Temperature 101.0 F H 03/02/19 15:44 Pulse Rate 105 H 03/02/19 15:44 Respiratory Rate 20 03/02/19 15:44 Blood Pressure 145/95 03/02/19 15:44 O2 Sat by Pulse Oximetry (%) 95 03/02/19 10:00 Constitutional: Yes: Mild Distress Eyes: Yes: WNL HENT: Yes: WNL Neck: Yes: WNL Cardiovascular: Yes: WNL Respiratory: Yes: WNL Gastrointestinal: Yes: WNL Musculoskeletal: Yes: Other (No active joints) Labs: CBC, BMP 03/02/19 08:30 03/02/19 06:00 Laboratory Tests 02/24/19 02/26/19 02/26/19 16:00 08:25 08:25 Calcium Phosphorus Magnesium Total Bilirubin AST ALT Alkaline Phosphatase C-Reactive Protein Total Protein Albumin Urine pH 5.5 D Ur Specific [place] 1.014 Urine Protein 2+ H Urine Glucose (UA) Negative Urine Ketones Negative Urine Blood 1+ H Urine Nitrite Negative Urine Bilirubin Negative Urine Urobilinogen 0.2 Ur Leukocyte Esterase Negative Urine WBC (Auto) 1 Urine RBC (Auto) 8 Urine Casts (Auto) 4 Rheumatoid Arth Biomark 17.8 H MYNOR Screen Negative [id number] Ab Beta-2-GPI IgM Ab Anti-Cardiolipin IgG Ab Anti-Cardiolipin IgA Ab Anti-Cardiolipin IgM Ab 02/26/19 03/02/19 03/02/19 08:25 06:00 12:20 Calcium 8.5 Phosphorus 2.3 L Magnesium 2.1 Total Bilirubin 0.6 AST 20 ALT 13 Alkaline Phosphatase 87 C-Reactive Protein 18.3 H Total Protein 6.4 Albumin 2.4 L Urine pH Ur Specific [place] Urine Protein Urine Glucose (UA) Urine Ketones Urine Blood Urine Nitrite Urine Bilirubin Urine Urobilinogen Ur Leukocyte Esterase Urine WBC (Auto) Urine RBC (Auto) Urine Casts (Auto) Rheumatoid Arth Biomark MYNOR Screen [id number] Ab <9 Beta-2-GPI IgM Ab <9 Anti-Cardiolipin IgG Ab <9 Anti-Cardiolipin IgA Ab <9 Anti-Cardiolipin IgM Ab <9 Problem List - Problems (1) Cerebral venous sinus thrombosis Assessment/Plan: The patient was admitted on 12/06/18 to [facility] with seizures related to sinus vein thrombosis. It was reported that she had a positive beta-2 glycoprotein I antibody (no other serology reported in DC note). Admitted this time with uncontrolled seizure disease. Repeat dlac-4-hknecuvpjbws I and anti- cardiolipin antibody were negative. Reports of CTA (from [facility]) do not report changes suggestive of vasculitis. Since admission she has had daily fever. Rheumatoid factor positive with no inflammatory arthritis. Rule out HCV The patient was found to have a positive screen for cocaine and the brain MRA reported perforation of the nasal septum. In summary, it is likely that the seizure disease and sinus vein thrombosis are related to cocaine. It is unlikely that she has anti-phospholipid syndrome, [employer]ISTRATOR vasculitis or lupus. Etiology of fever to be determined. Plan: Serology and complement. ANCA is pending. Lupus anticoagulant. Code(s): G08 - INTRACRANIAL AND INTRASPINAL PHLEBITIS AND THROMBOPHLEBITIS
--- NOTE | 2019-03-02 21:07 | PN ---
Progress Note, Physician History of Present Illness: Continues to have fevers, HAs. No bleeding. - Current Medication List Current Medications: Active Medications Acetaminophen (Tylenol -) 650 mg PO Q6H PRN PRN Reason: FEVER Last Admin: 03/02/19 15:29 Dose: 650 mg Albuterol/Ipratropium (Duoneb -) 1 amp NEB Q6H PRN PRN Reason: SHORTNESS OF BREATH Cyanocobalamin (Vitamin B12 -) 1,000 mcg PO DAILY [facility] Last Admin: 03/02/19 09:42 Dose: 1,000 mcg Sodium Chloride (Normal Saline -) 1,000 mls @ 42 mls/hr IV ASDIR WADE Last Admin: 03/02/19 17:14 Dose: 42 mls/hr Piperacillin Sod/Tazobactam (Sod 3.375 gm/ Dextrose) 50 mls @ 100 mls/hr IVPB Q8H-IV WADE Last Admin: 03/02/19 17:13 Dose: 100 mls/hr Levetiracetam (Keppra Injection -) 500 mg IVPB BID [facility] Last Admin: 03/02/19 09:42 Dose: 500 mg Metoprolol Succinate (Toprol Xl -) 25 mg PO DAILY [facility] Last Admin: 03/02/19 09:42 Dose: 25 mg Pantoprazole Sodium (Protonix Iv) 40 mg IVPUSH DAILY [facility] Last Admin: 03/02/19 09:42 Dose: 40 mg - Objective Vital Signs: Vital Signs Temperature 101.0 F H 03/02/19 15:44 Pulse Rate 105 H 03/02/19 15:44 Respiratory Rate 20 03/02/19 15:44 Blood Pressure 145/95 03/02/19 15:44 O2 Sat by Pulse Oximetry (%) 95 03/02/19 10:00 Constitutional: Yes: No Distress Eyes: Yes: Conjunctiva Clear Respiratory: Yes: CTA Bilaterally Gastrointestinal: Yes: Soft Edema: No Labs: CBC, BMP 03/02/19 08:30 03/02/19 06:00 INR, PTT INR 2.13 (0.83-1.09) H 03/02/19 08:30 Fibrinogen 397.0 mg/dL (238-498) 02/26/19 08:25 Assessment/Plan 44F with HTN,. hx venous sinus thrombosis, on coumadin, hemorrhagic stroke, seizures, and ETOH abuse admitted with seizures requiring intubation for acute respiratory failure, s/p extubation Per records from Nov 2018 [facility] admission, she was diagnosed with superficial fem vein thrombosis and popliteal vein thrombosis as well as thrombosis in L transverse and sigmoid sinuses. She also had L temporal lobe hemorrhage and was placed on Keppra.CTA of neck and head did not show aneurysms.APLA negative. MRI/MRA 03/01: encephalomalacia at site of previous bleed, hypoplastic L sigmoid and transverse sinuses, maxillary, ethmoid, and sphenoid sinus disease, major venous structures patent. Pt is being worked up for vasculitis given fevers, lung findings. c/w warfarin, INR at goal today
[2019-03-03] MEDS ORDERED: PIPERACILLIN/TAZOBACTAM 3.375 GM VIAL IVPB ONE ×3 (00:50→16:27)
[2019-03-03] MEDS ORDERED: DEXTROSE 5%-WATER - 50 ML IVPB ONE ×3 (00:50→16:27)
[2019-03-03] MEDS: PIPERACILLIN/TAZOB 3.375 GM 3.375 GM in DEXTROSE 5%-WATER - 50 ML IVPB SCH ×3 (01:26→17:23)
[2019-03-03 08:03] LABS: HEMATOCRIT 23.4 % (32.4-45.2); HEMOGLOBIN 7.7 GM/dL (10.7-15.3); MCH 24.7 pg (25.7-33.7); MEAN CELL VOLUME 74.7 fl (80-96); MEAN PLT VOLUME 8.1 fl (7.5-11.1); PLATELET COUNT 296 K/MM3 (134-434); RBC 3.13 M/mm3 (3.60-5.2); RDW 17.3 % (11.6-15.6); WHITE BLOOD COUNT 7.4 K/mm3 (4.0-10.0)
[2019-03-03 08:14] LABS: BLOOD UREA NITROGEN 10.4 mg/dL (7-18); CALCIUM 8.3 mg/dL (8.5-10.1); CREATININE 0.5 mg/dL (0.55-1.3); POTASSIUM 3.5 mmol/L (3.5-5.1)
[2019-03-03 08:22] LABS: INR 1.39 (0.83-1.09); PROTHROMBIN TIME (PATIENT) 16.5 SEC (9.7-13.0)
[2019-03-03] MEDS: levETIRAcetam 500 MG/5 ML INJECTION VIAL IVPB SCH ×2 (09:53→22:51)
[2019-03-03] MEDS: PANTOPRAZOLE SODIUM 40 MG VIAL IVPUSH SCH (09:53)
[2019-03-03] MEDS: metoPROLOL SUCCINATE 25 MG TAB.SR.24H (FP) PO SCH (09:54)
[2019-03-03] MEDS: CYANOCOBALAMIN 1,000 MCG TABLET (FP) PO SCH (09:54)
--- NOTE | 2019-03-03 12:24 | PN ---
Progress Note, Physician History of Present Illness: pulmonary alert,less congested ,+ cough,afebrile - Current Medication List Current Medications: Active Medications Acetaminophen (Tylenol -) 650 mg PO Q6H PRN PRN Reason: FEVER Last Admin: 03/02/19 22:43 Dose: 650 mg Albuterol/Ipratropium (Duoneb -) 1 amp NEB Q6H PRN PRN Reason: SHORTNESS OF BREATH Cyanocobalamin (Vitamin B12 -) 1,000 mcg PO DAILY [facility] Last Admin: 03/03/19 09:54 Dose: 1,000 mcg Sodium Chloride (Normal Saline -) 1,000 mls @ 42 mls/hr IV ASDIR WADE Last Admin: 03/02/19 17:14 Dose: 42 mls/hr Piperacillin Sod/Tazobactam (Sod 3.375 gm/ Dextrose) 50 mls @ 100 mls/hr IVPB Q8H-IV [facility] Last Admin: 03/03/19 09:54 Dose: 100 mls/hr Levetiracetam (Keppra Injection -) 500 mg IVPB BID [facility] Last Admin: 03/03/19 09:53 Dose: 500 mg Metoprolol Succinate (Toprol Xl -) 25 mg PO DAILY [facility] Last Admin: 03/03/19 09:54 Dose: 25 mg Pantoprazole Sodium (Protonix Iv) 40 mg IVPUSH DAILY [facility] Last Admin: 03/03/19 09:53 Dose: 40 mg - Objective Vital Signs: Vital Signs Temperature 99.2 F 03/03/19 06:00 Pulse Rate 95 H 03/03/19 10:00 Respiratory Rate 18 03/03/19 10:00 Blood Pressure 152/99 03/03/19 10:00 O2 Sat by Pulse Oximetry (%) 95 03/03/19 10:00 Constitutional: Yes: Well Nourished, Calm Eyes: Yes: WNL HENT: Yes: WNL Neck: Yes: WNL Cardiovascular: Yes: Regular Rate and Rhythm, S1, S2 Respiratory: Yes: On BiPap (few scattered kulwinder rhonchi) Gastrointestinal: Yes: Normal Bowel Sounds, Soft Extremities: Yes: WNL Edema: No Labs: CBC, BMP 03/03/19 06:50 03/03/19 06:50 INR, PTT INR 1.39 (0.83-1.09) H 03/03/19 06:50 Fibrinogen 397.0 mg/dL (238-498) 02/26/19 08:25 Problem List - Problems (1) Pneumonia Code(s): J18.9 - PNEUMONIA, UNSPECIFIED ORGANISM (2) Seizure Code(s): R56.9 - UNSPECIFIED CONVULSIONS (3) HTN (hypertension) Code(s): I10 - ESSENTIAL (PRIMARY) HYPERTENSION (4) Anemia Code(s): D64.9 - ANEMIA, UNSPECIFIED (5) Hypoxemia Code(s): R09.02 - HYPOXEMIA Assessment/Plan ASSESSMENT AND PLAN: s/p Status Epilepticus s/p Acute Respiratory Failure Pneumonia likely Aspiration Sepsis Lactic Acidosis Alcohol Abuse Cocaine Use h/o Dural [place] Sinus Thrombosis HTN Anemia - antiepileptics - continue antibiotics as per ID - IVF boluses as needed - monitor urine output, creatinine - continue anticoagulation to target INR 2-3 - DVT/GI prophylaxis - supplemental o2 - inhaled bronchodilators - f/u chest x-rays DR AZEVEDO
--- NOTE | 2019-03-03 12:52 | PN ---
Progress Note, Physician History of Present Illness: still continues to spike fever - Current Medication List Current Medications: Active Medications Acetaminophen (Tylenol -) 650 mg PO Q6H PRN PRN Reason: FEVER Last Admin: 03/02/19 22:43 Dose: 650 mg Albuterol/Ipratropium (Duoneb -) 1 amp NEB Q6H PRN PRN Reason: SHORTNESS OF BREATH Cyanocobalamin (Vitamin B12 -) 1,000 mcg PO DAILY [facility] Last Admin: 03/03/19 09:54 Dose: 1,000 mcg Sodium Chloride (Normal Saline -) 1,000 mls @ 42 mls/hr IV ASDIR [facility] Last Admin: 03/02/19 17:14 Dose: 42 mls/hr Piperacillin Sod/Tazobactam (Sod 3.375 gm/ Dextrose) 50 mls @ 100 mls/hr IVPB Q8H-IV [facility] Last Admin: 03/03/19 09:54 Dose: 100 mls/hr Levetiracetam (Keppra Injection -) 500 mg IVPB BID [facility] Last Admin: 03/03/19 09:53 Dose: 500 mg Metoprolol Succinate (Toprol Xl -) 25 mg PO DAILY [facility] Last Admin: 03/03/19 09:54 Dose: 25 mg Pantoprazole Sodium (Protonix Iv) 40 mg IVPUSH DAILY [facility] Last Admin: 03/03/19 09:53 Dose: 40 mg - Objective Vital Signs: Vital Signs Temperature 99.2 F 03/03/19 06:00 Pulse Rate 95 H 03/03/19 10:00 Respiratory Rate 18 03/03/19 10:00 Blood Pressure 152/99 03/03/19 10:00 O2 Sat by Pulse Oximetry (%) 95 03/03/19 10:00 Constitutional: Yes: No Distress, Calm Cardiovascular: Yes: S1, S2 Respiratory: Yes: Regular, Poor Air Entry Gastrointestinal: Yes: Normal Bowel Sounds, Soft Musculoskeletal: Yes: WNL Extremities: Yes: Other Neurological: Yes: Alert, Oriented Psychiatric: Yes: Alert, Oriented Labs: CBC, BMP 03/03/19 06:50 03/03/19 06:50 INR, PTT INR 1.39 (0.83-1.09) H 03/03/19 06:50 Fibrinogen 397.0 mg/dL (238-498) 02/26/19 08:25 Assessment/Plan Status Epilepticus Acute Respiratory Failure Pneumonia likely Aspiration Sepsis Lactic Acidosis Alcohol Abuse Cocaine Use h/o Dural [place] Sinus Thrombosis HTN Anemia plan continue abx resp therapy
--- NOTE | 2019-03-03 16:11 | PN ---
Progress Note (short form) - Note Progress Note: Subjective: Slight HORNER. cont to have fever . No PC or SOB , no abd pain. had 2 episodes of diarrhea today Objective: Vital Signs: Last Vital Signs Temp Pulse Resp BP Pulse Ox 100.9 F H 100 H 18 148/97 95 03/03/19 15:04 03/03/19 15:04 03/03/19 15:04 03/03/19 15:04 03/03/19 10:00 Laboratory Results - last 24 hr 03/03/19 03/03/19 03/03/19 06:50 06:50 06:50 WBC 7.4 RBC 3.13 L Hgb 7.7 L Hct 23.4 L MCV 74.7 L MCH 24.7 L MCHC 33.0 RDW 17.3 H Plt Count 296 MPV 8.1 ESR PT with INR 16.50 H INR 1.39 H Sodium 140 Potassium 3.5 Chloride 109 H Carbon Dioxide 25 Anion Gap 7 L BUN 10.4 Creatinine 0.5 L Est GFR (CKD-EPI)AfAm 138.36 Est GFR (CKD-EPI)NonAf 119.38 Random Glucose 85 Calcium 8.3 L 03/03/19 06:50 WBC RBC Hgb Hct MCV MCH MCHC RDW Plt Count MPV ESR 109 H PT with INR INR Sodium Potassium Chloride Carbon Dioxide Anion Gap BUN Creatinine Est GFR (CKD-EPI)AfAm Est GFR (CKD-EPI)NonAf Random Glucose Calcium Physical Exam: NAD, awake , round equal pupils, reactive to light. no facial droop. MMM CV: RRR, no mRG Lungs: CTAB Abd: no BS, soft. NT today Ext: No edema or erythema Neuro : EOMI, round equal pupils, no facial droop. tongue at mid line . strength 5/5 in upper and lower extremities proximally and distally . A/P: 44 y/o lady with h/o HTN, dural vein thrombosis , and hemorrhagic stroke, a previous seizure, and ETOH abuse who presented with seizures.She was intubated and admitted to ICU 1- Acute hypoxic resp failure. resolved 2- Seizures /status epilepticus: resolved. No recurrence. 3- Fever. sepsis 4- HTN 5- HTN 6- Iron def anemia 7- H/o transverse and sigmoid sinus thrombosis Plan: - EEG pending. - cont Keppra BID - cotn unasyn - follow blood cx - order c diff - INR is < 2 today. will start heparin gtt - appreciate Dr. Ron help. No suspicion fro vasculitis - follow complement levels , Lupus anticoagulants, and DsDNA - ANC p, c pending - GI w/u when stable - cont B 12 D/w over the phone Visit type - Emergency Visit Emergency Visit: Yes ED Registration Date: 02/24/19 Care time: The patient presented to the Emergency Department on the above date and was hospitalized for further evaluation of their emergent condition. - New Patient This patient is new to me today: No - Critical Care Critical Care patient: No
[2019-03-03] MEDS: HEPARIN - 25,000 UNIT in SODIUM CHLORIDE 495 ML IV SCH (17:24)
--- NOTE | 2019-03-03 19:03 | PN ---
Progress Note, Physician History of Present Illness: Still with HORNER and fevers. No bleeding. - Current Medication List Current Medications: Active Medications Acetaminophen (Tylenol -) 650 mg PO Q6H PRN PRN Reason: FEVER Last Admin: 03/02/19 22:43 Dose: 650 mg Albuterol/Ipratropium (Duoneb -) 1 amp NEB Q6H PRN PRN Reason: SHORTNESS OF BREATH Cyanocobalamin (Vitamin B12 -) 1,000 mcg PO DAILY [facility] Last Admin: 03/03/19 09:54 Dose: 1,000 mcg Heparin Sodium (Porcine) (Heparin -) 1,000 unit IVPUSH PRN PRN PRN Reason: Heparin Heparin Sodium (Porcine) (Heparin -) 5,000 unit IVPUSH PRN PRN PRN Reason: Heparin Sodium Chloride (Normal Saline -) 1,000 mls @ 42 mls/hr IV ASDIR WADE Last Admin: 03/02/19 17:14 Dose: 42 mls/hr Piperacillin Sod/Tazobactam (Sod 3.375 gm/ Dextrose) 50 mls @ 100 mls/hr IVPB Q8H-IV [facility] Last Admin: 03/03/19 17:23 Dose: 100 mls/hr Heparin Sodium (Porcine) 25, (000 unit/ Sodium Chloride) 500 mls @ 16 mls/hr IV TITR WADE; Protocol Last Admin: 03/03/19 17:24 Dose: 800 unit/hr, 16 mls/hr Levetiracetam (Keppra Injection -) 500 mg IVPB BID [facility] Last Admin: 03/03/19 09:53 Dose: 500 mg Metoprolol Succinate (Toprol Xl -) 25 mg PO DAILY [facility] Last Admin: 03/03/19 09:54 Dose: 25 mg Pantoprazole Sodium (Protonix Iv) 40 mg IVPUSH DAILY [facility] Last Admin: 03/03/19 09:53 Dose: 40 mg - Objective Vital Signs: Vital Signs Temperature 100.9 F H 03/03/19 15:04 Pulse Rate 100 H 03/03/19 15:04 Respiratory Rate 18 03/03/19 15:04 Blood Pressure 148/97 03/03/19 15:04 O2 Sat by Pulse Oximetry (%) 95 03/03/19 10:00 Constitutional: Yes: No Distress Eyes: Yes: Conjunctiva Clear Cardiovascular: Yes: Regular Rate and Rhythm Respiratory: Yes: Regular, CTA Bilaterally Gastrointestinal: Yes: Soft Edema: No Labs: CBC, BMP 03/03/19 06:50 03/03/19 06:50 INR, PTT INR 1.39 (0.83-1.09) H 03/03/19 06:50 Fibrinogen 397.0 mg/dL (238-498) 02/26/19 08:25 Assessment/Plan 44F with HTN,. hx venous sinus thrombosis, on coumadin, hemorrhagic stroke, seizures, and ETOH abuse admitted with seizures requiring intubation for acute respiratory failure, s/p extubation Per records from Nov 2018 [facility] admission, she was diagnosed with superficial fem vein thrombosis and popliteal vein thrombosis as well as thrombosis in L transverse and sigmoid sinuses. She also had L temporal lobe hemorrhage and was placed on Keppra.CTA of neck and head did not show aneurysms.APLA negative. MRI/MRA 03/01: encephalomalacia at site of previous bleed, hypoplastic L sigmoid and transverse sinuses, maxillary, ethmoid, and sphenoid sinus disease, major venous structures patent. Pt is being worked up for vasculitis given fevers, lung findings though, per rheumatology, unlikely warfarin subtherapeutic today, started on UFH. Can consider apixaban
[2019-03-04] MEDS: HEPARIN NA (PORCINE) 5,000 UNITS/ML 1ML VIAL IVPUSH PRN ×2 (00:05→11:00)
[2019-03-04] MEDS ORDERED: DEXTROSE 5%-WATER - 50 ML IVPB ONE ×3 (01:03→17:04)
[2019-03-04] MEDS ORDERED: PIPERACILLIN/TAZOBACTAM 3.375 GM VIAL IVPB ONE ×3 (01:03→17:04)
[2019-03-04] MEDS: PIPERACILLIN/TAZOB 3.375 GM 3.375 GM in DEXTROSE 5%-WATER - 50 ML IVPB SCH ×3 (01:07→17:09)
[2019-03-04] MEDS: SODIUM CHLORIDE 1,000 ML IV SCH ×2 (06:37→17:48)
[2019-03-04 08:20] LABS: INR 1.29 (0.83-1.09); PROTHROMBIN TIME (PATIENT) 15.3 SEC (9.7-13.0)
[2019-03-04 08:21] LABS: BASO % 0.6 % (0-2.0); EOS % 10.5 % (0-4.5); HEMATOCRIT 24.8 % (32.4-45.2); MCH 24.5 pg (25.7-33.7); MCHC 32.4 g/dl (32.0-36.0); MEAN CELL VOLUME 75.5 fl (80-96); MEAN PLT VOLUME 8.3 fl (7.5-11.1); MONO % 9.9 % (3.8-10.2); PLATELET COUNT 352 K/MM3 (134-434); RBC 3.29 M/mm3 (3.60-5.2); RDW 17.2 % (11.6-15.6); WHITE BLOOD COUNT 6.1 K/mm3 (4.0-10.0)
[2019-03-04] MEDS: levETIRAcetam 500 MG/5 ML INJECTION VIAL IVPB SCH ×2 (09:36→21:36)
[2019-03-04] MEDS: metoPROLOL SUCCINATE 25 MG TAB.SR.24H (FP) PO SCH (09:36)
[2019-03-04] MEDS: PANTOPRAZOLE SODIUM 40 MG VIAL IVPUSH SCH (09:36)
[2019-03-04] MEDS: ACETAMINOPHEN 325 MG TABLET (FP) PO PRN ×2 (09:40→17:49)
[2019-03-04] MEDS: CYANOCOBALAMIN 1,000 MCG TABLET (FP) PO SCH (10:39)
--- NOTE | 2019-03-04 10:54 | PN ---
Progress Note, Physician History of Present Illness: still with cough fevers improving feels better - Current Medication List Current Medications: Active Medications Acetaminophen (Tylenol -) 650 mg PO Q6H PRN PRN Reason: FEVER Last Admin: 03/04/19 09:40 Dose: 650 mg Albuterol/Ipratropium (Duoneb -) 1 amp NEB Q6H PRN PRN Reason: SHORTNESS OF BREATH Cyanocobalamin (Vitamin B12 -) 1,000 mcg PO DAILY [facility] Last Admin: 03/04/19 10:39 Dose: 1,000 mcg Heparin Sodium (Porcine) (Heparin -) 1,000 unit IVPUSH PRN PRN PRN Reason: Heparin Heparin Sodium (Porcine) (Heparin -) 5,000 unit IVPUSH PRN PRN PRN Reason: Heparin Last Admin: 03/04/19 00:05 Dose: 5,000 unit Sodium Chloride (Normal Saline -) 1,000 mls @ 42 mls/hr IV ASDIR [facility] Last Admin: 03/04/19 06:37 Dose: 42 mls/hr Piperacillin Sod/Tazobactam (Sod 3.375 gm/ Dextrose) 50 mls @ 100 mls/hr IVPB Q8H-IV [facility] Last Admin: 03/04/19 10:38 Dose: 100 mls/hr Heparin Sodium (Porcine) 25, (000 unit/ Sodium Chloride) 500 mls @ 16 mls/hr IV TITR [facility]; Protocol Last Titration: 03/04/19 00:05 Dose: 950 unit/hr, 19 mls/hr Levetiracetam (Keppra Injection -) 500 mg IVPB BID [facility] Last Admin: 03/04/19 09:36 Dose: 500 mg Metoprolol Succinate (Toprol Xl -) 25 mg PO DAILY [facility] Last Admin: 03/04/19 09:36 Dose: 25 mg Pantoprazole Sodium (Protonix Iv) 40 mg IVPUSH DAILY [facility] Last Admin: 03/04/19 09:36 Dose: 40 mg - Objective Vital Signs: Vital Signs Temperature 98.0 F 03/04/19 06:31 Pulse Rate 89 03/04/19 06:31 Respiratory Rate 20 03/04/19 06:31 Blood Pressure 139/89 03/04/19 06:31 O2 Sat by Pulse Oximetry (%) 95 03/03/19 22:00 Constitutional: Yes: No Distress, Calm Cardiovascular: Yes: S1, S2 Respiratory: Yes: Regular, Rhonchi Gastrointestinal: Yes: Normal Bowel Sounds, Soft Musculoskeletal: Yes: WNL Extremities: Yes: WNL Neurological: Yes: Alert, Oriented Psychiatric: Yes: Alert, Oriented Labs: CBC, BMP 03/04/19 07:30 03/03/19 06:50 INR, PTT INR 1.29 (0.83-1.09) H 03/04/19 07:30 Fibrinogen 397.0 mg/dL (238-498) 02/26/19 08:25 Assessment/Plan Status Epilepticus Acute Respiratory Failure Pneumonia likely Aspiration Sepsis Lactic Acidosis Alcohol Abuse Cocaine Use h/o Dural [place] Sinus Thrombosis HTN Anemia plan continue abx incentive marky
--- NOTE | 2019-03-04 11:13 | PN ---
Progress Note (short form) - Note Progress Note: PULMONARY Overall fever curve trending down. +nonproductive cough. Vital Signs Period Temp Pulse Resp BP Sys/Ruano Pulse Ox Last 24 Hr 97.9 F-100.9 F 89-103 18-20 139-149/72-97 95-95 Gen: NAD at rest Heart: RRR Lung: decreased breath sounds at the bases Abd: soft, nontender Ext: no edema CBC, BMP 03/04/19 07:30 03/03/19 06:50 INR, PTT INR 1.29 (0.83-1.09) H 03/04/19 07:30 Fibrinogen 397.0 mg/dL (238-498) 02/26/19 08:25 Active Medications Acetaminophen (Tylenol -) 650 mg PO Q6H PRN PRN Reason: FEVER Last Admin: 03/04/19 09:40 Dose: 650 mg Albuterol/Ipratropium (Duoneb -) 1 amp NEB Q6H PRN PRN Reason: SHORTNESS OF BREATH Cyanocobalamin (Vitamin B12 -) 1,000 mcg PO DAILY [facility] Last Admin: 03/04/19 10:39 Dose: 1,000 mcg Heparin Sodium (Porcine) (Heparin -) 1,000 unit IVPUSH PRN PRN PRN Reason: Heparin Heparin Sodium (Porcine) (Heparin -) 5,000 unit IVPUSH PRN PRN PRN Reason: Heparin Last Admin: 03/04/19 11:00 Dose: 5,000 unit Sodium Chloride (Normal Saline -) 1,000 mls @ 42 mls/hr IV ASDIR WADE Last Admin: 03/04/19 06:37 Dose: 42 mls/hr Piperacillin Sod/Tazobactam (Sod 3.375 gm/ Dextrose) 50 mls @ 100 mls/hr IVPB Q8H-IV [facility] Last Admin: 03/04/19 10:38 Dose: 100 mls/hr Heparin Sodium (Porcine) 25, (000 unit/ Sodium Chloride) 500 mls @ 16 mls/hr IV TITR [facility]ADE; Protocol Last Titration: 03/04/19 11:00 Dose: 1,100 unit/hr, 22 mls/hr Levetiracetam (Keppra Injection -) 500 mg IVPB BID [facility] Last Admin: 03/04/19 09:36 Dose: 500 mg Metoprolol Succinate (Toprol Xl -) 25 mg PO DAILY [facility] Last Admin: 03/04/19 09:36 Dose: 25 mg Pantoprazole Sodium (Protonix Iv) 40 mg IVPUSH DAILY [facility] Last Admin: 03/04/19 09:36 Dose: 40 mg A/P s/p Status Epilepticus s/p Acute Respiratory Failure Pneumonia likely Aspiration Sepsis Lactic Acidosis Alcohol Abuse Cocaine Use h/o Dural [place] Sinus Thrombosis HTN Anemia - antiepileptics - continue antibiotics as per ID - monitor fever curve, WBC trend - monitor urine output, creatinine - continue anticoagulation to target INR 2-3, resume oral anticoagulation - DVT/GI prophylaxis
--- NOTE | 2019-03-04 16:20 | PN ---
Physical Exam: SUBJECTIVE: Patient seen and examined 44 y/o F, pmh of HTN, alcohol abuse, hx of dural venous thrombosis, and hemorrhagic stroke 3 months ago requiring hospitalization at [facility] ([facility] placed pt on coumadin?), presents today s/p seizures. Pt is doing well. No overnight event or fevers. Pt has not developed a fever since abx were changed. Admits to watery diarrhea and RUQ pain. Denies f/c/n/v/sob/chest pain. OBJECTIVE: Vital Signs Period Temp Pulse Resp BP Sys/Ruano Pulse Ox Last 24 Hr 97.9 F-99.2 F 84-103 20-20 139-149/72-90 95-96 GENERAL: Awake, Alert, oriented x3 Neuro: CN2-12 intact, senstation 5/5, strenght 5/5 EYES: Pupils reactive to light . LUNGS: CTAB HEART: Regular rate, normal S1 and S2 without murmur, rub or gallop. ABDOMEN: RUQ pain. No guarding or rebound tenderness. Szymanski sign negative. Not distended, normoactive bowel sounds UPPER EXTREMITIES: 2+ pulses, warm, no edema LOWER EXTREMITIES: 2+ pulses, warm, no edema SKIN: Warm, dry Laboratory Results - last 24 hr CBC,CMP WBC 6.1 K/mm3 (4.0-10.0) 03/04/19 07:30 RBC 3.29 M/mm3 (3.60-5.2) L 03/04/19 07:30 Hgb 8.0 GM/dL (10.7-15.3) L 03/04/19 07:30 Hct 24.8 % (32.4-45.2) L 03/04/19 07:30 MCV 75.5 fl (80-96) L 03/04/19 07:30 MCH 24.5 pg (25.7-33.7) L 03/04/19 07:30 MCHC 32.4 g/dl (32.0-36.0) 03/04/19 07:30 RDW 17.2 % (11.6-15.6) H 03/04/19 07:30 Plt Count 352 K/MM3 (134-434) 03/04/19 07:30 MPV 8.3 fl (7.5-11.1) 03/04/19 07:30 Absolute Neuts (auto) 2.9 K/mm3 (1.5-8.0) 03/04/19 07:30 Neutrophils % 47.0 % (42.8-82.8) D 03/04/19 07:30 Neutrophils % (Manual) 55.7 % (42.8-82.8) 02/25/19 09:00 Band Neutrophils % 20.6 % 02/25/19 09:00 Lymphocytes % 32.0 % (8-40) D 03/04/19 07:30 Lymphocytes % (Manual) 14.4 % (8-40) D 02/25/19 09:00 Monocytes % 9.9 % (3.8-10.2) 03/04/19 07:30 Monocytes % (Manual) 2 % (3.8-10.2) L 02/25/19 09:00 Eosinophils % 10.5 % (0-4.5) H D 03/04/19 07:30 Eosinophils % (Manual) 6.2 % (0-4.5) H D 02/25/19 09:00 Basophils % 0.6 % (0-2.0) 03/04/19 07:30 Basophils % (Manual) 1.0 % (0-2.0) D 02/25/19 09:00 Myelocytes % (Man) 0 % (0-2) 02/25/19 09:00 Promyelocytes % (Man) 0 % (0-2) 02/25/19 09:00 Blast Cells % (Manual) 0 % (0-0) 02/25/19 09:00 Nucleated RBC % 0 % (0-0) 03/04/19 07:30 Metamyelocytes 0 % (0-2) D 02/25/19 09:00 Hypochromia 1+ 02/25/19 09:00 Platelet Estimate Normal 02/25/19 09:00 Polychromasia 0 02/25/19 09:00 Poikilocytosis 1+ 02/25/19 09:00 Anisocytosis 1+ 02/25/19 09:00 Microcytosis 1+ 02/25/19 09:00 Ovalocytes 1+ 02/25/19 09:00 Schistocytes 1+ 02/25/19 09:00 ESR 109 mm/hr (0-20) H 03/03/19 06:50 Retic Count 1.13 % (0.5-1.5) 02/26/19 08:25 Sodium 140 mmol/L (136-145) 03/03/19 06:50 Potassium 3.5 mmol/L (3.5-5.1) 03/03/19 06:50 Chloride 109 mmol/L (98-107) H 03/03/19 06:50 Carbon Dioxide 25 mmol/L (21-32) 03/03/19 06:50 Anion Gap 7 MMOL/L (8-16) L 03/03/19 06:50 BUN 10.4 mg/dL (7-18) 03/03/19 06:50 Creatinine 0.5 mg/dL (0.55-1.3) L 03/03/19 06:50 Est GFR (CKD-EPI)AfAm 138.36 03/03/19 06:50 Est GFR (CKD-EPI)NonAf 119.38 03/03/19 06:50 Random Glucose 85 mg/dL (74-106) 03/03/19 06:50 Lactic Acid 1.8 mmol/L (0.4-2.0) 02/25/19 09:00 Calcium 8.3 mg/dL (8.5-10.1) L 03/03/19 06:50 Phosphorus 2.3 mg/dL (2.5-4.9) L 03/02/19 06:00 Magnesium 2.1 mg/dL (1.8-2.4) 03/02/19 06:00 Iron 8 ug/dL (50-175) L 02/26/19 08:25 TIBC 250 ug/dL (250-450) 02/26/19 08:25 Iron Saturation 3 % (17.5-39) L 02/26/19 08:25 Unsaturated IBC 242 ug/dL (200-275) 02/26/19 08:25 Transferrin 195 mg/dL (200-370) L 02/26/19 08:25 Ferritin 44.3 ng/ml (8-388) 02/26/19 08:25 Total Bilirubin 0.6 mg/dL (0.2-1) 03/02/19 06:00 AST 20 U/L (15-37) 03/02/19 06:00 ALT 13 U/L (13-61) 03/02/19 06:00 Alkaline Phosphatase 87 U/L (45-117) 03/02/19 06:00 C-Reactive Protein 18.3 MG/DL (0.00-0.3) H 03/02/19 12:20 Total Protein 6.4 g/dl (6.4-8.2) 03/02/19 06:00 Albumin 2.4 g/dl (3.4-5.0) L 03/02/19 06:00 [id number] 17 (0-20) 02/26/19 08:25 Vitamin B12 297 pg/ml (193-986) 02/26/19 08:25 Serum Folate 6 ng/mL (3.1-17.5) 02/26/19 08:25 TSH 0.97 uIU/ml (0.358-3.74) 02/26/19 08:25 Serum , Qual Negative 02/24/19 16:00 Active Medications Current Medications Acetaminophen (Tylenol -) 650 mg PO Q6H PRN PRN Reason: FEVER Last Admin: 03/04/19 09:40 Dose: 650 mg Albuterol/Ipratropium (Duoneb -) 1 amp NEB Q6H PRN PRN Reason: SHORTNESS OF BREATH Cyanocobalamin (Vitamin B12 -) 1,000 mcg PO DAILY [facility] Last Admin: 03/04/19 10:39 Dose: 1,000 mcg Heparin Sodium (Porcine) (Heparin -) 1,000 unit IVPUSH PRN PRN PRN Reason: Heparin Heparin Sodium (Porcine) (Heparin -) 5,000 unit IVPUSH PRN PRN PRN Reason: Heparin Last Admin: 03/04/19 11:00 Dose: 5,000 unit Sodium Chloride (Normal Saline -) 1,000 mls @ 42 mls/hr IV ASDIR WADE Last Admin: 03/04/19 06:37 Dose: 42 mls/hr Piperacillin Sod/Tazobactam (Sod 3.375 gm/ Dextrose) 50 mls @ 100 mls/hr IVPB Q8H-IV [facility] Last Admin: 03/04/19 10:38 Dose: 100 mls/hr Heparin Sodium (Porcine) 25, (000 unit/ Sodium Chloride) 500 mls @ 16 mls/hr IV TITR WADE; Protocol Last Titration: 03/04/19 11:00 Dose: 1,100 unit/hr, 22 mls/hr Levetiracetam (Keppra Injection -) 500 mg IVPB BID [facility] Last Admin: 03/04/19 09:36 Dose: 500 mg Metoprolol Succinate (Toprol Xl -) 25 mg PO DAILY [facility] Last Admin: 03/04/19 09:36 Dose: 25 mg Pantoprazole Sodium (Protonix Iv) 40 mg IVPUSH DAILY [facility] Last Admin: 03/04/19 09:36 Dose: 40 mg Home Medications Medication Instructions Recorded Aspirin [ASA -] 325 mg PO DAILY 02/07/19 Atorvastatin Ca [Lipitor] 40 mg PO HS 02/07/19 Metoprolol Succinate 25 mg PO DAILY 02/07/19 Coumadin 3 mg PO DAILY 02/26/19 Microbiology 03/03/19 17:55 Stool Clostridioides difficile Antigen - Final 03/03/19 17:55 Stool Clostridioides difficile Toxin Assay - Final 03/01/19 08:32 Blood - Peripheral Venous Blood Culture - Preliminary NO GROWTH OBTAINED AFTER 72 HOURS, INCUBATION TO CONTINUE FOR 2 DAYS. 03/01/19 08:10 Blood - Peripheral Venous Blood Culture - Preliminary NO GROWTH OBTAINED AFTER 72 HOURS, INCUBATION TO CONTINUE FOR 2 DAYS. 03/02/19 02:10 Blood - Peripheral Venous Blood Culture - Preliminary NO GROWTH OBTAINED AFTER 48 HOURS, INCUBATION TO CONTINUE FOR 3 DAYS. 03/02/19 02:10 Blood - Peripheral Venous Blood Culture - Preliminary NO GROWTH OBTAINED AFTER 48 HOURS, INCUBATION TO CONTINUE FOR 3 DAYS. 02/26/19 16:30 Blood - Arterial Blood Culture - Final NO GROWTH AFTER 5 DAYS INCUBATION 02/26/19 16:30 Blood - Arterial Blood Culture - Final NO GROWTH AFTER 5 DAYS INCUBATION 03/02/19 06:00 Urine - Urine Clean Catch Urine Culture - Final NO GROWTH OBTAINED 02/24/19 19:00 Blood - Peripheral Venous Blood Culture - Final NO GROWTH AFTER 5 DAYS INCUBATION 02/24/19 19:00 Blood - Peripheral Venous Blood Culture - Final NO GROWTH AFTER 5 DAYS INCUBATION 02/26/19 17:00 Urine - Urine Perales Urine Culture - Final NO GROWTH OBTAINED 02/25/19 11:00 Sputum - Endotrachea Suction/Ventilator Gram Stain - Final 02/25/19 11:00 Sputum - Endotrachea Suction/Ventilator Sputum Culture - Final Staphylococcus Aureus 02/24/19 16:00 Urine - Urine Perales Urine Culture - Final NO GROWTH OBTAINED ASSESSMENT/PLAN: #S/p Seizures Status epilepticus likely 2/2 to withdrawal vs neural injury s/p hemorrhagic stroke Rheumatology/Dr Ron does not think this is vasculitis in nature, likely 2/2 to cocaine use verifies she is a regular cocaine user Cont Keppra 500 BID EEG-we will f/u will bring list of pts med- we will f/u #Fever likely 2/2 to pneumonia Afebrile so far Cont Zosyn #Diarrhea C-diff positive #Anemia Likely 2/2 to GI bleed GI recommended EGD re-evaluation after pt is stabilized medically #Hx of Dural venous thrombosis Pt on Heparin Cont to monitor PTT #HTN cont metoprolol F: NS at 44 E: monitor lytes N: Regular diet Dispo: EEG-f/u, f/u PTT in am, f/u medication list from Visit type - Emergency Visit Emergency Visit: Yes ED Registration Date: 02/24/19 Care time: The patient presented to the Emergency Department on the above date and was hospitalized for further evaluation of their emergent condition. - New Patient This patient is new to me today: Yes Date on this admission: 03/04/19 - Critical Care Critical Care patient: No - Discharge Referral Referred to [facility] Med P.C.: No ATTENDING PHYSICIAN STATEMENT I saw and evaluated the patient. I reviewed the resident's note and discussed the case with the resident. I agree with the resident's findings and plan as documented. SUBJECTIVE: OBJECTIVE: ASSESSMENT AND PLAN:
[2019-03-04] MEDS ORDERED: PT OWN MED DRAWER 7, Y5N ONE (17:50)
[2019-03-04] MEDS: HEPARIN - 25,000 UNIT in SODIUM CHLORIDE 495 ML IV SCH (17:51)
--- NOTE | 2019-03-04 18:50 | PN ---
Teaching Attending Note Name of Resident: Allan Velazquez ATTENDING PHYSICIAN STATEMENT I saw and evaluated the patient. I reviewed the resident's note and discussed the case with the resident. I agree with the resident's findings and plan as documented. SUBJECTIVE: cont to have upper abd pain . no N/V. no fever last night . feels better OBJECTIVE: NAD, awake, round equal pupils, reactive to light. no facial droop. MMM. CV: RRR, no MRG Lungs: CTAB Abd: no BS, soft. TTP in epigastric area and RUQ. No rebound tenderness or guarding Ext: No edema or erythema A/P: 44 y/o lady with h/o HTN, dural vein thrombosis , and hemorrhagic stroke, a previous seizure, and ETOH abuse who presented with seizures.She was intubated and admitted to ICU 1- Acute hypoxic resp failure. resolved 2- Seizures /status epilepticus: resolved. No recurrence. 3- Fever. sepsis 4- HTN 5- Iron def anemia 6- H/o transverse and sigmoid sinus thrombosis Plan: - EEG was completed . Report pending - cont Keppra BID - cont zosyn . fever improved - all blood cx neg to date - C diff neg - cont heparin gtt pending EGD. - d/w GI today. No timing on EGD. will d/w GI again tomorrow - follow complement levels , Lupus anticoagulants, and DsDNA - ANC p, c pending - cont B 12 to bring med list today
--- NOTE | 2019-03-04 22:12 | PN ---
Progress Note (short form) - Note Progress Note: Patient seen and examined Denies any complaints Febrile VSS Oropharynx: No thrush, No mucositis Neck: Supple Nodes: Without adenopathy Cor: RSR, No murmurs, No gallops Lungs: Clear to P&A Abd: Soft, Normal bowel sounds, No organomegaly Ext:No significant edema Skin: No rashes, Integument intact Labs/Meds reviewed A/P 44F with HTN,. hx venous sinus thrombosis, on coumadin, hemorrhagic stroke, seizures, and ETOH abuse admitted with seizures requiring intubation for acute respiratory failure, s/p extubation Per records from Nov 2018 [facility] admission, she was diagnosed with superficial fem vein thrombosis and popliteal vein thrombosis as well as thrombosis in L transverse and sigmoid sinuses. She also had L temporal lobe hemorrhage and was placed on Keppra.CTA of neck and head did not show aneurysms. APLA negative here but + b2 glycoprotein at [facility] MRI/MRA 03/01: encephalomalacia at site of previous bleed, hypoplastic L sigmoid and transverse sinuses, maxillary, ethmoid, and sphenoid sinus disease, major venous structures patent. Pt is being worked up for vasculitis given fevers, lung findings though, per rheumatology, unlikely started on UFH ? eliquis on discharge
[2019-03-05] MEDS ORDERED: DEXTROSE 5%-WATER - 50 ML IVPB ONE ×3 (00:52→17:04)
[2019-03-05] MEDS ORDERED: PIPERACILLIN/TAZOBACTAM 3.375 GM VIAL IVPB ONE ×3 (00:52→17:04)
[2019-03-05] MEDS: PIPERACILLIN/TAZOB 3.375 GM 3.375 GM in DEXTROSE 5%-WATER - 50 ML IVPB SCH ×3 (01:10→17:23)
[2019-03-05 08:39] LABS: HEMATOCRIT 23.1 % (32.4-45.2); HEMOGLOBIN 7.6 GM/dL (10.7-15.3); MCH 24.7 pg (25.7-33.7); MCHC 32.9 g/dl (32.0-36.0); MEAN CELL VOLUME 75.2 fl (80-96); MEAN PLT VOLUME 8.5 fl (7.5-11.1); PLATELET COUNT 386 K/MM3 (134-434); RBC 3.07 M/mm3 (3.60-5.2); RDW 17.7 % (11.6-15.6); WHITE BLOOD COUNT 5.4 K/mm3 (4.0-10.0)
[2019-03-05] MEDS: CYANOCOBALAMIN 1,000 MCG TABLET (FP) PO SCH (09:42)
[2019-03-05] MEDS: metoPROLOL SUCCINATE 25 MG TAB.SR.24H (FP) PO SCH (09:42)
[2019-03-05] MEDS: levETIRAcetam 500 MG/5 ML INJECTION VIAL IVPB SCH ×2 (09:42→21:45)
[2019-03-05] MEDS: PANTOPRAZOLE SODIUM 40 MG VIAL IVPUSH SCH (09:42)
--- NOTE | 2019-03-05 10:44 | PN ---
Progress Note (short form) - Note Progress Note: PULMONARY Still with nonproductive cough. No further fevers. Vital Signs Period Temp Pulse Resp BP Sys/Ruano Pulse Ox Last 24 Hr 97.9 F-98.6 F 84-90 20-20 141-148/87-95 96 Gen: NAD at rest Heart: RRR Lung: decreased breath sounds at the bases Abd: soft, nontender Ext: no edema CBC, BMP 03/05/19 07:30 03/03/19 06:50 Active Medications Acetaminophen (Tylenol -) 650 mg PO Q6H PRN PRN Reason: FEVER Last Admin: 03/04/19 17:49 Dose: 650 mg Albuterol/Ipratropium (Duoneb -) 1 amp NEB Q6H PRN PRN Reason: SHORTNESS OF BREATH Cyanocobalamin (Vitamin B12 -) 1,000 mcg PO DAILY [facility] Last Admin: 03/05/19 09:42 Dose: 1,000 mcg Heparin Sodium (Porcine) (Heparin -) 1,000 unit IVPUSH PRN PRN PRN Reason: Heparin Heparin Sodium (Porcine) (Heparin -) 5,000 unit IVPUSH PRN PRN PRN Reason: Heparin Last Admin: 03/04/19 11:00 Dose: 5,000 unit Piperacillin Sod/Tazobactam (Sod 3.375 gm/ Dextrose) 50 mls @ 100 mls/hr IVPB Q8H-IV [facility] Last Admin: 03/05/19 09:42 Dose: 100 mls/hr Heparin Sodium (Porcine) 25, (000 unit/ Sodium Chloride) 500 mls @ 16 mls/hr IV TITR [facility]; Protocol Last Admin: 03/04/19 17:51 Dose: 1,100 unit/hr, 22 mls/hr Levetiracetam (Keppra Injection -) 500 mg IVPB BID [facility] Last Admin: 03/05/19 09:42 Dose: 500 mg Metoprolol Succinate (Toprol Xl -) 25 mg PO DAILY [facility] Last Admin: 03/05/19 09:42 Dose: 25 mg Pantoprazole Sodium (Protonix Iv) 40 mg IVPUSH DAILY [facility] Last Admin: 03/05/19 09:42 Dose: 40 mg A/P s/p Status Epilepticus s/p Acute Respiratory Failure Pneumonia likely Aspiration Sepsis Lactic Acidosis Alcohol Abuse Cocaine Use h/o Dural [place] Sinus Thrombosis HTN Anemia - antiepileptics - continue antibiotics as per ID - monitor fever curve, WBC trend - monitor urine output, creatinine - continue anticoagulation to target INR 2-3, resume oral anticoagulation - DVT/GI prophylaxis
[2019-03-05] MEDS: HEPARIN NA (PORCINE) 5,000 UNITS/ML 1ML VIAL IVPUSH PRN (11:20)
--- NOTE | 2019-03-05 12:27 | PN ---
Progress Note, Physician History of Present Illness: remaining afebrile still coughing - Current Medication List Current Medications: Active Medications Acetaminophen (Tylenol -) 650 mg PO Q6H PRN PRN Reason: FEVER Last Admin: 03/04/19 17:49 Dose: 650 mg Albuterol/Ipratropium (Duoneb -) 1 amp NEB Q6H PRN PRN Reason: SHORTNESS OF BREATH Cyanocobalamin (Vitamin B12 -) 1,000 mcg PO DAILY [facility] Last Admin: 03/05/19 09:42 Dose: 1,000 mcg Heparin Sodium (Porcine) (Heparin -) 1,000 unit IVPUSH PRN PRN PRN Reason: Heparin Heparin Sodium (Porcine) (Heparin -) 5,000 unit IVPUSH PRN PRN PRN Reason: Heparin Last Admin: 03/04/19 11:00 Dose: 5,000 unit Piperacillin Sod/Tazobactam (Sod 3.375 gm/ Dextrose) 50 mls @ 100 mls/hr IVPB Q8H-IV [facility] Last Admin: 03/05/19 09:42 Dose: 100 mls/hr Heparin Sodium (Porcine) 25, (000 unit/ Sodium Chloride) 500 mls @ 16 mls/hr IV TITR WADE; Protocol Last Admin: 03/04/19 17:51 Dose: 1,100 unit/hr, 22 mls/hr Levetiracetam (Keppra Injection -) 500 mg IVPB BID [facility] Last Admin: 03/05/19 09:42 Dose: 500 mg Metoprolol Succinate (Toprol Xl -) 25 mg PO DAILY [facility] Last Admin: 03/05/19 09:42 Dose: 25 mg Pantoprazole Sodium (Protonix Iv) 40 mg IVPUSH DAILY [facility] Last Admin: 03/05/19 09:42 Dose: 40 mg - Objective Vital Signs: Vital Signs Temperature 98.6 F 03/05/19 05:49 Pulse Rate 101 H 03/05/19 10:00 Respiratory Rate 18 03/05/19 10:00 Blood Pressure 147/98 03/05/19 10:00 O2 Sat by Pulse Oximetry (%) 96 03/05/19 09:00 Constitutional: Yes: No Distress, Calm Cardiovascular: Yes: Regular Rate and Rhythm Respiratory: Yes: Regular Gastrointestinal: Yes: Normal Bowel Sounds, Soft Musculoskeletal: Yes: WNL Extremities: Yes: WNL Neurological: Yes: Alert, Oriented Psychiatric: Yes: Alert, Oriented Labs: CBC, BMP 03/05/19 07:30 03/03/19 06:50 INR, PTT INR 1.29 (0.83-1.09) H 03/04/19 07:30 Fibrinogen 397.0 mg/dL (238-498) 02/26/19 08:25 Assessment/Plan Status Epilepticus Acute Respiratory Failure Pneumonia likely Aspiration Sepsis Lactic Acidosis Alcohol Abuse Cocaine Use h/o Dural [place] Sinus Thrombosis HTN Anemia plan continue abx incentive marky if patient remains afebrile will switch to oral abx tomorrow rest as per the team
[2019-03-05] MEDS: ACETAMINOPHEN 325 MG TABLET (FP) PO PRN (12:48)
--- NOTE | 2019-03-05 16:19 | PN ---
Physical Exam: SUBJECTIVE: Patient seen and examined Pt is doing well. No overnight event or fevers. Pt has not developed a fever since abx were changed. Admits to watery diarrhea and RUQ pain still. Denies f/c /n/v/sob/chest pain. OBJECTIVE: Vital Signs Period Temp Pulse Resp BP Sys/Ruano Pulse Ox Last 24 Hr 98.2 F-98.6 F 87-101 18-20 136-147/78-98 96-96 GENERAL: Awake, Alert, oriented x3 Neuro: CN2-12 intact, senstation 5/5, strenght 5/5 EYES: Pupils reactive to light . LUNGS: CTAB HEART: Regular rate, normal S1 and S2 without murmur, rub or gallop. ABDOMEN: RUQ and epigastric pain. No guarding or rebound tenderness. Szymanski sign negative. Not distended, normoactive bowel sounds UPPER EXTREMITIES: 2+ pulses, warm, no edema LOWER EXTREMITIES: 2+ pulses, warm, no edema SKIN: Warm, dry Laboratory Results - last 24 hr CBC,CMP WBC 5.4 K/mm3 (4.0-10.0) 03/05/19 07:30 RBC 3.07 M/mm3 (3.60-5.2) L 03/05/19 07:30 Hgb 7.6 GM/dL (10.7-15.3) L 03/05/19 07:30 Hct 23.1 % (32.4-45.2) L 03/05/19 07:30 MCV 75.2 fl (80-96) L 03/05/19 07:30 MCH 24.7 pg (25.7-33.7) L 03/05/19 07:30 MCHC 32.9 g/dl (32.0-36.0) 03/05/19 07:30 RDW 17.7 % (11.6-15.6) H 03/05/19 07:30 Plt Count 386 K/MM3 (134-434) 03/05/19 07:30 MPV 8.5 fl (7.5-11.1) 03/05/19 07:30 Absolute Neuts (auto) 2.9 K/mm3 (1.5-8.0) 03/04/19 07:30 Neutrophils % 47.0 % (42.8-82.8) D 03/04/19 07:30 Neutrophils % (Manual) 55.7 % (42.8-82.8) 02/25/19 09:00 Band Neutrophils % 20.6 % 02/25/19 09:00 Lymphocytes % 32.0 % (8-40) D 03/04/19 07:30 Lymphocytes % (Manual) 14.4 % (8-40) D 02/25/19 09:00 Monocytes % 9.9 % (3.8-10.2) 03/04/19 07:30 Monocytes % (Manual) 2 % (3.8-10.2) L 02/25/19 09:00 Eosinophils % 10.5 % (0-4.5) H D 03/04/19 07:30 Eosinophils % (Manual) 6.2 % (0-4.5) H D 02/25/19 09:00 Basophils % 0.6 % (0-2.0) 03/04/19 07:30 Basophils % (Manual) 1.0 % (0-2.0) D 02/25/19 09:00 Myelocytes % (Man) 0 % (0-2) 02/25/19 09:00 Promyelocytes % (Man) 0 % (0-2) 02/25/19 09:00 Blast Cells % (Manual) 0 % (0-0) 02/25/19 09:00 Nucleated RBC % 0 % (0-0) 03/04/19 07:30 Metamyelocytes 0 % (0-2) D 02/25/19 09:00 Hypochromia 1+ 02/25/19 09:00 Platelet Estimate Normal 02/25/19 09:00 Polychromasia 0 02/25/19 09:00 Poikilocytosis 1+ 02/25/19 09:00 Anisocytosis 1+ 02/25/19 09:00 Microcytosis 1+ 02/25/19 09:00 Ovalocytes 1+ 02/25/19 09:00 Schistocytes 1+ 02/25/19 09:00 ESR 109 mm/hr (0-20) H 03/03/19 06:50 Retic Count 1.13 % (0.5-1.5) 02/26/19 08:25 Sodium 140 mmol/L (136-145) 03/03/19 06:50 Potassium 3.5 mmol/L (3.5-5.1) 03/03/19 06:50 Chloride 109 mmol/L (98-107) H 03/03/19 06:50 Carbon Dioxide 25 mmol/L (21-32) 03/03/19 06:50 Anion Gap 7 MMOL/L (8-16) L 03/03/19 06:50 BUN 10.4 mg/dL (7-18) 03/03/19 06:50 Creatinine 0.5 mg/dL (0.55-1.3) L 03/03/19 06:50 Est GFR (CKD-EPI)AfAm 138.36 03/03/19 06:50 Est GFR (CKD-EPI)NonAf 119.38 03/03/19 06:50 Random Glucose 85 mg/dL (74-106) 03/03/19 06:50 Lactic Acid 1.8 mmol/L (0.4-2.0) 02/25/19 09:00 Calcium 8.3 mg/dL (8.5-10.1) L 03/03/19 06:50 Phosphorus 2.3 mg/dL (2.5-4.9) L 03/02/19 06:00 Magnesium 2.1 mg/dL (1.8-2.4) 03/02/19 06:00 Iron 8 ug/dL (50-175) L 02/26/19 08:25 TIBC 250 ug/dL (250-450) 02/26/19 08:25 Iron Saturation 3 % (17.5-39) L 02/26/19 08:25 Unsaturated IBC 242 ug/dL (200-275) 02/26/19 08:25 Transferrin 195 mg/dL (200-370) L 02/26/19 08:25 Ferritin 44.3 ng/ml (8-388) 02/26/19 08:25 Total Bilirubin 0.6 mg/dL (0.2-1) 03/02/19 06:00 AST 20 U/L (15-37) 03/02/19 06:00 ALT 13 U/L (13-61) 03/02/19 06:00 Alkaline Phosphatase 87 U/L (45-117) 03/02/19 06:00 C-Reactive Protein 18.3 MG/DL (0.00-0.3) H 03/02/19 12:20 Total Protein 6.4 g/dl (6.4-8.2) 03/02/19 06:00 Albumin 2.4 g/dl (3.4-5.0) L 03/02/19 06:00 Qoxd-9-Ktcqhtejocru 17 (0-20) 02/26/19 08:25 Vitamin B12 297 pg/ml (193-986) 02/26/19 08:25 Serum Folate 6 ng/mL (3.1-17.5) 02/26/19 08:25 TSH 0.97 uIU/ml (0.358-3.74) 02/26/19 08:25 Serum , Qual Negative 02/24/19 16:00 Active Medications Current Medications Acetaminophen (Tylenol -) 650 mg PO Q6H PRN PRN Reason: FEVER Last Admin: 03/05/19 12:48 Dose: 650 mg Albuterol/Ipratropium (Duoneb -) 1 amp NEB Q6H PRN PRN Reason: SHORTNESS OF BREATH Cyanocobalamin (Vitamin B12 -) 1,000 mcg PO DAILY WADE Last Admin: 03/05/19 09:42 Dose: 1,000 mcg Heparin Sodium (Porcine) (Heparin -) 1,000 unit IVPUSH PRN PRN PRN Reason: Heparin Heparin Sodium (Porcine) (Heparin -) 5,000 unit IVPUSH PRN PRN PRN Reason: Heparin Last Admin: 03/04/19 11:00 Dose: 5,000 unit Piperacillin Sod/Tazobactam (Sod 3.375 gm/ Dextrose) 50 mls @ 100 mls/hr IVPB Q8H-IV WADE Last Admin: 03/05/19 09:42 Dose: 100 mls/hr Heparin Sodium (Porcine) 25, (000 unit/ Sodium Chloride) 500 mls @ 16 mls/hr IV TITR WADE; Protocol Last Admin: 03/04/19 17:51 Dose: 1,100 unit/hr, 22 mls/hr Levetiracetam (Keppra Injection -) 500 mg IVPB BID WADE Last Admin: 03/05/19 09:42 Dose: 500 mg Metoprolol Succinate (Toprol Xl -) 25 mg PO DAILY WADE Last Admin: 03/05/19 09:42 Dose: 25 mg Pantoprazole Sodium (Protonix Iv) 40 mg IVPUSH DAILY WADE Last Admin: 03/05/19 09:42 Dose: 40 mg Home Medications Medication Instructions Recorded Aspirin [ASA -] 325 mg PO DAILY 02/07/19 Atorvastatin Ca [Lipitor] 40 mg PO HS 02/07/19 Metoprolol Succinate 25 mg PO DAILY 02/07/19 Coumadin 3 mg PO DAILY 02/26/19 Microbiology 03/01/19 08:32 Blood - Peripheral Venous Blood Culture - Preliminary NO GROWTH OBTAINED AFTER 96 HOURS, INCUBATION TO CONTINUE FOR 1 DAYS. 03/01/19 08:10 Blood - Peripheral Venous Blood Culture - Preliminary NO GROWTH OBTAINED AFTER 96 HOURS, INCUBATION TO CONTINUE FOR 1 DAYS. 03/02/19 02:10 Blood - Peripheral Venous Blood Culture - Preliminary NO GROWTH OBTAINED AFTER 72 HOURS, INCUBATION TO CONTINUE FOR 2 DAYS. 03/02/19 02:10 Blood - Peripheral Venous Blood Culture - Preliminary NO GROWTH OBTAINED AFTER 72 HOURS, INCUBATION TO CONTINUE FOR 2 DAYS. 03/03/19 17:55 Stool Clostridioides difficile Antigen - Final 03/03/19 17:55 Stool Clostridioides difficile Toxin Assay - Final 02/26/19 16:30 Blood - Arterial Blood Culture - Final NO GROWTH AFTER 5 DAYS INCUBATION 02/26/19 16:30 Blood - Arterial Blood Culture - Final NO GROWTH AFTER 5 DAYS INCUBATION 03/02/19 06:00 Urine - Urine Clean Catch Urine Culture - Final NO GROWTH OBTAINED 02/24/19 19:00 Blood - Peripheral Venous Blood Culture - Final NO GROWTH AFTER 5 DAYS INCUBATION 02/24/19 19:00 Blood - Peripheral Venous Blood Culture - Final NO GROWTH AFTER 5 DAYS INCUBATION 02/26/19 17:00 Urine - Urine Perales Urine Culture - Final NO GROWTH OBTAINED 02/25/19 11:00 Sputum - Endotrachea Suction/Ventilator Gram Stain - Final 02/25/19 11:00 Sputum - Endotrachea Suction/Ventilator Sputum Culture - Final Staphylococcus Aureus 02/24/19 16:00 Urine - Urine Perales Urine Culture - Final NO GROWTH OBTAINED ASSESSMENT/PLAN: #S/p Seizures Status epilepticus likely 2/2 to withdrawal vs neural injury s/p hemorrhagic stroke Cont Keppra 500 BID EEG done-we will f/u read Med list acquired from #Fever likely 2/2 to pneumonia Afebrile so far Cont Zosyn, consider switching to oral tomorrow. #Anemia Likely 2/2 to GI bleed Spoke to GI, EGD planned for tomorrow by Dr. Dubois, as per Dr. Bates NPO after midnight Clear liquids for now #Diarrhea C-diff positive #Hx of Dural venous thrombosis Pt on Heparin Hold heparin 2 hrs before EGD Cont to monitor PTT #HTN cont metoprolol F: E: monitor lytes N: Clear liquids Dispo: EEG-f/u, EGD for tomorrow, hold heparin 2 hours before EGD Visit type - Emergency Visit Emergency Visit: Yes ED Registration Date: 02/24/19 Care time: The patient presented to the Emergency Department on the above date and was hospitalized for further evaluation of their emergent condition. - New Patient This patient is new to me today: Yes Date on this admission: 03/09/19 - Critical Care Critical Care patient: No - Discharge Referral Referred to [facility] Med P.C.: No ATTENDING PHYSICIAN STATEMENT I saw and evaluated the patient. I reviewed the resident's note and discussed the case with the resident. I agree with the resident's findings and plan as documented. SUBJECTIVE: OBJECTIVE: ASSESSMENT AND PLAN:
[2019-03-05 17:10] LABS: ATYPICAL pANCA <1:20 titer (Neg:<1:20); C-ANCA <1:20 titer (Neg:<1:20)
[2019-03-05] MEDS: HEPARIN - 25,000 UNIT in SODIUM CHLORIDE 495 ML IV SCH (17:27)
--- NOTE | 2019-03-05 17:28 | PN.GI ---
GI Progress Note Subjective: coverage for Dr Mcgovern anemia, guaiac postive stool, C diff colitis - Objective Vital Signs: Vital Signs Temperature 98.2 F 03/05/19 14:02 Pulse Rate 96 H 03/05/19 14:02 Respiratory Rate 20 03/05/19 14:02 Blood Pressure 136/78 03/05/19 14:02 O2 Sat by Pulse Oximetry (%) 96 03/05/19 09:00 Constitutional: Well Nourished Eyes: Yes: Conjunctiva Clear HENT: Yes: Atraumatic Neck: Yes: Supple Cardiovascular: Yes: Regular Rate and Rhythm Respiratory: Yes: CTA Bilaterally ...Palpate: Yes: Soft. No: Firm/Rigid, Guarding, Hepatomegaly, Pulsatile Mass, Splenomegaly, Tenderness Labs: CBC, BMP 03/05/19 07:30 03/03/19 06:50 INR, PTT INR 1.29 (0.83-1.09) H 03/04/19 07:30 Fibrinogen 397.0 mg/dL (238-498) 02/26/19 08:25 Problem List - Problems (1) Occult GI bleeding Assessment/Plan: R> for EGD NPO after midnight Code(s): R19.5 - OTHER FECAL ABNORMALITIES
--- NOTE | 2019-03-05 18:30 | PN ---
Progress Note, Physician History of Present Illness: events noted in chart reviewed ppatient seen on the medical floor extubated awake orientedfeels slight headache follows commands normally No clinical seizures since [facility] with mild evidence of slowing with no evidence of electrical seizure - Current Medication List Current Medications: Active Medications Acetaminophen (Tylenol -) 650 mg PO Q6H PRN PRN Reason: FEVER Last Admin: 03/05/19 12:48 Dose: 650 mg Albuterol/Ipratropium (Duoneb -) 1 amp NEB Q6H PRN PRN Reason: SHORTNESS OF BREATH Cyanocobalamin (Vitamin B12 -) 1,000 mcg PO DAILY WADE Last Admin: 03/05/19 09:42 Dose: 1,000 mcg Heparin Sodium (Porcine) (Heparin -) 1,000 unit IVPUSH PRN PRN PRN Reason: Heparin Last Admin: 03/05/19 11:20 Dose: 1,000 unit Heparin Sodium (Porcine) (Heparin -) 5,000 unit IVPUSH PRN PRN PRN Reason: Heparin Last Admin: 03/04/19 11:00 Dose: 5,000 unit Piperacillin Sod/Tazobactam (Sod 3.375 gm/ Dextrose) 50 mls @ 100 mls/hr IVPB Q8H-IV WADE Last Admin: 03/05/19 17:23 Dose: 100 mls/hr Heparin Sodium (Porcine) 25, (000 unit/ Sodium Chloride) 500 mls @ 16 mls/hr IV TITR WADE; Protocol Last Admin: 03/05/19 17:27 Dose: 1,200 unit/hr, 24 mls/hr Levetiracetam (Keppra Injection -) 500 mg IVPB BID WADE Last Admin: 03/05/19 09:42 Dose: 500 mg Metoprolol Succinate (Toprol Xl -) 25 mg PO DAILY WADE Last Admin: 03/05/19 09:42 Dose: 25 mg Pantoprazole Sodium (Protonix Iv) 40 mg IVPUSH DAILY WADE Last Admin: 03/05/19 09:42 Dose: 40 mg - Objective Vital Signs: Vital Signs Temperature 98.2 F 03/05/19 14:02 Pulse Rate 96 H 03/05/19 14:02 Respiratory Rate 20 03/05/19 14:02 Blood Pressure 136/78 03/05/19 14:02 O2 Sat by Pulse Oximetry (%) 96 03/05/19 09:00 Constitutional: Yes: Well Nourished Eyes: Yes: WNL HENT: Yes: WNL Neck: Yes: WNL Neurological: Yes: Alert, Oriented ...Motor Strength: WNL Labs: CBC, BMP 03/05/19 07:30 03/03/19 06:50 INR, PTT INR 1.29 (0.83-1.09) H 03/04/19 07:30 Fibrinogen 397.0 mg/dL (238-498) 02/26/19 08:25 Problem List - Problems (1) Seizure Assessment/Plan: Seizure disorder on cocaine History of sinus thrombosis MRI of the brain reviewed Limited MRV of the brain revealed no evidence of thrombosis anemia questionable source 1. Out of bed to chair as tolerated 2. Physical therapy. 3. Continue Keppra the same 4. Obtain Kera level Code(s): R56.9 - UNSPECIFIED CONVULSIONS
--- NOTE | 2019-03-05 19:54 | PN ---
Teaching Attending Note Name of Resident: Meena Gilbert ATTENDING PHYSICIAN STATEMENT I saw and evaluated the patient. I reviewed the resident's note and discussed the case with the resident. I agree with the resident's findings and plan as documented. SUBJECTIVE: no fever or chills upper abd pain . no diarrhea . no N/V . slight HORNER OBJECTIVE: NAD, awake CV: RRR, no MRG Lungs: CTAB Abd: no BS, soft. TTP in epigastric area and RUQ. No rebound tenderness or guarding Ext: No edema or erythema A/P: 44 y/o lady with h/o HTN, dural vein thrombosis , and hemorrhagic stroke, a previous seizure, and ETOH abuse who presented with seizures.She was intubated and admitted to ICU 1- Acute hypoxic resp failure. resolved 2- Seizures /status epilepticus: resolved. No recurrence. 3- Fever. sepsis : resolved 4- HTN 5- Iron def anemia 6- H/o transverse and sigmoid sinus thrombosis Plan: - EEG was completed . Report pending - cont Keppra BID - cont zosyn . fever resolved - all blood cx neg to date - C diff neg - cont heparin gtt . will hold 2 hours before EGD - after EGD will resume AC - follow complement levels , Lupus anticoagulants, and DsDNA - ANC p, c pending - cont B 12
[2019-03-06] MEDS: HEPARIN NA (PORCINE) 5,000 UNITS/ML 1ML VIAL IVPUSH PRN (00:49)
[2019-03-06] MEDS ORDERED: PIPERACILLIN/TAZOBACTAM 3.375 GM VIAL IVPB ONE ×3 (01:43→16:12)
[2019-03-06] MEDS ORDERED: DEXTROSE 5%-WATER - 50 ML IVPB ONE ×3 (01:43→16:13)
[2019-03-06] MEDS: PIPERACILLIN/TAZOB 3.375 GM 3.375 GM in DEXTROSE 5%-WATER - 50 ML IVPB SCH ×3 (01:51→17:29)
[2019-03-06 06:06] LABS: DRVVT - 58.1 sec (0.0-47.0); HEXAGONAL PHASE PHOSPHOLIPID 7 sec (0-11); dRVVT MIX 43.8 sec (0.0-47.0)
[2019-03-06 09:15] LABS: HEMATOCRIT 27.1 % (32.4-45.2); HEMOGLOBIN 8.6 GM/dL (10.7-15.3); MCH 24.3 pg (25.7-33.7); MCHC 31.5 g/dl (32.0-36.0); MEAN CELL VOLUME 77.1 fl (80-96); MEAN PLT VOLUME 8.3 fl (7.5-11.1); PLATELET COUNT 484 K/MM3 (134-434); RBC 3.52 M/mm3 (3.60-5.2); RDW 18.1 % (11.6-15.6); WHITE BLOOD COUNT 6.4 K/mm3 (4.0-10.0)
[2019-03-06 09:48] LABS: BLOOD UREA NITROGEN 5.1 mg/dL (7-18); CALCIUM 8.5 mg/dL (8.5-10.1); CREATININE 0.6 mg/dL (0.55-1.3); POTASSIUM 3.9 mmol/L (3.5-5.1)
--- NOTE | 2019-03-06 09:56 | PN ---
Teaching Attending Note Name of Resident: Allan Velazquez ATTENDING PHYSICIAN STATEMENT I saw and evaluated the patient. I reviewed the resident's note and discussed the case with the resident. I agree with the resident's findings and plan as documented. SUBJECTIVE: Patient is comfortable going for EGd today Vital Signs Temperature 98.5 F 03/06/19 05:32 Pulse Rate 84 03/06/19 05:32 Respiratory Rate 20 03/06/19 05:32 Blood Pressure 147/97 03/06/19 05:32 O2 Sat by Pulse Oximetry (%) 96 03/05/19 21:00 no fever or chills upper abd pain . no diarrhea . no N/V . slight HORNER OBJECTIVE: NAD, awake CV: RRR, no MRG Lungs: CTAB Abd: no BS, soft. TTP in epigastric area and RUQ. No rebound tenderness or guarding Ext: No edema or erythema CBCD WBC 6.4 K/mm3 (4.0-10.0) 03/06/19 08:05 RBC 3.52 M/mm3 (3.60-5.2) L 03/06/19 08:05 Hgb 8.6 GM/dL (10.7-15.3) L 03/06/19 08:05 Hct 27.1 % (32.4-45.2) L D 03/06/19 08:05 MCV 77.1 fl (80-96) L 03/06/19 08:05 MCHC 31.5 g/dl (32.0-36.0) L 03/06/19 08:05 RDW 18.1 % (11.6-15.6) H 03/06/19 08:05 Plt Count 484 K/MM3 (134-434) H D 03/06/19 08:05 MPV 8.3 fl (7.5-11.1) 03/06/19 08:05 CMP Sodium 138 mmol/L (136-145) 03/06/19 08:05 Potassium 3.9 mmol/L (3.5-5.1) 03/06/19 08:05 Chloride 106 mmol/L (98-107) 03/06/19 08:05 Carbon Dioxide 26 mmol/L (21-32) 03/06/19 08:05 Anion Gap 6 MMOL/L (8-16) L 03/06/19 08:05 BUN 5.1 mg/dL (7-18) L 03/06/19 08:05 Creatinine 0.6 mg/dL (0.55-1.3) 03/06/19 08:05 Random Glucose 84 mg/dL (74-106) 03/06/19 08:05 Calcium 8.5 mg/dL (8.5-10.1) 03/06/19 08:05 Total Bilirubin 0.6 mg/dL (0.2-1) 03/02/19 06:00 AST 20 U/L (15-37) 03/02/19 06:00 ALT 13 U/L (13-61) 03/02/19 06:00 Alkaline Phosphatase 87 U/L (45-117) 03/02/19 06:00 Total Protein 6.4 g/dl (6.4-8.2) 03/02/19 06:00 Albumin 2.4 g/dl (3.4-5.0) L 03/02/19 06:00 Current Medications Generic Name Dose Route Start Last Admin Trade Name Shayq PRN Reason Stop Dose Admin Acetaminophen 650 mg 03/02/19 14:37 03/05/19 12:48 Tylenol - PO 650 mg Q6H PRN Administration FEVER Albuterol/Ipratropium 1 amp 03/02/19 13:01 Duoneb - NEB Q6H PRN SHORTNESS OF BREATH Cyanocobalamin 1,000 mcg 03/02/19 10:00 03/05/19 09:42 Vitamin B12 - PO 1,000 mcg DAILY WADE Administration Heparin Sodium (Porcine) 1,000 unit 03/03/19 15:51 03/06/19 00:49 Heparin - IVPUSH 1,000 unit PRN PRN Administration Heparin Heparin Sodium (Porcine) 5,000 unit 03/03/19 15:51 03/04/19 11:00 Heparin - IVPUSH 5,000 unit PRN PRN Administration Heparin Piperacillin Sod/Tazobactam 50 mls @ 100 mls/hr 03/02/19 13:15 03/06/19 01:51 Sod 3.375 gm/ Dextrose IVPB 100 mls/hr Q8H-IV WADE Administration Heparin Sodium (Porcine) 25, 500 mls @ 16 mls/hr 03/03/19 16:00 03/06/19 00: 49 000 unit/ Sodium Chloride IV 1,300 unit/hr TITR WADE 26 mls/hr Titration Protocol 800 UNIT/HR Levetiracetam 500 mg 03/01/19 22:00 03/05/19 21:45 Keppra Injection - IVPB 500 mg BID WADE Administration Metoprolol Succinate 25 mg 03/02/19 10:00 03/05/19 09:42 Toprol Xl - PO 25 mg DAILY WADE Administration Pantoprazole Sodium 40 mg 03/02/19 10:00 03/05/19 09:42 Protonix Iv IVPUSH 40 mg DAILY WADE Administration Home Medications Medication Instructions Recorded Aspirin [ASA -] 325 mg PO DAILY 02/07/19 Atorvastatin Ca [Lipitor] 40 mg PO HS 02/07/19 Metoprolol Succinate 25 mg PO DAILY 02/07/19 Coumadin 3 mg PO DAILY 02/26/19 A/P: 44 y/o lady with h/o HTN, dural vein thrombosis , and hemorrhagic stroke, a previous seizure, and ETOH abuse who presented with seizures.She was intubated and admitted to ICU # Acute hypoxic resp failure. resolved # Seizures /status epilepticus: resolved. No recurrence. # Fever. sepsis : resolved # HTN continue home meds. # Iron def anemia going for EGD # H/o transverse and sigmoid sinus thrombosis DVt px; heparin
[2019-03-06] MEDS: PANTOPRAZOLE SODIUM 40 MG VIAL IVPUSH SCH (10:03)
[2019-03-06] MEDS: levETIRAcetam 500 MG/5 ML INJECTION VIAL IVPB SCH ×2 (10:03→21:54)
[2019-03-06] MEDS: CYANOCOBALAMIN 1,000 MCG TABLET (FP) PO SCH (10:05)
[2019-03-06] MEDS: metoPROLOL SUCCINATE 25 MG TAB.SR.24H (FP) PO SCH (10:05)
--- NOTE | 2019-03-06 11:41 | PN ---
Progress Note, Physician History of Present Illness: patient stable no new issues - Current Medication List Current Medications: Active Medications Acetaminophen (Tylenol -) 650 mg PO Q6H PRN PRN Reason: FEVER Last Admin: 03/05/19 12:48 Dose: 650 mg Albuterol/Ipratropium (Duoneb -) 1 amp NEB Q6H PRN PRN Reason: SHORTNESS OF BREATH Cyanocobalamin (Vitamin B12 -) 1,000 mcg PO DAILY WADE Last Admin: 03/06/19 10:05 Dose: 1,000 mcg Heparin Sodium (Porcine) (Heparin -) 1,000 unit IVPUSH PRN PRN PRN Reason: Heparin Last Admin: 03/06/19 00:49 Dose: 1,000 unit Heparin Sodium (Porcine) (Heparin -) 5,000 unit IVPUSH PRN PRN PRN Reason: Heparin Last Admin: 03/04/19 11:00 Dose: 5,000 unit Piperacillin Sod/Tazobactam (Sod 3.375 gm/ Dextrose) 50 mls @ 100 mls/hr IVPB Q8H-IV WADE Last Admin: 03/06/19 10:03 Dose: 100 mls/hr Heparin Sodium (Porcine) 25, (000 unit/ Sodium Chloride) 500 mls @ 16 mls/hr IV TITR WADE; Protocol Last Titration: 03/06/19 00:49 Dose: 1,300 unit/hr, 26 mls/hr Levetiracetam (Keppra Injection -) 500 mg IVPB BID WADE Last Admin: 03/06/19 10:03 Dose: 500 mg Metoprolol Succinate (Toprol Xl -) 25 mg PO DAILY WADE Last Admin: 03/06/19 10:05 Dose: 25 mg Pantoprazole Sodium (Protonix Iv) 40 mg IVPUSH DAILY WADE Last Admin: 03/06/19 10:03 Dose: 40 mg - Objective Vital Signs: Vital Signs Temperature 98.5 F 03/06/19 05:32 Pulse Rate 115 H 03/06/19 10:00 Respiratory Rate 18 03/06/19 10:00 Blood Pressure 133/84 03/06/19 10:00 O2 Sat by Pulse Oximetry (%) 96 03/05/19 21:00 Constitutional: Yes: No Distress, Calm Cardiovascular: Yes: S1, S2 Respiratory: Yes: Regular, CTA Bilaterally Gastrointestinal: Yes: Normal Bowel Sounds, Soft Musculoskeletal: Yes: WNL Extremities: Yes: WNL Neurological: Yes: Alert, Oriented Psychiatric: Yes: Alert, Oriented Labs: CBC, BMP 03/06/19 08:05 03/06/19 08:05 INR, PTT INR 1.29 (0.83-1.09) H 03/04/19 07:30 Fibrinogen 397.0 mg/dL (238-498) 02/26/19 08:25 Assessment/Plan Status Epilepticus Acute Respiratory Failure Pneumonia likely Aspiration Sepsis Lactic Acidosis Alcohol Abuse Cocaine Use h/o Dural [place] Sinus Thrombosis HTN Anemia plan continue abx can be switched to oral abx augmentin rest as per the team
[2019-03-06 12:27] VITALS: BMI 19.7
--- NOTE | 2019-03-06 13:12 | PN ---
Progress Note (short form) - Note Progress Note: Brief GI note EGD performed today revealing mild patchy erythema in stomach, biopsied. Possible scalloped appearance of duodenum, biopsied r/o celiac disease. Otherwise unremarkable. No ulcers or evidence of bleeding. See scanned report for details. Recommendations: -Follow up pathology results -Resume heparin gtt in 2-4 hours -Resume clear liquid diet -Continue PPI daily for now -Colonoscopy to be considered once further optimized from respiratory standpoint /pneumonia resolved Problem List - Problems (1) Microcytic anemia Code(s): D50.9 - IRON DEFICIENCY ANEMIA, UNSPECIFIED
--- NOTE | 2019-03-06 14:51 | PN ---
Progress Note, Physician History of Present Illness: pulmonary alert,comfortable,,sob,less cough - Current Medication List Current Medications: Active Medications Acetaminophen (Tylenol -) 650 mg PO Q6H PRN PRN Reason: FEVER Last Admin: 03/05/19 12:48 Dose: 650 mg Albuterol/Ipratropium (Duoneb -) 1 amp NEB Q6H PRN PRN Reason: SHORTNESS OF BREATH Cyanocobalamin (Vitamin B12 -) 1,000 mcg PO DAILY WADE Last Admin: 03/06/19 10:05 Dose: 1,000 mcg Heparin Sodium (Porcine) (Heparin -) 1,000 unit IVPUSH PRN PRN PRN Reason: Heparin Last Admin: 03/06/19 00:49 Dose: 1,000 unit Heparin Sodium (Porcine) (Heparin -) 5,000 unit IVPUSH PRN PRN PRN Reason: Heparin Last Admin: 03/04/19 11:00 Dose: 5,000 unit Piperacillin Sod/Tazobactam (Sod 3.375 gm/ Dextrose) 50 mls @ 100 mls/hr IVPB Q8H-IV WADE Last Admin: 03/06/19 10:03 Dose: 100 mls/hr Heparin Sodium (Porcine) 25, (000 unit/ Sodium Chloride) 500 mls @ 16 mls/hr IV TITR WADE; Protocol Last Titration: 03/06/19 00:49 Dose: 1,300 unit/hr, 26 mls/hr Levetiracetam (Keppra Injection -) 500 mg IVPB BID WADE Last Admin: 03/06/19 10:03 Dose: 500 mg Metoprolol Succinate (Toprol Xl -) 25 mg PO DAILY WADE Last Admin: 03/06/19 10:05 Dose: 25 mg Pantoprazole Sodium (Protonix Iv) 40 mg IVPUSH DAILY WADE Last Admin: 03/06/19 10:03 Dose: 40 mg - Objective Vital Signs: Vital Signs Temperature 98.2 F 03/06/19 14:37 Pulse Rate 98 H 03/06/19 14:37 Respiratory Rate 20 03/06/19 14:37 Blood Pressure 150/89 03/06/19 14:37 O2 Sat by Pulse Oximetry (%) 98 03/06/19 14:37 Constitutional: Yes: Well Nourished, Calm Eyes: Yes: WNL HENT: Yes: WNL Neck: Yes: WNL Cardiovascular: Yes: Regular Rate and Rhythm, S1, S2 Respiratory: Yes: Diminished Gastrointestinal: Yes: Normal Bowel Sounds, Soft Extremities: Yes: WNL Edema: No Labs: CBC, BMP 03/06/19 08:05 03/06/19 08:05 INR, PTT INR 1.29 (0.83-1.09) H 03/04/19 07:30 Fibrinogen 397.0 mg/dL (238-498) 02/26/19 08:25 Problem List - Problems (1) Pneumonia Code(s): J18.9 - PNEUMONIA, UNSPECIFIED ORGANISM (2) Seizure Code(s): R56.9 - UNSPECIFIED CONVULSIONS (3) HTN (hypertension) Code(s): I10 - ESSENTIAL (PRIMARY) HYPERTENSION (4) Anemia Code(s): D64.9 - ANEMIA, UNSPECIFIED (5) Hypoxemia Code(s): R09.02 - HYPOXEMIA Assessment/Plan ASSESSMENT AND PLAN: s/p Status Epilepticus s/p Acute Respiratory Failure Pneumonia likely Aspiration Sepsis Lactic Acidosis Alcohol Abuse Cocaine Use h/o Dural [place] Sinus Thrombosis HTN Anemia - antiepileptics - continue antibiotics as per ID - anticoagulation to target INR 2-3 - DVT/GI prophylaxis - supplemental o2 - inhaled bronchodilators - f/u chest x-rays DR AZEVEDO
--- NOTE | 2019-03-06 16:07 | PN ---
Progress Note (short form) - Note Progress Note: Probable cocaine induced seizures and sinus vein thrombosis. The patient improved significantly, treated with antibiotics for pneumonia and has not have fever since 03/04/19. She was not treated with steroids during the hospitalization At the present time the patient is feeling well. On the physical exam auscultation of the lungs revealed few crackles in the right base. No active joints. Laboratory work-up revealed proteinase-3 3.9. ANCA and myeloperoxidase were negative. Rheumatoid factor was 17.8 and anti-DNAds was negative. CH50 >60 ( reflects an acute phase reactant). Patients using Cocaine contaminated with Levamisol can induced ANCA positive vasculitis, however in my reviews, no cases of COLLECTIONS REP vasculitis were described. Most likely the COLLECTIONS REP changes were related to cocaine and the laboratory abnormality probably also to the drug and it is unlikely that the patient had vasculitis. Problem List - Problems (1) Cerebral venous sinus thrombosis Code(s): G08 - INTRACRANIAL AND INTRASPINAL PHLEBITIS AND THROMBOPHLEBITIS
--- NOTE | 2019-03-06 16:44 | PN ---
Physical Exam: SUBJECTIVE: Patient seen and examined Currently, pt is doing well. No overnight event or fevers. Pt has not developed a fever since abx were changed. Admits to watery diarrhea and RUQ pain persists. Denies f/c/n/v/sob/chest pain. OBJECTIVE: Vital Signs Period Temp Pulse Resp BP Sys/Ruano Pulse Ox Last 24 Hr 98.1 F-99.0 F 81-115 18-22 133-151/84-97 93-100 GENERAL: Awake, Alert, oriented x3 Neuro: CN2-12 intact, senstation 5/5, strenght 5/5 EYES: Pupils reactive to light . LUNGS: CTAB HEART: Regular rate, normal S1 and S2 without murmur, rub or gallop. ABDOMEN: RUQ and epigastric tenderness. No guarding or rebound tenderness. Szymanski sign negative. Not distended, normoactive bowel sounds UPPER EXTREMITIES: 2+ pulses, warm, no edema LOWER EXTREMITIES: 2+ pulses, warm, no edema SKIN: Warm, dry Laboratory Results - last 24 hr CBC,CMP WBC 6.4 K/mm3 (4.0-10.0) 03/06/19 08:05 RBC 3.52 M/mm3 (3.60-5.2) L 03/06/19 08:05 Hgb 8.6 GM/dL (10.7-15.3) L 03/06/19 08:05 Hct 27.1 % (32.4-45.2) L D 03/06/19 08:05 MCV 77.1 fl (80-96) L 03/06/19 08:05 MCH 24.3 pg (25.7-33.7) L 03/06/19 08:05 MCHC 31.5 g/dl (32.0-36.0) L 03/06/19 08:05 RDW 18.1 % (11.6-15.6) H 03/06/19 08:05 Plt Count 484 K/MM3 (134-434) H D 03/06/19 08:05 MPV 8.3 fl (7.5-11.1) 03/06/19 08:05 Absolute Neuts (auto) 2.9 K/mm3 (1.5-8.0) 03/04/19 07:30 Neutrophils % 47.0 % (42.8-82.8) D 03/04/19 07:30 Neutrophils % (Manual) 55.7 % (42.8-82.8) 02/25/19 09:00 Band Neutrophils % 20.6 % 02/25/19 09:00 Lymphocytes % 32.0 % (8-40) D 03/04/19 07:30 Lymphocytes % (Manual) 14.4 % (8-40) D 02/25/19 09:00 Monocytes % 9.9 % (3.8-10.2) 03/04/19 07:30 Monocytes % (Manual) 2 % (3.8-10.2) L 02/25/19 09:00 Eosinophils % 10.5 % (0-4.5) H D 03/04/19 07:30 Eosinophils % (Manual) 6.2 % (0-4.5) H D 02/25/19 09:00 Basophils % 0.6 % (0-2.0) 03/04/19 07:30 Basophils % (Manual) 1.0 % (0-2.0) D 02/25/19 09:00 Myelocytes % (Man) 0 % (0-2) 02/25/19 09:00 Promyelocytes % (Man) 0 % (0-2) 02/25/19 09:00 Blast Cells % (Manual) 0 % (0-0) 02/25/19 09:00 Nucleated RBC % 0 % (0-0) 03/04/19 07:30 Metamyelocytes 0 % (0-2) D 02/25/19 09:00 Hypochromia 1+ 02/25/19 09:00 Platelet Estimate Normal 02/25/19 09:00 Polychromasia 0 02/25/19 09:00 Poikilocytosis 1+ 02/25/19 09:00 Anisocytosis 1+ 02/25/19 09:00 Microcytosis 1+ 02/25/19 09:00 Ovalocytes 1+ 02/25/19 09:00 Schistocytes 1+ 02/25/19 09:00 ESR 109 mm/hr (0-20) H 03/03/19 06:50 Retic Count 1.13 % (0.5-1.5) 02/26/19 08:25 Sodium 138 mmol/L (136-145) 03/06/19 08:05 Potassium 3.9 mmol/L (3.5-5.1) 03/06/19 08:05 Chloride 106 mmol/L (98-107) 03/06/19 08:05 Carbon Dioxide 26 mmol/L (21-32) 03/06/19 08:05 Anion Gap 6 MMOL/L (8-16) L 03/06/19 08:05 BUN 5.1 mg/dL (7-18) L 03/06/19 08:05 Creatinine 0.6 mg/dL (0.55-1.3) 03/06/19 08:05 Est GFR (CKD-EPI)AfAm 130.30 03/06/19 08:05 Est GFR (CKD-EPI)NonAf 112.42 03/06/19 08:05 Random Glucose 84 mg/dL (74-106) 03/06/19 08:05 Lactic Acid 1.8 mmol/L (0.4-2.0) 02/25/19 09:00 Calcium 8.5 mg/dL (8.5-10.1) 03/06/19 08:05 Phosphorus 2.3 mg/dL (2.5-4.9) L 03/02/19 06:00 Magnesium 2.1 mg/dL (1.8-2.4) 03/02/19 06:00 Iron 8 ug/dL (50-175) L 02/26/19 08:25 TIBC 250 ug/dL (250-450) 02/26/19 08:25 Iron Saturation 3 % (17.5-39) L 02/26/19 08:25 Unsaturated IBC 242 ug/dL (200-275) 02/26/19 08:25 Transferrin 195 mg/dL (200-370) L 02/26/19 08:25 Ferritin 44.3 ng/ml (8-388) 02/26/19 08:25 Total Bilirubin 0.6 mg/dL (0.2-1) 03/02/19 06:00 AST 20 U/L (15-37) 03/02/19 06:00 ALT 13 U/L (13-61) 03/02/19 06:00 Alkaline Phosphatase 87 U/L (45-117) 03/02/19 06:00 C-Reactive Protein 18.3 MG/DL (0.00-0.3) H 03/02/19 12:20 Total Protein 6.4 g/dl (6.4-8.2) 03/02/19 06:00 Albumin 2.4 g/dl (3.4-5.0) L 03/02/19 06:00 Zqsg-1-Rylridcxjqpr 17 (0-20) 02/26/19 08:25 Vitamin B12 297 pg/ml (193-986) 02/26/19 08:25 Serum Folate 6 ng/mL (3.1-17.5) 02/26/19 08:25 TSH 0.97 uIU/ml (0.358-3.74) 02/26/19 08:25 Serum , Qual Negative 02/24/19 16:00 Active Medications Current Medications Acetaminophen (Tylenol -) 650 mg PO Q6H PRN PRN Reason: FEVER Last Admin: 03/05/19 12:48 Dose: 650 mg Albuterol/Ipratropium (Duoneb -) 1 amp NEB Q6H PRN PRN Reason: SHORTNESS OF BREATH Cyanocobalamin (Vitamin B12 -) 1,000 mcg PO DAILY WADE Last Admin: 03/06/19 10:05 Dose: 1,000 mcg Heparin Sodium (Porcine) (Heparin -) 1,000 unit IVPUSH PRN PRN PRN Reason: Heparin Last Admin: 03/06/19 00:49 Dose: 1,000 unit Heparin Sodium (Porcine) (Heparin -) 5,000 unit IVPUSH PRN PRN PRN Reason: Heparin Last Admin: 03/04/19 11:00 Dose: 5,000 unit Piperacillin Sod/Tazobactam (Sod 3.375 gm/ Dextrose) 50 mls @ 100 mls/hr IVPB Q8H-IV WADE Last Admin: 03/06/19 10:03 Dose: 100 mls/hr Heparin Sodium (Porcine) 25, (000 unit/ Sodium Chloride) 500 mls @ 16 mls/hr IV TITR WADE; Protocol Last Titration: 03/06/19 00:49 Dose: 1,300 unit/hr, 26 mls/hr Levetiracetam (Keppra Injection -) 500 mg IVPB BID WADE Last Admin: 03/06/19 10:03 Dose: 500 mg Metoprolol Succinate (Toprol Xl -) 25 mg PO DAILY [facility] Last Admin: 03/06/19 10:05 Dose: 25 mg Pantoprazole Sodium (Protonix Iv) 40 mg IVPUSH DAILY [facility] Last Admin: 03/06/19 10:03 Dose: 40 mg Home Medications Medication Instructions Recorded Aspirin [ASA -] 325 mg PO DAILY 02/07/19 Atorvastatin Ca [Lipitor] 40 mg PO HS 02/07/19 Metoprolol Succinate 25 mg PO DAILY 02/07/19 Coumadin 3 mg PO DAILY 02/26/19 Microbiology 03/01/19 08:32 Blood - Peripheral Venous Blood Culture - Final NO GROWTH AFTER 5 DAYS INCUBATION 03/01/19 08:10 Blood - Peripheral Venous Blood Culture - Final NO GROWTH AFTER 5 DAYS INCUBATION 03/02/19 02:10 Blood - Peripheral Venous Blood Culture - Preliminary NO GROWTH OBTAINED AFTER 96 HOURS, INCUBATION TO CONTINUE FOR 1 DAYS. 03/02/19 02:10 Blood - Peripheral Venous Blood Culture - Preliminary NO GROWTH OBTAINED AFTER 96 HOURS, INCUBATION TO CONTINUE FOR 1 DAYS. 03/03/19 17:55 Stool Clostridioides difficile Antigen - Final 03/03/19 17:55 Stool Clostridioides difficile Toxin Assay - Final 02/26/19 16:30 Blood - Arterial Blood Culture - Final NO GROWTH AFTER 5 DAYS INCUBATION 02/26/19 16:30 Blood - Arterial Blood Culture - Final NO GROWTH AFTER 5 DAYS INCUBATION 03/02/19 06:00 Urine - Urine Clean Catch Urine Culture - Final NO GROWTH OBTAINED 02/24/19 19:00 Blood - Peripheral Venous Blood Culture - Final NO GROWTH AFTER 5 DAYS INCUBATION 02/24/19 19:00 Blood - Peripheral Venous Blood Culture - Final NO GROWTH AFTER 5 DAYS INCUBATION 02/26/19 17:00 Urine - Urine Perales Urine Culture - Final NO GROWTH OBTAINED 02/25/19 11:00 Sputum - Endotrachea Suction/Ventilator Gram Stain - Final 02/25/19 11:00 Sputum - Endotrachea Suction/Ventilator Sputum Culture - Final Staphylococcus Aureus 02/24/19 16:00 Urine - Urine Perales Urine Culture - Final NO GROWTH OBTAINED ASSESSMENT/PLAN: 44 y/o F, pmh of HTN, alcohol abuse, hx of dural venous thrombosis, and hemorrhagic stroke 3 months ago requiring hospitalization at [facility] ([facility] placed pt on coumadin?), presents today s/p seizures likely 2/2 to seizure medication noncompliance vs withdrawal vs neural injury #S/p Seizures Cont Keppra 500 BID EEG done-mild evidence of slowing, no electrical seizures noted Dr. Ron consulted- Cocaine contaminated with Levamisol can induce ANCA+ vasculitis, however, he does not think this is the issue with this pt. #Fever likely 2/2 to pneumonia Afebrile so far Cont Zosyn, consider switching to oral tomorrow- augmentin #Anemia Likely 2/2 to GI bleed Spoke to GI, EGD was negative for any significant findings or ulcers, bx taken- f/u pathology Dr. Danielson suggested optimization medical, especially pt's pulmonary issues/ pneumonia, then colonoscopy for further investigation of anemia and hemtochezia. cont PPI's and Clear liquids Cont Heparin gtt #Diarrhea C-diff negative #Hx of Dural venous thrombosis Cont to monitor PTT #HTN cont metoprolol F: E: monitor lytes N: Clear liquids Dispo: cont abx, medical optimization and colonoscopy before starting Coumadin Visit type - Emergency Visit Emergency Visit: Yes ED Registration Date: 02/24/19 Care time: The patient presented to the Emergency Department on the above date and was hospitalized for further evaluation of their emergent condition. - New Patient This patient is new to me today: Yes Date on this admission: 03/06/19 - Critical Care Critical Care patient: No - Discharge Referral Referred to [facility] Med P.C.: No ATTENDING PHYSICIAN STATEMENT I saw and evaluated the patient. I reviewed the resident's note and discussed the case with the resident. I agree with the resident's findings and plan as documented. SUBJECTIVE: OBJECTIVE: ASSESSMENT AND PLAN:
[2019-03-06] MEDS: HEPARIN - 25,000 UNIT in SODIUM CHLORIDE 495 ML IV SCH (19:30)
[2019-03-06] MEDS: ACETAMINOPHEN 325 MG TABLET (FP) PO PRN (21:55)
[2019-03-07] MEDS ORDERED: PIPERACILLIN/TAZOBACTAM 3.375 GM VIAL IVPB ONE ×2 (01:33→09:48)
[2019-03-07] MEDS ORDERED: DEXTROSE 5%-WATER - 50 ML IVPB ONE ×2 (01:33→09:48)
[2019-03-07] MEDS: PIPERACILLIN/TAZOB 3.375 GM 3.375 GM in DEXTROSE 5%-WATER - 50 ML IVPB SCH ×2 (01:46→10:46)
[2019-03-07 09:15] LABS: HEMATOCRIT 25.2 % (32.4-45.2); HEMOGLOBIN 8.1 GM/dL (10.7-15.3); MCH 24.6 pg (25.7-33.7); MCHC 32.2 g/dl (32.0-36.0); MEAN CELL VOLUME 76.3 fl (80-96); MEAN PLT VOLUME 7.8 fl (7.5-11.1); PLATELET COUNT 492 K/MM3 (134-434); RDW 18.1 % (11.6-15.6)
[2019-03-07 09:46] LABS: CALCIUM 8.8 mg/dL (8.5-10.1); CREATININE 0.6 mg/dL (0.55-1.3); POTASSIUM 3.9 mmol/L (3.5-5.1)
[2019-03-07] MEDS ORDERED: PT OWN MED DRAWER 7, Y5N ONE ×2 (09:48→16:46)
[2019-03-07] MEDS: PANTOPRAZOLE SODIUM 40 MG VIAL IVPUSH SCH (09:50)
[2019-03-07] MEDS: levETIRAcetam 500 MG/5 ML INJECTION VIAL IVPB SCH ×2 (09:51→22:01)
[2019-03-07] MEDS: metoPROLOL SUCCINATE 25 MG TAB.SR.24H (FP) PO SCH (09:51)
--- NOTE | 2019-03-07 10:45 | PN ---
Progress Note (short form) - Note Progress Note: PULMONARY Still with nonproductive cough. No fevers. Vital Signs Period Temp Pulse Resp BP Sys/Ruano Pulse Ox Last 24 Hr 97.7 F-99.0 F 75-98 18-22 124-151/77-89 93-100 Gen: NAD at rest Heart: RRR Lung: decreased breath sounds at the bases Abd: soft, nontender Ext: no edema CBC, BMP 03/07/19 09:11 03/07/19 09:11 Active Medications Acetaminophen (Tylenol -) 650 mg PO Q6H PRN PRN Reason: FEVER Last Admin: 03/06/19 21:55 Dose: 650 mg Albuterol/Ipratropium (Duoneb -) 1 amp NEB Q6H PRN PRN Reason: SHORTNESS OF BREATH Cyanocobalamin (Vitamin B12 -) 1,000 mcg PO DAILY [facility] Last Admin: 03/06/19 10:05 Dose: 1,000 mcg Heparin Sodium (Porcine) (Heparin -) 1,000 unit IVPUSH PRN PRN PRN Reason: Heparin Last Admin: 03/06/19 00:49 Dose: 1,000 unit Heparin Sodium (Porcine) (Heparin -) 5,000 unit IVPUSH PRN PRN PRN Reason: Heparin Last Admin: 03/04/19 11:00 Dose: 5,000 unit Piperacillin Sod/Tazobactam (Sod 3.375 gm/ Dextrose) 50 mls @ 100 mls/hr IVPB Q8H-IV WADE Last Admin: 03/07/19 01:46 Dose: 100 mls/hr Heparin Sodium (Porcine) 25, (000 unit/ Sodium Chloride) 500 mls @ 16 mls/hr IV TITR WADE; Protocol Last Titration: 03/07/19 09:51 Dose: 1,300 unit/hr, 26 mls/hr Levetiracetam (Keppra Injection -) 500 mg IVPB BID WADE Last Admin: 03/07/19 09:51 Dose: 500 mg Metoprolol Succinate (Toprol Xl -) 25 mg PO DAILY [facility] Last Admin: 03/07/19 09:51 Dose: 25 mg Pantoprazole Sodium (Protonix Iv) 40 mg IVPUSH DAILY [facility] Last Admin: 03/07/19 09:50 Dose: 40 mg A/P s/p Status Epilepticus s/p Acute Respiratory Failure Pneumonia likely Aspiration Sepsis Lactic Acidosis Alcohol Abuse Cocaine Use h/o Dural [place] Sinus Thrombosis HTN Anemia - antiepileptics - continue antibiotics as per ID - monitor fever curve, WBC trend - monitor urine output, creatinine - continue anticoagulation to target INR 2-3, resume oral anticoagulation - DVT/GI prophylaxis
[2019-03-07] MEDS: CYANOCOBALAMIN 1,000 MCG TABLET (FP) PO SCH (10:47)
--- NOTE | 2019-03-07 13:40 | PN ---
Progress Note, Physician History of Present Illness: non productive cough sounds much better - Current Medication List Current Medications: Active Medications Acetaminophen (Tylenol -) 650 mg PO Q6H PRN PRN Reason: FEVER Last Admin: 03/06/19 21:55 Dose: 650 mg Albuterol/Ipratropium (Duoneb -) 1 amp NEB Q6H PRN PRN Reason: SHORTNESS OF BREATH Cyanocobalamin (Vitamin B12 -) 1,000 mcg PO DAILY [facility] Last Admin: 03/07/19 10:47 Dose: 1,000 mcg Heparin Sodium (Porcine) (Heparin -) 1,000 unit IVPUSH PRN PRN PRN Reason: Heparin Last Admin: 03/06/19 00:49 Dose: 1,000 unit Heparin Sodium (Porcine) (Heparin -) 5,000 unit IVPUSH PRN PRN PRN Reason: Heparin Last Admin: 03/04/19 11:00 Dose: 5,000 unit Piperacillin Sod/Tazobactam (Sod 3.375 gm/ Dextrose) 50 mls @ 100 mls/hr IVPB Q8H-IV WADE Last Admin: 03/07/19 10:46 Dose: 100 mls/hr Heparin Sodium (Porcine) 25, (000 unit/ Sodium Chloride) 500 mls @ 16 mls/hr IV TITR WADE; Protocol Last Titration: 03/07/19 09:51 Dose: 1,300 unit/hr, 26 mls/hr Levetiracetam (Keppra Injection -) 500 mg IVPB BID WADE Last Admin: 03/07/19 09:51 Dose: 500 mg Metoprolol Succinate (Toprol Xl -) 25 mg PO DAILY [facility] Last Admin: 03/07/19 09:51 Dose: 25 mg Pantoprazole Sodium (Protonix Iv) 40 mg IVPUSH DAILY [facility] Last Admin: 03/07/19 09:50 Dose: 40 mg - Objective Vital Signs: Vital Signs Temperature 97.7 F 03/07/19 10:00 Pulse Rate 75 03/07/19 10:00 Respiratory Rate 20 03/07/19 10:00 Blood Pressure 124/77 03/07/19 10:00 O2 Sat by Pulse Oximetry (%) 98 03/06/19 20:57 Constitutional: Yes: No Distress, Calm Cardiovascular: Yes: S1, S2 Gastrointestinal: Yes: Normal Bowel Sounds, Soft Musculoskeletal: Yes: WNL Extremities: Yes: WNL Neurological: Yes: Alert, Oriented Psychiatric: Yes: Alert, Oriented Labs: CBC, BMP 03/07/19 09:11 03/07/19 09:11 INR, PTT INR 1.29 (0.83-1.09) H 03/04/19 07:30 Fibrinogen 397.0 mg/dL (238-498) 02/26/19 08:25 Assessment/Plan Status Epilepticus Acute Respiratory Failure Pneumonia likely Aspiration Sepsis Lactic Acidosis Alcohol Abuse Cocaine Use h/o Dural [place] Sinus Thrombosis HTN Anemia plan can switch to oral augmentin rest as per the team anticoagulation incentive marky
--- NOTE | 2019-03-07 14:45 | PN ---
Physical Exam: SUBJECTIVE: Patient seen and examined Pt is doing well. No overnight event or fevers. Pt has not developed a fever since abx were changed. Admits to watery diarrhea and RUQ pain still. Denies f/c /n/v/sob/chest pain. OBJECTIVE: Vital Signs Period Temp Pulse Resp BP Sys/Ruano Pulse Ox Last 24 Hr 97.7 F-98.6 F 75-95 20-20 124-150/77-87 98 GENERAL: Awake, Alert, oriented x3 Neuro: CN2-12 intact, senstation 5/5, strenght 5/5 EYES: Pupils reactive to light . LUNGS: CTAB HEART: Regular rate, normal S1 and S2 without murmur, rub or gallop. ABDOMEN: RUQ and epigastric tenderness. No guarding or rebound tenderness. Szymanski sign negative. Not distended, normoactive bowel sounds UPPER EXTREMITIES: 2+ pulses, warm, no edema LOWER EXTREMITIES: 2+ pulses, warm, no edema SKIN: Warm, dry Laboratory Results - last 24 hr 03/07/19 03/07/19 03/07/19 09:11 09:11 09:11 WBC 6.0 RBC 3.30 L Hgb 8.1 L Hct 25.2 L MCV 76.3 L MCH 24.6 L MCHC 32.2 RDW 18.1 H Plt Count 492 H MPV 7.8 PTT (Actin FS) 57.2 H Sodium 139 Potassium 3.9 Chloride 108 H Carbon Dioxide 25 Anion Gap 6 L BUN 6.0 L Creatinine 0.6 Est GFR (CKD-EPI)AfAm 130.30 Est GFR (CKD-EPI)NonAf 112.42 Random Glucose 103 Calcium 8.8 Active Medications Current Medications Acetaminophen (Tylenol -) 650 mg PO Q6H PRN PRN Reason: FEVER Last Admin: 03/06/19 21:55 Dose: 650 mg Albuterol/Ipratropium (Duoneb -) 1 amp NEB Q6H PRN PRN Reason: SHORTNESS OF BREATH Amoxicillin/Clavulanate Potassium (Augmentin - 875mg Tablet) 1 tab PO BID@0800, 1730 WADE Cyanocobalamin (Vitamin B12 -) 1,000 mcg PO DAILY WADE Last Admin: 03/07/19 10:47 Dose: 1,000 mcg Heparin Sodium (Porcine) (Heparin -) 1,000 unit IVPUSH PRN PRN PRN Reason: Heparin Last Admin: 03/06/19 00:49 Dose: 1,000 unit Heparin Sodium (Porcine) (Heparin -) 5,000 unit IVPUSH PRN PRN PRN Reason: Heparin Last Admin: 03/04/19 11:00 Dose: 5,000 unit Heparin Sodium (Porcine) 25, (000 unit/ Sodium Chloride) 500 mls @ 16 mls/hr IV TITR WADE; Protocol Last Titration: 03/07/19 09:51 Dose: 1,300 unit/hr, 26 mls/hr Levetiracetam (Keppra Injection -) 500 mg IVPB BID WADE Last Admin: 03/07/19 09:51 Dose: 500 mg Metoprolol Succinate (Toprol Xl -) 25 mg PO DAILY [facility] Last Admin: 03/07/19 09:51 Dose: 25 mg Pantoprazole Sodium (Protonix Iv) 40 mg IVPUSH DAILY [facility] Last Admin: 03/07/19 09:50 Dose: 40 mg Home Medications Medication Instructions Recorded Aspirin [ASA -] 325 mg PO DAILY 02/07/19 Atorvastatin Ca [Lipitor] 40 mg PO HS 02/07/19 Metoprolol Succinate 25 mg PO DAILY 02/07/19 Coumadin 3 mg PO DAILY 02/26/19 Microbiology 03/02/19 02:10 Blood - Peripheral Venous Blood Culture - Final NO GROWTH AFTER 5 DAYS INCUBATION 03/02/19 02:10 Blood - Peripheral Venous Blood Culture - Final NO GROWTH AFTER 5 DAYS INCUBATION 03/01/19 08:32 Blood - Peripheral Venous Blood Culture - Final NO GROWTH AFTER 5 DAYS INCUBATION 03/01/19 08:10 Blood - Peripheral Venous Blood Culture - Final NO GROWTH AFTER 5 DAYS INCUBATION 03/03/19 17:55 Stool Clostridioides difficile Antigen - Final 03/03/19 17:55 Stool Clostridioides difficile Toxin Assay - Final 02/26/19 16:30 Blood - Arterial Blood Culture - Final NO GROWTH AFTER 5 DAYS INCUBATION 02/26/19 16:30 Blood - Arterial Blood Culture - Final NO GROWTH AFTER 5 DAYS INCUBATION 03/02/19 06:00 Urine - Urine Clean Catch Urine Culture - Final NO GROWTH OBTAINED 02/24/19 19:00 Blood - Peripheral Venous Blood Culture - Final NO GROWTH AFTER 5 DAYS INCUBATION 02/24/19 19:00 Blood - Peripheral Venous Blood Culture - Final NO GROWTH AFTER 5 DAYS INCUBATION 02/26/19 17:00 Urine - Urine Perales Urine Culture - Final NO GROWTH OBTAINED 02/25/19 11:00 Sputum - Endotrachea Suction/Ventilator Gram Stain - Final 02/25/19 11:00 Sputum - Endotrachea Suction/Ventilator Sputum Culture - Final Staphylococcus Aureus 02/24/19 16:00 Urine - Urine Perales Urine Culture - Final NO GROWTH OBTAINED ASSESSMENT/PLAN: 44 y/o F, pmh of HTN, alcohol abuse, hx of dural venous thrombosis, and hemorrhagic stroke 3 months ago requiring hospitalization at [facility] ([facility] placed pt on coumadin?), presents today s/p seizures likely 2/2 to seizure medication noncompliance vs withdrawal vs neural injury #S/p Seizures Cont Keppra 500 BID #Fever likely 2/2 to pneumonia Afebrile so far Pt started on augmentin #Anemia Likely 2/2 to GI bleed EGD bx taken- f/u pathology Dr. Danielson suggested optimization medical, especially pt's pulmonary issues/ pneumonia, then colonoscopy for further investigation of anemia and hemtochezia. cont PPI's Cont Heparin gtt #Diarrhea C-diff negative #Hx of Dural venous thrombosis Cont to monitor PTT #HTN cont metoprolol F: E: monitor lytes N: Regular diet Dispo: cont abx, medical optimization and colonoscopy before starting Coumadin Visit type - Emergency Visit Emergency Visit: Yes ED Registration Date: 02/24/19 Care time: The patient presented to the Emergency Department on the above date and was hospitalized for further evaluation of their emergent condition. - New Patient This patient is new to me today: Yes Date on this admission: 03/07/19 - Critical Care Critical Care patient: No - Discharge Referral Referred to [facility] Med P.C.: No ATTENDING PHYSICIAN STATEMENT I saw and evaluated the patient. I reviewed the resident's note and discussed the case with the resident. I agree with the resident's findings and plan as documented. SUBJECTIVE: OBJECTIVE: ASSESSMENT AND PLAN:
--- NOTE | 2019-03-07 16:52 | PATH ---
Surgical Pathology Report Patient Name: ENRIQUE BRONSON [facility]. Rec. #: [id number] /Age/Gender: 1975 (Age: 44) / F Account: [id number] Location: [address] [place] [address] Taken: 03/06/2019 Received: 03/06/2019 Reported: 03/07/2019 Physicians: Sherly Danielson MD Specimen(s) Received A: DUODENUM B: STOMACH Clinical History Anemia Postoperative diagnosis: Gastritis Final Diagnosis A. DUODENUM, BIOPSY: DUODENAL MUCOSA WITH MODERATE TO SEVERE CHRONIC DUODENITIS, VILLOUS BLUNTING, AND INTRAEPITHELIAL LYMPHOCYTOSIS. SEE COMMENT. B. STOMACH, BIOPSY: GASTRIC MUCOSA WITH MILD CHRONIC GASTRITIS. IMMUNOHISTOCHEMICAL STAIN FOR H. PYLORI IS NEGATIVE. Comment: Part A, findings are nonspecific and may be seen in gluten sensitive enteropathy (celiac disease) and chronic duodenitis. In the presence of chronic inflammation the findings are likely related to chronic duodenitis. Serological correlations are suggested if clinically indicated. Electronically Signed Maritza Mckenzie M.D. Addendum Reported: 03/11/2019 Addendum Diagnosis Part A, Modified Murphy-Oberhuber classification of histologic findings in celiac disease: > 30 IEL/100 enterocytes, Increased crypt hyperplasia, and moderate to marked atrophy; Murphy type 3b. TTG-IgA antibodies positive result noted. Findings discussed with Dr. Danielson. Maritza Mckenzie M.D. Gross Description A. Received in formalin, labeled "biopsy duodenum" are 3 rinaldi, irregular portions of soft tissue ranging from 0.2-0.3 cm. in greatest dimension. The specimens are submitted in toto in one cassette. B. Received in formalin, labeled "biopsy stomach" is a rinaldi, irregular portion of soft tissue measuring 0.2 cm. in greatest dimension. The specimen is submitted in toto in one cassette. 03/07/201903/07/2019
[2019-03-07] MEDS: HEPARIN - 25,000 UNIT in SODIUM CHLORIDE 495 ML IV SCH (17:07)
[2019-03-07] MEDS: AMOX TR/POT CLAV 875MG/125MG TABLETS (FP) PO SCH (17:38)
--- NOTE | 2019-03-07 17:54 | PN ---
Teaching Attending Note Name of Resident: Allan Velazquez ATTENDING PHYSICIAN STATEMENT I saw and evaluated the patient. I reviewed the resident's note and discussed the case with the resident. I agree with the resident's findings and plan as documented. SUBJECTIVE: Patient is comfortable with no acute distress, no nausea or vomiting. Vital Signs Temperature 97.7 F 03/07/19 10:00 Pulse Rate 75 03/07/19 10:00 Respiratory Rate 20 03/07/19 10:00 Blood Pressure 124/77 03/07/19 10:00 O2 Sat by Pulse Oximetry (%) 98 03/06/19 20:57 no fever or chills upper abd pain . no diarrhea . no N/V . slight HORNER OBJECTIVE: NAD, awake CV: RRR, no MRG Lungs: CTAB Abd: no BS, soft. TTP in epigastric area and RUQ. No rebound tenderness or guarding Ext: No edema or erythema CBCD WBC 6.0 K/mm3 (4.0-10.0) 03/07/19 09:11 RBC 3.30 M/mm3 (3.60-5.2) L 03/07/19 09:11 Hgb 8.1 GM/dL (10.7-15.3) L 03/07/19 09:11 Hct 25.2 % (32.4-45.2) L 03/07/19 09:11 MCV 76.3 fl (80-96) L 03/07/19 09:11 MCHC 32.2 g/dl (32.0-36.0) 03/07/19 09:11 RDW 18.1 % (11.6-15.6) H 03/07/19 09:11 Plt Count 492 K/MM3 (134-434) H 03/07/19 09:11 MPV 7.8 fl (7.5-11.1) 03/07/19 09:11 CMP Sodium 139 mmol/L (136-145) 03/07/19 09:11 Potassium 3.9 mmol/L (3.5-5.1) 03/07/19 09:11 Chloride 108 mmol/L (98-107) H 03/07/19 09:11 Carbon Dioxide 25 mmol/L (21-32) 03/07/19 09:11 Anion Gap 6 MMOL/L (8-16) L 03/07/19 09:11 BUN 6.0 mg/dL (7-18) L 03/07/19 09:11 Creatinine 0.6 mg/dL (0.55-1.3) 03/07/19 09:11 Random Glucose 103 mg/dL (74-106) 03/07/19 09:11 Calcium 8.8 mg/dL (8.5-10.1) 03/07/19 09:11 Total Bilirubin 0.6 mg/dL (0.2-1) 03/02/19 06:00 AST 20 U/L (15-37) 03/02/19 06:00 ALT 13 U/L (13-61) 03/02/19 06:00 Alkaline Phosphatase 87 U/L (45-117) 03/02/19 06:00 Total Protein 6.4 g/dl (6.4-8.2) 03/02/19 06:00 Albumin 2.4 g/dl (3.4-5.0) L 03/02/19 06:00 Current Medications Generic Name Dose Route Start Last Admin Trade Name Shayq PRN Reason Stop Dose Admin Acetaminophen 650 mg 03/02/19 14:37 03/06/19 21:55 Tylenol - PO 650 mg Q6H PRN Administration FEVER Albuterol/Ipratropium 1 amp 03/02/19 13:01 Duoneb - NEB Q6H PRN SHORTNESS OF BREATH Amoxicillin/Clavulanate Potassium 1 tab 03/07/19 17:30 03/07/19 17:38 Augmentin - 875mg Tablet PO 1 tab BID@0800,1730 WADE Administration Cyanocobalamin 1,000 mcg 03/02/19 10:00 03/07/19 10:47 Vitamin B12 - PO 1,000 mcg DAILY WADE Administration Heparin Sodium (Porcine) 1,000 unit 03/03/19 15:51 03/06/19 00:49 Heparin - IVPUSH 1,000 unit PRN PRN Administration Heparin Heparin Sodium (Porcine) 5,000 unit 03/03/19 15:51 03/04/19 11:00 Heparin - IVPUSH 5,000 unit PRN PRN Administration Heparin Heparin Sodium (Porcine) 25, 500 mls @ 16 mls/hr 03/03/19 16:00 03/07/19 17: 07 000 unit/ Sodium Chloride IV 1,300 unit/hr TITR WADE 26 mls/hr Administration Protocol 800 UNIT/HR Levetiracetam 500 mg 03/01/19 22:00 03/07/19 09:51 Keppra Injection - IVPB 500 mg BID WADE Administration Metoprolol Succinate 25 mg 03/02/19 10:00 03/07/19 09:51 Toprol Xl - PO 25 mg DAILY WADE Administration Pantoprazole Sodium 40 mg 03/02/19 10:00 03/07/19 09:50 Protonix Iv IVPUSH 40 mg DAILY WADE Administration Home Medications Medication Instructions Recorded Aspirin [ASA -] 325 mg PO DAILY 02/07/19 Atorvastatin Ca [Lipitor] 40 mg PO HS 02/07/19 Metoprolol Succinate 25 mg PO DAILY 02/07/19 Coumadin 3 mg PO DAILY 02/26/19 ASSESSMENT AND PLAN: Patient is a 44yo female with PMhx of HTN, dural vein thrombosis , and hemorrhagic stroke, a previous seizure, and ETOH abuse who presented with seizures.She was intubated and admitted to ICU s/p extubation # Acute hypoxic resp failure. resolved s/p intubation and extubation # Seizures /status epilepticus: resolved. No recurrence. on Keppra BID, EEG was completed . Report pending # Fever. sepsis : resolved on oral augemntin now, s/p iv antibx # HTN: on Toprol XL # Iron def anemia s/p EGD as per GI : revealing mild patchy erythema in stomach , biopsied. Possible scalloped appearance of duodenum, biopsied r/o celiac disease. Otherwise unremarkable. No ulcers or evidence of bleeding. See scanned report for details.on IV heparin now, Follow up pathology results, Continue PPI daily , Resume clear liquid diet, Resume heparin gtt in 2-4 hours # H/o transverse and sigmoid sinus thrombosis ;follow complement levels , Lupus anticoagulants, and DsDNA ,ANC p, c pending cont heparin gtt # Acute hypoxic resp failure. resolved # Seizures /status epilepticus: resolved. No recurrence. # Fever. sepsis : resolved # HTN # Iron def anemia suggest IV Venofer # H/o transverse and sigmoid sinus thrombosis DVt Px; heparin drip
[2019-03-08 09:05] LABS: HEMATOCRIT 25.4 % (32.4-45.2); HEMOGLOBIN 8.2 GM/dL (10.7-15.3); MCH 24.8 pg (25.7-33.7); MCHC 32.4 g/dl (32.0-36.0); MEAN CELL VOLUME 76.6 fl (80-96); MEAN PLT VOLUME 8.7 fl (7.5-11.1); PLATELET COUNT 533 K/MM3 (134-434); RBC 3.32 M/mm3 (3.60-5.2); RDW 18.7 % (11.6-15.6); WHITE BLOOD COUNT 5.8 K/mm3 (4.0-10.0)
[2019-03-08 09:20] LABS: BLOOD UREA NITROGEN 8.1 mg/dL (7-18); CALCIUM 8.7 mg/dL (8.5-10.1); CREATININE 0.6 mg/dL (0.55-1.3); POTASSIUM 4.4 mmol/L (3.5-5.1)
[2019-03-08] MEDS ORDERED: PT OWN MED DRAWER 7, Y5N ONE (09:29)
[2019-03-08] MEDS: CYANOCOBALAMIN 1,000 MCG TABLET (FP) PO SCH (09:41)
[2019-03-08] MEDS: PANTOPRAZOLE SODIUM 40 MG VIAL IVPUSH SCH (09:41)
[2019-03-08] MEDS: levETIRAcetam 500 MG/5 ML INJECTION VIAL IVPB SCH ×2 (09:41→21:26)
[2019-03-08] MEDS: AMOX TR/POT CLAV 875MG/125MG TABLETS (FP) PO SCH ×2 (09:41→17:55)
[2019-03-08] MEDS: metoPROLOL SUCCINATE 25 MG TAB.SR.24H (FP) PO SCH (09:42)
--- NOTE | 2019-03-08 12:25 | PN ---
Progress Note (short form) - Note Progress Note: Patient seen and examined Complains of non productive cough Last Vital Signs Temp Pulse Resp BP Pulse Ox 98.1 F 78 20 144/94 98 03/07/19 22:00 03/07/19 22:00 03/07/19 22:00 03/07/19 22:00 03/07/19 21:00 CBC, BMP 03/08/19 07:50 03/08/19 07:50 HEENT: TEMI, EOM Intact Oropharynx: No thrush, No mucositis Cor: RSR, No murmurs, No gallops Lungs: diminished breath sounds LLL Abd: Soft, Normal bowel sounds, No organomegaly Ext:No significant edema Skin: No rashes, Integument intact Current Medications Generic Name Dose Route Start Last Admin Trade Name Freq PRN Reason Stop Dose Admin Acetaminophen 650 mg 03/02/19 14:37 03/06/19 21:55 Tylenol - PO 650 mg Q6H PRN Administration FEVER Albuterol/Ipratropium 1 amp 03/02/19 13:01 Duoneb - NEB Q6H PRN SHORTNESS OF BREATH Amoxicillin/Clavulanate Potassium 1 tab 03/07/19 17:30 03/08/19 09:41 Augmentin - 875mg Tablet PO 1 tab BID@0800,1730 WADE Administration Cyanocobalamin 1,000 mcg 03/02/19 10:00 03/08/19 09:41 Vitamin B12 - PO 1,000 mcg DAILY WADE Administration Heparin Sodium (Porcine) 1,000 unit 03/03/19 15:51 03/06/19 00:49 Heparin - IVPUSH 1,000 unit PRN PRN Administration Heparin Heparin Sodium (Porcine) 5,000 unit 03/03/19 15:51 03/04/19 11:00 Heparin - IVPUSH 5,000 unit PRN PRN Administration Heparin Heparin Sodium (Porcine) 25, 500 mls @ 16 mls/hr 03/03/19 16:00 03/07/19 17: 07 000 unit/ Sodium Chloride IV 1,300 unit/hr TITR WADE 26 mls/hr Administration Protocol 800 UNIT/HR Levetiracetam 500 mg 03/01/19 22:00 03/08/19 09:41 Keppra Injection - IVPB 500 mg BID WADE Administration Metoprolol Succinate 25 mg 03/02/19 10:00 03/08/19 09:42 Toprol Xl - PO 25 mg DAILY WADE Administration Pantoprazole Sodium 40 mg 03/02/19 10:00 03/08/19 09:41 Protonix Iv IVPUSH 40 mg DAILY WADE Administration Impression # Acute hypoxic resp failure. resolved # Seizures /status epilepticus: resolved. No recurrence. # Fever. sepsis : resolved # HTN # Iron def anemia # H/o transverse and sigmoid sinus thrombosis HBP Dural vein thrombosis Hemorrhagic stroke ETOH abuse Cocaine abuse Seizures Vitamin B-12 deficiency Suggest IV Venofer A/C upon discharge ? NOAC
--- NOTE | 2019-03-08 12:41 | PN ---
Progress Note, Physician History of Present Illness: stable no new issues - Current Medication List Current Medications: Active Medications Acetaminophen (Tylenol -) 650 mg PO Q6H PRN PRN Reason: FEVER Last Admin: 03/06/19 21:55 Dose: 650 mg Albuterol/Ipratropium (Duoneb -) 1 amp NEB Q6H PRN PRN Reason: SHORTNESS OF BREATH Amoxicillin/Clavulanate Potassium (Augmentin - 875mg Tablet) 1 tab PO BID@0800, 1730 [facility] Last Admin: 03/08/19 09:41 Dose: 1 tab Cyanocobalamin (Vitamin B12 -) 1,000 mcg PO DAILY [facility] Last Admin: 03/08/19 09:41 Dose: 1,000 mcg Heparin Sodium (Porcine) (Heparin -) 1,000 unit IVPUSH PRN PRN PRN Reason: Heparin Last Admin: 03/06/19 00:49 Dose: 1,000 unit Heparin Sodium (Porcine) (Heparin -) 5,000 unit IVPUSH PRN PRN PRN Reason: Heparin Last Admin: 03/04/19 11:00 Dose: 5,000 unit Heparin Sodium (Porcine) 25, (000 unit/ Sodium Chloride) 500 mls @ 16 mls/hr IV TITR [facility]; Protocol Last Admin: 03/07/19 17:07 Dose: 1,300 unit/hr, 26 mls/hr Iron Sucrose 200 mg/ Sodium (Chloride) 100 mls @ 100 mls/hr IVPB ONCE ONE Stop: 03/08/19 13:59 Levetiracetam (Keppra Injection -) 500 mg IVPB BID [facility] Last Admin: 03/08/19 09:41 Dose: 500 mg Metoprolol Succinate (Toprol Xl -) 25 mg PO DAILY [facility] Last Admin: 03/08/19 09:42 Dose: 25 mg Pantoprazole Sodium (Protonix Iv) 40 mg IVPUSH DAILY [facility] Last Admin: 03/08/19 09:41 Dose: 40 mg - Objective Vital Signs: Vital Signs Temperature 98.1 F 03/07/19 22:00 Pulse Rate 78 03/07/19 22:00 Respiratory Rate 20 03/07/19 22:00 Blood Pressure 144/94 03/07/19 22:00 O2 Sat by Pulse Oximetry (%) 98 03/07/19 21:00 Constitutional: Yes: No Distress, Calm Cardiovascular: Yes: S1, S2 Respiratory: Yes: Regular, CTA Bilaterally Gastrointestinal: Yes: Normal Bowel Sounds, Soft Musculoskeletal: Yes: WNL Extremities: Yes: WNL Neurological: Yes: Alert, Oriented Psychiatric: Yes: Alert, Oriented Labs: CBC, BMP 03/08/19 07:50 03/08/19 07:50 INR, PTT INR 1.29 (0.83-1.09) H 03/04/19 07:30 Fibrinogen 397.0 mg/dL (238-498) 02/26/19 08:25 Assessment/Plan Status Epilepticus Acute Respiratory Failure Pneumonia likely Aspiration Sepsis Lactic Acidosis Alcohol Abuse Cocaine Use h/o Dural [place] Sinus Thrombosis HTN Anemia plan oral meds rest continue current mgmt
[2019-03-08] MEDS: HEPARIN NA (PORCINE) 5,000 UNITS/ML 1ML VIAL IVPUSH PRN (12:47)
[2019-03-08] MEDS ORDERED: IRON SUCROSE INJECTION 200 MG in SODIUM CHLORIDE 90 ML IVPB ONE (13:00)
--- NOTE | 2019-03-08 13:49 | PN ---
Progress Note (short form) - Note Progress Note: Patient optimized per primary team. Plan for colonoscopy sunday 03/11 Problem List - Problems (1) Anemia Code(s): D64.9 - ANEMIA, UNSPECIFIED
--- NOTE | 2019-03-08 14:19 | PN ---
Progress Note (short form) - Note Progress Note: PULMONARY Still with nonproductive cough VSS/afebrile Gen: NAD at rest Heart: RRR Lung: decreased breath sounds at the bases Abd: soft, nontender Ext: no edema Active Medications noted A/P s/p Status Epilepticus s/p Acute Respiratory Failure resolved Pneumonia likely Aspiration Sepsis Lactic Acidosis Alcohol Abuse Cocaine Use h/o Dural [place] Sinus Thrombosis HTN Anemia - antiepileptics - continue antibiotics as per ID - continue anticoagulation to target INR 2-3, resume oral anticoagulation - DVT/GI prophylaxis Kayley JOYCE MD
[2019-03-08] MEDS: HEPARIN - 25,000 UNIT in SODIUM CHLORIDE 495 ML IV SCH ×2 (14:24→18:02)
--- NOTE | 2019-03-08 15:16 | PN ---
Physical Exam: SUBJECTIVE: Patient seen and examined Pt is doing well. No overnight event or fevers. Pt has not developed a fever since abx were changed. Admits to watery diarrhea and RUQ pain, which has improved. Denies f/c/n/v/sob/chest pain. OBJECTIVE: Vital Signs Period Temp Pulse Resp BP Sys/Ruano Pulse Ox Last 24 Hr 98.1 F 78 20-20 144/94 98 GENERAL: Awake, Alert, oriented x3 Neuro: CN2-12 intact, senstation 5/5, strenght 5/5 EYES: Pupils reactive to light . LUNGS: CTAB HEART: Regular rate, normal S1 and S2 without murmur, rub or gallop. ABDOMEN: RUQ and epigastric tenderness. No guarding or rebound tenderness. Szymanski sign negative. Not distended, normoactive bowel sounds UPPER EXTREMITIES: 2+ pulses, warm, no edema LOWER EXTREMITIES: 2+ pulses, warm, no edema SKIN: Warm, dry Laboratory Results - last 24 hr 03/08/19 03/08/19 03/08/19 07:50 07:50 07:50 WBC 5.8 RBC 3.32 L Hgb 8.2 L Hct 25.4 L MCV 76.6 L MCH 24.8 L MCHC 32.4 RDW 18.7 H Plt Count 533 H MPV 8.7 D PTT (Actin FS) 43.1 H Sodium 138 Potassium 4.4 Chloride 107 Carbon Dioxide 24 Anion Gap 6 L BUN 8.1 Creatinine 0.6 Est GFR (CKD-EPI)AfAm 130.30 Est GFR (CKD-EPI)NonAf 112.42 Random Glucose 85 Calcium 8.7 Active Medications Current Medications Acetaminophen (Tylenol -) 650 mg PO Q6H PRN PRN Reason: FEVER Last Admin: 03/06/19 21:55 Dose: 650 mg Albuterol/Ipratropium (Duoneb -) 1 amp NEB Q6H PRN PRN Reason: SHORTNESS OF BREATH Amoxicillin/Clavulanate Potassium (Augmentin - 875mg Tablet) 1 tab PO BID@0800, 1730 [facility] Last Admin: 03/08/19 09:41 Dose: 1 tab Bisacodyl (Dulcolax -) 20 mg PO ONCE ONE Stop: 03/10/19 14:01 Cyanocobalamin (Vitamin B12 -) 1,000 mcg PO DAILY [facility] Last Admin: 03/08/19 09:41 Dose: 1,000 mcg Heparin Sodium (Porcine) (Heparin -) 1,000 unit IVPUSH PRN PRN PRN Reason: Heparin Last Admin: 03/08/19 12:47 Dose: 1,000 unit Heparin Sodium (Porcine) (Heparin -) 5,000 unit IVPUSH PRN PRN PRN Reason: Heparin Last Admin: 03/04/19 11:00 Dose: 5,000 unit Heparin Sodium (Porcine) 25, (000 unit/ Sodium Chloride) 500 mls @ 16 mls/hr IV TITR WADE; Protocol Last Admin: 03/08/19 14:24 Dose: 1,400 unit/hr, 28 mls/hr Levetiracetam (Keppra Injection -) 500 mg IVPB BID [facility] Last Admin: 03/08/19 09:41 Dose: 500 mg Metoprolol Succinate (Toprol Xl -) 25 mg PO DAILY [facility] Last Admin: 03/08/19 09:42 Dose: 25 mg Pantoprazole Sodium (Protonix Iv) 40 mg IVPUSH DAILY [facility] Last Admin: 03/08/19 09:41 Dose: 40 mg Polyethylene Glycol/Electrolytes (Golytely Solution -) 4,000 ml PO ONCE ONE Stop: 03/10/19 15:01 Home Medications Medication Instructions Recorded Aspirin [ASA -] 325 mg PO DAILY 02/07/19 Atorvastatin Ca [Lipitor] 40 mg PO HS 02/07/19 Metoprolol Succinate 25 mg PO DAILY 02/07/19 Coumadin 3 mg PO DAILY 02/26/19 Microbiology 03/02/19 02:10 Blood - Peripheral Venous Blood Culture - Final NO GROWTH AFTER 5 DAYS INCUBATION 03/02/19 02:10 Blood - Peripheral Venous Blood Culture - Final NO GROWTH AFTER 5 DAYS INCUBATION 03/01/19 08:32 Blood - Peripheral Venous Blood Culture - Final NO GROWTH AFTER 5 DAYS INCUBATION 03/01/19 08:10 Blood - Peripheral Venous Blood Culture - Final NO GROWTH AFTER 5 DAYS INCUBATION 03/03/19 17:55 Stool Clostridioides difficile Antigen - Final 03/03/19 17:55 Stool Clostridioides difficile Toxin Assay - Final 02/26/19 16:30 Blood - Arterial Blood Culture - Final NO GROWTH AFTER 5 DAYS INCUBATION 02/26/19 16:30 Blood - Arterial Blood Culture - Final NO GROWTH AFTER 5 DAYS INCUBATION 03/02/19 06:00 Urine - Urine Clean Catch Urine Culture - Final NO GROWTH OBTAINED 02/24/19 19:00 Blood - Peripheral Venous Blood Culture - Final NO GROWTH AFTER 5 DAYS INCUBATION 02/24/19 19:00 Blood - Peripheral Venous Blood Culture - Final NO GROWTH AFTER 5 DAYS INCUBATION 02/26/19 17:00 Urine - Urine Perales Urine Culture - Final NO GROWTH OBTAINED 02/25/19 11:00 Sputum - Endotrachea Suction/Ventilator Gram Stain - Final 02/25/19 11:00 Sputum - Endotrachea Suction/Ventilator Sputum Culture - Final Staphylococcus Aureus 02/24/19 16:00 Urine - Urine Perales Urine Culture - Final NO GROWTH OBTAINED ASSESSMENT/PLAN: 44 y/o F, pmh of HTN, alcohol abuse, hx of dural venous thrombosis, and hemorrhagic stroke 3 months ago requiring hospitalization at [facility] ([facility] placed pt on coumadin?), presents today s/p seizures likely 2/2 to seizure medication noncompliance vs withdrawal vs neural injury #S/p Seizures Cont Keppra 500 BID #Fever likely 2/2 to pneumonia Afebrile to date Pt started on augmentin #Anemia Likely 2/2 to GI bleed EGD bx taken- f/u pathology Colonoscopy planned for Sunday 03/11 Cont Heparin gtt IV venofer one time #Diarrhea C-diff negative #Hx of Dural venous thrombosis Cont to monitor PTT #HTN cont metoprolol F: E: monitor lytes N: Regular diet Dispo: cont abx, medically optimized, colonoscopy monday Visit type - Emergency Visit Emergency Visit: Yes ED Registration Date: 02/24/19 Care time: The patient presented to the Emergency Department on the above date and was hospitalized for further evaluation of their emergent condition. - New Patient This patient is new to me today: Yes Date on this admission: 03/08/19 - Critical Care Critical Care patient: No - Discharge Referral Referred to [facility] Med P.C.: No ATTENDING PHYSICIAN STATEMENT I saw and evaluated the patient. I reviewed the resident's note and discussed the case with the resident. I agree with the resident's findings and plan as documented. SUBJECTIVE: OBJECTIVE: ASSESSMENT AND PLAN:
--- NOTE | 2019-03-08 17:36 | PN ---
Progress Note (short form) - Note Progress Note: Discussed pman for colonoscopy with Ms. Sanchez for further evaluation of her anemia. Discussed potential risks of the procedure like but not limited to bleeding perforation requiring surgery to repair, infection, sedation medication effects all of which could be potentially life threatening. She has agreed to the procedure. Consent obtained. Orders in. Problem List - Problems (1) Anemia Code(s): D64.9 - ANEMIA, UNSPECIFIED
--- NOTE | 2019-03-08 20:12 | PN ---
Teaching Attending Note Name of Resident: Allan Velazquez ATTENDING PHYSICIAN STATEMENT I saw and evaluated the patient. I reviewed the resident's note and discussed the case with the resident. I agree with the resident's findings and plan as documented. SUBJECTIVE: Patient is comfortable with no acute distress, no nausea or vomiting. OBJECTIVE: Vital Signs Temperature 98.7 F 03/08/19 15:37 Pulse Rate 79 03/08/19 15:37 Respiratory Rate 20 03/08/19 15:37 Blood Pressure 123/76 03/08/19 15:37 O2 Sat by Pulse Oximetry (%) 97 03/08/19 09:00 GENERAL: The patient is awake, alert, and fully oriented, in no acute distress. HEAD: Normal with no signs of trauma. EYES: PERRL, extraocular movements intact, sclera anicteric, conjunctiva clear. ENT: Ears normal, oropharynx clear without exudates, moist mucous membranes. NECK: Trachea midline, full range of motion, supple. LUNGS: Breath sounds equal, clear to auscultation bilaterally, no wheezes, no crackles, no accessory muscle use. HEART: Regular rate and rhythm, S1, S2 without murmur, rub or gallop. ABDOMEN: Soft, NT,ND, normoactive bowel sounds, no guarding, no rebound, no hepatosplenomegaly, no masses. EXTREMITIES: 2+ pulses, warm, well-perfused, no edema. NEUROLOGICAL: Cranial nerves II through XII grossly intact. Normal speech, gait not observed. PSYCH: Normal mood, normal affect. SKIN: Warm, dry, normal turgor, no rashes or lesions noted CBCD WBC 5.8 K/mm3 (4.0-10.0) 03/08/19 07:50 RBC 3.32 M/mm3 (3.60-5.2) L 03/08/19 07:50 Hgb 8.2 GM/dL (10.7-15.3) L 03/08/19 07:50 Hct 25.4 % (32.4-45.2) L 03/08/19 07:50 MCV 76.6 fl (80-96) L 03/08/19 07:50 MCHC 32.4 g/dl (32.0-36.0) 03/08/19 07:50 RDW 18.7 % (11.6-15.6) H 03/08/19 07:50 Plt Count 533 K/MM3 (134-434) H 03/08/19 07:50 MPV 8.7 fl (7.5-11.1) D 03/08/19 07:50 CMP Sodium 138 mmol/L (136-145) 03/08/19 07:50 Potassium 4.4 mmol/L (3.5-5.1) 03/08/19 07:50 Chloride 107 mmol/L (98-107) 03/08/19 07:50 Carbon Dioxide 24 mmol/L (21-32) 03/08/19 07:50 Anion Gap 6 MMOL/L (8-16) L 03/08/19 07:50 BUN 8.1 mg/dL (7-18) 03/08/19 07:50 Creatinine 0.6 mg/dL (0.55-1.3) 03/08/19 07:50 Random Glucose 85 mg/dL (74-106) 03/08/19 07:50 Calcium 8.7 mg/dL (8.5-10.1) 03/08/19 07:50 Total Bilirubin 0.6 mg/dL (0.2-1) 03/02/19 06:00 AST 20 U/L (15-37) 03/02/19 06:00 ALT 13 U/L (13-61) 03/02/19 06:00 Alkaline Phosphatase 87 U/L (45-117) 03/02/19 06:00 Total Protein 6.4 g/dl (6.4-8.2) 03/02/19 06:00 Albumin 2.4 g/dl (3.4-5.0) L 03/02/19 06:00 Current Medications Generic Name Dose Route Start Last Admin Trade Name Freq PRN Reason Stop Dose Admin Acetaminophen 650 mg 03/02/19 14:37 03/06/19 21:55 Tylenol - PO 650 mg Q6H PRN Administration FEVER Albuterol/Ipratropium 1 amp 03/02/19 13:01 Duoneb - NEB Q6H PRN SHORTNESS OF BREATH Amoxicillin/Clavulanate Potassium 1 tab 03/07/19 17:30 03/08/19 17:55 Augmentin - 875mg Tablet PO 1 tab BID@0800,1730 WADE Administration Bisacodyl 20 mg 03/10/19 14:00 Dulcolax - PO 03/10/19 14:01 ONCE ONE Cyanocobalamin 1,000 mcg 03/02/19 10:00 03/08/19 09:41 Vitamin B12 - PO 1,000 mcg DAILY WADE Administration Heparin Sodium (Porcine) 1,000 unit 03/03/19 15:51 03/08/19 12:47 Heparin - IVPUSH 1,000 unit PRN PRN Administration Heparin Heparin Sodium (Porcine) 5,000 unit 03/03/19 15:51 03/04/19 11:00 Heparin - IVPUSH 5,000 unit PRN PRN Administration Heparin Heparin Sodium (Porcine) 25, 500 mls @ 16 mls/hr 03/03/19 16:00 03/08/19 18: 02 000 unit/ Sodium Chloride IV Not Given TITR [facility] Protocol 800 UNIT/HR Levetiracetam 500 mg 03/01/19 22:00 03/08/19 09:41 Keppra Injection - IVPB 500 mg BID WADE Administration Metoprolol Succinate 25 mg 03/02/19 10:00 03/08/19 09:42 Toprol Xl - PO 25 mg DAILY WADE Administration Pantoprazole Sodium 40 mg 03/02/19 10:00 03/08/19 09:41 Protonix Iv IVPUSH 40 mg DAILY WADE Administration Polyethylene Glycol/Electrolytes 4,000 ml 03/10/19 15:00 Golytely Solution - PO 03/10/19 15:01 ONCE ONE Home Medications Medication Instructions Recorded Aspirin [ASA -] 325 mg PO DAILY 02/07/19 Atorvastatin Ca [Lipitor] 40 mg PO HS 02/07/19 Metoprolol Succinate 25 mg PO DAILY 02/07/19 Coumadin 3 mg PO DAILY 02/26/19 Laboratory Tests 02/24/19 02/26/19 02/26/19 16:29 08:25 08:25 Iron 8 L TIBC 250 Iron Saturation 3 L Unsaturated IBC 242 Transferrin 195 L Ferritin 44.3 C-Reactive Protein Jqee-2-Wwavvuiychae Vitamin B12 297 Serum Folate 6 TSH 0.97 Cocaine Screen Positive A* Rheumatoid Arth Biomark MYNOR Screen Negative c-ANCA Proteinase 3 (PR3) p-ANCA Atypical p-ANCA Myeloperoxidase Ab Double Strand DNA Ab Qaos-0-Tbdvawxianke Ab Beta-2-GPI IgM Ab Tiss Transglutamin IgA Intrinsic Factor Ab Anti-Cardiolipin IgG Ab Anti-Cardiolipin IgA Ab Anti-Cardiolipin IgM Ab Tot Complement (CH50) 02/26/19 02/26/19 03/01/19 08:25 08:25 06:00 Iron TIBC Iron Saturation Unsaturated IBC Transferrin Ferritin C-Reactive Protein Tdeg-3-Hcmgmhillxsv 17 Vitamin B12 Serum Folate TSH Cocaine Screen Rheumatoid Arth Biomark 17.8 H MYNOR Screen c-ANCA Proteinase 3 (PR3) p-ANCA Atypical p-ANCA Myeloperoxidase Ab Double Strand DNA Ab Mcqv-6-Yyshlyvnqmmo Ab <9 Beta-2-GPI IgM Ab <9 Tiss Transglutamin IgA Intrinsic Factor Ab 0.9 Anti-Cardiolipin IgG Ab <9 Anti-Cardiolipin IgA Ab <9 Anti-Cardiolipin IgM Ab <9 Tot Complement (CH50) 03/02/19 03/02/19 03/03/19 12:20 12:20 06:50 Iron TIBC Iron Saturation Unsaturated IBC Transferrin Ferritin C-Reactive Protein 18.3 H Spbu-7-Fkuywgkyfgpk Vitamin B12 Serum Folate TSH Cocaine Screen Rheumatoid Arth Biomark MYNOR Screen c-ANCA <1:20 Proteinase 3 (PR3) 3.9 H p-ANCA <1:20 Atypical p-ANCA <1:20 Myeloperoxidase Ab <9.0 Double Strand DNA Ab Nwwy-1-Zhgtmtpdphsr Ab Beta-2-GPI IgM Ab Tiss Transglutamin IgA Intrinsic Factor Ab Anti-Cardiolipin IgG Ab Anti-Cardiolipin IgA Ab Anti-Cardiolipin IgM Ab Tot Complement (CH50) > 60 03/03/19 03/08/19 06:50 07:50 Iron TIBC Iron Saturation Unsaturated IBC Transferrin Ferritin C-Reactive Protein Ttxi-1-Odmkgxvvhpaz Vitamin B12 Serum Folate TSH Cocaine Screen Rheumatoid Arth Biomark MYNOR Screen c-ANCA Proteinase 3 (PR3) p-ANCA Atypical p-ANCA Myeloperoxidase Ab Double Strand DNA Ab 3 Nrwq-2-Yqhvejrimkrg Ab Beta-2-GPI IgM Ab Tiss Transglutamin IgA 9 H Intrinsic Factor Ab Anti-Cardiolipin IgG Ab Anti-Cardiolipin IgA Ab Anti-Cardiolipin IgM Ab Tot Complement (CH50) ASSESSMENT AND PLAN: 44 y/o lady with h/o HTN, dural vein thrombosis , and hemorrhagic stroke, a previous seizure, and ETOH abuse who presented with seizures.She was intubated and admitted to ICU # Acute hypoxic resp failure. resolved s/p intubation # Seizures /status epilepticus: resolved. No recurrence. on Keppra BID, EEG was completed . Report pending # Fever. sepsis : resolved on oral augemntin now, s/p iv antibx # HTN: on Toprol XL # Iron def anemia s/p EGD on IV heparin, is going for colonscopy on Monday and will resume eliquis post colonoscopy # H/o transverse and sigmoid sinus thrombosis ;follow complement levels , Lupus anticoagulants, and DsDNA ,ANC p, c pending cont heparin gtt colonoscopy on 03/11 by
[2019-03-09 08:54] LABS: HEMATOCRIT 25.5 % (32.4-45.2); HEMOGLOBIN 8.4 GM/dL (10.7-15.3); MCH 25.2 pg (25.7-33.7); MCHC 32.8 g/dl (32.0-36.0); MEAN CELL VOLUME 76.9 fl (80-96); MEAN PLT VOLUME 8.6 fl (7.5-11.1); PLATELET COUNT 575 K/MM3 (134-434); RBC 3.32 M/mm3 (3.60-5.2); RDW 18.7 % (11.6-15.6); WHITE BLOOD COUNT 4.9 K/mm3 (4.0-10.0)
[2019-03-09 09:15] LABS: BLOOD UREA NITROGEN 10.4 mg/dL (7-18); CALCIUM 8.9 mg/dL (8.5-10.1); CREATININE 0.5 mg/dL (0.55-1.3); MAGNESIUM 2.1 mg/dL (1.8-2.4); POTASSIUM 4.2 mmol/L (3.5-5.1)
[2019-03-09] MEDS: HEPARIN - 25,000 UNIT in SODIUM CHLORIDE 495 ML IV SCH ×3 (10:31→19:10)
[2019-03-09] MEDS: PANTOPRAZOLE SODIUM 40 MG VIAL IVPUSH SCH (10:35)
[2019-03-09] MEDS: levETIRAcetam 500 MG/5 ML INJECTION VIAL IVPB SCH ×2 (10:35→21:24)
[2019-03-09] MEDS: metoPROLOL SUCCINATE 25 MG TAB.SR.24H (FP) PO SCH (10:35)
[2019-03-09] MEDS: AMOX TR/POT CLAV 875MG/125MG TABLETS (FP) PO SCH ×2 (10:35→17:47)
[2019-03-09] MEDS ORDERED: PT OWN MED DRAWER 7, Y5N ONE (10:36)
[2019-03-09] MEDS: CYANOCOBALAMIN 1,000 MCG TABLET (FP) PO SCH (10:37)
[2019-03-09] MEDS ORDERED: guaiFENesin 200 MG/10 ML 10 ML UNIT-DOSE CUPS PO PRN (11:39)
--- NOTE | 2019-03-09 11:39 | PN ---
Progress Note (short form) - Note Progress Note: PULMONARY Still with nonproductive cough. No fevers. Vital Signs Period Temp Pulse Resp BP Sys/Ruano Pulse Ox Last 24 Hr 97.9 F-98.7 F 76-83 18-20 121-150/71-93 97 Gen: NAD at rest Heart: RRR Lung: decreased breath sounds at the bases Abd: soft, nontender Ext: no edema CBC, BMP 03/09/19 07:50 03/09/19 07:50 Active Medications Acetaminophen (Tylenol -) 650 mg PO Q6H PRN PRN Reason: FEVER Last Admin: 03/06/19 21:55 Dose: 650 mg Albuterol/Ipratropium (Duoneb -) 1 amp NEB Q6H PRN PRN Reason: SHORTNESS OF BREATH Amoxicillin/Clavulanate Potassium (Augmentin - 875mg Tablet) 1 tab PO BID@0800, 1730 [facility] Last Admin: 03/09/19 10:35 Dose: 1 tab Bisacodyl (Dulcolax -) 20 mg PO ONCE ONE Stop: 03/10/19 14:01 Cyanocobalamin (Vitamin B12 -) 1,000 mcg PO DAILY [facility] Last Admin: 03/09/19 10:37 Dose: 1,000 mcg Heparin Sodium (Porcine) (Heparin -) 1,000 unit IVPUSH PRN PRN PRN Reason: Heparin Last Admin: 03/08/19 12:47 Dose: 1,000 unit Heparin Sodium (Porcine) (Heparin -) 5,000 unit IVPUSH PRN PRN PRN Reason: Heparin Last Admin: 03/04/19 11:00 Dose: 5,000 unit Heparin Sodium (Porcine) 25, (000 unit/ Sodium Chloride) 500 mls @ 16 mls/hr IV TITR [facility]; Protocol Last Admin: 03/09/19 10:31 Dose: 1,300 unit/hr, 26 mls/hr Levetiracetam (Keppra Injection -) 500 mg IVPB BID [facility] Last Admin: 03/09/19 10:35 Dose: 500 mg Metoprolol Succinate (Toprol Xl -) 25 mg PO DAILY [facility] Last Admin: 03/09/19 10:35 Dose: 25 mg Pantoprazole Sodium (Protonix Iv) 40 mg IVPUSH DAILY [facility] Last Admin: 03/09/19 10:35 Dose: 40 mg Polyethylene Glycol/Electrolytes (Golytely Solution -) 4,000 ml PO ONCE ONE Stop: 03/10/19 15:01 A/P s/p Status Epilepticus s/p Acute Respiratory Failure Pneumonia likely Aspiration Sepsis Lactic Acidosis Alcohol Abuse Cocaine Use h/o Dural Celeste Sinus Thrombosis HTN Anemia - antiepileptics - continue antibiotics as per ID - monitor fever curve, WBC trend - monitor urine output, creatinine - continue anticoagulation to target INR 2-3, resume oral anticoagulation - DVT/GI prophylaxis
--- NOTE | 2019-03-09 11:53 | PN ---
Progress Note (short form) - Note Progress Note: Patient is comfortable with no acute distress, no nausea or vomiting. Vital Signs Temperature 97.9 F 03/09/19 06:26 Pulse Rate 83 03/09/19 06:26 Respiratory Rate 18 03/09/19 06:26 Blood Pressure 150/93 03/09/19 06:26 O2 Sat by Pulse Oximetry (%) 97 03/08/19 21:00 GENERAL: The patient is awake, alert, and fully oriented, in no acute distress. HEAD: Normal with no signs of trauma. EYES: PERRL, extraocular movements intact, sclera anicteric, conjunctiva clear. ENT: Ears normal, oropharynx clear without exudates, moist mucous membranes. NECK: Trachea midline, full range of motion, supple. LUNGS: Breath sounds equal, clear to auscultation bilaterally, no wheezes, no crackles, no accessory muscle use. HEART: Regular rate and rhythm, S1, S2 without murmur, rub or gallop. ABDOMEN: Soft, nontender, nondistended, normoactive bowel sounds, no guarding, no rebound, no hepatosplenomegaly, no masses. EXTREMITIES: 2+ pulses, warm, well-perfused, no edema. NEUROLOGICAL: Cranial nerves II through XII grossly intact. Normal speech, gait not observed. PSYCH: Normal mood, normal affect. SKIN: Warm, dry, normal turgor, no rashes or lesions noted CBCD WBC 4.9 K/mm3 (4.0-10.0) 03/09/19 07:50 RBC 3.32 M/mm3 (3.60-5.2) L 03/09/19 07:50 Hgb 8.4 GM/dL (10.7-15.3) L 03/09/19 07:50 Hct 25.5 % (32.4-45.2) L 03/09/19 07:50 MCV 76.9 fl (80-96) L 03/09/19 07:50 MCHC 32.8 g/dl (32.0-36.0) 03/09/19 07:50 RDW 18.7 % (11.6-15.6) H 03/09/19 07:50 Plt Count 575 K/MM3 (134-434) H 03/09/19 07:50 MPV 8.6 fl (7.5-11.1) 03/09/19 07:50 CMP Sodium 137 mmol/L (136-145) 03/09/19 07:50 Potassium 4.2 mmol/L (3.5-5.1) 03/09/19 07:50 Chloride 107 mmol/L (98-107) 03/09/19 07:50 Carbon Dioxide 26 mmol/L (21-32) 03/09/19 07:50 Anion Gap 4 MMOL/L (8-16) L 03/09/19 07:50 BUN 10.4 mg/dL (7-18) 03/09/19 07:50 Creatinine 0.5 mg/dL (0.55-1.3) L 03/09/19 07:50 Random Glucose 89 mg/dL (74-106) 03/09/19 07:50 Calcium 8.9 mg/dL (8.5-10.1) 03/09/19 07:50 Total Bilirubin 0.6 mg/dL (0.2-1) 03/02/19 06:00 AST 20 U/L (15-37) 03/02/19 06:00 ALT 13 U/L (13-61) 03/02/19 06:00 Alkaline Phosphatase 87 U/L (45-117) 03/02/19 06:00 Total Protein 6.4 g/dl (6.4-8.2) 03/02/19 06:00 Albumin 2.4 g/dl (3.4-5.0) L 03/02/19 06:00 Current Medications Generic Name Dose Route Start Last Admin Trade Name Freq PRN Reason Stop Dose Admin Acetaminophen 650 mg 03/02/19 14:37 03/06/19 21:55 Tylenol - PO 650 mg Q6H PRN Administration FEVER Albuterol/Ipratropium 1 amp 03/02/19 13:01 Duoneb - NEB Q6H PRN SHORTNESS OF BREATH Amoxicillin/Clavulanate Potassium 1 tab 03/07/19 17:30 03/09/19 10:35 Augmentin - 875mg Tablet PO 1 tab BID@0800,1730 [facility] Administration Bisacodyl 20 mg 03/10/19 14:00 Dulcolax - PO 03/10/19 14:01 ONCE ONE Cyanocobalamin 1,000 mcg 03/02/19 10:00 03/09/19 10:37 Vitamin B12 - PO 1,000 mcg DAILY [facility] Administration Guaifenesin 10 ml 03/09/19 11:39 Robitussin - PO Q6H PRN COUGH Heparin Sodium (Porcine) 1,000 unit 03/03/19 15:51 03/08/19 12:47 Heparin - IVPUSH 1,000 unit PRN PRN Administration Heparin Heparin Sodium (Porcine) 5,000 unit 03/03/19 15:51 03/04/19 11:00 Heparin - IVPUSH 5,000 unit PRN PRN Administration Heparin Heparin Sodium (Porcine) 25, 500 mls @ 16 mls/hr 03/03/19 16:00 03/09/19 10: 31 000 unit/ Sodium Chloride IV 1,300 unit/hr TITR [facility] 26 mls/hr Administration Protocol 800 UNIT/HR Levetiracetam 500 mg 03/01/19 22:00 03/09/19 10:35 Keppra Injection - IVPB 500 mg BID [facility] Administration Metoprolol Succinate 25 mg 03/02/19 10:00 03/09/19 10:35 Toprol Xl - PO 25 mg DAILY [facility] Administration Pantoprazole Sodium 40 mg 03/02/19 10:00 03/09/19 10:35 Protonix Iv IVPUSH 40 mg DAILY [facility] Administration Polyethylene Glycol/Electrolytes 4,000 ml 03/10/19 15:00 Golytely Solution - PO 03/10/19 15:01 ONCE ONE Home Medications Medication Instructions Recorded Aspirin [ASA -] 325 mg PO DAILY 02/07/19 Atorvastatin Ca [Lipitor] 40 mg PO HS 02/07/19 Metoprolol Succinate 25 mg PO DAILY 02/07/19 Coumadin 3 mg PO DAILY 02/26/19 Microbiology 03/02/19 02:10 Blood - Peripheral Venous Blood Culture - Final NO GROWTH AFTER 5 DAYS INCUBATION 03/02/19 02:10 Blood - Peripheral Venous Blood Culture - Final NO GROWTH AFTER 5 DAYS INCUBATION 03/01/19 08:32 Blood - Peripheral Venous Blood Culture - Final NO GROWTH AFTER 5 DAYS INCUBATION 03/01/19 08:10 Blood - Peripheral Venous Blood Culture - Final NO GROWTH AFTER 5 DAYS INCUBATION 03/03/19 17:55 Stool Clostridioides difficile Antigen - Final 03/03/19 17:55 Stool Clostridioides difficile Toxin Assay - Final 02/26/19 16:30 Blood - Arterial Blood Culture - Final NO GROWTH AFTER 5 DAYS INCUBATION 02/26/19 16:30 Blood - Arterial Blood Culture - Final NO GROWTH AFTER 5 DAYS INCUBATION 03/02/19 06:00 Urine - Urine Clean Catch Urine Culture - Final NO GROWTH OBTAINED 02/24/19 19:00 Blood - Peripheral Venous Blood Culture - Final NO GROWTH AFTER 5 DAYS INCUBATION 02/24/19 19:00 Blood - Peripheral Venous Blood Culture - Final NO GROWTH AFTER 5 DAYS INCUBATION 02/26/19 17:00 Urine - Urine Perales Urine Culture - Final NO GROWTH OBTAINED 02/25/19 11:00 Sputum - Endotrachea Suction/Ventilator Gram Stain - Final 02/25/19 11:00 Sputum - Endotrachea Suction/Ventilator Sputum Culture - Final Staphylococcus Aureus 02/24/19 16:00 Urine - Urine Perales Urine Culture - Final NO GROWTH OBTAINED ASSESSMENT AND PLAN: 44 y/o lady with h/o HTN, dural vein thrombosis , and hemorrhagic stroke, a previous seizure, and ETOH abuse who presented with seizures.She was intubated and admitted to ICU # Acute hypoxic resp failure. resolved s/p intubation # Seizures /status epilepticus: resolved. No recurrence. on Keppra BID, EEG was completed . Report pending # Fever. sepsis : resolved on oral augemntin s/p iv antibx # HTN: on Toprol XL # Iron def anemia s/p EGD on IV heparin, is going for colonscopy on Monday and will resume eliquis post colonoscopy # H/o transverse and sigmoid sinus thrombosis ;follow complement levels , Lupus anticoagulants, and DsDNA ,ANC p, c pending cont heparin gtt colonoscopy on 03/11 by Visit type - Emergency Visit Emergency Visit: Yes ED Registration Date: 02/24/19 Care time: The patient presented to the Emergency Department on the above date and was hospitalized for further evaluation of their emergent condition. - New Patient This patient is new to me today: No - Critical Care Critical Care patient: No - Discharge Referral Referred to [facility] No
--- NOTE | 2019-03-09 13:33 | PN ---
Progress Note, Physician History of Present Illness: Pt is alert, without distress. c/o dry cough, not noted during exam. No SOB, remains afebrile. - Current Medication List Current Medications: Active Medications Acetaminophen (Tylenol -) 650 mg PO Q6H PRN PRN Reason: FEVER Last Admin: 03/06/19 21:55 Dose: 650 mg Albuterol/Ipratropium (Duoneb -) 1 amp NEB Q6H PRN PRN Reason: SHORTNESS OF BREATH Amoxicillin/Clavulanate Potassium (Augmentin - 875mg Tablet) 1 tab PO BID@0800, 1730 [facility] Last Admin: 03/09/19 10:35 Dose: 1 tab Bisacodyl (Dulcolax -) 20 mg PO ONCE ONE Stop: 03/10/19 14:01 Cyanocobalamin (Vitamin B12 -) 1,000 mcg PO DAILY [facility] Last Admin: 03/09/19 10:37 Dose: 1,000 mcg Guaifenesin (Robitussin -) 10 ml PO Q6H PRN PRN Reason: COUGH Heparin Sodium (Porcine) (Heparin -) 1,000 unit IVPUSH PRN PRN PRN Reason: Heparin Last Admin: 03/08/19 12:47 Dose: 1,000 unit Heparin Sodium (Porcine) (Heparin -) 5,000 unit IVPUSH PRN PRN PRN Reason: Heparin Last Admin: 03/04/19 11:00 Dose: 5,000 unit Heparin Sodium (Porcine) 25, (000 unit/ Sodium Chloride) 500 mls @ 16 mls/hr IV TITR [facility]; Protocol Last Admin: 03/09/19 10:31 Dose: 1,300 unit/hr, 26 mls/hr Levetiracetam (Keppra Injection -) 500 mg IVPB BID [facility] Last Admin: 03/09/19 10:35 Dose: 500 mg Metoprolol Succinate (Toprol Xl -) 25 mg PO DAILY [facility] Last Admin: 03/09/19 10:35 Dose: 25 mg Pantoprazole Sodium (Protonix Iv) 40 mg IVPUSH DAILY [facility] Last Admin: 03/09/19 10:35 Dose: 40 mg Polyethylene Glycol/Electrolytes (Golytely Solution -) 4,000 ml PO ONCE ONE Stop: 03/10/19 15:01 - Objective Vital Signs: Vital Signs Temperature 97.9 F 03/09/19 06:26 Pulse Rate 83 03/09/19 06:26 Respiratory Rate 18 03/09/19 06:26 Blood Pressure 150/93 03/09/19 06:26 O2 Sat by Pulse Oximetry (%) 97 03/08/19 21:00 Constitutional: Yes: No Distress, Calm Cardiovascular: Yes: Regular Rate and Rhythm Respiratory: Yes: Diminished Gastrointestinal: Yes: Normal Bowel Sounds, Soft Genitourinary: Yes: WNL Extremities: Yes: WNL Integumentary: Yes: WNL Neurological: Yes: Alert, Oriented Labs: CBC, BMP 03/09/19 07:50 03/09/19 07:50 INR, PTT INR 1.29 (0.83-1.09) H 03/04/19 07:30 Fibrinogen 397.0 mg/dL (238-498) 02/26/19 08:25 Microbiology 03/02/19 02:10 Blood - Peripheral Venous Blood Culture - Final NO GROWTH AFTER 5 DAYS INCUBATION 03/02/19 02:10 Blood - Peripheral Venous Blood Culture - Final NO GROWTH AFTER 5 DAYS INCUBATION 03/01/19 08:32 Blood - Peripheral Venous Blood Culture - Final NO GROWTH AFTER 5 DAYS INCUBATION 03/01/19 08:10 Blood - Peripheral Venous Blood Culture - Final NO GROWTH AFTER 5 DAYS INCUBATION 03/03/19 17:55 Stool Clostridioides difficile Antigen - Final 03/03/19 17:55 Stool Clostridioides difficile Toxin Assay - Final 02/26/19 16:30 Blood - Arterial Blood Culture - Final NO GROWTH AFTER 5 DAYS INCUBATION 02/26/19 16:30 Blood - Arterial Blood Culture - Final NO GROWTH AFTER 5 DAYS INCUBATION 03/02/19 06:00 Urine - Urine Clean Catch Urine Culture - Final NO GROWTH OBTAINED 02/24/19 19:00 Blood - Peripheral Venous Blood Culture - Final NO GROWTH AFTER 5 DAYS INCUBATION 02/24/19 19:00 Blood - Peripheral Venous Blood Culture - Final NO GROWTH AFTER 5 DAYS INCUBATION 02/26/19 17:00 Urine - Urine Perales Urine Culture - Final NO GROWTH OBTAINED 02/25/19 11:00 Sputum - Endotrachea Suction/Ventilator Gram Stain - Final 02/25/19 11:00 Sputum - Endotrachea Suction/Ventilator Sputum Culture - Final Staphylococcus Aureus 02/24/19 16:00 Urine - Urine Perales Urine Culture - Final NO GROWTH OBTAINED Problem List - Problems (1) Anemia Code(s): D64.9 - ANEMIA, UNSPECIFIED (2) Cerebral venous sinus thrombosis Code(s): G08 - INTRACRANIAL AND INTRASPINAL PHLEBITIS AND THROMBOPHLEBITIS (3) HTN (hypertension) Code(s): I10 - ESSENTIAL (PRIMARY) HYPERTENSION (4) Pneumonia Code(s): J18.9 - PNEUMONIA, UNSPECIFIED ORGANISM (5) Seizure Code(s): R56.9 - UNSPECIFIED CONVULSIONS Assessment/Plan Status Epilepticus Acute Respiratory Failure - extubated Pneumonia likely Aspiration/MSSA isolated as well Sepsis - resolved Lactic Acidosis Alcohol Abuse Cocaine Use h/o Dural [place]este Sinus Thrombosis HTN Anemia -- continue Augmentin -- fevers resolved, no respiratory distress -- awaiting Colonoscopy continue monitor
[2019-03-09] MEDS: HEPARIN NA (PORCINE) 5,000 UNITS/ML 1ML VIAL IVPUSH PRN (19:14)
[2019-03-10] MEDS ORDERED: PT OWN MED DRAWER 7, Y5N ONE ×2 (02:27→10:26)
[2019-03-10] MEDS: HEPARIN - 25,000 UNIT in SODIUM CHLORIDE 495 ML IV SCH ×2 (03:05→16:05)
[2019-03-10] MEDS: AMOX TR/POT CLAV 875MG/125MG TABLETS (FP) PO SCH ×2 (10:22→17:21)
[2019-03-10] MEDS: metoPROLOL SUCCINATE 25 MG TAB.SR.24H (FP) PO SCH (10:23)
[2019-03-10] MEDS: levETIRAcetam 500 MG/5 ML INJECTION VIAL IVPB SCH ×2 (10:23→22:19)
[2019-03-10] MEDS: PANTOPRAZOLE SODIUM 40 MG VIAL IVPUSH SCH (10:23)
[2019-03-10] MEDS: CYANOCOBALAMIN 1,000 MCG TABLET (FP) PO SCH (10:26)
--- NOTE | 2019-03-10 12:28 | PN ---
Progress Note (short form) - Note Progress Note: PULMONARY Still with nonproductive cough. No fevers. For colonoscopy tomorrow. Vital Signs Period Temp Pulse Resp BP Sys/Ruano Pulse Ox Last 24 Hr 97.6 F-97.8 F 65-69 20-20 112-139/73-85 96 Gen: NAD at rest Heart: RRR Lung: decreased breath sounds at the bases Abd: soft, nontender Ext: no edema CBC, BMP 03/09/19 07:50 03/09/19 07:50 Active Medications Acetaminophen (Tylenol -) 650 mg PO Q6H PRN PRN Reason: FEVER Last Admin: 03/06/19 21:55 Dose: 650 mg Albuterol/Ipratropium (Duoneb -) 1 amp NEB Q6H PRN PRN Reason: SHORTNESS OF BREATH Amoxicillin/Clavulanate Potassium (Augmentin - 875mg Tablet) 1 tab PO BID@0800, 1730 [facility] Last Admin: 03/10/19 10:22 Dose: 1 tab Bisacodyl (Dulcolax -) 20 mg PO ONCE ONE Stop: 03/10/19 14:01 Cyanocobalamin (Vitamin B12 -) 1,000 mcg PO DAILY [facility] Last Admin: 03/10/19 10:26 Dose: 1,000 mcg Guaifenesin (Robitussin -) 10 ml PO Q6H PRN PRN Reason: COUGH Last Admin: 03/09/19 17:47 Dose: 10 ml Heparin Sodium (Porcine) (Heparin -) 1,000 unit IVPUSH PRN PRN PRN Reason: Heparin Last Admin: 03/09/19 19:14 Dose: 1,000 unit Heparin Sodium (Porcine) (Heparin -) 5,000 unit IVPUSH PRN PRN PRN Reason: Heparin Last Admin: 03/04/19 11:00 Dose: 5,000 unit Heparin Sodium (Porcine) 25, (000 unit/ Sodium Chloride) 500 mls @ 16 mls/hr IV TITR [facility]; Protocol Last Admin: 03/10/19 03:05 Dose: 1,400 unit/hr, 28 mls/hr Levetiracetam (Keppra Injection -) 500 mg IVPB BID [facility] Last Admin: 03/10/19 10:23 Dose: 500 mg Metoprolol Succinate (Toprol Xl -) 25 mg PO DAILY [facility] Last Admin: 03/10/19 10:23 Dose: 25 mg Pantoprazole Sodium (Protonix Iv) 40 mg IVPUSH DAILY [facility] Last Admin: 03/10/19 10:23 Dose: 40 mg Polyethylene Glycol/Electrolytes (Golytely Solution -) 4,000 ml PO ONCE ONE Stop: 03/10/19 15:01 A/P s/p Status Epilepticus s/p Acute Respiratory Failure Pneumonia likely Aspiration Sepsis Lactic Acidosis Alcohol Abuse Cocaine Use h/o Dural Celeste Sinus Thrombosis HTN Anemia - antiepileptics - continue antibiotics as per ID - monitor fever curve, WBC trend - monitor urine output, creatinine - continue anticoagulation to target INR 2-3, resume oral anticoagulation when ok with GI - for colonoscopy tomorrow, no pulmonary contraindications - DVT/GI prophylaxis
[2019-03-10] MEDS ORDERED: BISACODYL 5 MG TABLET.DR (FP) PO ONE (14:00)
[2019-03-10] MEDS ORDERED: PEG 3350/NA SULF BICARB CL/KCL 4000 ML SOLN.RECON PO ONE (15:00)
--- NOTE | 2019-03-10 17:33 | PN ---
Progress Note, Physician History of Present Illness: Pt without respiratory distress. Denies SOB/productive cough, remains afebrile. - Current Medication List Current Medications: Active Medications Acetaminophen (Tylenol -) 650 mg PO Q6H PRN PRN Reason: FEVER Last Admin: 03/06/19 21:55 Dose: 650 mg Albuterol/Ipratropium (Duoneb -) 1 amp NEB Q6H PRN PRN Reason: SHORTNESS OF BREATH Amoxicillin/Clavulanate Potassium (Augmentin - 875mg Tablet) 1 tab PO BID@0800, 1730 [facility] Last Admin: 03/10/19 17:21 Dose: 1 tab Cyanocobalamin (Vitamin B12 -) 1,000 mcg PO DAILY [facility] Last Admin: 03/10/19 10:26 Dose: 1,000 mcg Guaifenesin (Robitussin -) 10 ml PO Q6H PRN PRN Reason: COUGH Last Admin: 03/09/19 17:47 Dose: 10 ml Heparin Sodium (Porcine) (Heparin -) 1,000 unit IVPUSH PRN PRN PRN Reason: Heparin Last Admin: 03/09/19 19:14 Dose: 1,000 unit Heparin Sodium (Porcine) (Heparin -) 5,000 unit IVPUSH PRN PRN PRN Reason: Heparin Last Admin: 03/04/19 11:00 Dose: 5,000 unit Heparin Sodium (Porcine) 25, (000 unit/ Sodium Chloride) 500 mls @ 16 mls/hr IV TITR [facility]; Protocol Last Admin: 03/10/19 16:05 Dose: Not Given Levetiracetam (Keppra Injection -) 500 mg IVPB BID [facility] Last Admin: 03/10/19 10:23 Dose: 500 mg Metoprolol Succinate (Toprol Xl -) 25 mg PO DAILY [facility] Last Admin: 03/10/19 10:23 Dose: 25 mg Pantoprazole Sodium (Protonix Iv) 40 mg IVPUSH DAILY [facility] Last Admin: 03/10/19 10:23 Dose: 40 mg - Objective Vital Signs: Vital Signs Temperature 98.2 F 03/10/19 14:07 Pulse Rate 73 03/10/19 14:07 Respiratory Rate 20 03/10/19 09:00 Blood Pressure 121/75 03/10/19 14:07 O2 Sat by Pulse Oximetry (%) 97 03/10/19 09:00 Constitutional: Yes: No Distress, Calm Cardiovascular: Yes: Regular Rate and Rhythm Respiratory: Yes: CTA Bilaterally Gastrointestinal: Yes: Normal Bowel Sounds, Soft Genitourinary: Yes: WNL Edema: No Integumentary: Yes: WNL Neurological: Yes: Alert, Oriented Labs: CBC, BMP 03/09/19 07:50 03/09/19 07:50 INR, PTT INR 1.29 (0.83-1.09) H 03/04/19 07:30 Fibrinogen 397.0 mg/dL (238-498) 02/26/19 08:25 Problem List - Problems (1) Anemia Code(s): D64.9 - ANEMIA, UNSPECIFIED (2) Cerebral venous sinus thrombosis Code(s): G08 - INTRACRANIAL AND INTRASPINAL PHLEBITIS AND THROMBOPHLEBITIS (3) HTN (hypertension) Code(s): I10 - ESSENTIAL (PRIMARY) HYPERTENSION (4) Pneumonia Code(s): J18.9 - PNEUMONIA, UNSPECIFIED ORGANISM (5) Seizure Code(s): R56.9 - UNSPECIFIED CONVULSIONS Assessment/Plan Status Epilepticus Acute Respiratory Failure - extubated Pneumonia likely Aspiration/MSSA isolated as well Sepsis - resolved Lactic Acidosis Alcohol Abuse Cocaine Use h/o Dural [place] Sinus Thrombosis HTN Anemia -- continue antibiotics -- clinically improved -- awaiting Colonoscopy continue monitor
--- NOTE | 2019-03-10 18:17 | PN ---
Progress Note (short form) - Note Progress Note: Patient is comfortable going for colonoscopy in am Vital Signs Temperature 98.2 F 03/10/19 14:07 Pulse Rate 73 03/10/19 14:07 Respiratory Rate 20 03/10/19 09:00 Blood Pressure 121/75 03/10/19 14:07 O2 Sat by Pulse Oximetry (%) 97 03/10/19 09:00 GENERAL: The patient is awake, alert, and fully oriented, in no acute distress. HEAD: Normal with no signs of trauma. EYES: PERRL, extraocular movements intact, sclera anicteric, conjunctiva clear. ENT: Ears normal, oropharynx clear without exudates, moist mucous membranes. NECK: Trachea midline, full range of motion, supple. LUNGS: Breath sounds equal, clear to auscultation bilaterally, no wheezes, no crackles, no accessory muscle use. HEART: Regular rate and rhythm, S1, S2 without murmur, rub or gallop. ABDOMEN: Soft, NT,ND, no guarding, no rebound, no hepatosplenomegaly, no masses. EXTREMITIES: 2+ pulses, warm, well-perfused, no edema. NEUROLOGICAL: Cranial nerves II through XII grossly intact. Normal speech, gait not observed. PSYCH: Normal mood, normal affect. SKIN: Warm, dry, normal turgor, no rashes or lesions noted CBCD WBC 4.9 K/mm3 (4.0-10.0) 03/09/19 07:50 RBC 3.32 M/mm3 (3.60-5.2) L 03/09/19 07:50 Hgb 8.4 GM/dL (10.7-15.3) L 03/09/19 07:50 Hct 25.5 % (32.4-45.2) L 03/09/19 07:50 MCV 76.9 fl (80-96) L 03/09/19 07:50 MCHC 32.8 g/dl (32.0-36.0) 03/09/19 07:50 RDW 18.7 % (11.6-15.6) H 03/09/19 07:50 Plt Count 575 K/MM3 (134-434) H 03/09/19 07:50 MPV 8.6 fl (7.5-11.1) 03/09/19 07:50 CMP Sodium 137 mmol/L (136-145) 03/09/19 07:50 Potassium 4.2 mmol/L (3.5-5.1) 03/09/19 07:50 Chloride 107 mmol/L (98-107) 03/09/19 07:50 Carbon Dioxide 26 mmol/L (21-32) 03/09/19 07:50 Anion Gap 4 MMOL/L (8-16) L 03/09/19 07:50 BUN 10.4 mg/dL (7-18) 03/09/19 07:50 Creatinine 0.5 mg/dL (0.55-1.3) L 03/09/19 07:50 Random Glucose 89 mg/dL (74-106) 03/09/19 07:50 Calcium 8.9 mg/dL (8.5-10.1) 03/09/19 07:50 Total Bilirubin 0.6 mg/dL (0.2-1) 03/02/19 06:00 AST 20 U/L (15-37) 03/02/19 06:00 ALT 13 U/L (13-61) 03/02/19 06:00 Alkaline Phosphatase 87 U/L (45-117) 03/02/19 06:00 Total Protein 6.4 g/dl (6.4-8.2) 03/02/19 06:00 Albumin 2.4 g/dl (3.4-5.0) L 03/02/19 06:00 Current Medications Generic Name Dose Route Start Last Admin Trade Name Freq PRN Reason Stop Dose Admin Acetaminophen 650 mg 03/02/19 14:37 03/06/19 21:55 Tylenol - PO 650 mg Q6H PRN Administration FEVER Albuterol/Ipratropium 1 amp 03/02/19 13:01 Duoneb - NEB Q6H PRN SHORTNESS OF BREATH Amoxicillin/Clavulanate Potassium 1 tab 03/07/19 17:30 03/10/19 17:21 Augmentin - 875mg Tablet PO 1 tab BID@0800,1730 WADE Administration Cyanocobalamin 1,000 mcg 03/02/19 10:00 03/10/19 10:26 Vitamin B12 - PO 1,000 mcg DAILY WADE Administration Guaifenesin 10 ml 03/09/19 11:39 03/09/19 17:47 Robitussin - PO 10 ml Q6H PRN Administration COUGH Heparin Sodium (Porcine) 1,000 unit 03/03/19 15:51 03/09/19 19:14 Heparin - IVPUSH 1,000 unit PRN PRN Administration Heparin Heparin Sodium (Porcine) 5,000 unit 03/03/19 15:51 03/04/19 11:00 Heparin - IVPUSH 5,000 unit PRN PRN Administration Heparin Heparin Sodium (Porcine) 25, 500 mls @ 16 mls/hr 03/03/19 16:00 03/10/19 16: 05 000 unit/ Sodium Chloride IV Not Given TITR WADE Protocol 800 UNIT/HR Levetiracetam 500 mg 03/01/19 22:00 03/10/19 10:23 Keppra Injection - IVPB 500 mg BID WADE Administration Metoprolol Succinate 25 mg 03/02/19 10:00 03/10/19 10:23 Toprol Xl - PO 25 mg DAILY WADE Administration Pantoprazole Sodium 40 mg 03/02/19 10:00 03/10/19 10:23 Protonix Iv IVPUSH 40 mg DAILY WADE Administration Home Medications Medication Instructions Recorded Aspirin [ASA -] 325 mg PO DAILY 02/07/19 Atorvastatin Ca [Lipitor] 40 mg PO HS 02/07/19 Metoprolol Succinate 25 mg PO DAILY 02/07/19 Coumadin 3 mg PO DAILY 02/26/19 Microbiology 03/02/19 02:10 Blood - Peripheral Venous Blood Culture - Final NO GROWTH AFTER 5 DAYS INCUBATION 03/02/19 02:10 Blood - Peripheral Venous Blood Culture - Final NO GROWTH AFTER 5 DAYS INCUBATION 03/01/19 08:32 Blood - Peripheral Venous Blood Culture - Final NO GROWTH AFTER 5 DAYS INCUBATION 03/01/19 08:10 Blood - Peripheral Venous Blood Culture - Final NO GROWTH AFTER 5 DAYS INCUBATION 03/03/19 17:55 Stool Clostridioides difficile Antigen - Final 03/03/19 17:55 Stool Clostridioides difficile Toxin Assay - Final 02/26/19 16:30 Blood - Arterial Blood Culture - Final NO GROWTH AFTER 5 DAYS INCUBATION 02/26/19 16:30 Blood - Arterial Blood Culture - Final NO GROWTH AFTER 5 DAYS INCUBATION 03/02/19 06:00 Urine - Urine Clean Catch Urine Culture - Final NO GROWTH OBTAINED 02/24/19 19:00 Blood - Peripheral Venous Blood Culture - Final NO GROWTH AFTER 5 DAYS INCUBATION 02/24/19 19:00 Blood - Peripheral Venous Blood Culture - Final NO GROWTH AFTER 5 DAYS INCUBATION 02/26/19 17:00 Urine - Urine Perales Urine Culture - Final NO GROWTH OBTAINED 02/25/19 11:00 Sputum - Endotrachea Suction/Ventilator Gram Stain - Final 02/25/19 11:00 Sputum - Endotrachea Suction/Ventilator Sputum Culture - Final Staphylococcus Aureus 02/24/19 16:00 Urine - Urine Perales Urine Culture - Final NO GROWTH OBTAINED ASSESSMENT AND PLAN: 44 y/o lady with h/o HTN, dural vein thrombosis , and hemorrhagic stroke, a previous seizure, and ETOH abuse who presented with seizures.She was intubated and admitted to ICU # Acute hypoxic resp failure. resolved s/p intubation # Seizures /status epilepticus: resolved. No recurrence. on Keppra BID, EEG was completed . Report pending # Fever. sepsis : resolved on oral augemntin s/p iv antibx # HTN: on Toprol XL # Iron def anemia s/p EGD on IV heparin, is going for colonscopy on Monday and will resume eliquis post colonoscopy npo for now # H/o transverse and sigmoid sinus thrombosis ;follow complement levels , Lupus anticoagulants, and DsDNA ,ANC p, c pending cont heparin gtt colonoscopy on 03/11 by Visit type - Emergency Visit Emergency Visit: Yes ED Registration Date: 02/24/19 Care time: The patient presented to the Emergency Department on the above date and was hospitalized for further evaluation of their emergent condition. - New Patient This patient is new to me today: No - Critical Care Critical Care patient: No - Discharge Referral Referred to [facility] Med P.C.: No
[2019-03-11] MEDS: AMOX TR/POT CLAV 875MG/125MG TABLETS (FP) PO SCH (09:55)
[2019-03-11] MEDS: CYANOCOBALAMIN 1,000 MCG TABLET (FP) PO SCH (09:56)
[2019-03-11] MEDS: PANTOPRAZOLE SODIUM 40 MG VIAL IVPUSH SCH (09:56)
[2019-03-11] MEDS: metoPROLOL SUCCINATE 25 MG TAB.SR.24H (FP) PO SCH (10:05)
[2019-03-11] MEDS: levETIRAcetam 500 MG/5 ML INJECTION VIAL IVPB SCH (10:05)
--- NOTE | 2019-03-11 10:24 | PN ---
Progress Note (short form) - Note Progress Note: Feels overall better. Some mild nonproductive cough. No CP or SOB. No fevers. For colonoscopy today. Intake & Output 03/08/19 03/09/19 03/10/19 03/11/19 23:59 23:59 23:59 23:59 Intake Total 1300 1882 2453 1424 Balance 1300 1882 2453 1424 Weight 114 lb 2 oz 118 lb 115 lb 8 oz Last Vital Signs Temp Pulse Resp BP Pulse Ox 97.7 F 62 20 130/76 96 03/11/19 05:25 03/11/19 05:25 03/11/19 05:25 03/11/19 05:25 03/10/19 21:00 Active Medications Acetaminophen (Tylenol -) 650 mg PO Q6H PRN PRN Reason: FEVER Last Admin: 03/06/19 21:55 Dose: 650 mg Albuterol/Ipratropium (Duoneb -) 1 amp NEB Q6H PRN PRN Reason: SHORTNESS OF BREATH Amoxicillin/Clavulanate Potassium (Augmentin - 875mg Tablet) 1 tab PO BID@0800, 1730 [facility] Last Admin: 03/11/19 09:55 Dose: 1 tab Cyanocobalamin (Vitamin B12 -) 1,000 mcg PO DAILY [facility] Last Admin: 03/11/19 09:56 Dose: 1,000 mcg Guaifenesin (Robitussin -) 10 ml PO Q6H PRN PRN Reason: COUGH Last Admin: 03/09/19 17:47 Dose: 10 ml Heparin Sodium (Porcine) (Heparin -) 1,000 unit IVPUSH PRN PRN PRN Reason: Heparin Last Admin: 03/09/19 19:14 Dose: 1,000 unit Heparin Sodium (Porcine) (Heparin -) 5,000 unit IVPUSH PRN PRN PRN Reason: Heparin Last Admin: 03/04/19 11:00 Dose: 5,000 unit Heparin Sodium (Porcine) 25, (000 unit/ Sodium Chloride) 500 mls @ 16 mls/hr IV TITR [facility]; Protocol Last Admin: 03/10/19 16:05 Dose: Not Given Levetiracetam (Keppra Injection -) 500 mg IVPB BID [facility] Last Admin: 03/11/19 10:05 Dose: 500 mg Metoprolol Succinate (Toprol Xl -) 25 mg PO DAILY [facility] Last Admin: 03/11/19 10:05 Dose: 25 mg Pantoprazole Sodium (Protonix Iv) 40 mg IVPUSH DAILY [facility] Last Admin: 03/11/19 09:56 Dose: 40 mg Gen: NAD at rest Heart: RRR Lung: decreased breath sounds at the bases Abd: soft, nontender Ext: no edema Laboratory Results - last 24 hr 03/10/19 10:21 PTT (Actin FS) 82.3 H A/P s/p Status Epilepticus s/p Acute Respiratory Failure Pneumonia likely Aspiration Sepsis Lactic Acidosis Alcohol Abuse Cocaine Use h/o Dural Celeste Sinus Thrombosis HTN Anemia - For colonoscopy today - antiepileptics - continue antibiotics as per ID - monitor fever curve, WBC trend - monitor urine output, creatinine - Will need coumadin to target INR 2-3, resume oral anticoagulation when ok with GI - No pulmonary contraindications for Colonoscopy - DVT/GI prophylaxis Dr Hicks
--- NOTE | 2019-03-11 13:15 | PN ---
Progress Note (short form) - Note Progress Note: Brief GI note Colonoscopy performed today revealing two diminutive polyps at left colon and sigmoid colon, biopsied, otherwise unremarkable. Seen scanned report. Of note, EGD pathology results from 03/06/19 revealing duodenitis, villous blunting and IELs with positive TTG IgA antbodies overall appearing consistent with celiac disease. Recommendations: -Await colon path results. Pending path pt would require repeat colonoscopy in 5 years considering positive family h/o colon ca. -Based on EGD path, as noted above, appears consistent with celiac disease. Spoke with pathologist to comment on Murphy criteria for baseline assessment. -Recommend gluten free diet -Fixture Fabricator Repairer consultation -Pt would require close GI follow up upon discharge Discussed with pt after the procedure Problem List - Problems (1) Microcytic anemia Code(s): D50.9 - IRON DEFICIENCY ANEMIA, UNSPECIFIED
--- NOTE | 2019-03-11 13:54 | PN ---
Progress Note, Physician History of Present Illness: stable no new issues for colonoscopy today - Current Medication List Current Medications: Active Medications Acetaminophen (Tylenol -) 650 mg PO Q6H PRN PRN Reason: FEVER Last Admin: 03/06/19 21:55 Dose: 650 mg Albuterol/Ipratropium (Duoneb -) 1 amp NEB Q6H PRN PRN Reason: SHORTNESS OF BREATH Amoxicillin/Clavulanate Potassium (Augmentin - 875mg Tablet) 1 tab PO BID@0800, 1730 [facility] Last Admin: 03/11/19 09:55 Dose: 1 tab Cyanocobalamin (Vitamin B12 -) 1,000 mcg PO DAILY [facility] Last Admin: 03/11/19 09:56 Dose: 1,000 mcg Guaifenesin (Robitussin -) 10 ml PO Q6H PRN PRN Reason: COUGH Last Admin: 03/09/19 17:47 Dose: 10 ml Heparin Sodium (Porcine) (Heparin -) 1,000 unit IVPUSH PRN PRN PRN Reason: Heparin Last Admin: 03/09/19 19:14 Dose: 1,000 unit Heparin Sodium (Porcine) (Heparin -) 5,000 unit IVPUSH PRN PRN PRN Reason: Heparin Last Admin: 03/04/19 11:00 Dose: 5,000 unit Heparin Sodium (Porcine) 25, (000 unit/ Sodium Chloride) 500 mls @ 16 mls/hr IV TITR [facility]; Protocol Last Admin: 03/10/19 16:05 Dose: Not Given Levetiracetam (Keppra Injection -) 500 mg IVPB BID [facility] Last Admin: 03/11/19 10:05 Dose: 500 mg Metoprolol Succinate (Toprol Xl -) 25 mg PO DAILY [facility] Last Admin: 03/11/19 10:05 Dose: 25 mg Pantoprazole Sodium (Protonix Iv) 40 mg IVPUSH DAILY [facility] Last Admin: 03/11/19 09:56 Dose: 40 mg - Objective Vital Signs: Vital Signs Temperature 98.8 F 03/11/19 12:59 Pulse Rate 68 03/11/19 13:30 Respiratory Rate 18 03/11/19 13:30 Blood Pressure 127/85 03/11/19 13:30 O2 Sat by Pulse Oximetry (%) 100 03/11/19 13:30 Constitutional: Yes: No Distress, Calm Cardiovascular: Yes: Regular Rate and Rhythm Respiratory: Yes: Regular, CTA Bilaterally Gastrointestinal: Yes: Normal Bowel Sounds, Soft Musculoskeletal: Yes: WNL Extremities: Yes: WNL Neurological: Yes: Alert, Oriented Psychiatric: Yes: Alert, Oriented Labs: CBC, BMP 03/09/19 07:50 03/09/19 07:50 INR, PTT INR 1.29 (0.83-1.09) H 03/04/19 07:30 Fibrinogen 397.0 mg/dL (238-498) 02/26/19 08:25 Assessment/Plan Status Epilepticus Acute Respiratory Failure Pneumonia likely Aspiration Sepsis Lactic Acidosis Alcohol Abuse Cocaine Use h/o Dural Celeste Sinus Thrombosis HTN Anemia plan oral meds rest continue current mgmt for colonoscopy rest as per the team
--- NOTE | 2019-03-11 15:47 | PN ---
Physical Exam: SUBJECTIVE: Patient seen and examined Pt is doing well. No overnight event or fevers. Admits to watery diarrhea and RUQ pain, which has improved. Pt is supposedly going to [facility] upon discharge. Denies f/c/n/v/sob/chest pain. OBJECTIVE: Vital Signs Period Temp Pulse Resp BP Sys/Ruano Pulse Ox Last 24 Hr 97.7 F-98.8 F 60-74 18-20 106-141/64-85 96-100 GENERAL: Awake, Alert, oriented x3 Neuro: CN2-12 intact, senstation 5/5, strenght 5/5 EYES: Pupils reactive to light . LUNGS: CTAB HEART: Regular rate, normal S1 and S2 without murmur, rub or gallop. ABDOMEN: RUQ and epigastric tenderness-improved. No guarding or rebound tenderness. Szymanski sign negative. Not distended, normoactive bowel sounds UPPER EXTREMITIES: 2+ pulses, warm, no edema LOWER EXTREMITIES: 2+ pulses, warm, no edema SKIN: Warm, dry Active Medications Current Medications Acetaminophen (Tylenol -) 650 mg PO Q6H PRN PRN Reason: FEVER Last Admin: 03/06/19 21:55 Dose: 650 mg Apixaban (Eliquis -) 5 mg PO BID [facility] Cyanocobalamin (Vitamin B12 -) 1,000 mcg PO DAILY [facility] Last Admin: 03/11/19 09:56 Dose: 1,000 mcg Guaifenesin (Robitussin -) 10 ml PO Q6H PRN PRN Reason: COUGH Last Admin: 03/09/19 17:47 Dose: 10 ml Heparin Sodium (Porcine) (Heparin -) 1,000 unit IVPUSH PRN PRN PRN Reason: Heparin Last Admin: 03/09/19 19:14 Dose: 1,000 unit Heparin Sodium (Porcine) (Heparin -) 5,000 unit IVPUSH PRN PRN PRN Reason: Heparin Last Admin: 03/04/19 11:00 Dose: 5,000 unit Heparin Sodium (Porcine) 25, (000 unit/ Sodium Chloride) 500 mls @ 16 mls/hr IV TITR [facility]; Protocol Last Admin: 03/10/19 16:05 Dose: Not Given Levetiracetam (Keppra Injection -) 500 mg IVPB BID [facility] Last Admin: 03/11/19 10:05 Dose: 500 mg Metoprolol Succinate (Toprol Xl -) 25 mg PO DAILY [facility] Last Admin: 03/11/19 10:05 Dose: 25 mg Pantoprazole Sodium (Protonix Iv) 40 mg IVPUSH DAILY [facility] Last Admin: 03/11/19 09:56 Dose: 40 mg Home Medications Medication Instructions Recorded Aspirin [ASA -] 325 mg PO DAILY 02/07/19 Atorvastatin Ca [Lipitor] 40 mg PO HS 02/07/19 Metoprolol Succinate 25 mg PO DAILY 02/07/19 Apixaban [Eliquis] 5 mg PO BID #60 tablet 03/11/19 Microbiology 03/02/19 02:10 Blood - Peripheral Venous Blood Culture - Final NO GROWTH AFTER 5 DAYS INCUBATION 03/02/19 02:10 Blood - Peripheral Venous Blood Culture - Final NO GROWTH AFTER 5 DAYS INCUBATION 03/01/19 08:32 Blood - Peripheral Venous Blood Culture - Final NO GROWTH AFTER 5 DAYS INCUBATION 03/01/19 08:10 Blood - Peripheral Venous Blood Culture - Final NO GROWTH AFTER 5 DAYS INCUBATION 03/03/19 17:55 Stool Clostridioides difficile Antigen - Final 03/03/19 17:55 Stool Clostridioides difficile Toxin Assay - Final 02/26/19 16:30 Blood - Arterial Blood Culture - Final NO GROWTH AFTER 5 DAYS INCUBATION 02/26/19 16:30 Blood - Arterial Blood Culture - Final NO GROWTH AFTER 5 DAYS INCUBATION 03/02/19 06:00 Urine - Urine Clean Catch Urine Culture - Final NO GROWTH OBTAINED 02/24/19 19:00 Blood - Peripheral Venous Blood Culture - Final NO GROWTH AFTER 5 DAYS INCUBATION 02/24/19 19:00 Blood - Peripheral Venous Blood Culture - Final NO GROWTH AFTER 5 DAYS INCUBATION 02/26/19 17:00 Urine - Urine Perales Urine Culture - Final NO GROWTH OBTAINED 02/25/19 11:00 Sputum - Endotrachea Suction/Ventilator Gram Stain - Final 02/25/19 11:00 Sputum - Endotrachea Suction/Ventilator Sputum Culture - Final Staphylococcus Aureus 02/24/19 16:00 Urine - Urine Perales Urine Culture - Final NO GROWTH OBTAINED ASSESSMENT/PLAN: 44 y/o F, pmh of HTN, alcohol abuse, hx of dural venous thrombosis, and hemorrhagic stroke 3 months ago requiring hospitalization at [facility] (C placed pt on coumadin?), presents today s/p seizures likely 2/2 to seizure medication noncompliance vs withdrawal vs neural injury #S/p Seizures Cont Keppra 500 BID #Fever likely 2/2 to pneumonia Afebrile to date Abx d/juanito #Anemia Likely 2/2 to GI bleed EGD bx results from 03/06/19 reveals duodenitis, villous blunting and IELs with positive TTG IgA antbodies Colonoscopy- findings suggestive of Celiac disease, will need close GI f/u outpt and law office receptionist referral #Diarrhea C-diff negative #Hx of Dural venous thrombosis Pt starting on Eliquis 5 BID at 5 pm today #HTN cont metoprolol F: E: monitor lytes N: clear liquid diet Dispo: medically optimized, colonoscopy suggestive of Celiac disease, eliquis to start tongiht Visit type - Emergency Visit Emergency Visit: Yes ED Registration Date: 02/24/19 Care time: The patient presented to the Emergency Department on the above date and was hospitalized for further evaluation of their emergent condition. - New Patient This patient is new to me today: Yes Date on this admission: 03/12/19 - Critical Care Critical Care patient: No - Discharge Referral Referred to [facility] Med P.C.: No ATTENDING PHYSICIAN STATEMENT I saw and evaluated the patient. I reviewed the resident's note and discussed the case with the resident. I agree with the resident's findings and plan as documented. SUBJECTIVE: OBJECTIVE: ASSESSMENT AND PLAN:
--- NOTE | 2019-03-11 17:13 | PN ---
Teaching Attending Note Name of Resident: Allan Velazquez ATTENDING PHYSICIAN STATEMENT I saw and evaluated the patient. I reviewed the resident's note and discussed the case with the resident. I agree with the resident's findings and plan as documented. SUBJECTIVE: Patient is feeling better with no acute distress. OBJECTIVE: Vital Signs Temperature 98.8 F 03/11/19 12:59 Pulse Rate 68 03/11/19 13:40 Respiratory Rate 18 03/11/19 13:40 Blood Pressure 127/85 03/11/19 13:40 O2 Sat by Pulse Oximetry (%) 100 03/11/19 13:40 GENERAL: The patient is awake, alert, and fully oriented, in no acute distress. HEAD: Normal with no signs of trauma. EYES: PERRL, extraocular movements intact, sclera anicteric, conjunctiva clear. ENT: Ears normal, oropharynx clear without exudates, moist mucous membranes. NECK: Trachea midline, full range of motion, supple. LUNGS: Breath sounds equal, clear to auscultation bilaterally, no wheezes, no crackles, no accessory muscle use. HEART: Regular rate and rhythm, S1, S2 without murmur, rub or gallop. ABDOMEN: Soft, NT,ND, no guarding, no rebound, no hepatosplenomegaly, no masses. EXTREMITIES: 2+ pulses, warm, well-perfused, no edema. NEUROLOGICAL: Cranial nerves II through XII grossly intact. Normal speech, gait is stable . PSYCH: Normal mood, normal affect. SKIN: Warm, dry, normal turgor, no rashes or lesions noted CBCD WBC 4.9 K/mm3 (4.0-10.0) 03/09/19 07:50 RBC 3.32 M/mm3 (3.60-5.2) L 03/09/19 07:50 Hgb 8.4 GM/dL (10.7-15.3) L 03/09/19 07:50 Hct 25.5 % (32.4-45.2) L 03/09/19 07:50 MCV 76.9 fl (80-96) L 03/09/19 07:50 MCHC 32.8 g/dl (32.0-36.0) 03/09/19 07:50 RDW 18.7 % (11.6-15.6) H 03/09/19 07:50 Plt Count 575 K/MM3 (134-434) H 03/09/19 07:50 MPV 8.6 fl (7.5-11.1) 03/09/19 07:50 CMP Sodium 137 mmol/L (136-145) 03/09/19 07:50 Potassium 4.2 mmol/L (3.5-5.1) 03/09/19 07:50 Chloride 107 mmol/L (98-107) 03/09/19 07:50 Carbon Dioxide 26 mmol/L (21-32) 03/09/19 07:50 Anion Gap 4 MMOL/L (8-16) L 03/09/19 07:50 BUN 10.4 mg/dL (7-18) 03/09/19 07:50 Creatinine 0.5 mg/dL (0.55-1.3) L 03/09/19 07:50 Random Glucose 89 mg/dL (74-106) 03/09/19 07:50 Calcium 8.9 mg/dL (8.5-10.1) 03/09/19 07:50 Total Bilirubin 0.6 mg/dL (0.2-1) 03/02/19 06:00 AST 20 U/L (15-37) 03/02/19 06:00 ALT 13 U/L (13-61) 03/02/19 06:00 Alkaline Phosphatase 87 U/L (45-117) 03/02/19 06:00 Total Protein 6.4 g/dl (6.4-8.2) 03/02/19 06:00 Albumin 2.4 g/dl (3.4-5.0) L 03/02/19 06:00 Current Medications Generic Name Dose Route Start Last Admin Trade Name Freq PRN Reason Stop Dose Admin Acetaminophen 650 mg 03/02/19 14:37 03/06/19 21:55 Tylenol - PO 650 mg Q6H PRN Administration FEVER Apixaban 5 mg 03/11/19 17:00 Eliquis - PO BID WADE Cyanocobalamin 1,000 mcg 03/02/19 10:00 03/11/19 09:56 Vitamin B12 - PO 1,000 mcg DAILY WADE Administration Metoprolol Succinate 25 mg 03/02/19 10:00 03/11/19 10:05 Toprol Xl - PO 25 mg DAILY WADE Administration Pantoprazole Sodium 40 mg 03/12/19 10:00 Protonix - PO DAILY [facility] Home Medications Medication Instructions Recorded Atorvastatin Ca [Lipitor] 40 mg PO HS 02/07/19 Metoprolol Succinate 25 mg PO DAILY 02/07/19 Apixaban [Eliquis] 5 mg PO BID #60 tablet 03/11/19 Pantoprazole Sodium [Protonix -] 40 mg PO DAILY tablet.ec 03/11/19 levETIRAcetam [Keppra -] 500 mg PO BID #60 tablet 03/11/19 EGD report: nl mucosa, mild antral gastropathy, bx'd. ASSESSMENT AND PLAN: 44 y/o lady with h/o HTN, dural vein thrombosis , and hemorrhagic stroke, a previous seizure, and ETOH abuse who presented with seizures.She was intubated and admitted to ICU # Acute hypoxic resp failure. resolved s/p intubation # Seizures /status epilepticus: resolved. No recurrence. on Keppra BID, EEG was completed . Report is abnormal , scaned in the chart and reviewed. follow with Neurologist within a week period, # Fever. sepsis : resolved on oral augemntin s/p iv/po antibx # HTN: on Toprol XL # Iron def anemia s/p EGD s/p IV heparin, s/p colonscopy. resume eliquis post colonoscopy , discharge patient to rehab. no aspirin as per Neurologist discussed with . Chromagen daily orally. # H/o transverse and sigmoid sinus thrombosis ;follow complement levels , Lupus anticoagulants, and DsDNA ,ANC p, c pending with the clinic with Dr.Anand castro heparin continue with Eliquis, as per neuro no aspirin just eliquis # s/p colonoscopy DVt px: eliquis dc patient to rehab.
--- NOTE | 2019-03-11 17:38 | DS ---
Physical Exam: SUBJECTIVE: Patient seen and examined Pt is doing well. No overnight event or fevers. Admits to watery diarrhea and RUQ pain, which has improved. Pt is supposedly going to [facility] upon discharge. Denies f/c/n/v/sob/chest pain. OBJECTIVE: Vital Signs Period Temp Pulse Resp BP Sys/Ruano Pulse Ox Last 24 Hr 97.7 F-98.8 F 60-74 18-20 106-141/64-85 96-100 PHYSICAL EXAM GENERAL: Awake, Alert, oriented x3 Neuro: CN2-12 intact, senstation 5/5, strenght 5/5 EYES: Pupils reactive to light . LUNGS: CTAB HEART: Regular rate, normal S1 and S2 without murmur, rub or gallop. ABDOMEN: RUQ and epigastric tenderness-improved. No guarding or rebound tenderness. Szymanski sign negative. Not distended, normoactive bowel sounds UPPER EXTREMITIES: 2+ pulses, warm, no edema LOWER EXTREMITIES: 2+ pulses, warm, no edema SKIN: Warm, dry LABS CBC,CMP WBC 4.9 K/mm3 (4.0-10.0) 03/09/19 07:50 RBC 3.32 M/mm3 (3.60-5.2) L 03/09/19 07:50 Hgb 8.4 GM/dL (10.7-15.3) L 03/09/19 07:50 Hct 25.5 % (32.4-45.2) L 03/09/19 07:50 MCV 76.9 fl (80-96) L 03/09/19 07:50 MCH 25.2 pg (25.7-33.7) L 03/09/19 07:50 MCHC 32.8 g/dl (32.0-36.0) 03/09/19 07:50 RDW 18.7 % (11.6-15.6) H 03/09/19 07:50 Plt Count 575 K/MM3 (134-434) H 03/09/19 07:50 MPV 8.6 fl (7.5-11.1) 03/09/19 07:50 Absolute Neuts (auto) 2.9 K/mm3 (1.5-8.0) 03/04/19 07:30 Neutrophils % 47.0 % (42.8-82.8) D 03/04/19 07:30 Neutrophils % (Manual) 55.7 % (42.8-82.8) 02/25/19 09:00 Band Neutrophils % 20.6 % 02/25/19 09:00 Lymphocytes % 32.0 % (8-40) D 03/04/19 07:30 Lymphocytes % (Manual) 14.4 % (8-40) D 02/25/19 09:00 Monocytes % 9.9 % (3.8-10.2) 03/04/19 07:30 Monocytes % (Manual) 2 % (3.8-10.2) L 02/25/19 09:00 Eosinophils % 10.5 % (0-4.5) H D 03/04/19 07:30 Eosinophils % (Manual) 6.2 % (0-4.5) H D 02/25/19 09:00 Basophils % 0.6 % (0-2.0) 03/04/19 07:30 Basophils % (Manual) 1.0 % (0-2.0) D 02/25/19 09:00 Myelocytes % (Man) 0 % (0-2) 02/25/19 09:00 Promyelocytes % (Man) 0 % (0-2) 02/25/19 09:00 Blast Cells % (Manual) 0 % (0-0) 02/25/19 09:00 Nucleated RBC % 0 % (0-0) 03/04/19 07:30 Metamyelocytes 0 % (0-2) D 02/25/19 09:00 Hypochromia 1+ 02/25/19 09:00 Platelet Estimate Normal 02/25/19 09:00 Polychromasia 0 02/25/19 09:00 Poikilocytosis 1+ 02/25/19 09:00 Anisocytosis 1+ 02/25/19 09:00 Microcytosis 1+ 02/25/19 09:00 Ovalocytes 1+ 02/25/19 09:00 Schistocytes 1+ 02/25/19 09:00 ESR 109 mm/hr (0-20) H 03/03/19 06:50 Retic Count 1.13 % (0.5-1.5) 02/26/19 08:25 Sodium 137 mmol/L (136-145) 03/09/19 07:50 Potassium 4.2 mmol/L (3.5-5.1) 03/09/19 07:50 Chloride 107 mmol/L (98-107) 03/09/19 07:50 Carbon Dioxide 26 mmol/L (21-32) 03/09/19 07:50 Anion Gap 4 MMOL/L (8-16) L 03/09/19 07:50 BUN 10.4 mg/dL (7-18) 03/09/19 07:50 Creatinine 0.5 mg/dL (0.55-1.3) L 03/09/19 07:50 Est GFR (CKD-EPI)AfAm 138.36 03/09/19 07:50 Est GFR (CKD-EPI)NonAf 119.38 03/09/19 07:50 Random Glucose 89 mg/dL (74-106) 03/09/19 07:50 Lactic Acid 1.8 mmol/L (0.4-2.0) 02/25/19 09:00 Calcium 8.9 mg/dL (8.5-10.1) 03/09/19 07:50 Phosphorus 2.3 mg/dL (2.5-4.9) L 03/02/19 06:00 Magnesium 2.1 mg/dL (1.8-2.4) 03/09/19 07:50 Iron 8 ug/dL (50-175) L 02/26/19 08:25 TIBC 250 ug/dL (250-450) 02/26/19 08:25 Iron Saturation 3 % (17.5-39) L 02/26/19 08:25 Unsaturated IBC 242 ug/dL (200-275) 02/26/19 08:25 Transferrin 195 mg/dL (200-370) L 02/26/19 08:25 Ferritin 44.3 ng/ml (8-388) 02/26/19 08:25 Total Bilirubin 0.6 mg/dL (0.2-1) 03/02/19 06:00 AST 20 U/L (15-37) 03/02/19 06:00 ALT 13 U/L (13-61) 03/02/19 06:00 Alkaline Phosphatase 87 U/L (45-117) 03/02/19 06:00 C-Reactive Protein 18.3 MG/DL (0.00-0.3) H 03/02/19 12:20 Total Protein 6.4 g/dl (6.4-8.2) 03/02/19 06:00 Albumin 2.4 g/dl (3.4-5.0) L 03/02/19 06:00 Hlux-0-Gcuqckwvnzor 17 (0-20) 02/26/19 08:25 Vitamin B12 297 pg/ml (193-986) 02/26/19 08:25 Serum Folate 6 ng/mL (3.1-17.5) 02/26/19 08:25 TSH 0.97 uIU/ml (0.358-3.74) 02/26/19 08:25 Serum , Qual Negative 02/24/19 16:00 Current Medications Acetaminophen (Tylenol -) 650 mg PO Q6H PRN PRN Reason: FEVER Last Admin: 03/06/19 21:55 Dose: 650 mg Apixaban (Eliquis -) 5 mg PO BID [facility] Cyanocobalamin (Vitamin B12 -) 1,000 mcg PO DAILY [facility] Last Admin: 03/11/19 09:56 Dose: 1,000 mcg Metoprolol Succinate (Toprol Xl -) 25 mg PO DAILY [facility] Last Admin: 03/11/19 10:05 Dose: 25 mg Pantoprazole Sodium (Protonix -) 40 mg PO DAILY [facility] Home Medications Medication Instructions Recorded Atorvastatin Ca [Lipitor] 40 mg PO HS 02/07/19 Metoprolol Succinate 25 mg PO DAILY 02/07/19 Apixaban [Eliquis] 5 mg PO BID #60 tablet 03/11/19 Iron/C/Folate 6/B12/Zn/Stomach 1 each PO DAILY #30 capsule 03/11/19 [Chromagen Softgel] Pantoprazole Sodium [Protonix -] 40 mg PO DAILY tablet.ec 03/11/19 levETIRAcetam [Keppra -] 500 mg PO BID #60 tablet 03/11/19 Microbiology 03/02/19 02:10 Blood - Peripheral Venous Blood Culture - Final NO GROWTH AFTER 5 DAYS INCUBATION 03/02/19 02:10 Blood - Peripheral Venous Blood Culture - Final NO GROWTH AFTER 5 DAYS INCUBATION 03/01/19 08:32 Blood - Peripheral Venous Blood Culture - Final NO GROWTH AFTER 5 DAYS INCUBATION 03/01/19 08:10 Blood - Peripheral Venous Blood Culture - Final NO GROWTH AFTER 5 DAYS INCUBATION 03/03/19 17:55 Stool Clostridioides difficile Antigen - Final 03/03/19 17:55 Stool Clostridioides difficile Toxin Assay - Final 02/26/19 16:30 Blood - Arterial Blood Culture - Final NO GROWTH AFTER 5 DAYS INCUBATION 02/26/19 16:30 Blood - Arterial Blood Culture - Final NO GROWTH AFTER 5 DAYS INCUBATION 03/02/19 06:00 Urine - Urine Clean Catch Urine Culture - Final NO GROWTH OBTAINED 02/24/19 19:00 Blood - Peripheral Venous Blood Culture - Final NO GROWTH AFTER 5 DAYS INCUBATION 02/24/19 19:00 Blood - Peripheral Venous Blood Culture - Final NO GROWTH AFTER 5 DAYS INCUBATION 02/26/19 17:00 Urine - Urine Perales Urine Culture - Final NO GROWTH OBTAINED 02/25/19 11:00 Sputum - Endotrachea Suction/Ventilator Gram Stain - Final 02/25/19 11:00 Sputum - Endotrachea Suction/Ventilator Sputum Culture - Final Staphylococcus Aureus 02/24/19 16:00 Urine - Urine Perales Urine Culture - Final NO GROWTH OBTAINED HOSPITAL COURSE: Date of Admission:02/24/19 44 y/o F, pmh of HTN, alcohol abuse, hx of dural venous thrombosis, and hemorrhagic stroke 3 months ago requiring hospitalization at [facility] ([facility] placed pt on coumadin?), presents today s/p seizures likely 2/2 to seizure medication noncompliance vs withdrawal vs neural injury. Pt was intubated in the ED due to inability to protect her airway from continuos seizure. She was also found to be positive for cocaine. Pt was treated in ICU and extubated. In the ICU, pt contracted pneumonia and was febrile intermittently. She was treated with abx. Pt was then found to be anemic with a FOBT +. Colonoscopy and Endoscopy was done and found to be evident for likely celiac disease. She was initially on coumadin, but as per recommendation from neuro, pt was started on eliquis and stopped coumadin. She was sent home on eliquis 5 and keppra 500 BID. Pt needed rehab outpt due to hx of drug and alcohol abuse. Therefore, was discharged to [facility]. EGD bx results from 03/06/19 reveals duodenitis, villous blunting and IELs with positive TTG IgA antbodies Colonoscopy- findings suggestive of Celiac disease, will need close GI f/u outpt and gold layer referral CXR- left pleural changes, ET tube above kathy but needs to be slightly retracted #S/p Seizures Cont Keppra 500 BID #Fever likely 2/2 to pneumonia Afebrile to date Abx d/juanito #Anemia Likely 2/2 to GI bleed #Diarrhea C-diff negative #Hx of Dural venous thrombosis Pt starting on Eliquis 5 BID at 5 pm today Date of Discharge: 03/11/19 Minutes to complete discharge: 35 Discharge Summary Problems reviewed: Yes Reason For Visit: SEIZURE Current Active Problems Anemia (Chronic) Condition: Improved - Instructions Diet, Activity, Other Instructions: GLUTEN FREE DIET. WHEAT FREE Diet. You were admitted to the hospital for seizures and pneumonia. While you were in the hospital, we evaluated you with lab work, blood work, imaging including CAT scans, MRI, and x rays. We treated your seizures and pneumonia with medications and your symptoms resolved. We also found that you were anemic for which we did an endoscopy and colonoscopy to investigate the reason for your anemia and they think that you have something called celiac disease- you will need to refrain from any products containing gluten. Follow up with the custodial laborer, Dr. Haynes in 1 week Follow up with your primary care physician within one week Follow up with the neurologist Dr. Munroe within one week Follow up with the sales operations coordinator Dr. Thomson Some changes were made to your medications: Please STOP taking the blood thinner Coumadin Please START taking the blood thinner Eliquis 5mg twice a day Please START taking the Seizure medication KEPPRA 500mg twice daily by mouth Please continue taking all other prescribed medications Please refrain from all illicit drug use. which will cause you to have head bleed and stroke. follow up with Tunnel Heading Supervisor for pathology result of your biopsy. Continue taking Protonix 40mg orally daily Return to the Emergency room, if you experience any worsening of your condition , blood in your stool, uncontrollable seizures, increased bleeding, chest pain, nausea, vomit, shortness of breath. Referrals: Anam Ledesma MD [Staff Physician] - 1 Week Alfredito Haynes DO [Staff Physician] - 1 Week ON STAFF,NOT [Primary Care Provider] - Ochoa Thomson MD [Staff Physician] - 1 Week Camille Munroe MD [Staff Physician] - 1 Week Disposition: HOME - Home Medications Comprehensive Discharge Medication List: Ambulatory Orders Atorvastatin Ca [Lipitor] 40 mg PO HS 02/07/19 Metoprolol Succinate 25 mg PO DAILY 02/07/19 Apixaban [Eliquis] 5 mg PO BID #60 tablet 03/11/19 Iron/C/Folate 6/B12/Zn/Stomach [Chromagen Softgel] 1 each PO DAILY #30 capsule 03/11/19 Pantoprazole Sodium [Protonix -] 40 mg PO DAILY tablet.ec 03/11/19 levETIRAcetam [Keppra -] 500 mg PO BID #60 tablet 03/11/19 This patient is new to me today: Yes Date on this admission: 03/11/19 Emergency Visit: Yes ED Registration Date: 02/24/19 Care time: The patient presented to the Emergency Department on the above date and was hospitalized for further evaluation of their emergent condition. Critical Care patient: No - Discharge Referral Referred to [facility] Med [facility].C[facility] No ATTENDING PHYSICIAN STATEMENT I saw and evaluated the patient. I reviewed the resident's note and discussed the case with the resident. I agree with the resident's findings and plan as documented. SUBJECTIVE: OBJECTIVE: ASSESSMENT AND PLAN:
[2019-03-11] MEDS: APIXABAN 5 MG TABLET PO SCH ×2 (17:51→21:58)
[2019-03-12 08:59] LABS: HEMATOCRIT 28.4 % (32.4-45.2); HEMOGLOBIN 9.3 GM/dL (10.7-15.3); MCH 25.5 pg (25.7-33.7); MCHC 32.6 g/dl (32.0-36.0); MEAN CELL VOLUME 78.4 fl (80-96); MEAN PLT VOLUME 8.1 fl (7.5-11.1); PLATELET COUNT 607 K/MM3 (134-434); RBC 3.62 M/mm3 (3.60-5.2); RDW 20.7 % (11.6-15.6); WHITE BLOOD COUNT 4.6 K/mm3 (4.0-10.0)
[2019-03-12] MEDS: APIXABAN 5 MG TABLET PO SCH (09:54)
[2019-03-12] MEDS: metoPROLOL SUCCINATE 25 MG TAB.SR.24H (FP) PO SCH (09:54)
[2019-03-12] MEDS ORDERED: PANTOPRAZOLE 40 MG TABLET (FP) PO SCH (10:00)
[2019-03-12 10:15] LABS: BLOOD UREA NITROGEN 9.5 mg/dL (7-18); CALCIUM 9.3 mg/dL (8.5-10.1); CREATININE 0.6 mg/dL (0.55-1.3); POTASSIUM 4.4 mmol/L (3.5-5.1)
[2019-03-12] MEDS: CYANOCOBALAMIN 1,000 MCG TABLET (FP) PO SCH (10:17)
--- NOTE | 2019-03-12 12:11 | PN ---
Progress Note, Physician History of Present Illness: stable no new issues - Current Medication List Current Medications: Active Medications Acetaminophen (Tylenol -) 650 mg PO Q6H PRN PRN Reason: FEVER Last Admin: 03/06/19 21:55 Dose: 650 mg Apixaban (Eliquis -) 5 mg PO BID [facility] Last Admin: 03/12/19 09:54 Dose: 5 mg Cyanocobalamin (Vitamin B12 -) 1,000 mcg PO DAILY [facility] Last Admin: 03/12/19 10:17 Dose: 1,000 mcg Metoprolol Succinate (Toprol Xl -) 25 mg PO DAILY [facility] Last Admin: 03/12/19 09:54 Dose: 25 mg Pantoprazole Sodium (Protonix -) 40 mg PO DAILY [facility] Last Admin: 03/12/19 09:54 Dose: 40 mg - Objective Vital Signs: Vital Signs Temperature 97.9 F 03/12/19 10:00 Pulse Rate 81 03/12/19 10:00 Respiratory Rate 18 03/12/19 10:00 Blood Pressure 139/82 03/12/19 10:00 O2 Sat by Pulse Oximetry (%) 100 03/12/19 09:00 Constitutional: Yes: No Distress, Calm Cardiovascular: Yes: S1, S2 Respiratory: Yes: Regular, CTA Bilaterally Gastrointestinal: Yes: Normal Bowel Sounds, Soft Musculoskeletal: Yes: WNL Extremities: Yes: WNL Neurological: Yes: Alert, Oriented Psychiatric: Yes: Alert, Oriented Labs: CBC, BMP 03/12/19 07:35 03/12/19 07:35 INR, PTT INR 1.29 (0.83-1.09) H 03/04/19 07:30 Fibrinogen 397.0 mg/dL (238-498) 02/26/19 08:25 Assessment/Plan Status Epilepticus Acute Respiratory Failure Pneumonia likely Aspiration Sepsis Lactic Acidosis Alcohol Abuse Cocaine Use h/o Dural Sipsey Sinus Thrombosis HTN Anemia plan continue current mgmt rest as per the team
[2019-03-12 13:40] VITALS: BP 126/76; PULSE 73; TEMP 98
--- NOTE | 2019-03-12 15:29 | PN ---
Teaching Attending Note Name of Resident: Allan Velazquez ATTENDING PHYSICIAN STATEMENT I saw and evaluated the patient. I reviewed the resident's note and discussed the case with the resident. I agree with the resident's findings and plan as documented. SUBJECTIVE: Patient is comfortable with no acute distress, no nausea or vomiting. no shortness of breath. OBJECTIVE: Vital Signs Temperature 98.0 F 03/12/19 13:39 Pulse Rate 73 03/12/19 13:39 Respiratory Rate 18 03/12/19 13:39 Blood Pressure 126/76 03/12/19 13:39 O2 Sat by Pulse Oximetry (%) 100 03/12/19 09:00 GENERAL: The patient is awake, alert, and fully oriented, in no acute distress. HEAD: Normal with no signs of trauma. EYES: PERRL, extraocular movements intact, sclera anicteric, conjunctiva clear. ENT: Ears normal, oropharynx clear without exudates, moist mucous membranes. NECK: Trachea midline, full range of motion, supple. LUNGS: Breath sounds equal, clear to auscultation bilaterally, no wheezes, no crackles, no accessory muscle use. HEART: Regular rate and rhythm, S1, S2 without murmur, rub or gallop. ABDOMEN: Soft, NT,ND, no guarding, no rebound, no hepatosplenomegaly, no masses. EXTREMITIES: 2+ pulses, warm, well-perfused, no edema. NEUROLOGICAL: Cranial nerves II through XII grossly intact. Normal speech, gait is stable . PSYCH: Normal mood, normal affect. SKIN: Warm, dry, normal turgor, no rashes or lesions noted CBCD WBC 4.6 K/mm3 (4.0-10.0) 03/12/19 07:35 RBC 3.62 M/mm3 (3.60-5.2) 03/12/19 07:35 Hgb 9.3 GM/dL (10.7-15.3) L 03/12/19 07:35 Hct 28.4 % (32.4-45.2) L 03/12/19 07:35 MCV 78.4 fl (80-96) L 03/12/19 07:35 MCHC 32.6 g/dl (32.0-36.0) 03/12/19 07:35 RDW 20.7 % (11.6-15.6) H 03/12/19 07:35 Plt Count 607 K/MM3 (134-434) H 03/12/19 07:35 MPV 8.1 fl (7.5-11.1) 03/12/19 07:35 CMP Sodium 139 mmol/L (136-145) 03/12/19 07:35 Potassium 4.4 mmol/L (3.5-5.1) 03/12/19 07:35 Chloride 108 mmol/L (98-107) H 03/12/19 07:35 Carbon Dioxide 24 mmol/L (21-32) 03/12/19 07:35 Anion Gap 7 MMOL/L (8-16) L 03/12/19 07:35 BUN 9.5 mg/dL (7-18) 03/12/19 07:35 Creatinine 0.6 mg/dL (0.55-1.3) 03/12/19 07:35 Random Glucose 84 mg/dL (74-106) 03/12/19 07:35 Calcium 9.3 mg/dL (8.5-10.1) 03/12/19 07:35 Total Bilirubin 0.6 mg/dL (0.2-1) 03/02/19 06:00 AST 20 U/L (15-37) 03/02/19 06:00 ALT 13 U/L (13-61) 03/02/19 06:00 Alkaline Phosphatase 87 U/L (45-117) 03/02/19 06:00 Total Protein 6.4 g/dl (6.4-8.2) 03/02/19 06:00 Albumin 2.4 g/dl (3.4-5.0) L 03/02/19 06:00 Current Medications Generic Name Dose Route Start Last Admin Trade Name Freq PRN Reason Stop Dose Admin Acetaminophen 650 mg 03/02/19 14:37 03/06/19 21:55 Tylenol - PO 650 mg Q6H PRN Administration FEVER Apixaban 5 mg 03/11/19 17:00 03/12/19 09:54 Eliquis - PO 5 mg BID WADE Administration Cyanocobalamin 1,000 mcg 03/02/19 10:00 03/12/19 10:17 Vitamin B12 - PO 1,000 mcg DAILY [facility] Administration Metoprolol Succinate 25 mg 03/02/19 10:00 03/12/19 09:54 Toprol Xl - PO 25 mg DAILY [facility] Administration Pantoprazole Sodium 40 mg 03/12/19 10:00 03/12/19 09:54 Protonix - PO 40 mg DAILY [facility] Administration Home Medications Medication Instructions Recorded Atorvastatin Ca [Lipitor] 40 mg PO HS 02/07/19 Metoprolol Succinate 25 mg PO DAILY 02/07/19 Apixaban [Eliquis] 5 mg PO BID #60 tablet 03/11/19 Iron/C/Folate 6/B12/Zn/Stomach 1 each PO DAILY #30 capsule 03/11/19 [Chromagen Softgel] Pantoprazole Sodium [Protonix -] 40 mg PO DAILY tablet.ec 03/11/19 levETIRAcetam [Keppra -] 500 mg PO BID #60 tablet 03/11/19 Pantoprazole Sodium [Protonix] 40 mg PO DAILY #30 tablet. 03/12/19 EGD report: nl mucosa, mild antral gastropathy, bx'd. ASSESSMENT AND PLAN: 44 y/o lady with h/o HTN, dural vein thrombosis , and hemorrhagic stroke, a previous seizure, and ETOH abuse who presented with seizures.She was intubated and admitted to ICU # Acute hypoxic resp failure. resolved s/p intubation # Seizures /status epilepticus: resolved. No recurrence. on Keppra BID, EEG was completed . Report is abnormal , scaned in the chart and reviewed. follow with Neurologist within a week period, # Fever. sepsis : resolved on oral augemntin s/p iv/po antibx # HTN: on Toprol XL # Iron def anemia s/p EGD s/p IV heparin, s/p colonscopy. resume eliquis post colonoscopy , discharge patient to rehab. but patient refused the rehab.no aspirin as per Neurologist. discussed with . Chromagen daily orally since patient has a low Iron. # H/o transverse and sigmoid sinus thrombosis ;follow complement levels , Lupus anticoagulants, and DsDNA ,ANC p, c pending with the clinic with Dr.Anand castro heparin continue with Eliquis, as per neuro no aspirin just eliquis # s/p colonoscopy DVt px: eliquis dc patient home since patient does not want to go to halfway rehab.
--- NOTE | 2019-03-13 17:41 | PATH ---
Surgical Pathology Report Patient Name: ENRIQUE BRONSON [facility]. Rec. #: [id number] /Age/Gender: 1975 (Age: 44) / F Account: [id number] Location: [address] [place] [address] Taken: 03/11/2019 Received: 03/12/2019 Reported: 03/13/2019 Physicians: MD Jerry Moore M.D. Specimen(s) Received A: LEFT COLON POLYP B: SIGMOID POLYP Clinical History Anemia Postoperative diagnosis: Colon polyps Final Diagnosis A. COLON, LEFT, POLYP, BIOPSY: SCANT AMORPHOUS MATERIAL/DEBRIS, INSUFFICIENT FOR DEFINITIVE DIAGNOSIS. B. SIGMOID COLON, POLYP, BIOPSY: POLYPOID COLONIC MUCOSA WITH SMALL LYMPHOID AGGREGATE. Electronically Signed Maritza Mckenzie M.D. Gross Description A. Received in formalin, labeled "biopsy left colon polyp" is a rinaldi, irregular portion of soft tissue measuring less than 0.1 cm. in greatest dimension. Specimen may not survive tissue processing. The specimen is submitted in toto in one cassette. B. Received in formalin, labeled "biopsy sigmoid polyp" is a rinaldi, irregular portion of soft tissue measuring 0.3 cm. in greatest dimension. The specimen is submitted in toto in one cassette. 03/12/201903/12/2019
== END 2019-03-12 16:50 | disposition home or self-care (01) | DRG 720 ==
LOC: JER 15:18 → JICU 16:52 → J6S 03-01 17:38
PROVIDERS: ADMIT Internal Medicine; ATTEND Internal Medicine
PROC: 5A1945Z Respiratory Ventilation, 24-96 Consecutive Hours (ICD-10-PCS; principal; 2019-02-24)
PROC: 0BH17EZ Insertion of Endotracheal Airway into Trachea, Via Natural or Artificial Opening (ICD-10-PCS; 2019-02-24)
PROC: 4A00X4Z Measurement of Central Nervous Electrical Activity, External Approach (ICD-10-PCS; 2019-03-04)
PROC: 0DB98ZX Excision of Duodenum, Via Natural or Artificial Opening Endoscopic, Diagnostic (ICD-10-PCS; 2019-03-06)
PROC: 0DB68ZX Excision of Stomach, Via Natural or Artificial Opening Endoscopic, Diagnostic (ICD-10-PCS; 2019-03-06)
PROC: 0DBM8ZX Excision of Descending Colon, Via Natural or Artificial Opening Endoscopic, Diagnostic (ICD-10-PCS; 2019-03-11)
PROC: 0DBN8ZX Excision of Sigmoid Colon, Via Natural or Artificial Opening Endoscopic, Diagnostic (ICD-10-PCS; 2019-03-11)
DX: A41.9 Sepsis, unspecified organism (principal); J69.0 Pneumonitis due to inhalation of food and vomit; J96.00 Acute respiratory failure, unspecified whether with hypoxia or hypercapnia; E87.2 Acidosis; G40.901 Epilepsy, unspecified, not intractable, with status epilepticus; E83.42 Hypomagnesemia; G93.89 Other specified disorders of brain; T40.5X1A Poisoning by cocaine, accidental (unintentional), initial encounter; I10 Essential (primary) hypertension; Z91.14 Patient's other noncompliance with medication regimen; F10.10 Alcohol abuse, uncomplicated; F14.10 Cocaine abuse, uncomplicated; Z86.718 Personal history of other venous thrombosis and embolism; Z86.73 Personal history of transient ischemic attack (TIA), and cerebral infarction without residual deficits; D72.829 Elevated white blood cell count, unspecified; K64.8 Other hemorrhoids; G43.909 Migraine, unspecified, not intractable, without status migrainosus; I16.0 Hypertensive urgency; D50.9 Iron deficiency anemia, unspecified; R19.5 Other fecal abnormalities; R19.7 Diarrhea, unspecified; B95.61 Methicillin susceptible Staphylococcus aureus infection as the cause of diseases classified elsewhere; K63.5 Polyp of colon; K29.80 Duodenitis without bleeding; Y92.89 Other specified places as the place of occurrence of the external cause
CPT/HCPCS: 36415; 36600; 70450-TC; 70544-TC; 70551-TC; 71045-TC-FY; 76705-TC; 80048; 80053; 80307; 81003; 82272; 82375; 82607; 82728; 82746; 82784; 82803; 83050; 83516; 83520; 83540; 83550; 83605; 83735; 83883; 84100; 84443; 84466; 84703; 85025; 85027; 85044; 85300; 85303; 85306; 85384; 85610; 85613; 85651; 85730; 85732; 86038; 86140; 86146; 86162; 86225; 86256; 86340; 86431; 86850; 86870; 86900; 86901; 86902; 87040; 87070; 87086; 87186; 87205; 87324; 87449; 88305-TC; 93005; 93010; 93306-TC; 94002; 94010; 95816; 99285-25; J0131; J1644; J1756; J7030

== ENCOUNTER 2019-03-12 17:11 | Inpatient (IN) | payer OTHER ==
[2019-03-12 20:12] VITALS: BMI 21.0
--- NOTE | 2019-03-12 20:56 | HP ---
CIWA Score - Admission Criteria [facility] Guidelines: Admission for Medically Managed Detox: Requires at least one of the followin. CIWA greater than 12 2. Seizures within the past 24 hours 3. Delirium tremens within the past 24 hours 4. Hallucinations within the past 24 hours 5. Acute intervention needed for co occurring medical disorder 6. Acute intervention needed for co occurring psychiatric disorder 7. Severe withdrawal that cannot be handled at a lower level of care (continued vomiting, continued diarrhea, abnormal vital signs) requiring intravenous medication and/or fluids 8. Admitting History and Physical - Past Medical History TRY ON BASTER: Yes: Other (See HPI) Cardiovascular: Yes: HTN - Smoking History Smoking history: Unknown if ever smoked Have you smoked in the past 12 months: No - Alcohol/Substance Use Hx Alcohol Use: No Admission ROS [facility] - HPI Chief Complaint: pt here for rehab, h/o alcohol use and cocaine use disorders, discharged today from [facility] after a 2 week stay Allergies/Adverse Reactions: Allergies Allergy/AdvReac Type Severity Reaction Status Date / Time No Known Allergies Allergy Verified 03/12/19 19:57 History of Present Illness: 44 yo with h/o seizures, anemia, ID, DVT/Dural venous thrombosis, hemorrhagic CVA-now with celiac disease- was at [facility] for 2 weeks- after she had a seizure at home and was taken to [facility] ER. Discharge summary below. Pt states she has an active legal case and was told that she needed to come to rehab Pt has a long h/o alcohol use- pt states 3 beers/day cocaine- occ use Discharge summary: 44 y/o F, pmh of HTN, alcohol abuse, hx of dural venous thrombosis, and hemorrhagic stroke 3 months ago requiring hospitalization at [facility] ([facility] placed pt on coumadin?), presents today s/p seizures likely 2/2 to seizure medication noncompliance vs withdrawal vs neural injury. Pt was intubated in the ED due to inability to protect her airway from continuos seizure. She was also found to be positive for cocaine. Pt was treated in ICU and extubated. In the ICU, pt contracted pneumonia and was febrile intermittently. She was treated with abx. Pt was then found to be anemic with a FOBT +. Colonoscopy and Endoscopy was done and found to be evident for likely celiac disease. She was initially on coumadin, but as per recommendation from neuro, pt was started on eliquis and stopped coumadin. She was sent home on eliquis 5 and keppra 500 BID. Pt needed rehab outpt due to hx of drug and alcohol abuse. Therefore, was discharged to [facility]. EGD bx results from 03/06/19 reveals duodenitis, villous blunting and IELs with positive TTG IgA antbodies Colonoscopy- findings suggestive of Celiac disease, will need close GI f/u outpt and gas scrubber operator referral CXR- left pleural changes, ET tube above kathy but needs to be slightly retracted #S/p Seizures Cont Keppra 500 BID #Fever likely 2/2 to pneumonia Afebrile to date Abx d/juanito #Anemia Likely 2/2 to GI bleed #Diarrhea C-diff negative #Hx of Dural venous thrombosis Pt starting on Eliquis 5 BID at 5 pm today - Ebola screening Have you traveled outside of the country in the last 21 days: No (N) Have you had contact with anyone from an Ebola affected area: No Do you have a fever: No - Review of Systems Constitutional: No Symptoms Reported EENT: reports: No Symptoms Reported Respiratory: reports: No Symptoms reported Cardiac: reports: No Symptoms Reported GI: reports: No Symptoms Reported : reports: No Symptoms Reported Musculoskeletal: reports: No Symptoms Reported Integumentary: reports: No Symptoms Reported Neuro: reports: No Symptoms reported Endocrine: reports: No Symptoms Reported Hematology: reports: No Symptoms Reported Psychiatric: reports: No Sypmtoms Reported Other Systems: Reviewed and Negative Patient History - Patient Medical History Hx Chronic Obstructive Pulmonary Disease (COPD): No Hx Cardiac Disorders: Yes (ID) Hx Hypertension: Yes HX Cerebrovascular Accident: Yes (CVA) Hx Seizures: Yes Hx Depression: Yes Other Medical History: CVA, DVT of leg and dural thromobosis, ID - Smoking Cessation Smoking history: Unknown if ever smoked Have you smoked in the past 12 months: No Hx Chewing Tobacco Use: No 'Breaking Loose' booklet given: 03/12/19 - Substance & Tx. History Substance Use Type: Alcohol, Cocaine - Substances abused Cocaine Substance route: Inhalation Frequency: 1-2 times per week Amount used: 1 bag Age of first use: 44 Date of last use: 02/23/19 Alcohol Substance route: Oral Frequency: 1-2 times per week Amount used: 3 beers Age of first use: 44 Date of last use: 02/23/19 Admission Physical Exam S - Vital Signs Vital Signs: Vital Signs - 24 hr 03/12/19 20:06 Temperature 98.2 F Pulse Rate 89 Respiratory 18 Rate Blood Pressure 128/87 - Physical General Appearance: Yes: Within Normal Limits, Thin HEENTM: Yes: Within Normal Limits, Hearing grossly Normal, Normal Voice Respiratory: Yes: Within Normal Limits, Chest Non-Tender, Lungs Clear Neck: Yes: Within Normal Limits, No masses,lesions,Nodules Cardiology: Yes: Within Normal Limits, Regular Rhythm, Regular Rate Abdominal: Yes: Within Normal Limits, Normal Bowel Sounds Back: Yes: Within Normal Limits Musculoskeletal: Yes: Within Normal Limits, full range of Motion Extremities: Yes: Within Normal Limits, Normal Capillary Refill Neurological: Yes: Within Normal Limits, donation specialist II-XII NML intact Integumentary: Yes: Within Normal Limits, Normal Color Lymphatic: Yes: Within Normal Limits - Diagnostic (1) Cocaine use disorder Current Visit: Yes Status: Acute (2) Alcohol use disorder Current Visit: Yes Status: Acute (3) Celiac disease Current Visit: Yes Status: Acute (4) CVA (cerebral vascular accident) Current Visit: Yes Status: Acute (5) DVT (deep venous thrombosis) Current Visit: Yes Status: Acute Breathalyzer - Breathalyzer Breathalyzer: 0 Urine Drug Screen - Test Device Lot number: [id number] Expiration date: 11/14/20 - Control Is test valid?: Yes - Results Drug screen NEGATIVE: Yes Inpatient Rehab Admission - Rehab Decision to Admit Inpatient rehab admission?: Yes - Initial Determination Are CD services needed?: Yes Free of communicable disease: Yes Not in need of hospitalization: Yes - Rehab Admission Criteria Previous failed treatment: Yes Poor recovery environment: Yes Comorbidities: Yes Lacks judgement: No Patient is meeting Inpatient Rehab admission criteria:: Yes (pt has legal issues and needs to complete detox, discharged today from [facility])
[2019-03-12] MEDS ORDERED: P-EPHED 60MG/TRIPROLIDI 2.5MG TABLET PO PRN (21:20)
[2019-03-12] MEDS ORDERED: MAGNESIUM HYDROX 2400MG/30ML ORAL SUSPENSION 30 ML CUP PO PRN (21:20)
[2019-03-12] MEDS ORDERED: MENTHOL/PHENOL 1 EACH UD MM PRN (21:20)
[2019-03-12] MEDS ORDERED: MAGNESIUM CITRATE 300 ML BOTTLE PO PRN (21:20)
[2019-03-12] MEDS ORDERED: LOPERAMIDE HCL 2 MG CAPSULE PO PRN (21:20)
[2019-03-12] MEDS ORDERED: guaiFENesin 200 MG/10 ML 10 ML UNIT-DOSE CUPS PO PRN (21:20)
[2019-03-12] MEDS ORDERED: ACETAMINOPHEN 325 MG TABLET (FP) PO PRN (21:20)
[2019-03-12] MEDS ORDERED: IBUPROFEN 400 MG TABLET (FP) PO PRN (21:20)
[2019-03-12] MEDS ORDERED: MAG HYDROX/AL HYDROX/SIMETH 30 ML UNIT-DOSE CUP PO PRN (21:20)
[2019-03-12] MEDS ORDERED: hydrOXYzine PAMOATE 25 MG CAPSULE (FP) PO PRN (21:20)
[2019-03-12] MEDS ORDERED: TUBERCULIN PPD 5 TU/0.1ML VIAL ID ONE (22:49)
[2019-03-12] MEDS: levETIRAcetam 500 MG TABLET (FP) PO SCH (22:53)
[2019-03-12] MEDS: APIXABAN 5 MG TABLET PO SCH (22:53)
[2019-03-12] MEDS: THIAMINE HCL 100 MG TABLET (FP) PO SCH (22:53)
[2019-03-13] MEDS ORDERED: PRENATAL VITAMINS W/ FOLIC ACID TABLET (FP) PO SCH (10:00)
[2019-03-13] MEDS ORDERED: PATIENT'S OWN MEDICATION (NON-FORMULARY) (Iron/C/Folate 6/B12/Zn/Stomach [Chromagen Softge PO SCH ×2 (10:00)
[2019-03-13] MEDS: levETIRAcetam 500 MG TABLET (FP) PO SCH ×2 (10:21→22:02)
[2019-03-13] MEDS: APIXABAN 5 MG TABLET PO SCH ×2 (10:22→22:02)
[2019-03-13] MEDS: metoPROLOL SUCCINATE 25 MG TAB.SR.24H (FP) PO SCH (15:54)
--- NOTE | 2019-03-13 17:32 | CONSULT ---
[facility] Psychiatric Consult - Data Date of interview: 03/13/19 Admission source: [facility] Identifying data: Patient is a 44 year old female, mother of two, unemployed, domiciled, and is supported by her . This is patient's first admission to rehab at [facility]. Patient admitted to rehab for alcohol and cocaine dependence. Substance Abuse History: Smoking Cessation. Smoking history: Unknown if ever smoked. Have you smoked in the past 12 months: No. Hx Chewing Tobacco Use: No. 'Breaking Loose' booklet given: 03/12/19. - Substance & Tx. History. Substance Use Type: Alcohol, Cocaine. - Substances abused. Cocaine. Substance route: Inhalation. Frequency: 1-2 times per week. Amount used: 1 bag. Age of first use: 44. Date of last use: 02/23/19. Alcohol. Substance route: Oral. Frequency: 1-2 times per week. Amount used: 3 beers. Age of first use: 44. Date of last use: 02/23/19 Medical History: h/o seizures, anemia, AK, DVT/Dural venous thrombosis, hemorrhagic CVA, celiac disease Psychiatric History: Patient's first psychiatric contact was in her 30's at an outpatient clinic due to her depression. Ms. Sanchez was diagnosed with depression and prescribed psychotropic medications. She saw the psychiatrist for several months before discontinuing medications and denies seeing another psychiatrist. Patient denies history of psychiatric hospitalizations and suicide attempt. At present patient reports feeling sad due to her relapsing but is motivated to complete rehab. Physical/Sexual Abuse/Trauma History: denies. Mental Status Exam - Mental Status Exam Alert and Oriented to: Time, Place, Person Cognitive Function: Good Patient Appearance: Well Groomed Mood: Sad Affect: Appropriate Patient Behavior: Appropriate, Cooperative Speech Pattern: Appropriate, Artificially Ventilated Thought Process: Goal Oriented Thought Disorder: Not Present Hallucinations: Denies Suicidal Ideation: Denies Homicidal Ideation: Denies Insight/Judgement: Poor Sleep: Fair Appetite: Fair Muscle strength/Tone: Normal Gait/Station: Normal Psychiatric Findings - Problem List ([place] 1, 2,3) (1) Substance induced mood disorder Current Visit: Yes Status: Acute (2) Alcohol use disorder Current Visit: Yes Status: Acute (3) Cocaine use disorder Current Visit: No Status: Acute - Initial Treatment Plan Initial Treatment Plan: Psychoeducation provided. Rehab in progress. Observation. Patient satisifed with speaking to Psychiatric nurse pracititioner as she considers it therapy. Patient not interested in starting psychotropic medications.
[2019-03-13] MEDS: ATORVASTATIN CA 40 MG TABLET (FP) PO SCH (22:02)
[2019-03-13] MEDS: THIAMINE HCL 100 MG TABLET (FP) PO SCH (22:02)
[2019-03-14] MEDS ORDERED: PT OWN MED DRAWER 7, Y5N ONE (08:34)
[2019-03-14] MEDS: APIXABAN 5 MG TABLET PO SCH ×2 (10:30→21:07)
[2019-03-14] MEDS: levETIRAcetam 500 MG TABLET (FP) PO SCH ×2 (10:30→21:07)
[2019-03-14] MEDS: FERROUS SO4 325 MG TABLET (FP) PO SCH (10:30)
[2019-03-14] MEDS: metoPROLOL SUCCINATE 25 MG TAB.SR.24H (FP) PO SCH (10:31)
[2019-03-14] MEDS: VITAMIN B COMPLEX W/C COMBO TABLET (FP) PO SCH (10:31)
[2019-03-14] MEDS: ATORVASTATIN CA 40 MG TABLET (FP) PO SCH (21:07)
[2019-03-14] MEDS: THIAMINE HCL 100 MG TABLET (FP) PO SCH (21:07)
[2019-03-15] MEDS: VITAMIN B COMPLEX W/C COMBO TABLET (FP) PO SCH (10:10)
[2019-03-15] MEDS: metoPROLOL SUCCINATE 25 MG TAB.SR.24H (FP) PO SCH (10:11)
[2019-03-15] MEDS: APIXABAN 5 MG TABLET PO SCH ×2 (10:11→21:47)
[2019-03-15] MEDS: FERROUS SO4 325 MG TABLET (FP) PO SCH (10:11)
[2019-03-15] MEDS: levETIRAcetam 500 MG TABLET (FP) PO SCH ×2 (10:11→21:47)
[2019-03-15 10:15] LABS: HEMATOCRIT 31.7 % (32.4-45.2); HEMOGLOBIN 10.1 GM/dL (10.7-15.3); MCH 25.6 pg (25.7-33.7); MCHC 31.8 g/dl (32.0-36.0); MEAN CELL VOLUME 80.6 fl (80-96); MEAN PLT VOLUME 8.4 fl (7.5-11.1); PLATELET COUNT 434 K/MM3 (134-434); RBC 3.93 M/mm3 (3.60-5.2); RDW 22.1 % (11.6-15.6); WHITE BLOOD COUNT 5.2 K/mm3 (4.0-10.0)
[2019-03-15] MEDS: ATORVASTATIN CA 40 MG TABLET (FP) PO SCH (21:48)
[2019-03-15] MEDS: THIAMINE HCL 100 MG TABLET (FP) PO SCH (21:48)
[2019-03-15] MEDS ORDERED: PT OWN MED DRAWER 7, Y5N ONE (23:09)
[2019-03-16] MEDS ORDERED: PT OWN MED DRAWER 7, Y5N ONE (08:52)
[2019-03-16] MEDS: VITAMIN B COMPLEX W/C COMBO TABLET (FP) PO SCH (10:10)
[2019-03-16] MEDS: APIXABAN 5 MG TABLET PO SCH ×2 (10:10→21:48)
[2019-03-16] MEDS: levETIRAcetam 500 MG TABLET (FP) PO SCH ×2 (10:10→21:49)
[2019-03-16] MEDS: FERROUS SO4 325 MG TABLET (FP) PO SCH (10:10)
[2019-03-16] MEDS: metoPROLOL SUCCINATE 25 MG TAB.SR.24H (FP) PO SCH (10:10)
[2019-03-16] MEDS: THIAMINE HCL 100 MG TABLET (FP) PO SCH (21:48)
[2019-03-16] MEDS: ATORVASTATIN CA 40 MG TABLET (FP) PO SCH (21:49)
[2019-03-17] MEDS ORDERED: PT OWN MED DRAWER 7, Y5N ONE (08:44)
[2019-03-17] MEDS: levETIRAcetam 500 MG TABLET (FP) PO SCH ×2 (10:13→21:16)
[2019-03-17] MEDS: VITAMIN B COMPLEX W/C COMBO TABLET (FP) PO SCH (10:13)
[2019-03-17] MEDS: APIXABAN 5 MG TABLET PO SCH ×2 (10:13→21:16)
[2019-03-17] MEDS: FERROUS SO4 325 MG TABLET (FP) PO SCH (10:14)
[2019-03-17] MEDS: metoPROLOL SUCCINATE 25 MG TAB.SR.24H (FP) PO SCH (10:14)
[2019-03-17] MEDS: THIAMINE HCL 100 MG TABLET (FP) PO SCH (21:16)
[2019-03-17] MEDS: ATORVASTATIN CA 40 MG TABLET (FP) PO SCH (21:16)
[2019-03-17] MEDS: MELATONIN 5 MG TABLETS PO PRN (21:18)
[2019-03-18] MEDS: FERROUS SO4 325 MG TABLET (FP) PO SCH (10:27)
[2019-03-18] MEDS: VITAMIN B COMPLEX W/C COMBO TABLET (FP) PO SCH (10:27)
[2019-03-18] MEDS: APIXABAN 5 MG TABLET PO SCH ×2 (10:27→21:35)
[2019-03-18] MEDS: metoPROLOL SUCCINATE 25 MG TAB.SR.24H (FP) PO SCH (10:28)
[2019-03-18] MEDS: levETIRAcetam 500 MG TABLET (FP) PO SCH ×2 (10:28→21:35)
[2019-03-18] MEDS: ATORVASTATIN CA 40 MG TABLET (FP) PO SCH (21:35)
[2019-03-18] MEDS: THIAMINE HCL 100 MG TABLET (FP) PO SCH (21:35)
[2019-03-18] MEDS: MELATONIN 5 MG TABLETS PO PRN (21:35)
[2019-03-19] MEDS ORDERED: PT OWN MED DRAWER 7, Y5N ONE (08:37)
[2019-03-19] MEDS: APIXABAN 5 MG TABLET PO SCH ×2 (10:25→21:28)
[2019-03-19] MEDS: metoPROLOL SUCCINATE 25 MG TAB.SR.24H (FP) PO SCH (10:25)
[2019-03-19] MEDS: VITAMIN B COMPLEX W/C COMBO TABLET (FP) PO SCH (10:25)
[2019-03-19] MEDS: levETIRAcetam 500 MG TABLET (FP) PO SCH ×2 (10:25→21:28)
[2019-03-19] MEDS: FERROUS SO4 325 MG TABLET (FP) PO SCH (10:25)
[2019-03-19] MEDS: THIAMINE HCL 100 MG TABLET (FP) PO SCH (21:28)
[2019-03-19] MEDS: MELATONIN 5 MG TABLETS PO PRN (21:28)
[2019-03-19] MEDS: ATORVASTATIN CA 40 MG TABLET (FP) PO SCH (21:28)
[2019-03-20] MEDS: metoPROLOL SUCCINATE 25 MG TAB.SR.24H (FP) PO SCH (10:21)
[2019-03-20] MEDS: APIXABAN 5 MG TABLET PO SCH ×2 (10:21→21:22)
[2019-03-20] MEDS: levETIRAcetam 500 MG TABLET (FP) PO SCH ×2 (10:21→21:22)
[2019-03-20] MEDS: FERROUS SO4 325 MG TABLET (FP) PO SCH (10:21)
[2019-03-20] MEDS: VITAMIN B COMPLEX W/C COMBO TABLET (FP) PO SCH (10:23)
[2019-03-20] MEDS ORDERED: PT OWN MED DRAWER 7, Y5N ONE (10:24)
[2019-03-20] MEDS: THIAMINE HCL 100 MG TABLET (FP) PO SCH (21:22)
[2019-03-20] MEDS: ATORVASTATIN CA 40 MG TABLET (FP) PO SCH (21:22)
[2019-03-20] MEDS: MELATONIN 5 MG TABLETS PO PRN (21:23)
[2019-03-21] MEDS ORDERED: PT OWN MED DRAWER 7, Y5N ONE (08:53)
[2019-03-21] MEDS: VITAMIN B COMPLEX W/C COMBO TABLET (FP) PO SCH (10:19)
[2019-03-21] MEDS: metoPROLOL SUCCINATE 25 MG TAB.SR.24H (FP) PO SCH (10:20)
[2019-03-21] MEDS: FERROUS SO4 325 MG TABLET (FP) PO SCH (10:20)
[2019-03-21] MEDS: APIXABAN 5 MG TABLET PO SCH ×2 (10:20→21:25)
[2019-03-21] MEDS: levETIRAcetam 500 MG TABLET (FP) PO SCH ×2 (10:20→21:25)
--- NOTE | 2019-03-21 13:43 | PN ---
[facility] Progress Note Note: Pt wanted to be seen to review meds- reviewed all meds and the schedule of when she takes them. Pt will continue with current meds and regimen
[2019-03-21] MEDS: THIAMINE HCL 100 MG TABLET (FP) PO SCH (21:25)
[2019-03-21] MEDS: ATORVASTATIN CA 40 MG TABLET (FP) PO SCH (21:25)
[2019-03-21] MEDS: MELATONIN 5 MG TABLETS PO PRN (21:25)
[2019-03-22] MEDS ORDERED: PT OWN MED DRAWER 7, Y5N ONE (08:28)
[2019-03-22] MEDS: VITAMIN B COMPLEX W/C COMBO TABLET (FP) PO SCH (10:21)
[2019-03-22] MEDS: APIXABAN 5 MG TABLET PO SCH ×2 (10:22→21:43)
[2019-03-22] MEDS: metoPROLOL SUCCINATE 25 MG TAB.SR.24H (FP) PO SCH (10:22)
[2019-03-22] MEDS: FERROUS SO4 325 MG TABLET (FP) PO SCH (10:22)
[2019-03-22] MEDS: levETIRAcetam 500 MG TABLET (FP) PO SCH ×2 (10:22→21:43)
[2019-03-22] MEDS: ATORVASTATIN CA 40 MG TABLET (FP) PO SCH (21:43)
[2019-03-22] MEDS: MELATONIN 5 MG TABLETS PO PRN (21:43)
[2019-03-22] MEDS: THIAMINE HCL 100 MG TABLET (FP) PO SCH (21:43)
[2019-03-23] MEDS: VITAMIN B COMPLEX W/C COMBO TABLET (FP) PO SCH (10:17)
[2019-03-23] MEDS: FERROUS SO4 325 MG TABLET (FP) PO SCH (10:18)
[2019-03-23] MEDS: APIXABAN 5 MG TABLET PO SCH ×2 (10:18→21:13)
[2019-03-23] MEDS: levETIRAcetam 500 MG TABLET (FP) PO SCH ×2 (10:18→21:13)
[2019-03-23] MEDS: metoPROLOL SUCCINATE 25 MG TAB.SR.24H (FP) PO SCH (10:18)
[2019-03-23] MEDS: ATORVASTATIN CA 40 MG TABLET (FP) PO SCH (21:13)
[2019-03-23] MEDS: THIAMINE HCL 100 MG TABLET (FP) PO SCH (21:13)
[2019-03-23] MEDS: MELATONIN 5 MG TABLETS PO PRN (21:14)
[2019-03-24 07:44] VITALS: TEMP 98
[2019-03-24] MEDS: levETIRAcetam 500 MG TABLET (FP) PO SCH ×2 (10:44→21:43)
[2019-03-24] MEDS: VITAMIN B COMPLEX W/C COMBO TABLET (FP) PO SCH (10:44)
[2019-03-24] MEDS: FERROUS SO4 325 MG TABLET (FP) PO SCH (10:45)
[2019-03-24] MEDS: metoPROLOL SUCCINATE 25 MG TAB.SR.24H (FP) PO SCH (10:45)
[2019-03-24] MEDS: APIXABAN 5 MG TABLET PO SCH ×2 (10:45→21:43)
[2019-03-24] MEDS: THIAMINE HCL 100 MG TABLET (FP) PO SCH (21:42)
[2019-03-24] MEDS: ATORVASTATIN CA 40 MG TABLET (FP) PO SCH (21:42)
[2019-03-24] MEDS: MELATONIN 5 MG TABLETS PO PRN (21:43)
[2019-03-25] MEDS: FERROUS SO4 325 MG TABLET (FP) PO SCH (10:16)
[2019-03-25] MEDS: APIXABAN 5 MG TABLET PO SCH ×2 (10:16→21:36)
[2019-03-25] MEDS: VITAMIN B COMPLEX W/C COMBO TABLET (FP) PO SCH (10:17)
[2019-03-25] MEDS: metoPROLOL SUCCINATE 25 MG TAB.SR.24H (FP) PO SCH (10:17)
[2019-03-25] MEDS: levETIRAcetam 500 MG TABLET (FP) PO SCH ×2 (10:17→21:36)
--- NOTE | 2019-03-25 15:24 | DS ---
[facility] Rehab Discharge Summary - [facility] Rehab Discharge Summary Admission Date: 03/12/19 Discharge Date: 03/26/19 - History Additional Comments: Pt is a 44 y/o female with a hx of RADHA admitted to rehab and scheduled to discharge on 03/26/19. Pt has been referred to [facility], [place], [place] for CD aftercare treatment. Pt reports she has a primary care provider, Dr. Julio César Kennedy on [facility] in the [place], [place]. Pertinent Past History: Anemia HLD HTN CVA Celiac disease DVT Seizure disorder Mood disorder - Discharge Physical Exam Vital Signs: Vital Signs Temperature 98.0 F 03/25/19 07:25 Pulse Rate 96 H 03/25/19 09:05 Respiratory Rate 18 03/25/19 07:25 Blood Pressure 111/77 03/25/19 09:05 O2 Sat by Pulse Oximetry (%) Pertinent Admission Physical Exam Findings: Laboratory Tests 03/12/19 03/12/19 03/15/19 06:00 20:42 06:50 WBC 5.2 RBC 3.93 Hgb 10.1 L Hct 31.7 L MCV 80.6 MCH 25.6 L MCHC 31.8 L RDW 22.1 H Plt Count 434 D MPV 8.4 POC Urine HCG, Qual Negative Levetiracetam RPR Titer Nonreactive 03/15/19 06:50 WBC RBC Hgb Hct MCV MCH MCHC RDW Plt Count MPV POC Urine HCG, Qual Levetiracetam 12.7 RPR Titer - Treatment Discharge Condition: Discharge condition good Hospital Course: rehabilitated safely and responded well CD aftercare referral accepted - Medication Discharge Medications: Ambulatory Orders Atorvastatin Ca [Lipitor] 40 mg PO HS 02/07/19 Metoprolol Succinate 25 mg PO DAILY 02/07/19 Apixaban [Eliquis] 5 mg PO BID #60 tablet 03/11/19 Iron/C/Folate 6/B12/Zn/Stomach [Chromagen Softgel] 1 each PO DAILY #30 capsule 03/11/19 Aspirin [ASA -] 325 mg PO DAILY 03/12/19 Pantoprazole Sodium [Protonix] 40 mg PO DAILY #30 tablet. 03/12/19 levETIRAcetam [Keppra -] 500 mg PO BID #60 tablet 03/25/19 - Medication-Assisted Treatment (MAT) Medication-Assisted Treatment (MAT): No - Discharge Instructions Diet, activity, other medical instructions: Diet:DEB Activity: oob ad alanna Other medical instructions:follow up with Cd aftercare recommendation as scheduled in D/C package. Follow up with primary care provider for medical management withi - Diagnosis (1) Alcohol use disorder Status: Chronic (2) CVA (cerebral vascular accident) Status: Chronic Qualifiers: Laterality of affected vessel: unspecified (3) Celiac disease Status: Chronic (4) Cocaine use disorder Status: Chronic (5) DVT (deep venous thrombosis) Status: Chronic Qualifiers: Laterality: unspecified laterality (6) Anemia Status: Chronic (7) Seizure Status: Suspected - Follow-up Referral Minutes to complete discharge: 20 - AMA Did Patient Leave Against Medical Advice: No Additional Comments: Rx for Keppra 500 mg po BID #60 electronically sent to [facility] for pat chicken picker after discharge. Pt has other meds ordered while in the [facility] ER to be picked up from pharmacy and has been reminded.
[2019-03-25] MEDS: MELATONIN 5 MG TABLETS PO PRN (21:36)
[2019-03-25] MEDS: ATORVASTATIN CA 40 MG TABLET (FP) PO SCH (21:36)
[2019-03-25] MEDS: THIAMINE HCL 100 MG TABLET (FP) PO SCH (21:36)
[2019-03-26] MEDS ORDERED: PT OWN MED DRAWER 7, Y5N ONE (08:45)
[2019-03-26] MEDS: FERROUS SO4 325 MG TABLET (FP) PO SCH (09:08)
[2019-03-26] MEDS: metoPROLOL SUCCINATE 25 MG TAB.SR.24H (FP) PO SCH (09:08)
[2019-03-26] MEDS: APIXABAN 5 MG TABLET PO SCH (09:08)
[2019-03-26] MEDS: levETIRAcetam 500 MG TABLET (FP) PO SCH (09:08)
[2019-03-26 09:35] VITALS: BP 114/77; PULSE 73
--- NOTE | 2019-03-26 09:58 | PN ---
S Progress Note Note: Pt was discharged this morning as scheduled. Vital Signs - 24 hr 03/26/19 03/26/19 03/26/19 00:30 03:30 07:25 Temperature 98.0 F Pulse Rate 69 Respiratory 16 16 18 Rate Blood Pressure 122/77 03/26/19 09:00 Temperature Pulse Rate 73 Respiratory Rate Blood Pressure 114/77 Alert o x 3 denies s/h/i nad oob ambulating with staedy gait cardiac:s1 s2, rrr lungs:cta,kulwinder. A/P Medically stable D/c pt today.
== END 2019-03-26 09:20 | disposition home or self-care (01) | DRG 772 ==
LOC: YASAS 17:11 → Y3E 20:40
PROVIDERS: ADMIT Neuromusculoskeletal Medicine & OMM; ATTEND Neuromusculoskeletal Medicine & OMM
PROC: HZ42ZZZ Group Counseling for Substance Abuse Treatment, Cognitive-Behavioral (ICD-10-PCS; principal; 2019-03-12)
DX: F10.20 Alcohol dependence, uncomplicated (principal); F14.20 Cocaine dependence, uncomplicated; F32.9 Major depressive disorder, single episode, unspecified; G40.909 Epilepsy, unspecified, not intractable, without status epilepticus; I25.10 Atherosclerotic heart disease of native coronary artery without angina pectoris; I10 Essential (primary) hypertension; I25.2 Old myocardial infarction; D64.9 Anemia, unspecified; E78.5 Hyperlipidemia, unspecified; K90.0 Celiac disease; Z86.718 Personal history of other venous thrombosis and embolism; Z79.01 Long term (current) use of anticoagulants; Z86.73 Personal history of transient ischemic attack (TIA), and cerebral infarction without residual deficits
CPT/HCPCS: 36415; 80177; 81025; 85027; 86593

== ENCOUNTER 2019-04-15 10:15 | Emergency (ER) | payer OTHER ==
[2019-04-15 10:34] VITALS: BP 135/75; PULSE 69; TEMP 98; BMI 21.5
[2019-04-15] MEDS ORDERED: ALBUTEROL SO4 2.5/IPRATROPIUM 0.5 INH SOL 3 ML VIAL.NEB. NEB ONE (11:34)
--- NOTE | 2019-04-15 11:47 | PDOC ---
History of Present Illness - General Chief Complaint: Respiratory Stated Complaint: SOB Time Seen by Provider: 04/15/19 11:17 History Source: Patient Exam Limitations: No Limitations - History of Present Illness Initial Comments: 04/15/19 11:39 Pt is a 44 y/o female who presents to the ED with complaint of difficulty breathing today while walking up hill to her program. She states about a month ago she was admitted to the hospital and intubated secondary to a seizure. As per her significant other, she did not have any breathing issues but they were protecting her breathing secondary to the seizure. She denies any fevers or chills. She denies feeling SOB prior to today. She states that since her intubation, she has had a cough. She states sometimes the cough is dry and sometimes she has sputum production. She states she has a tickle in her throat. She denies any other complaints today. Is this a multiple visit Asthma Patient?: No Timing/Duration: unsure Associated Symptoms: reports: cough, shortness of breath. denies: chest pain, diaphoresis, fever/chills, headaches, loss of appetite, malaise, nausea/vomiting , rash, seizure, syncope, weakness Past History - Past Medical History Allergies/Adverse Reactions: Allergies Allergy/AdvReac Type Severity Reaction Status Date / Time No Known Allergies Allergy Verified 04/15/19 10:35 Home Medications: Ambulatory Orders Atorvastatin Ca [Lipitor] 40 mg PO HS 02/07/19 Metoprolol Succinate 25 mg PO DAILY 02/07/19 Apixaban [Eliquis] 5 mg PO BID #60 tablet 03/11/19 Iron/C/Folate 6/B12/Zn/Stomach [Chromagen Softgel] 1 each PO DAILY #30 capsule 03/11/19 Aspirin [ASA -] 325 mg PO DAILY 03/12/19 Pantoprazole Sodium [Protonix] 40 mg PO DAILY #30 tablet. 03/12/19 levETIRAcetam [Keppra -] 500 mg PO BID #60 tablet 03/25/19 Albuterol Sulfate Inhaler - [Ventolin HFA Inhaler -] 2 inh PO Q6H PRN #1 inh Benzonatate [Tessalon Pearls -] 100 mg PO TID PRN #21 capsule 04/15/19 Asthma: No Cardiac Disorders: Yes ([place]) CVA: Yes (CVA) COPD: No Diabetes: No GI Disorders: No Disorders: No HTN: Yes Seizures: Yes - Immunization History Immunization Up to Date: Yes - Psycho Social/Smoking Cessation Hx Smoking History: Never smoked Have you smoked in the past 12 months: No 'Breaking Loose' booklet given: 03/12/19 Hx Alcohol Use: No Drug/Substance Use Hx: No Substance Use Type: Alcohol, Cocaine Hx Substance Use Treatment: No Review of Systems - Review of Systems Constitutional: No: Chills, Diaphoresis, Fever, Loss of Appetite, Malaise, Night Sweats, Weakness, Weight Stable HEENTM: No: Eye Pain, Ear Pain, Throat Pain, Throat Swelling, Mouth Pain, Difficulty Swallowing, Mouth Swelling Respiratory: Yes: Cough, Shortness of Breath, Wheezing, Productive cough. No: Stridor Cardiac (ROS): No: Chest Pain, Edema, Irregular Heart Rate, Lightheadedness, Palpitations, Chest Tightness ABD/GI: No: Abdominal Distended, Constipated, Diarrhea, Difficulty Swallowing, Nausea, Vomiting, Abdominal cramping Musculoskeletal: No: Back Pain, Joint Pain, Muscle Pain Neurological: No: Headache, Numbness, Paresthesia, Tingling, Weakness, Ataxia, Dizziness Psychiatric: No: Anxiety *Physical Exam - Vital Signs Last Vital Signs Temp Pulse Resp BP Pulse Ox 98.0 F 69 16 135/75 98 04/15/19 10:31 04/15/19 10:31 04/15/19 10:31 04/15/19 10:31 04/15/19 10:31 - Physical Exam 04/15/19 11:53 Pt with slight rhonchi in the right lower No wheezes auscultated No retractions General Appearance: Yes: Nourished, Appropriately Dressed. No: Apparent Distress HEENT: positive: EOMI, Normal Voice. negative: Pharyngeal Erythema, Nasal Congestion, Rhinorrhea Neck: negative: Tender, Trachea midline, Decreased range of motion, Stridor Respiratory/Chest: positive: Rhonchi. negative: Chest Tender, Respiratory Distress, Accessory Muscle Use, Labored Respiration, Rapid RR, Decreased Breath Sounds, Crackles, Rales, Stridor, Wheezing, Dullness Cardiovascular: positive: Regular Rhythm, Regular Rate, S1, S2 Gastrointestinal/Abdominal: positive: Normal Bowel Sounds, Soft. negative: Tender Musculoskeletal: positive: Normal Inspection. negative: CVA Tenderness Integumentary: positive: Normal Color, Dry Neurologic: positive: Fully Oriented, Alert ED Treatment Course - RADIOLOGY Radiology Studies Ordered: Category Date Time Status CHEST PA & LAT [RAD] Stat Radiology 04/15/19 11:34 Ordered Chest X-Ray Result: No Infiltrates, Other (Wet read shows no acute pathology) - Medications Given in the ED: 04/15/19 12:48 Duoneb Medical Decision Making - Medical Decision Making 04/15/19 12:48 Pt is a 44 y/o female with cough and rhonchi consistent with bronchitis. The patient felt better after getting a DUONEB treatment. She will be discharged and follow up with her primary doctor within 1-2 days. She will be discharged with an Rx for an albuterol MDI and Radhasaltish Noel. She understands and agrees with this treatment and plan. The patient and her significant other's questions were answered. Discharge - Discharge Information Problems reviewed: Yes Clinical Impression/Diagnosis: Bronchitis Condition: Stable Disposition: HOME - Additional Discharge Information Prescriptions: Albuterol Sulfate Inhaler - [Ventolin HFA Inhaler -] 2 inh PO Q6H PRN #1 inh PRN Reason: Wheezing Benzonatate [Tessalon Pearls -] 100 mg PO TID PRN #21 capsule PRN Reason: Cough - Follow up/Referral - Patient Discharge Instructions Patient Printed Discharge Instructions: DI for Acute Bronchitis Print Language: FRENCH - Post Discharge Activity Work/Back to School Note: Back to School
--- NOTE | 2019-04-16 10:17 | EKG ---
Test Reason : Blood Pressure : / mmHG Vent. Rate : 058 BPM Atrial Rate : 058 BPM P-R Int : 134 ms QRS Dur : 080 ms QT Int : 412 ms P-R-T Axes : 045 044 049 degrees QTc Int : 404 ms SINUS BRADYCARDIA WITH PREMATURE ATRIAL COMPLEXES POSSIBLE LEFT ATRIAL ENLARGEMENT BORDERLINE ECG WHEN COMPARED WITH ECG OF 24-FEB-2019 15:58, PREMATURE ATRIAL COMPLEXES ARE NOW PRESENT VENT. RATE HAS DECREASED BY 58 BPM Confirmed by MD Edel, Curry ([id number]) on 04/16/2019 10:16:58 AM Referred By: Confirmed By:Curry Hollingsworth MD
== END 2019-04-15 13:05 | disposition home or self-care (01) ==
LOC: JERFT 10:15
PROC: 3E0F7GC Introduction of Other Therapeutic Substance into Respiratory Tract, Via Natural or Artificial Opening (ICD-10-PCS; principal; 2019-04-15)
DX: J20.9 Acute bronchitis, unspecified (principal); I25.10 Atherosclerotic heart disease of native coronary artery without angina pectoris; I10 Essential (primary) hypertension; G40.909 Epilepsy, unspecified, not intractable, without status epilepticus; Z86.73 Personal history of transient ischemic attack (TIA), and cerebral infarction without residual deficits; Z79.01 Long term (current) use of anticoagulants
CPT/HCPCS: 71046-TC-FY; 93005; 93010; 94640; 99282-25

== ENCOUNTER 2019-05-05 15:32 | Emergency (ER) | payer OTHER ==
[2019-05-05 15:36] VITALS: TEMP 97.7; BMI 21.9
[2019-05-05] MEDS ORDERED: METOCLOPRAMIDE HCL INJECTION 10 MG/2 ML VIAL IVPB ONE (18:31)
[2019-05-05] MEDS ORDERED: ACETAMINOPHEN 1000 MG/100 ML VIAL (NON FORMULARY) IVPB ONE (18:31)
[2019-05-05] MEDS ORDERED: SODIUM CHLORIDE 1,000 ML IV STA (18:31)
--- NOTE | 2019-05-05 18:31 | PDOC ---
History of Present Illness - General Chief Complaint: Headache Stated Complaint: HEADACHE Time Seen by Provider: 05/05/19 18:08 History Source: Patient Exam Limitations: No Limitations Past History - Travel Traveled outside of the country in the last 30 days: No Close contact w/someone who was outside of country & ill: No - Past Medical History Allergies/Adverse Reactions: Allergies Allergy/AdvReac Type Severity Reaction Status Date / Time No Known Allergies Allergy Verified 05/05/19 15:36 Home Medications: Ambulatory Orders Atorvastatin Ca [Lipitor] 40 mg PO HS 02/07/19 Metoprolol Succinate 25 mg PO DAILY 02/07/19 Apixaban [Eliquis] 5 mg PO BID #60 tablet 03/11/19 Iron/C/Folate 6/B12/Zn/Stomach [Chromagen Softgel] 1 each PO DAILY #30 capsule 03/11/19 Aspirin [ASA -] 325 mg PO DAILY 03/12/19 Pantoprazole Sodium [Protonix] 40 mg PO DAILY #30 tablet. 03/12/19 levETIRAcetam [Keppra -] 500 mg PO BID #60 tablet 03/25/19 Albuterol Sulfate Inhaler - [Ventolin HFA Inhaler -] 2 inh PO Q6H PRN #1 inh Benzonatate [Tessalon Pearls -] 100 mg PO TID PRN #21 capsule 04/15/19 Asthma: No Cardiac Disorders: Yes ([place]) CVA: Yes (CVA) COPD: No Diabetes: No GI Disorders: No Disorders: No HTN: Yes Seizures: Yes Other medical history: ciliac - Immunization History Immunization Up to Date: Yes - Psycho Social/Smoking Cessation Hx Smoking History: Never smoked Have you smoked in the past 12 months: No 'Breaking Loose' booklet given: 03/12/19 Hx Alcohol Use: No Drug/Substance Use Hx: No Substance Use Type: Alcohol, Cocaine Hx Substance Use Treatment: No Review of Systems - Review of Systems Able to Perform ROS?: Yes Comments:: 05/05/19 18:36 CONSTITUTIONAL: Absent: fever, chills, diaphoresis, generalized weakness, malaise, loss of appetite HEENT: Absent: rhinorrhea, nasal congestion, throat pain, throat swelling, difficulty swallowing, mouth swelling, ear pain, eye pain, visual Changes CARDIOVASCULAR: Absent: chest pain, loss of consciousness, palpitations, irregular heart rate, peripheral edema RESPIRATORY: Absent: cough, shortness of breath, dyspnea with exertion, orthopnea, wheezing, stridor, hemoptysis GASTROINTESTINAL: Absent: abdominal pain, abdominal distension, nausea, vomiting, diarrhea, constipation, melena, hematochezia GENITOURINARY: Absent: dysuria, frequency, urgency, hesitancy, hematuria, flank pain, genital pain MUSCULOSKELETAL: Absent: myalgia, arthralgia, joint swelling SKIN: Absent: rash, itching, pallor HEMATOLOGIC/IMMUNOLOGIC: Absent: easy bleeding, easy bruising, lymphadenopathy, frequent infections ENDOCRINE: Absent: unexplained weight gain, unexplained weight loss, heat intolerance, cold intolerance NEUROLOGIC: Present: Headache Absent:focal weakness or paresthesias, dizziness, unsteady gait, seizure, mental status changes, bladder or bowel incontinence PSYCHIATRIC: Absent: anxiety, depression, suicidal or homicidal ideation, hallucinations. Is the patient limited [place] proficient: No *Physical Exam - Vital Signs Last Vital Signs Temp Pulse Resp BP Pulse Ox 97.7 F 62 18 145/85 100 05/05/19 15:34 05/05/19 15:34 05/05/19 15:34 05/05/19 15:34 05/05/19 15:34 - Physical Exam 05/05/19 20:39 GENERAL: Well developed, well nourished. Awake and alert. No acute distress. HEENT: Normocephalic, atraumatic. PERRLA, EOMI. No conjunctival pallor. Sclera are non- icteric. Moist mucous membranes. Oropharynx is clear. NECK: Supple. Full ROM. No JVD. Carotid pulses 2+ and symmetric, without bruits. No thyromegaly. No lymphadenopathy. CARDIOVASCULAR: Regular rate and rhythm. No murmurs, rubs, or gallops. Distal pulses are 2+ and symmetric. PULMONARY: No evidence of respiratory distress. Lungs clear to auscultation bilaterally. No wheezing, rales or rhonchi. ABDOMINAL: Soft. Non-tender. Non-distended. No rebound or guarding. No organomegaly. Normoactive bowel sounds. MUSCULOSKELETAL Normal range of motion at all joints. No bony deformities or tenderness. No CVA tenderness. EXTREMITIES: No cyanosis. No clubbing. No edema. No calf tenderness. SKIN: Warm and dry. Normal capillary refill. No rashes. No jaundice. NEUROLOGICAL: Alert, awake, appropriate. Cranial nerves 2-12 intact. No deficits to light touch and temperature in face, upper extremities and lower extremities. No motor deficits in the in face, upper extremities and lower extremities. Normoreflexic in the upper and lower extremities. Normal speech. Toes are down- going bilaterally. Gait is normal without ataxia. PSYCHIATRIC: Cooperative. Good eye contact. Appropriate mood and affect. ED Treatment Course - LABORATORY CBC & Chemistry Diagram: 05/05/19 18:53 05/05/19 18:53 Medical Decision Making - Medical Decision Making 05/05/19 20:39 The patient is a 44-year-old female with past medical history of seizure disorder, migraines, DVT, on blood thinners, hypertension, hyperlipidemia, presents to the ER today for headache. She states the headache started yesterday and peaked today. She states this feels like her usual headache pattern but she was unsure as to what medication she could take given her recent diagnosis of seizure disorder. She states that while in the ER her headache started to subside. She was concerned because the last time she had a headache like this she had a seizure. She has not yet seen a neurologist. Denies visual changes, photophobia, phonophobia, lightheadedness and dizziness. A/P: Migraine On exam patient is neurologically intact with no focal deficits. Patient states that she is compliant with her Keppra. She states that this is similar to her normal migraine. Basic labs ordered, no abnormalities noted. Headache completely resolved after Reglan, Benadryl and IV Tylenol Discharge home with neurology follow-up. Multiple referrals given. Strict return precautions given. I discussed the physical exam findings, ancillary test results and final diagnoses with the patient. I answered all of the patient's questions. The patient was satisfied with the care received and felt comfortable with the discharge plan and treatment plan. The Patient agrees to follow up with the primary care physician/specialist within 24-72 hours. Return precautions were given. Discharge - Discharge Information Problems reviewed: Yes Clinical Impression/Diagnosis: Headache Qualifiers: Headache type: unspecified Headache chronicity pattern: acute headache Intractability: not intractable Qualified Code(s): R51 - Headache Condition: Stable Disposition: HOME - Admission No - Follow up/Referral Referrals: Ashu Motley MD [Staff Physician] - Ricardo Barger DO [Staff Physician] - Perry Rubio MD [Staff Physician] - - Patient Discharge Instructions Patient Printed Discharge Instructions: DI for Headache Additional Instructions: You were evaluated for your headache today. It is most likely a migraine. You may take Tylenol 650 mg every 4 hours as needed for pain. Please follow-up with neurology as soon as possible. You were given multiple referrals. Continue all your medications as previously prescribed Return to the ER for worsening headache, lightheadedness, dizziness or if you have any changes in your symptoms - Post Discharge Activity Work/Back to School Note: Back to Work
[2019-05-05] MEDS ORDERED: METOCLOPRAMIDE HCL INJECTION 10 MG/2 ML VIAL ONE (18:58)
[2019-05-05] MEDS ORDERED: ACETAMINOPHEN INJECTION 100 ML IVPB ONE (18:59)
[2019-05-05 19:21] LABS: BASO % 0.8 % (0-2.0); EOS % 3.9 % (0-4.5); HEMATOCRIT 37.6 % (32.4-45.2); HEMOGLOBIN 12.3 GM/dL (10.7-15.3); LYMPH % 53.5 % (8-40); MCH 26.6 pg (25.7-33.7); MCHC 32.7 g/dl (32.0-36.0); MEAN CELL VOLUME 81.6 fl (80-96); MEAN PLT VOLUME 8.9 fl (7.5-11.1); MONO % 8.6 % (3.8-10.2); NEUT % 33.2 % (42.8-82.8); PLATELET COUNT 193 K/MM3 (134-434); RBC 4.61 M/mm3 (3.60-5.2); RDW 19.9 % (11.6-15.6); WHITE BLOOD COUNT 6.7 K/mm3 (4.0-10.0)
[2019-05-05 20:02] LABS: ALBUMIN 3.9 g/dl (3.4-5.0); BILIRUBIN,TOTAL 0.2 mg/dL (0.2-1); BLOOD UREA NITROGEN 12.2 mg/dL (7-18); CALCIUM 8.8 mg/dL (8.5-10.1); CREATININE 0.8 mg/dL (0.55-1.3); POTASSIUM 3.9 mmol/L (3.5-5.1); TOT PROT 7.6 g/dl (6.4-8.2)
[2019-05-05 21:20] VITALS: BP 139/81; PULSE 64
== END 2019-05-05 21:05 | disposition home or self-care (01) ==
LOC: JER 15:32
PROC: 3E033NZ Introduction of Analgesics, Hypnotics, Sedatives into Peripheral Vein, Percutaneous Approach (ICD-10-PCS; principal; 2019-05-05)
PROC: 3E033GC Introduction of Other Therapeutic Substance into Peripheral Vein, Percutaneous Approach (ICD-10-PCS; 2019-05-05)
PROC: 3E033GC Introduction of Other Therapeutic Substance into Peripheral Vein, Percutaneous Approach (ICD-10-PCS; 2019-05-05)
DX: G43.909 Migraine, unspecified, not intractable, without status migrainosus (principal); I25.10 Atherosclerotic heart disease of native coronary artery without angina pectoris; I10 Essential (primary) hypertension; I25.2 Old myocardial infarction; G40.909 Epilepsy, unspecified, not intractable, without status epilepticus; Z86.73 Personal history of transient ischemic attack (TIA), and cerebral infarction without residual deficits; Z86.718 Personal history of other venous thrombosis and embolism; Z79.01 Long term (current) use of anticoagulants
CPT/HCPCS: 36415; 80053; 85025; 96374; 96375; 99282-25; J0131; J7030

== ENCOUNTER 2021-07-07 18:29 | Emergency (ER) | payer OTHER ==
[2021-07-07 19:17] VITALS: BP 129/84; PULSE 72; TEMP 97.7; BMI 27.8
[2021-07-07 21:31] LABS: BASO % 0.8 % (0-2.0); EOS % 4.8 % (0-4.5); HEMATOCRIT 32.5 % (32.4-45.2); HEMOGLOBIN 10.5 GM/dL (10.7-15.3); MCH 23.5 pg (25.7-33.7); MCHC 32.2 g/dl (32.0-36.0); MEAN PLT VOLUME 8.3 fl (7.5-11.1); MONO % 9.7 % (3.8-10.2); NEUT % 38.7 % (42.8-82.8); PLATELET COUNT 245 10^3/uL (134-434); RBC 4.45 M/mm3 (3.60-5.2); RDW 17.6 % (11.6-15.6); WHITE BLOOD COUNT 7.4 K/mm3 (4.0-10.0)
[2021-07-07 21:44] LABS: ALBUMIN 3.5 g/dl (3.4-5.0); BLOOD UREA NITROGEN 9.7 mg/dL (7-18); CALCIUM 8.9 mg/dL (8.5-10.1)
[2021-07-07 21:47] LABS: CREATININE 0.8 mg/dL (0.55-1.3)
[2021-07-07 21:49] LABS: BILIRUBIN,TOTAL 0.2 mg/dL (0.2-1); TOT PROT 7.2 g/dl (6.4-8.2)
[2021-07-07 21:52] LABS: N-TERMINAL BNP 28.7 pg/ml (5-125)
== END 2021-07-08 00:51 | disposition home or self-care (01) ==
LOC: JER 18:29
DX: R05.9 Cough, unspecified (principal)
CPT/HCPCS: 36415; 71275-TC; 80053; 83880; 84484; 84703; 85025; 93005; 93010; 99285-25; Q9967

== ENCOUNTER 2022-06-06 13:16 | Day surgery (SDC) | payer OTHER ==
[2022-06-06] MEDS ORDERED: FERRIC CARBOXYMALTOSE 750 MG in SODIUM CHLORIDE 250 ML IVPB ONE (14:30)
[2022-06-06 15:37] VITALS: BP 109/69; PULSE 73; RESP 17; TEMP 98.4
== END 2022-06-06 15:37 | disposition home or self-care (01) ==
LOC: FINFUSION 13:16 → FM/S 13:17 → FINFUSION 15:37
PROVIDERS: ATTEND Family Medicine
PROC: 3E033GC Introduction of Other Therapeutic Substance into Peripheral Vein, Percutaneous Approach (ICD-10-PCS; principal; 2022-06-06)
DX: D50.9 Iron deficiency anemia, unspecified (principal)
CPT/HCPCS: 96365; J1439

== ENCOUNTER 2022-06-17 14:17 | Day surgery (SDC) | payer OTHER ==
[2022-06-17] MEDS ORDERED: FERRIC CARBOXYMALTOSE 750 MG in SODIUM CHLORIDE 250 ML IVPB ONE (15:00)
[2022-06-20 08:18] VITALS: BP 115/70; PULSE 70; RESP 18; TEMP 98.6
== END 2022-06-17 17:22 | disposition home or self-care (01) ==
LOC: FINFUSION 14:17 → FM/S 14:18 → FINFUSION 17:22
PROVIDERS: ATTEND Family Medicine
PROC: 3E033GC Introduction of Other Therapeutic Substance into Peripheral Vein, Percutaneous Approach (ICD-10-PCS; principal; 2022-06-17)
DX: D50.9 Iron deficiency anemia, unspecified (principal)
CPT/HCPCS: 96365; J1439

== ENCOUNTER 2023-06-30 11:02 | Emergency (ER) | payer OTHER ==
[2023-06-30 11:14] VITALS: BP 150/90; PULSE 67; RESP 18; TEMP 98.6; BMI 60.0
[2023-06-30] MEDS ORDERED: ALBUTEROL SO4 2.5/IPRATROPIUM 0.5 INH SOL 3 ML VIAL.NEB. NEB ONE (12:11)
[2023-06-30] MEDS ORDERED: ACETAMINOPHEN INJECTION 100 ML IVPB ONE (12:11)
[2023-06-30] MEDS: SODIUM CHLORIDE 0.9% 500 ML INFUS.BAG IV ONE (12:34)
[2023-06-30] MEDS: ALBUTEROL SO4 2.5/IPRATROPIUM 0.5 INH SOL 3 ML VIAL.NEB. NEB SCH (12:35)
[2023-06-30] MEDS: ACETAMINOPHEN 1000 MG/100 ML BAG IVPB ONE (12:35)
[2023-06-30 12:58] LABS: BASO % 0.9 % (0-2.0); EOS % 4.9 % (0-4.5); HEMATOCRIT 38.5 % (32.4-45.2); HEMOGLOBIN 12.5 GM/dL (10.7-15.3); LYMPH % 47.8 % (8-40); MCH 27.8 pg (25.7-33.7); MCHC 32.3 g/dl (32.0-36.0); MEAN CELL VOLUME 86.2 fl (80-96); MEAN PLT VOLUME 8.6 fl (7.5-11.1); MONO % 8.7 % (3.8-10.2); NEUT % 37.7 % (42.8-82.8); PLATELET COUNT 247 10^3/uL (134-434); RBC 4.47 M/mm3 (3.60-5.2); RDW 14.3 % (11.6-15.6); WHITE BLOOD COUNT 6.7 K/mm3 (4.0-10.0)
[2023-06-30 13:24] LABS: POTASSIUM 4.2 mmol/L (3.5-5.1)
[2023-06-30 13:27] LABS: ALBUMIN 3.3 g/dl (3.4-5.0); CALCIUM 9.1 mg/dL (8.5-10.1)
[2023-06-30 13:31] LABS: BLOOD UREA NITROGEN 3.2 mg/dL (7-18); CREATININE 0.7 mg/dL (0.55-1.3)
[2023-06-30 13:32] LABS: BILIRUBIN,TOTAL 0.3 mg/dL (0.2-1); TOT PROT 7.2 g/dl (6.4-8.2)
[2023-06-30 13:41] LABS: THROAT:GRP A STREP NOT DETECTED (NOTDETECTED)
== END 2023-06-30 14:43 | disposition home or self-care (01) ==
LOC: JER 11:02
PROC: 3E030NZ Introduction of Analgesics, Hypnotics, Sedatives into Peripheral Vein, Open Approach (ICD-10-PCS; principal; 2023-06-30)
PROC: 3E0F7GC Introduction of Other Therapeutic Substance into Respiratory Tract, Via Natural or Artificial Opening (ICD-10-PCS; 2023-06-30)
DX: R06.02 Shortness of breath (principal); R05.9 Cough, unspecified; R51.9 Headache, unspecified; Z20.822 Contact with and (suspected) exposure to COVID-19
CPT/HCPCS: 0241U-QW; 36415; 70450-TC; 71046-TC-FY; 80053; 84703; 85025; 87651; 99285-25; J0131